=== PATIENT | female | born 1985 | race African-American/Black ===

== ENCOUNTER 2017-05-09 22:14 | Emergency (ER) | payer OTHER, SELFPAY ==
--- NOTE | 2017-05-09 22:43 | ER ---
Nurse's Notes [facility] Name: Georgette Patel Age: 32 yrs Sex: Female : 1985 Arrival Date: 05/09/2017 Time: 22:17 Bed 7 Private MD: Diagnosis: Burn of first degree of left thumb (nail) Presentation: 05/09 22:18 Presenting complaint: EMS states: "She was picked up at [facility]. Apparently she was tc3 screened over there and they told her she had to pay money to be seen so she called EMS to bring her here because now her arms are hurting too. VS stable 112/74, 98, 98.3, 100%, 22". Transition of care: Free Standing ER Waiting Room. Onset of symptoms is unknown. Care prior to arrival: MSE performed at [facility]. 22:18 Method Of Arrival: EMS: [facility] tc3 22:18 Acuity: GILES 5 tc3 Triage Assessment: 22:21 General: Appears in no apparent distress. comfortable, obese, unkempt, Behavior is tc3 calm, flat. Pain: Complains of pain in Pad of right thumb and index finger Pain currently is 8 out of 10 on a pain scale. Quality of pain is described as gnawing, Pain began 1 day ago. Is continuous. EENT: No deficits noted. No signs and/or symptoms were reported regarding the EENT system. Neuro: No deficits noted. Level of Consciousness is awake, alert, obeys commands, Oriented to person, place, time, situation. Cardiovascular: No deficits noted. Reports None Heart tones S1 S2 present Capillary refill < 3 seconds in bilateral fingers Patient's skin is warm and dry. Pulses are all present. Edema is absent. Respiratory: No deficits noted. Airway is patent Respiratory effort is even, unlabored, Respiratory pattern is regular, symmetrical, Breath sounds are clear bilaterally. GI: No deficits noted. No signs and/or symptoms were reported involving the gastrointestinal system. Abdomen is non-distended, Bowel sounds present X 4 quads. Abd is soft and non tender X 4 quads. : No deficits noted. No signs and/or symptoms were reported regarding the genitourinary system. Derm: No deficits noted. No signs and/or symptoms reported regarding the dermatologic system. Skin is intact, is healthy with good turgor, Skin is dry, Skin is normal, Skin temperature is warm. Musculoskeletal: No deficits noted. No signs and/or symptoms reported regarding the musculoskeletal system. Circulation, motion, and sensation intact. Range of motion: intact in all extremities. 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 Pneumococcal vaccine is not up to date, Flu vaccine is up to date. - Social history:: Smoking status: Patient uses tobacco products, smokes one pack cigarettes per day. Patient uses street drugs, [place]. Screenin:31 Abuse screen: Denies threats or abuse. Denies injuries from another. Nutritional tc3 screening: No deficits noted. Tuberculosis screening: No symptoms or risk factors identified. Fall Risk None identified. Assessment: 22:30 General: Appears in no apparent distress. uncomfortable, Behavior is calm, cooperative, ar4 Reports Pt. reports, "I smoked [place] and the goss burned my fingers, because I squeezed it in between my fingers.". Pain: Complains of pain in Pt. reports, "The pain is in my fingers, but now I have pain all over my body." Pain does not radiate. Pain currently is 9 out of 10 on a pain scale. Quality of pain is described as burning, Pain began 1 day ago. Is continuous, Alleviated by nothing. Neuro: Level of Consciousness is awake, alert, obeys commands, Oriented to person, place, time, situation, Professional Nurse are equal bilaterally Moves all extremities. Speech is normal, Facial symmetry appears normal, Pupils are PERRLA. Cardiovascular: Heart tones S1 S2 present Capillary refill < 3 seconds is brisk in left fingers Pulses are all present. Rhythm is regular Chest pain is denied. Respiratory: Airway is patent Breath sounds are clear bilaterally. GI: Abdomen is round non-distended, Bowel sounds present X 4 quads. Abd is soft and non tender X 4 quads. : No signs and/or symptoms were reported regarding the genitourinary system. EENT: No signs and/or symptoms were reported regarding the EENT system. Derm: Skin is healthy with good turgor, has blisters on right index finger; right thumb appears to have a mild, charring present Skin is dry, Skin is normal, Skin temperature is warm Reports Pt. reports, "I burned my fingers when I was smoking.". Musculoskeletal: No signs and/or symptoms reported regarding the musculoskeletal system. 22:58 Reassessment: Patient appears in no apparent distress at this time. No changes from tc3 previously documented assessment. Patient and/or family updated on plan of care and expected duration. Pain level reassessed. Patient is alert, oriented x 3, equal unlabored respirations, skin warm/dry/pink. Vital Signs: 22:20 BP 126 / 80; Pulse 104; Resp 16; Temp 98.3; Pulse Ox 100% ; Weight 78.93 kg; Height 4 tc3 ft. 11 in. (149.86 cm); Pain 8/10; 22:30 BP 118 / 78 RA Sitting (auto/); Pulse 96; Resp 15; Pulse Ox 100% on R/A; Pain 9/10; ar4 22:58 BP 120 / 76; Pulse 98; Resp 14; Pulse Ox 100% ; tc3 22:20 Body Mass Index 35.14 (78.93 kg, 149.86 cm) tc3 ED Course: 22:17 Patient arrived in ED. tc3 22:19 Benjamín Garcia MD is Attending Physician. tw4 22:20 Arm band placed on right wrist. tc3 22:25 Triage completed. tc3 22:31 Patient has correct armband on for positive identification. Bed in low position. Call tc3 light in reach. Side rails up X2. Pulse ox on. NIBP on. Warm blanket given. Verbal reassurance given. 22:37 Toya Montelongo, MISHA is Primary Nurse. tc3 23:01 No provider procedures requiring assistance completed. Patient did not have IV access tc3 during this emergency room visit. Administered Medications: 22:37 Drug: Ibuprofen 800 mg Route: PO; tc3 23:00 Follow up: Response: No adverse reaction; Pain is unchanged, physician notified tc3 22:37 Drug: Tylenol #3 (300 mg-30 mg) 1 tablet Route: PO; tc3 23:00 Follow up: Response: No adverse reaction; Pain is unchanged, physician notified tc3 Outcome: 22:42 Discharge ordered by . herson 23:00 Discharged to home ambulatory. tc3 23:00 Condition: stable 23:00 Discharge instructions given to patient, Instructed on discharge instructions, follow up and referral plans. medication usage, Demonstrated understanding of instructions, follow-up care, medications, Prescriptions given X 1. 23:01 Attestation : I concur with the documentation charted by ARELI Garcia. tc3 23:02 Patient left the ED. tc3 Signatures: Toya Montelongo RN RN tc3 Benjamín Garcia MD MD 4 Rocio Blackburn ar4
--- NOTE | 2017-05-09 22:43 | EDPHYS ---
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 Pneumococcal vaccine is not up to date, Flu vaccine is up to date. - Social history:: Smoking status: Patient uses tobacco products, smokes one pack cigarettes per day. Patient uses street drugs, [place]. Vital Signs: 22:20 BP 126 / 80; Pulse 104; Resp 16; Temp 98.3; Pulse Ox 100% ; Weight 78.93 kg; Height 4 tc3 ft. 11 in. (149.86 cm); Pain 8/10; 22:30 BP 118 / 78 RA Sitting (auto/); Pulse 96; Resp 15; Pulse Ox 100% on R/A; Pain 9/10; ar4 22:58 BP 120 / 76; Pulse 98; Resp 14; Pulse Ox 100% ; tc3 22:20 Body Mass Index 35.14 (78.93 kg, 149.86 cm) tc3 MDM: 22:19 Patient medically screened. tw4 Administered Medications: 22:37 Drug: Ibuprofen 800 mg Route: PO; tc3 23:00 Follow up: Response: No adverse reaction; Pain is unchanged, physician notified tc3 22:37 Drug: Tylenol #3 (300 mg-30 mg) 1 tablet Route: PO; tc3 23:00 Follow up: Response: No adverse reaction; Pain is unchanged, physician notified tc3 Disposition: 05/09/17 22:42 Discharged to Home. Impression: Burn of first degree of left thumb (nail). - Condition is Stable. - Discharge Instructions: Burn Care, [id number]. - Prescriptions for Ibuprofen 800 mg Oral Tablet - take 1 tablet by ORAL route every 8 hours As needed take with food; 30 tablet. - Medication Reconciliation Form, Thank You Letter, Antibiotic Education, Presription Opioid Use form. - Follow up: Private Physician; When: As needed; Reason: Recheck today's complaints, Continuance of care, Re-evaluation by your physician. - Problem is new. - Symptoms have improved. Addendum: 06/30/2017 10:56 Addendum: Pt is a 32 year old female that was seen at [facility] for a burn on her left t w4 thumb an hour ago. Pt states that now her left arm is hurting. Pt has no other symptoms at this time.. Addendum: ROS: Constitutional: negative for chills fever, malaise CV: negative for CP, MORTON, palpitation Resp: negative for SOB,MORTON Skin positive for burn of left thumb All other symptoms negative except as marked. Addendum: PE: General: well developed female in NAD CV: RRR, nl S1 S2 Resp: CTAB, no wheezing Ext: 2cm first degree burn dolar aspect of left thumb, mild tenderness, left arm negative for deformity edema, good ROM. Signatures: Toya Montelongo, RN RN tc3 Benjamín Garcia MD MD tw4
[2017-05-09] MEDS ORDERED: CODEINE 30MG/APAP 300MG TAB ONE (22:52)
[2017-05-09] MEDS ORDERED: IBUPROFEN 400 MG TAB ONE (22:52)
[2017-05-09 23:24] VITALS: TEMP 98.3; O2SAT 100
[2017-05-09 23:26] VITALS: BP 120/76
== END 2017-05-09 23:02 | disposition home or self-care (01) ==
LOC: ER 22:14
DX: T23.112A Burn of first degree of left thumb (nail), initial encounter (principal); X08.8XXA Exposure to other specified smoke, fire and flames, initial encounter; Y93.9 Activity, unspecified; Y92.9 Unspecified place or not applicable; Z88.5 Allergy status to narcotic agent; F17.210 Nicotine dependence, cigarettes, uncomplicated
CPT/HCPCS: 99284

== ENCOUNTER 2017-11-27 12:47 | Emergency (ER) | payer OTHER ==
--- OUTSIDE RECORDS SUMMARY | 2017-11-27 12:49 | XMS REPORT ---
:1985 [facility] Address 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 Allergies, Adverse Reactions, Alerts This patient has no known allergies or adverse reactions. Medications This patient has no known medications. Results Test Description Test Time Test Comments Text Results Atomic Results Result Comments RPR, Qual 2017-05-14 20:27:00 Test Item Value Reference Range Comments RPR (test code=RPR) Non-Reactive Non-Reactive Lipid [id number] 08:20:00 Test Item Value Reference Range Comments Cholesterol (test 116 mg/dL 0-200 code=CHOL) Triglycerides (test 107 mg/dL 9-200 code=TRIG) HDL (test code=HDL) 33 mg/dL 50-60 Chol/HDL (test 3.5 Ratio 0.0-4.4 code=CHOLPHDL) LDL, Calculated (test 62 0-130 (NOTE)RISK OF HEART code=LDLC) DISEASEPublished by [place] Heart AssociationAnalyte Optimal Boderline Increased RiskCHOL <200 200-239 >240TRIG <150 150-199 >200HDL Male: >60 <40HDL Female: >60 <50LDL <100 130-159 >160LDL NEAR OPTIMAL IS 100-129 VLDL (test code=VLDL) 21 mg/dL 5-40 LDL/HDL (test code=LDLPHDL) 2 Thyroid Stimulating Hormone (TSH)2017-05-14 08:20:00 Test Item Value Reference Range Comments TSH (test code=TSH) 1.96 mIU/mL 0.270-4.200 BHCG, Serum, [id number] 08:04:00 Test Item Value Reference Range Comments Preg Qual [Se] (test code=BSHCG) Negative Negative Thyroid Stimulating Hormone (TSH)2016-08-18 21:10:00 Test Item Value Reference Range Comments TSH (test code=TSH) 2.02 mIU/mL 0.270-4.200 RPR, [id number] 18:14:00 Test Item Value Reference Range Comments RPR (test code=RPR) Non-Reactive Non-Reactive BHCG, Serum, [id number] 14:56:00 Test Item Value Reference Range Comments Preg Qual [Se] (test code=BSHCG) Negative Negative Urinalysis [id number] 11:10:00 Test Item Value Reference Range Comments Color (test code=COLOR) Yellow Yellow,Straw,Pl yellow Clarity (test code=CLAR) Sl Cloudy Clear Specific [place] (test 1.030 1.001-1.035 code=SPGR) pH (test code=PH) 5.0 5.0-9.0 Ketone (test code=KET) Negative mg/dL Negative Glucose (test code=GLUCUR) Negative mg/dL Negative Protein (test code=PROT) 25 mg/dL Negative Bilirubin (test code=BILI) See IctoTest mg/dL Negative Occult Blood (test code=UDOB) Negative Negative Urobilinogen (test code=UROB) 0.2 mg/dL 0.2-1.0 Nitrite (test code=NIT) Negative Negative Leuk Esterase (test code=LEUK) Small Negative Ictotest (test code=ICTOTEST) Confirmed Negative Negative,Confirmed Negative Micros Exam (test code=MEXAM) Indicated Epithelial Cells (test 15-19 /LPF 0-30 code=EPI) WBC, Urine (test code=UWBC) 0-5 /HPF 0-5 RBC, Urine (test code=URBC) 0-3 /HPF 0-5 Mucous, Urine (test code=UMUC) Moderate /HPF Bacteria (test code=BACT) Few /HPF [id number] 10:48:00 Test Item Value Reference Range Comments Amphetamine (test code=AMPH) POSITIVE Negative For diagnostic purposes only, positive results should always be assessedin conjunctionwith the patient's medical history,clinical examination and otherfindings.To fulfill legal requirements, a more specific alternate chemical methodmust be used inorder to obtain a Confirmed analytical result. GC/MS is the preferred confirmatory method. Barbiturates (test code=SIGIFREDO) Negative Negative Benzodiazepine (test Negative Negative code=ASHLY) Cocaine (test code=COCA) Negative Negative Methadone (test code=MTHD) Negative Negative Opiates (test code=OPIA) Negative Negative PCP (test code=PCP) Negative Negative Propoxyphene (test Negative Negative code=PROPOX) THC (test code=THC) Negative Negative Alcohol/Ethanol, [id number] 10:25:00 Test Item Value Reference Range Comments Alcohol, Ethyl (test <0.01 g/dL 0.00-0.01 Intoxicated 0.080 g/dL or code=ETOH) more Comprehensive Metabolic [id number] 10:25:00 Test Item Value Reference Range Comments Sodium (test code=NA) 139 mmol/L 135-145 Potassium (test code=K) 3.3 mmol/L 3.5-5.1 Chloride (test code=CL) 99 mmol/L 98-105 Carbon Dioxide (test 28 mmol/L 22-29 code=CO2) Glucose (test code=GLU) 103 mg/dL 70-115 Blood Urea Nitrogen 11 mg/dL 6-20 (test code=BUN) Creatinine (test 0.9 mg/dL 0.5-0.9 code=CREAT) Calcium (test code=CA) 9.7 mg/dL 8.3-10.5 Prot Total (test 8.2 g/dL 6.4-8.3 code=TP) Albumin (test code=ALB) 5.0 g/dL 3.5-5.2 A/G Ratio (test 1.6 Ratio code=AGRATIO) Globulin (test 3.2 2.9-3.1 code=GLOB) Bili Total (test 0.4 mg/dL 0.1-0.9 code=TBIL) Alk Phos (test 92 U/L 35-104 code=APHOS) AST (test code=AST) 27 U/L 1-32 ALT (test code=ALT) 24 U/L 1-33 BUN/Creatinine Ratio 12.2 (test code=BCRATIO) Anion Gap (test 12 mmol/L 7-16 code=AGAP) Estimated GFR (test >60 mL/min/1.73m2 eGFR (estimated Glomerular code=GFR) Filtration Rate) is an estimated value,calculated from the patient's serum creatinine using the MDRD equation.It is NOT the patient's actual GFR. The eGFR provides a more clinicallyuseful measure of kidney disease than serum creatinine alone.This calculation takes sex and race into account, if the informationis provided. If the race is not provided, and the patient isAfrican-Bermudian, multiply by 1.212. If sex is not provided, and thepatient is female, multiply by 0.742. Results for patients <18 years ofage have not been validated by the MDRD study and should be interpretedwith caution.eGFR Result Interpretation:eGFR > or=60 is in the Normal RangeeGFR < 60 may mean kidney diseaseeGFR < 15 may mean kidney failureRanges recommended by the National Kidney Foundation,http://nkdep.nih .gov BHCG, Serum, [id number] 10:20:00 Test Item Value Reference Range Comments Preg Qual [Se] (test code=BSHCG) Negative Negative CBC with [id number] 10:16:00 Test Item Value Reference Range Comments WBC (test code=WBC) 6.2 K/cumm 4.4-10.5 RBC (test code=RBC) 5.27 M/cumm 3.75-5.20 Hemoglobin (test code=HGB) 13.2 gm/dL 12.2-14.8 Hematocrit (test code=HCT) 40.4 % 36.5-44.4 MCV (test code=MCV) 76.7 fL 80-100 MCH (test code=MCH) 25.1 pg 27.0-32.5 MCHC (test code=MCHC) 32.7 g/dL 32.0-37.5 RDW (test code=RDW) 16.6 % 11.5-14.5 Platelet Count (test code=PLTCT) 274 K/cumm 140-440 MPV (test code=MPV) 8.4 fL Diff Method (test code=DIFFM) Auto Neutrophil (test code=NEUT) 60.4 % 36-70 Lymphocyte (test code=LYMPH) 29.3 % 12-44 Monocyte (test code=MONO) 8.6 % 0-11 Eosinophil (test code=EOS) 1.4 % 0-7 Basophil (test code=BASO) 0.3 % 0-2 Neutro Abs (test code=ANEUT) 3.7 K/cumm 1.6-7.4 Lymph Abs (test code=ALYMPH) 1.8 K/cumm 0.5-4.6 [place] Abs (test code=AMONO) 0.5 K/cumm 0.0-1.2 Eos Abs (test code=AEOS) 0.09 K/cumm 0.00-0.74 Baso Abs (test code=ABASO) 0.0 K/cumm 0.00-0.21 Microcytosis (test code=MICRO) Slight Occult [id number] 16:39:00 Test Item Value Reference Range Comments Occ Bld (test code=HSOB) Negative Negative Culture, Blood [id number] 09:49:00Specimen: BloodCollected: 07/23/2016 17 :40 Status: Final Last Updated: 07/29/2016 09:49 (1) ER Bed D7 Culture Result (Final) (Final) No Growth After 5 DaysCulture, Blood [id number] 09:49:00Specimen: BloodCollected: 07/23/2016 17:40 Status: Final Last Updated: 07/29/2016 09:49 (1) ER Bed D7 Culture Result (Final) (Final) No Growth After 5 DaysBasic Metabolic [id number] 14:25:00 Test Item Value Reference Range Comments Sodium (test code=NA) 139 mmol/L 135-145 Potassium (test code=K) 3.0 mmol/L 3.5-5.1 Chloride (test code=CL) 100 mmol/L 98-105 Carbon Dioxide (test 27 mmol/L 22-29 code=CO2) Glucose (test code=GLU) 113 mg/dL 70-115 Blood Urea Nitrogen 11 mg/dL 6-20 (test code=BUN) Creatinine (test 0.7 mg/dL 0.5-0.9 code=CREAT) Calcium (test code=CA) 8.6 mg/dL 8.3-10.5 BUN/Creatinine Ratio 15.7 (test code=BCRATIO) Anion Gap (test 12 mmol/L 7-16 code=AGAP) Estimated GFR (test >60 mL/min/1.73m2 eGFR (estimated Glomerular code=GFR) Filtration Rate) is an estimated value,calculated from the patient's serum creatinine using the MDRD equation.It is NOT the patient's actual GFR. The eGFR provides a more clinicallyuseful measure of kidney disease than serum creatinine alone.This calculation takes sex and race into account, if the informationis provided. If the race is not provided, and the patient isAfrican-Bermudian, multiply by 1.212. If sex is not provided, and thepatient is female, multiply by 0.742. Results for patients <18 years ofage have not been validated by the MDRD study and should be interpretedwith caution.eGFR Result Interpretation:eGFR > or=60 is in the Normal RangeeGFR < 60 may mean kidney diseaseeGFR < 15 may mean kidney failureRanges recommended by the National Kidney Foundation,http://nkdep.nih .gov CBC with [id number] 14:10:00 Test Item Value Reference Range Comments WBC (test code=WBC) 5.2 K/cumm 4.4-10.5 RBC (test code=RBC) 4.22 M/cumm 3.75-5.20 Hemoglobin (test code=HGB) 10.6 gm/dL 12.2-14.8 READ BACK LAB VALUESVERIFIED BY REPEAT TESTINGrechecked & calledto horace,rn @ 0090, post fluids/mdj Hematocrit (test code=HCT) 32.4 % 36.5-44.4 MCV (test code=MCV) 76.9 fL 80-100 MCH (test code=MCH) 25.1 pg 27.0-32.5 MCHC (test code=MCHC) 32.7 g/dL 32.0-37.5 RDW (test code=RDW) 15.9 % 11.5-14.5 Platelet Count (test 213 K/cumm 140-440 code=PLTCT) MPV (test code=MPV) 9.1 fL Diff Method (test Auto code=DIFFM) Neutrophil (test 67.0 % 36-70 code=NEUT) Lymphocyte (test 24.9 % 12-44 code=LYMPH) Monocyte (test code=MONO) 5.4 % 0-11 Eosinophil (test code=EOS) 2.4 % 0-7 Basophil (test code=BASO) 0.3 % 0-2 Neutro Abs (test 3.5 K/cumm 1.6-7.4 code=ANEUT) Lymph Abs (test 1.3 K/cumm 0.5-4.6 code=ALYMPH) [place] Abs (test code=AMONO) 0.3 K/cumm 0.0-1.2 Eos Abs (test code=AEOS) 0.12 K/cumm 0.00-0.74 Baso Abs (test code=ABASO) 0.0 K/cumm 0.00-0.21 BHCG, Serum, [id number] 13:12:00 Test Item Value Reference Range Comments Preg Qual [Se] (test code=BSHCG) Negative Negative RPR, [id number] 12:30:00 Test Item Value Reference Range Comments RPR (test code=RPR) Non-Reactive Non-Reactive Thyroid Stimulating Hormone (TSH)2016-07-24 08:26:00 Test Item Value Reference Range Comments TSH (test code=TSH) 3.07 mIU/mL 0.270-4.200 Lactic Acid [id number] 18:32:00 Test Item Value Reference Range Comments Lactic Acid, Bld (test code=LAC) 1.5 mmol/L 0.5-1.9 Comprehensive Metabolic [id number] 15:48:00 Test Item Value Reference Range Comments Sodium (test code=NA) 144 mmol/L 135-145 Potassium (test code=K) 3.6 mmol/L 3.5-5.1 Chloride (test code=CL) 102 mmol/L 98-105 Carbon Dioxide (test 23 mmol/L 22-29 code=CO2) Glucose (test code=GLU) 128 mg/dL 70-115 Blood Urea Nitrogen 23 mg/dL 6-20 (test code=BUN) Creatinine (test 1.0 mg/dL 0.5-0.9 code=CREAT) Calcium (test code=CA) 10.1 mg/dL 8.3-10.5 Prot Total (test 8.2 g/dL 6.4-8.3 code=TP) Albumin (test code=ALB) 4.6 g/dL 3.5-5.2 A/G Ratio (test 1.3 Ratio code=AGRATIO) Globulin (test 3.6 2.9-3.1 code=GLOB) Bili Total (test 0.5 mg/dL 0.1-0.9 code=TBIL) Alk Phos (test 96 U/L 35-104 code=APHOS) AST (test code=AST) 25 U/L 1-32 ALT (test code=ALT) 30 U/L 1-33 BUN/Creatinine Ratio 23.0 (test code=BCRATIO) Anion Gap (test 19 mmol/L 7-16 code=AGAP) Estimated GFR (test >60 mL/min/1.73m2 eGFR (estimated Glomerular code=GFR) Filtration Rate) is an estimated value,calculated from the patient's serum creatinine using the MDRD equation.It is NOT the patient's actual GFR. The eGFR provides a more clinicallyuseful measure of kidney disease than serum creatinine alone.This calculation takes sex and race into account, if the informationis provided. If the race is not provided, and the patient isAfrican-B[place]ian, multiply by 1.212. If sex is not provided, and thepatient is female, multiply by 0.742. Results for patients <18 years ofage have not been validated by the MDRD study and should be interpretedwith caution.eGFR Result Interpretation:eGFR > or=60 is in the Normal RangeeGFR < 60 may mean kidney diseaseeGFR < 15 may mean kidney failureRanges recommended by the National Kidney Foundation,http://nkdep.nih .gov CBC with [id number] 15:36:00 Test Item Value Reference Range Comments WBC (test code=WBC) 8.1 K/cumm 4.4-10.5 RBC (test code=RBC) 5.29 M/cumm 3.75-5.20 Hemoglobin (test code=HGB) 13.3 gm/dL 12.2-14.8 Hematocrit (test code=HCT) 40.5 % 36.5-44.4 MCV (test code=MCV) 76.6 fL 80-100 MCH (test code=MCH) 25.2 pg 27.0-32.5 MCHC (test code=MCHC) 33.0 g/dL 32.0-37.5 RDW (test code=RDW) 16.3 % 11.5-14.5 Platelet Count (test code=PLTCT) 310 K/cumm 140-440 MPV (test code=MPV) 8.9 fL Diff Method (test code=DIFFM) Auto Neutrophil (test code=NEUT) 67.9 % 36-70 Lymphocyte (test code=LYMPH) 22.8 % 12-44 Monocyte (test code=MONO) 7.8 % 0-11 Eosinophil (test code=EOS) 1.2 % 0-7 Basophil (test code=BASO) 0.3 % 0-2 Neutro Abs (test code=ANEUT) 5.5 K/cumm 1.6-7.4 Lymph Abs (test code=ALYMPH) 1.9 K/cumm 0.5-4.6 [place] Abs (test code=AMONO) 0.6 K/cumm 0.0-1.2 Eos Abs (test code=AEOS) 0.10 K/cumm 0.00-0.74 Baso Abs (test code=ABASO) 0.0 K/cumm 0.00-0.21
[2017-11-27 13:39] LABS: Absolute Lymphocytes (CBC) 1.9 K/uL (0.7-4.9); Absolute Monocytes 0.5 K/uL (0.1-1.3); Absolute Neutrophil 4.6 K/uL (1.8-8.0); Basophils % 0.6 % (0-1.3); Eosinophils % 0.2 % (0-4.4); Hematocrit 36.3 % (36.0-45.0); Lymphocytes % 27.3 % (15.3-44.8); MCH 23.1 pg (27.0-35.0); MPV 8.8 fL (7.6-11.3); Monocytes % 7.1 % (3.3-12.3); RBC Red Blood Cell Count 5.18 M/uL (3.86-4.86)
[2017-11-27 13:43] LABS: Protime INR 1.28
[2017-11-27 14:00] LABS: ALT/SGPT 17 U/L (12-78); AST/SGOT 21 U/L (15-37); Albumin 4.2 g/dL (3.4-5.0); Alkaline Phosphatase 107 U/L (45-117); BUN Blood Urea Nitrogen 11 mg/dL (7-18); Bicarbonate 25 mmol/L (21-32); Bilirubin Direct 0.2 mg/dL (0-0.2); Bilirubin Total 0.4 mg/dL (0.2-1.0); Glucose Level 113 mg/dL (74-106); Protein, Total 9.2 g/dL (6.4-8.2); Sodium Level 137 mmol/L (136-145)
[2017-11-27 15:43] LABS: Barbiturates NEGATIVE (NEGATIVE); Benzodiazepines NEGATIVE (NEGATIVE); Cocaine NEGATIVE (NEGATIVE); METHAMPHETAM NEGATIVE (NEGATIVE); Methadone NEGATIVE (NEGATIVE); Opiates NEGATIVE (NEGATIVE); Phencyclidine NEGATIVE (NEGATIVE); THC Cannibis NEGATIVE (NEGATIVE)
[2017-11-27] MEDS ORDERED: POTASSIUM CL SA 10 MEQ TAB PO ONE (19:05)
[2017-11-27] MEDS ORDERED: LORazepam 2 MG/ML VIAL ONE ×2 (19:16→19:39)
[2017-11-27 19:39] LABS: Urine Blood TRACE (NEG); Urine Glucose NEGATIVE (NEG); Urine Protein 2+ (NEG); Urine pH 5.5 (5.0-7.0)
[2017-11-27] MEDS ORDERED: ZIPRASIDONE MESYLA 20 MG/VIAL IM ONE (19:39)
[2017-11-27] MEDS ORDERED: WATER FOR INJ,STERILE 10 ML ONE (19:39)
--- NOTE | 2017-11-28 06:46 | EKG ---
Test Date: 2017-11-27 Test Time: 13:41:45 Associate Professor Of Medicine: ABRAN MEASUREMENT RESULTS: Intervals: Rate: 103 WI: 126 QRSD: 82 QT: 360 QTc: 471 [place]: P: 67 WI: 126 QRS: 68 T: 41 INTERPRETIVE STATEMENTS: Sinus tachycardia Otherwise normal ECG Compared to ECG 05/12/2017 20:37:16 Sinus rhythm no longer present Atrial premature complex(es) no longer present Myocardial infarct finding no longer present Electronically Signed On 11-28-17 06:45:02 CDT by Evan Shirley
[2017-11-28] MEDS ORDERED: ZIPRASIDONE MESYLA 20 MG/VIAL IM ONE (18:21)
--- NOTE | 2017-11-29 21:16 | EDPHYS ---
Physician Documentation [facility] Name: Georgette Patel Age: 32 yrs Sex: Female : 1985 Arrival Date: 11/27/2017 Time: 12:52 Bed External Waiting Private MD: ED Physician Kian Calvert HPI: 11/27 13:13 This 32 yrs old Black Female presents to ER via [employer] with complaints of jmm Psych Problem. 13:13 The patient presents to the emergency department with psychosis, has experienced jmm auditory hallucinations, voices are telling patient to commit sucide. Onset: The symptoms/episode began/occurred today. This is a 32 year old female with a history of previous episodes of suicidal ideation that presents to the ED with complaints of auditory hallucinations telling her to harm herself. According to the mental health deputy the patient's mother told them the patient was hearing auditory hallucinations telling her to harm herself. The patient currently does not answer questions in the ED. Historical: - Allergies: 14:48 Hydrocodone-Acetaminophen; ss - PMHx: 14:48 Anxiety; Depression; Schizophrenia; PTSD; ss - PSHx: 14:48 ; ss - Immunization history:: Adult Immunizations unknown. - Social history:: Smoking status: unknown. - Ebola Screening: : Patient negative for fever greater than or equal to 101.5 degrees Fahrenheit, and additional compatible Ebola Virus Disease symptoms Patient denies exposure to infectious person Patient denies travel to an Ebola-affected area in the 21 days before illness onset No symptoms or risks identified at this time. ROS: 13:13 Constitutional: Negative for fever, chills, and weight loss. jmm 13:13 Psych: Positive for auditory hallucinations. 14:50 Unable to obtain ROS due to Patient is withdrawn. jmm Exam: 13:13 Head/Face: atraumatic. Eyes: EOMI, no conjunctival erythema appreciated ENT: Moist jmm Mucus Membranes Chest/axilla: Normal chest wall appearance and motion. Cardiovascular: Regular rate and rhythm. No edema appreciated Respiratory: Normal respirations, no respiratory distress appreciated Abdomen/GI: Non distended, soft 13:13 Constitutional: The patient appears in no acute distress, alert, awake. 13:13 Neuro: Orientation: is normal, Mentation: is normal, Memory: is normal, Gait: is steady. 13:13 Psych: Behavior/mood is uncooperative, depressed. Vital Signs: 13:00 BP 127 / 90; Pulse 102; Resp 18; Temp 97.9(O); Pulse Ox 100% on R/A; mh5 16:24 BP 131 / 89; Pulse 89; Resp 18; Temp 98.5(O); Pulse Ox 99% on R/A; Pain 0/10; em 20:08 BP 128 / 96; Pulse 118; Resp 18; Pulse Ox 99% ; hb1 21:03 BP 106 / 81; Pulse 113; Resp 24; Pulse Ox 98% on R/A; hb1 21:35 BP 105 / 77; Pulse 97; Resp 20; Pulse Ox 100% on R/A; Pain 0/10; hb1 22:03 BP 111 / 74; Pulse 107; Resp 22; Temp 97.2; Pulse Ox 100% on R/A; Pain 0/10; hb1 23:01 BP 107 / 71; Pulse 97; Resp 22; Temp 97.2; Pulse Ox 100% on R/A; Pain 0/10; hb1 11/28 00:02 BP 127 / 93; Pulse 90; Resp 20; Temp 97.6; Pulse Ox 100% on R/A; Pain 0/10; hb1 01:16 BP 106 / 75; Pulse 100; Resp 20; Pulse Ox 100% on R/A; Pain 0/10; hb1 03:18 BP 101 / 81 Supine; Pulse 96 MON; Resp 16 S; Pulse Ox 100% on R/A; ds4 05:47 BP 117 / 86 Supine; Pulse 104 MON; Resp 18 S; Pulse Ox 100% on R/A; ds4 07:58 BP 121 / 92; Pulse 108; Resp 18; Temp 98.1(TE); Pulse Ox 100% on R/A; mh5 11:15 BP 105 / 68; Pulse 102; Resp 18; Pulse Ox 100% on R/A; mh5 15:05 BP 112 / 83; Pulse 107; Resp 18; Temp 97.6; Pulse Ox 100% ; Pain 0/10; ag2 20:00 BP 102 / 64 RA Supine (auto/); Pulse 75 MON; Resp 18 S; Temp 97.7(TE); Pulse Ox 100% on ms1 R/A; 11/29 00:00 BP 109 / 73 LA Supine (auto/); Pulse 85 MON; Resp 18 S; Temp 97.3(TE); Pulse Ox 98% on ms1 R/A; 04:00 BP 113 / 94 Supine; Pulse 110; Resp 20; Temp 97.2(T); Pulse Ox 98% on R/A; ms1 08:00 BP 124 / 85; Pulse 98; Resp 16; Pulse Ox 100% on R/A; dh3 11:47 BP 130 / 84; Pulse 100; Resp 18; Pulse Ox 100% ; kp2 14:53 BP 108 / 70; Pulse 98; Resp 17; Pulse Ox 100% ; kw2 18:35 BP 130 / 89; Pulse 98; Resp 17; Pulse Ox 100% ; kw2 11/28 05:47 Pt sleeping. ds4 MDM: 11/27 13:13 Patient medically screened. jennifer 14:50 Data reviewed: vital signs, nurses notes. Counseling: I had a detailed discussion with jennifer the patient and/or guardian regarding: the historical points, exam findings, and any diagnostic results supporting the discharge/admit diagnosis. 14:50 ED course: RN confirmed patient agrees to be further evaluated at psychiatric facility. jennifer . ED course: Patient appears to be high risk for SI due to reported command hallucinations along with history of schizophrenia with previous episodes of SI. . 22:14 Transition of care: After a detail discussion of the patient's case, care is jennifer transferred to [facility]. 11/28 15:43 ED course: VSS. Patient sleeping in exam room. cp 11/27 13:14 Order name: Acetaminophen; Complete Time: 14:07 [facility] 11/27 13:14 Order name: Basic Metabolic Panel; Complete Time: 14:07 [facility] 11/27 13:14 Order name: CBC with Diff; Complete Time: 13:56 [facility] 11/27 13:14 Order name: ETOH Level; Complete Time: 14:07 [facility] 11/27 13:14 Order name: Hepatic Function; Complete Time: 14:07 [facility] 11/27 13:14 Order name: PT-INR; Complete Time: 13:56 [facility] 11/27 13:14 Order name: Ptt, Activated; Complete Time: 13:56 [facility] 11/27 13:14 Order name: Salicylate; Complete Time: 13:56 [facility] 11/27 13:14 Order name: Urine Drug Screen; Complete Time: 16:10 [facility] 11/27 15:02 Order name: Urine Dipstick--Ancillary (enter results); Complete Time: 20:08 11/27 15:03 Order name: Urine --Ancillary (enter results); Complete Time: 20:08 11/27 13:14 Order name: EKG; Complete Time: 13:14 [facility] 11/27 13:14 Order name: EKG - Nurse/Tech; Complete Time: 13:47 [facility] 11/27 13:14 Order name: IV Saline Lock; Complete Time: 13:30 [facility] 11/27 13:14 Order name: Labs collected and sent; Complete Time: 13:19 [facility] 11/27 13:14 Order name: Urine Dipstick-Ancillary (obtain specimen); Complete Time: 14:18 [facility] 11/27 14:20 Order name: Diet Regular; Complete Time: 14:20 11/28 07:37 Order name: Diet Regular; Complete Time: 07:37 5 11/28 10:46 Order name: Diet Regular; Complete Time: 10:46 5 11/29 07:17 Order name: Diet Regular; Complete Time: 07:18 dh3 11/29 11:27 Order name: Diet Finger Food; Complete Time: 11:28 bd 11/29 16:58 Order name: Diet Finger Food; Complete Time: 16:58 hj Administered Medications: 11/27 19:12 Drug: Potassium Chloride 40 mEq Route: PO; tl2 11/28 07:01 Follow up: Response: No adverse reaction em 11/27 19:13 Drug: Ativan 1 mg Route: IVP; Site: right antecubital; tl2 11/28 07:00 Follow up: Response: No adverse reaction em 11/27 19:41 Drug: Geodon 20 mg Route: IM; Site: left deltoid; tl2 11/28 07:01 Follow up: Response: No adverse reaction; Marked relief of symptoms em 11/27 19:41 Drug: Ativan 2 mg Route: IVP; Site: right antecubital; tl2 11/28 07:01 Follow up: Response: No adverse reaction; Marked relief of symptoms em 18:50 Drug: Geodon 20 mg Route: IM; Site: left deltoid; em 19:15 Follow up: Response: No adverse reaction; Anxiety decreased cc3 Disposition: 11/29 21:11 Co-signature as Attending Physician, Kian Calvert MD. pkl Disposition: 11/29/17 21:14 Transfer ordered to Psych Facility. Diagnosis is Depression. Hallucination Suicidal ideation. - Reason for transfer: Higher level of care. - Accepting physician is Dr. Fuentes. - Condition is Stable. - Problem is new. - Symptoms are unchanged. Signatures: Dispatcher [employer] EDMS Kian Calvert MD MD pkl Frankie Joyce PA PA jmm Munoz, Edgar, CONCRETE PAVER CONCRETE PAVER em Marianne Cho RN RN ss Rocio Sheikh RN RN ak1 Jon Arenas PA PA cp Knox, Taylor RN RN tl2 Brittany Spear cc3 Corrections: (The following items were deleted from the chart) 11/27 14:50 13:13 Unable to obtain ROS due to patient being uncooperative, [facility] 11/29 21:20 21:14 11/29/2017 21:14 Transfer ordered to Psych Facility. Diagnosis is Depression. pkl Hallucination Suicidal ideation. Reason for transfer: Higher level of care. Accepting physician is Dr. Shore. Condition is Stable. Problem is new. Symptoms are unchanged. pkl 21:47 21:20 11/29/2017 21:14 Transfer ordered to Psych Facility. Diagnosis is Depression. ak1 Hallucination Suicidal ideation. Reason for transfer: Higher level of care. Accepting physician is Dr. Fuentes. Condition is Stable. Problem is new. Symptoms are unchanged. pkl
--- NOTE | 2017-11-29 21:16 | ER ---
Nurse's Notes [facility] Name: Georgette Patel Age: 32 yrs Sex: Female : 1985 Arrival Date: 11/27/2017 Time: 12:52 Bed External Waiting Private MD: Diagnosis: Depression. Hallucination Suicidal ideation Presentation: 11/27 12:52 Transition of care: patient was not received from another setting of care. Onset of ss symptoms is unknown. Risk Assessment: Do you want to hurt yourself or someone else? Patient reports no desire to harm self or others. Initial Sepsis Screen: Does the patient meet any 2 criteria? No. Patient's initial sepsis screen is negative. Does the patient have a suspected source of infection? No. Patient's initial sepsis screen is negative. Care prior to arrival: None. 12:52 Method Of Arrival: Law Enforcement: mental health deputy 12:52 Acuity: GILES 2 ss Historical: - Allergies: 14:48 Hydrocodone-Acetaminophen; ss - PMHx: 14:48 Anxiety; Depression; Schizophrenia; PTSD; ss - PSHx: 14:48 ; ss - Immunization history:: Adult Immunizations unknown. - Social history:: Smoking status: unknown. - Ebola Screening: : Patient negative for fever greater than or equal to 101.5 degrees Fahrenheit, and additional compatible Ebola Virus Disease symptoms Patient denies exposure to infectious person Patient denies travel to an Ebola-affected area in the 21 days before illness onset No symptoms or risks identified at this time. Screenin:33 Abuse screen: Denies threats or abuse. Nutritional screening: No deficits noted. em Tuberculosis screening: No symptoms or risk factors identified. Fall Risk None identified. Assessment: 13:15 General: Appears in no apparent distress. comfortable, Behavior is flat, mental health em deputy brought pt with CHIDI because mother stated that pt had auditory hallucinations that told her to hurt herself, pt currently not answering questions. Pain: Denies pain. Neuro: Level of Consciousness is awake, alert, obeys commands, Oriented to person, place, time. Cardiovascular: Capillary refill < 3 seconds Patient's skin is warm and dry. Respiratory: Airway is patent Respiratory effort is even, unlabored, Respiratory pattern is regular, symmetrical. GI: Abdomen is round non-distended. Derm: Skin is intact, Skin is pink, warm \T\ dry. Musculoskeletal: Range of motion: intact in all extremities. 13:30 Reassessment: pt attempted to walked out of the ED, pt not talking to staff, code em purple called, pt escorted back to room without incident, pt being cooperative and let staff do EKG. 14:46 Reassessment: Spoke with [facility] visitor services representative, Hailee, who states that beds ss are available. Patient has been notified and is willing to go to [facility] for further evaluation. 15:12 Reassessment: Patient appears in no apparent distress at this time. Patient and/or em family updated on plan of care and expected duration. Pain level reassessed. Patient is alert, oriented x 3, equal unlabored respirations, skin warm/dry/pink. dinner tray given to pt. 16:21 Reassessment: Patient appears in no apparent distress at this time. Patient and/or em family updated on plan of care and expected duration. Pain level reassessed. Patient is alert, oriented x 3, equal unlabored respirations, skin warm/dry/pink. pt standing at the doorway, pt has not ate anything from dinner tray, pt request ice water. 16:27 Reassessment: Called [facility] [place]. Rep states that they are reviewing chart now and ss will take 15- 20 more minutes. 17:07 Reassessment: [facility] admission rep states that patient has been denied ss because insurance is out of network. Attempted to call Business rep, Hailee Cobb as requested, left VM. 17:09 Reassessment: Patient appears in no apparent distress at this time. Patient and/or em family updated on plan of care and expected duration. Pain level reassessed. Patient is alert, oriented x 3, equal unlabored respirations, skin warm/dry/pink. 18:30 Reassessment: Patient appears in no apparent distress at this time. Patient and/or em family updated on plan of care and expected duration. Pain level reassessed. Patient is alert, oriented x 3, equal unlabored respirations, skin warm/dry/pink. 19:42 Reassessment: Pt became increasingly agitated and tried to leave room by pushing past tl2 security and nurses. notified, order for Meet and Tabby, see MAR. Pt was cooperative and allowed me to administer medication. 09/30 07:15 Reassessment: Patient appears in no apparent distress at this time. Patient and/or em family updated on plan of care and expected duration. Pain level reassessed. Patient is alert, oriented x 3, equal unlabored respirations, skin warm/dry/pink. pt resting with eyes closed. 09:43 Reassessment: Patient appears in no apparent distress at this time. Patient and/or em family updated on plan of care and expected duration. Pain level reassessed. Patient is alert, oriented x 3, equal unlabored respirations, skin warm/dry/pink. 11:00 Reassessment: Patient appears in no apparent distress at this time. Patient and/or em family updated on plan of care and expected duration. Pain level reassessed. Patient is alert, oriented x 3, equal unlabored respirations, skin warm/dry/pink. pt currently denies SI, request for the TV to be turned on. 13:33 Reassessment: Patient appears in no apparent distress at this time. Patient and/or em family updated on plan of care and expected duration. Pain level reassessed. Patient is alert, oriented x 3, equal unlabored respirations, skin warm/dry/pink. pt request to take a shower to help feel better and freshen up, pt taken to staff shower with sitter at bedside, pt returned to room without incident. 15:12 Reassessment: Patient appears in no apparent distress at this time. Patient and/or em family updated on plan of care and expected duration. Pain level reassessed. Patient is alert, oriented x 3, equal unlabored respirations, skin warm/dry/pink. 17:00 Reassessment: Patient appears in no apparent distress at this time. Patient and/or em family updated on plan of care and expected duration. Pain level reassessed. Patient is alert, oriented x 3, equal unlabored respirations, skin warm/dry/pink. 17:50 Reassessment: pt attempted to walk out and stated that they wanted to be discharged, pt em escorted back into room, currently denies SI/HI or auditory hallucinations, provider notified, new medication orders received, pt in bed resting watching TV, appears in no apparent distress. 18:50 Reassessment: pt getting restless and request to leave, provider notified, medication em given. 19:15 Reassessment: Patient appears in no apparent distress at this time. Patient and/or cc3 family updated on plan of care and expected duration. Pain level reassessed. Patient is alert, oriented x 3, equal unlabored respirations, skin warm/dry/pink. with IV cannula gauge 22 at the right ACV saline locked. Patient is calm and not restless now, lying in bed comfortably. 20:30 Reassessment: Patient appears in no apparent distress at this time. patient comfortably cc3 sleeping, kept undisturbed. 21:13 Reassessment: Patient appears in no apparent distress at this time. patient comfortably cc3 sleeping, kept undisturbed. 22:30 Reassessment: Patient appears in no apparent distress at this time. patient comfortably cc3 sleeping, kept undisturbed. 23:30 Reassessment: Patient appears in no apparent distress at this time. patient comfortably cc3 sleeping, kept undisturbed. 11/29 00:05 Reassessment: Patient appears in no apparent distress at this time. Patient and/or cc3 family updated on plan of care and expected duration. Pain level reassessed. Patient is alert, oriented x 3, equal unlabored respirations, skin warm/dry/pink. 01:30 Reassessment: Patient appears in no apparent distress at this time. Patient comfortably cc3 sleeping, kept undisturbed. 02:20 Reassessment: Patient appears in no apparent distress at this time. Patient comfortably cc3 sleeping, kept undisturbed. 03:15 Reassessment: Patient appears in no apparent distress at this time. patient comfortably cc3 sleeping, kept undisturbed. 04:31 Reassessment: Patient appears in no apparent distress at this time. patient comfortably cc3 sleeping, kept undisturbed. 05:20 Reassessment: Patient appears in no apparent distress at this time. patient comfortably cc3 sleeping, kept undisturbed. 06:46 Reassessment: Patient appears in no apparent distress at this time. patient comfortably cc3 sleeping, kept undisturbed. 07:00 General: Appears in no apparent distress. comfortable, Behavior is calm, currently hj resting comfortably in bed; . Pain: Denies pain. Neuro: Level of Consciousness is awake, alert, obeys commands, Oriented to person, place, time. Cardiovascular: Capillary refill < 3 seconds Patient's skin is warm and dry. Respiratory: Airway is patent Respiratory effort is even, unlabored, Respiratory pattern is regular, symmetrical. GI: Abdomen is round non-distended. : No signs and/or symptoms were reported regarding the genitourinary system. EENT: No signs and/or symptoms were reported regarding the EENT system. Derm: Skin is intact, Skin is. Musculoskeletal: Range of motion: intact in all extremities. 08:50 Reassessment: pt with sitter went to 5th floor for a shower;. hj 10:00 Reassessment: Patient and/or family updated on plan of care and expected duration. Pain hj level reassessed. Patient is alert, oriented x 3, equal unlabored respirations, skin warm/dry/pink. pt is trying to escape per MD eileen notified;. 10:28 Reassessment: 1022: patient tried to escape and code purple was called. patient was kp2 convinced togo back to her room. 11:20 Reassessment: Patient and/or family updated on plan of care and expected duration. Pain hj level reassessed. Patient is alert, oriented x 3, equal unlabored respirations, skin warm/dry/pink. resting comfortably in bed; with sitter;. 13:25 Reassessment: resting comfortably, new sitter on board;. hj 14:30 Reassessment: resting comfortably;. hj 15:30 Reassessment: resting comfortably in bed;. hj 16:29 Reassessment: Patient and/or family updated on plan of care and expected duration. Pain hj level reassessed. Patient is alert, oriented x 3, equal unlabored respirations, skin warm/dry/pink. provider in room;. 17:37 Reassessment: [facility] that still on waiting list. ss 17:37 Reassessment: awaiting for mental health deputy to return phone call. ss 18:05 Reassessment: pt belonging found underneath Pod 2 nurses desk; pt updated and told waiting for a phone call from [facility];. 18:48 Reassessment: belongings checklist done; belongings with security;. Reassessment: per veneer jointer, veneer jointer Silvia, called and spoke with mental health deputy, mental health deputy to write the actual warrant, once warrant is available, [facility] to call [facility] for phone number for the doc to doc report and then to call back again for room number;. 19:24 Reassessment: Patient appears in no apparent distress at this time. waiting for [address] to return call. 19:37 Reassessment: pt refusing to return to room and trying to leave, security contacted via [facility] radio waiting on response. 20:56 Reassessment: report given to Carmen Martinez at [phone] for room 3016A. [facility] Psych: 11/27 13:15 Subjective: Patient's mood is sad. Objective: Patient is uncooperative, Speech is soft, em Affect is flat. Interventions: Removed personal items and placed in bag. Patient placed in hospital gown. Searched person for dangerous items. Suicide Risk Assessment: Sad Person Scale: Sex of patient: Female: Score 0 points. Age of patient: Score 1 point if patient 15-34. Depression: Score 1 point if signs of depression are present. Previous Attempt: Score 1 point if patient has previously attempted suicide. Substance Abuse: Score 0 point if patient does not abuse alcohol or drugs. Rational Thinking: Score 1 point if patient is lacking rational thinking. Social Support: Score 1 point if social support is lacking and/or unavailable. Organized Plan: Score 0 if patient did not have an organized plan in place. Relationship: Score 1 point if patient is , , , or for a single male Chronic Sickness: Score 1 point if patient has illness, chronic, debilitating, or severe. TOTAL POINTS: If total points are 7-10, the proposed clinical action is to hospitalize or commit. Implement suicide precautions. Safety Checks: Personal items have been removed. Door is open. No visitors are present at this time. Pt denies substance abuse. Commitment: Patient will be a voluntary commitment. 19:06 Safety Checks: Personal items have been removed. Door is open. No visitors are present hb1 at this time. 19:53 Safety Checks: Personal items have been removed. Door is open. No visitors are present hb1 at this time. \T\1915Hr, pt tried to go out from the room, systems security consultant Yoni in. eventually pt took medicine/ KCl pills given by RNs, safety checks done, items have been removed door remains open, no visitor present, \T\1930Hr, pt peed and wet her gown, and was changed. safety checks done, door remains open scurity officer still present, \T\ 1940Hr, pt still trying to get out from ;the room., combative. RN Elza gave meds to calm her down. placed on bed comfortably. side rails up x 2. VS as followsHR- 118bpm, RR- 18bpm, BP- 128/96 SaO2 99% on room air. pt is now sleeping, safety checks done, Personal items removed, no visitor, door open, systems security consultant Yoni left. 20:11 Safety Checks: Personal items have been removed. Door is open. No visitors are present hb1 at this time. pt is sleeping on stretcher comfortably side rails up x2. 20:31 Safety Checks: Personal items have been removed. Door is open. No visitors are present hb1 at this time. pt is sleeping placed on high back rest, arousable and coughing reflex noted when bed was adjusted then goes back to sleep again. attached to monitor, HR-124bpm, RR- 22bpm, BP- 112/75 SaO2 94% on room air. 20:43 Safety Checks: Personal items have been removed. Door is open. No visitors are present hb1 at this time. pt remains sleeping SaO2 94% HR- 125bpm, RR- 24bpm, BP-108/72. 20:59 Safety Checks: Personal items have been removed. Door is open. No visitors are present hb1 at this time. pt is sleeping, HR- 113bpm, RR- 24bpm, SaO2 99% on room air BP- 106/81. 21:17 Safety Checks: Personal items have been removed. Door is open. No visitors are present hb1 at this time. HR- 106bpm, RR- 22bpm, SaO2 100% on room air, BP- 102/81. pt is sleeping. 21:32 Safety Checks: Personal items have been removed. Door is open. No visitors are present hb1 at this time. pt is sleeping, SaO2 99% on room air, ;HR- 98bpm, RR- 20bpm, BP- 105/77. 21:47 Safety Checks: Personal items have been removed. Door is open. No visitors are present hb1 at this time. 22:02 Safety Checks: Personal items have been removed. Door is open. No visitors are present hb1 at this time. still having sitter, pt is sleeping, saturating well on room air. 22:14 Safety Checks: Personal items have been removed. Door is open. No visitors are present hb1 at this time. having sitter, pt remains sleeping. 22:30 Safety Checks: Personal items have been removed. Door is open. No visitors are present hb1 at this time. pt is sleeping and turned to left side, SaO2 100% on room air, HR- 95bpm, RR-20bpm. 22:44 Safety Checks: Personal items have been removed. Door is open. No visitors are present hb1 at this time. sitter present ; yes. 22:59 Safety Checks: Personal items have been removed. Door is open. No visitors are present hb1 at this time. sitter present: yes. pt still sleeping saturating well on room air. 23:14 Safety Checks: Personal items have been removed. Door is open. No visitors are present hb1 at this time. sitter present: yes. pt is still sleeping. 23:32 Safety Checks: Personal items have been removed. Door is open. No visitors are present hb1 at this time. sitter present: yes. Pt is sleeping SaO2 100% on Room air, RR- 20bpm, HR- 99bpm. 23:44 Safety Checks: Personal items have been removed. Door is open. No visitors are present hb1 at this time. sitter present: yes, pt remains sleeping. 23:58 Safety Checks: Personal items have been removed. Door is open. No visitors are present hb1 at this time. sitter present: yes, pt still sleeping, HR- 90bpm, RR- 20bpm, SaO2 100% on room air BP- 127/93. 11/28 00:19 Safety Checks: Personal items have been removed. Door is open. No visitors are present hb1 at this time. sitter present yes. pt is sleeping . saturating well on room air 100%. 00:29 Safety Checks: Personal items have been removed. Door is open. No visitors are present hb1 at this time. sitter present: yes. 00:41 Safety Checks: Personal items have been removed. Door is open. No visitors are present hb1 at this time. pt is asleep, still having sitter. 00:59 Safety Checks: Personal items have been removed. Door is open. No visitors are present hb1 at this time. sitter present: yes, pt is sleeping. 01:14 Safety Checks: Personal items have been removed. Door is open. No visitors are present hb1 at this time. sitter present: yes. pt is sleeping SaO2 100% on room air, RR- 20 bpm, HR- 100 bpm, BP- 106/75. 01:28 Safety Checks: Personal items have been removed. Door is open. No visitors are present hb1 at this time. 14:46 Safety Checks: Personal items have been removed. Door is open. No visitors are present ag2 at this time. pt laying in bed with eyes closed. breathing even and unlabored. no needs at this time. 15:06 Safety Checks: Personal items have been removed. Door is open. No visitors are present ag2 at this time. 15:31 Safety Checks: Personal items have been removed. Door is open. No visitors are present ag2 at this time. Pt showing no s/s of distress. 15:49 Safety Checks: Personal items have been removed. Door is open. Visitors are present. ag2 15:59 Safety Checks: Personal items have been removed. Door is open. Visitors are present. ag2 patient laying in bed with no s/s of distress. pt stated having no needs at this time. 16:19 Safety Checks: Personal items have been removed. Door is open. Visitors are present. ag2 16:36 Safety Checks: Personal items have been removed. Door is open. No visitors are present ag2 at this time. Patient laying in bed with no s/s of distress. pt watching tv. 16:46 Safety Checks: Personal items have been removed. Door is open. No visitors are present ag2 at this time. pt laying in bed watching tv. no s/s of distres. 17:02 Safety Checks: Personal items have been removed. Door is open. No visitors are present ag2 at this time. patient laying in bed with no s/s of distress. 17:19 Safety Checks: Personal items have been removed. Door is open. Visitors are present. ag2 17:38 Safety Checks: Personal items have been removed. Door is open. No visitors are present ag2 at this time. pt sitting up in bed eating dinner, no s/s of distress. 17:49 Safety Checks: Personal items have been removed. Door is open. No visitors are present ag2 at this time. 18:00 Safety Checks: Personal items have been removed. Door is open. No visitors are present ag2 at this time. Pt walking in room, pt asked for clothes, pt stated she wanted to leave. discussed with pt why she needs to stay. pt in room, but stated she still wants to go. 18:10 Safety Checks: Personal items have been removed. Door is open. Visitors are present. ag2 Patient laying in bed crying. MISHA Gamble went into room to calm pt down. pt showing no s/s of distress at this time. 18:28 Safety Checks: Personal items have been removed. Door is open. No visitors are present ag2 at this time. pt laying in bed with no s/s of distress. call light within reach. no needs at this time. 18:43 Safety Checks: Personal items have been removed. Door is open. No visitors are present ag2 at this time. pt trying to leave room. pt showing signs of distress. asked pt if she wanted something to help her relax. Andi informed. 18:46 Safety Checks: Personal items have been removed. Door is open. No visitors are present ms1 at this time. 19:04 Safety Checks: Personal items have been removed. Door is open. No visitors are present ms1 at this time. Pt appears to calm down; pt is now lying in bed. 19:15 Safety Checks: Personal items have been removed. Door is open. No visitors are present ms1 at this time. Pt is not showing any s/s of distress. 19:30 Safety Checks: Personal items have been removed. Door is open. No visitors are present ms1 at this time. 19:45 Safety Checks: Personal items have been removed. Door is open. No visitors are present ms1 at this time. 20:06 Safety Checks: Personal items have been removed. Door is open. No visitors are present ms1 at this time. Pt is lying in bed with eyes closed; audibly snoring; side rails are up; Vital signs: BP- 102/64; RR- 18; Temp: 97.7 F; WV: 75; 100% on room air. 20:15 Safety Checks: Personal items have been removed. Door is open. No visitors are present ms1 at this time. 20:30 Safety Checks: Personal items have been removed. Door is open. No visitors are present ms1 at this time. 20:45 Safety Checks: Personal items have been removed. Door is open. No visitors are present ms1 at this time. 21:00 Safety Checks: Personal items have been removed. Door is open. No visitors are present ms1 at this time. 21:15 Safety Checks: Personal items have been removed. Door is open. No visitors are present ms1 at this time. 21:30 Safety Checks: Personal items have been removed. Door is open. No visitors are present ms1 at this time. 21:46 Safety Checks: Personal items have been removed. Door is open. No visitors are present ms1 at this time. 22:00 Safety Checks: Personal items have been removed. Door is open. No visitors are present ms1 at this time. 22:15 Safety Checks: Personal items have been removed. Door is open. No visitors are present ms1 at this time. 22:30 Safety Checks: Personal items have been removed. Door is open. No visitors are present ms1 at this time. 22:45 Safety Checks: Personal items have been removed. Door is open. No visitors are present ms1 at this time. 23:00 Safety Checks: Personal items have been removed. Door is open. No visitors are present ms1 at this time. 23:15 Safety Checks: Personal items have been removed. Door is open. No visitors are present ms1 at this time. 23:30 Safety Checks: Personal items have been removed. Door is open. No visitors are present ms1 at this time. 23:45 Safety Checks: Personal items have been removed. Door is open. No visitors are present ms1 at this time. 11/29 00:00 Safety Checks: Personal items have been removed. Door is open. No visitors are present ms1 at this time. 00:00 Safety Checks: Pt is in no apparent distress; Vital signs: BP 109/73; RR 18; HR 85; ms1 TEMP 97.3. 00:15 Safety Checks: Personal items have been removed. Door is open. No visitors are present ms1 at this time. 00:30 Safety Checks: Personal items have been removed. Door is open. No visitors are present ms1 at this time. 00:45 Safety Checks: Personal items have been removed. Door is closed to patient's room. No ms1 visitors are present at this time. 01:00 Safety Checks: Personal items have been removed. Door is open. No visitors are present ms1 at this time. 01:15 Safety Checks: Personal items have been removed. Door is open. No visitors are present ms1 at this time. 01:30 Safety Checks: Personal items have been removed. Door is open. No visitors are present ms1 at this time. 01:45 Safety Checks: Personal items have been removed. Door is open. No visitors are present ms1 at this time. 02:00 Safety Checks: Personal items have been removed. Door is open. No visitors are present ms1 at this time. 02:15 Safety Checks: Personal items have been removed. Door is open. No visitors are present ms1 at this time. 02:30 Safety Checks: Personal items have been removed. Door is open. No visitors are present ms1 at this time. 02:45 Safety Checks: Personal items have been removed. Door is open. No visitors are present ms1 at this time. 03:00 Safety Checks: Personal items have been removed. Door is open. No visitors are present ms1 at this time. 03:15 Safety Checks: Personal items have been removed. Door is open. No visitors are present ms1 at this time. 03:30 Safety Checks: Personal items have been removed. Door is open. No visitors are present ms1 at this time. Vital Signs: 11/27 13:00 BP 127 / 90; Pulse 102; Resp 18; Temp 97.9(O); Pulse Ox 100% on R/A; mh5 16:24 BP 131 / 89; Pulse 89; Resp 18; Temp 98.5(O); Pulse Ox 99% on R/A; Pain 0/10; em 20:08 BP 128 / 96; Pulse 118; Resp 18; Pulse Ox 99% ; hb1 21:03 BP 106 / 81; Pulse 113; Resp 24; Pulse Ox 98% on R/A; hb1 21:35 BP 105 / 77; Pulse 97; Resp 20; Pulse Ox 100% on R/A; Pain 0/10; hb1 22:03 BP 111 / 74; Pulse 107; Resp 22; Temp 97.2; Pulse Ox 100% on R/A; Pain 0/10; hb1 23:01 BP 107 / 71; Pulse 97; Resp 22; Temp 97.2; Pulse Ox 100% on R/A; Pain 0/10; hb1 11/28 00:02 BP 127 / 93; Pulse 90; Resp 20; Temp 97.6; Pulse Ox 100% on R/A; Pain 0/10; hb1 01:16 BP 106 / 75; Pulse 100; Resp 20; Pulse Ox 100% on R/A; Pain 0/10; hb1 03:18 BP 101 / 81 Supine; Pulse 96 MON; Resp 16 S; Pulse Ox 100% on R/A; ds4 05:47 BP 117 / 86 Supine; Pulse 104 MON; Resp 18 S; Pulse Ox 100% on R/A; ds4 07:58 BP 121 / 92; Pulse 108; Resp 18; Temp 98.1(TE); Pulse Ox 100% on R/A; mh5 11:15 BP 105 / 68; Pulse 102; Resp 18; Pulse Ox 100% on R/A; mh5 15:05 BP 112 / 83; Pulse 107; Resp 18; Temp 97.6; Pulse Ox 100% ; Pain 0/10; ag2 20:00 BP 102 / 64 RA Supine (auto/); Pulse 75 MON; Resp 18 S; Temp 97.7(TE); Pulse Ox 100% on ms1 R/A; 11/29 00:00 BP 109 / 73 LA Supine (auto/); Pulse 85 MON; Resp 18 S; Temp 97.3(TE); Pulse Ox 98% on ms1 R/A; 04:00 BP 113 / 94 Supine; Pulse 110; Resp 20; Temp 97.2(T); Pulse Ox 98% on R/A; ms1 08:00 BP 124 / 85; Pulse 98; Resp 16; Pulse Ox 100% on R/A; dh3 11:47 BP 130 / 84; Pulse 100; Resp 18; Pulse Ox 100% ; kp2 14:53 BP 108 / 70; Pulse 98; Resp 17; Pulse Ox 100% ; kw2 18:35 BP 130 / 89; Pulse 98; Resp 17; Pulse Ox 100% ; kw2 11/28 05:47 Pt sleeping. ds4 ED Course: 11/27 06:00 Safety checks: Items removed: yes. Door open/sign placed on door: yes. Family/friend jd2 present: no. Sitter present: Yes. 12:52 Patient arrived in ED. em 12:52 Arm band placed on right wrist. ss 12:54 Frankie Joyce PA is PHCP. [facility] 12:54 Fred Low MD is Attending Physician. [facility] 12:57 Triage completed. ss 13:00 Patient has correct armband on for positive identification. Placed in gown. Bed in low mh5 position. Side rails up X 1. Warm blanket given. Pulse ox on. NIBP on. 13:00 Safety checks: Items removed: yes. Door open/sign placed on door: yes. Family/friend mh5 present: no. Sitter present: Yes. 13:11 Andi Mason LVN is Primary Nurse. em 13:15 Safety checks: Items removed: yes. Door open/sign placed on door: yes. Family/friend mh5 present: no. Sitter present: Yes. 13:15 Initial lab(s) drawn, by me, sent to lab. Inserted saline lock: 22 gauge in right mh5 antecubital area, using aseptic technique. Blood collected. 13:30 Safety checks: Items removed: yes. Door open/sign placed on door: yes. Family/friend mh5 present: no. Sitter present: Yes. 13:32 Acetaminophen Sent. 5 13:32 Basic Metabolic Panel Sent. 5 13:32 CBC with Diff Sent. mh5 13:32 ETOH Level Sent. 5 13:32 Hepatic Function Sent. 5 13:32 PT-INR Sent. 5 13:32 Ptt, Activated Sent. 5 13:32 Salicylate Sent. 5 13:45 Safety checks: Items removed: yes. Door open/sign placed on door: yes. Family/friend mh5 present: no. Sitter present: Yes. 13:46 EKG done, by ED staff, reviewed by Frankie SWAN. [facility] 14:00 Safety checks: Items removed: yes. Door open/sign placed on door: yes. Family/friend mh5 present: no. Sitter present: Yes. 14:15 Safety checks: Items removed: yes. Door open/sign placed on door: yes. Family/friend ds4 present: no. Sitter present: Yes. 14:18 called [facility] to initiate a transfer/ they do not currently have any eb beds available at this time and asked that we transfer patient records. 14:30 Safety checks: Items removed: yes. Door open/sign placed on door: yes. Family/friend ds4 present: no. Sitter present: Yes. 14:45 Safety checks: Items removed: yes. Door open/sign placed on door: yes. Family/friend ds4 present: no. Sitter present: Yes. 14:50 faxed patient records to [facility]. eb 14:56 called and spoke with the [place] [facility] they [place] waiting to eb receive the patients complete records and that they will call back shortly to do nurse to nurse. 15:00 Safety checks: Items removed: yes. Door open/sign placed on door: yes. Family/friend ds4 present: no. Sitter present: Yes. 15:15 Safety checks: Items removed: yes. Door open/sign placed on door: yes. Family/friend ds4 present: no. Sitter present: Yes. 15:30 Safety checks: Items removed: Door open/sign placed on door: Family/friend present: no. jd2 Sitter present: Yes. 15:45 Safety checks: Items removed: yes. Door open/sign placed on door: yes. Family/friend jd2 present: no. Sitter present: Yes. 16:00 Safety checks: Items removed: yes. Door open/sign placed on door: yes. Family/friend jd2 present: no. Sitter present: Yes. 16:15 Safety checks: Items removed: yes. Door open/sign placed on door: yes. Family/friend ds4 present: no. Sitter present: Yes. 16:30 Safety checks: Items removed: yes. Door open/sign placed on door: yes. Family/friend jd2 present: no. Sitter present: Yes. 16:45 Safety checks: Items removed: yes. Door open/sign placed on door: yes. Family/friend jd2 present: no. Sitter present: Yes. 17:00 Safety checks: Items removed: yes. Door open/sign placed on door: yes. Family/friend jd2 present: no. Sitter present: Yes. 17:08 initiated transfer with Maria D from the [facility]. eb 17:14 Safety checks: Items removed: yes. Door open/sign placed on door: yes. Family/friend jd2 present: no. Sitter present: Yes. 17:23 connected the psychiatrist from [facility] with Frankie SWAN for patient transfer eb consultation. 17:29 Per Maria D at the [facility] the patient does not meet criteria for their eb facility. they must decline the patient in transfer. 17:47 Safety checks: Items removed: Door open/sign placed on door: yes. Family/friend jd2 present: no. Sitter present: Yes. 18:00 Safety checks: Items removed: yes. Door open/sign placed on door: yes. Family/friend jd2 present: no. Sitter present: Yes. 18:15 Safety checks: Items removed: yes. Safety checks: Door open/sign placed on door: yes. jd2 Family/friend present: no. Sitter present:. 18:30 Safety checks: Items removed: yes. Door open/sign placed on door: yes. Family/friend jd2 present: no. Sitter present: Yes. 18:45 Safety checks: Items removed: yes. Door open/sign placed on door: yes. Family/friend jd2 present: no. Sitter present: Yes. 19:01 Safety checks: Items removed: yes. Door open/sign placed on door: yes. Family/friend jd2 present: no. Sitter present: Yes. 21:35 PHCP role handed off by Frankie Joyce PA 21:35 Jon Arenas PA is PHCP. cp 11/28 01:30 Safety checks: Items removed: yes. Door open/sign placed on door: yes. Family/friend ds4 present: no. Sitter present: Yes. 01:45 Safety checks: Items removed: yes. Door open/sign placed on door: yes. Family/friend ds4 present: no. Sitter present: Yes. 02:00 Safety checks: Items removed: yes. Door open/sign placed on door: yes. Family/friend ds4 present: no. Sitter present: Yes. 02:15 Safety checks: Items removed: yes. Door open/sign placed on door: yes. Family/friend ds4 present: no. Sitter present: Yes. 02:30 Safety checks: Items removed: yes. Door open/sign placed on door: yes. Family/friend ds4 present: no. Sitter present: Yes. 02:45 Safety checks: Items removed: yes. Door open/sign placed on door: yes. Family/friend ds4 present: no. Sitter present: Yes. 03:00 Safety checks: Items removed: yes. Door open/sign placed on door: yes. Family/friend ds4 present: no. Sitter present: Yes. 03:15 Safety checks: Items removed: yes. Door open/sign placed on door: yes. Family/friend ds4 present: no. Sitter present: Yes. 03:30 Safety checks: Items removed: yes. Door open/sign placed on door: yes. Family/friend ds4 present: no. Sitter present: Yes. 03:45 Safety checks: Items removed: yes. Door open/sign placed on door: yes. Family/friend ds4 present: no. Sitter present: Yes. 04:00 Safety checks: Items removed: yes. Door open/sign placed on door: yes. Family/friend ds4 present: no. Sitter present: Yes. 04:15 Safety checks: Items removed: yes. Door open/sign placed on door: yes. Family/friend ds4 present: no. Sitter present: Yes. 04:30 Safety checks: Items removed: yes. Door open/sign placed on door: yes. Family/friend ds4 present: no. Sitter present: Yes. 04:45 Safety checks: Items removed: yes. Door open/sign placed on door: yes. Family/friend ds4 present: no. Sitter present: Yes. 04:54 [facility] is at capacity at this time. ms 05:00 Safety checks: Items removed: yes. Door open/sign placed on door: yes. Family/friend ds4 present: no. Sitter present: Yes. 05:15 Safety checks: Items removed: yes. Door open/sign placed on door: yes. Family/friend ds4 present: no. Sitter present: Yes. 05:30 Safety checks: Items removed: yes. Door open/sign placed on door: yes. Family/friend ds4 present: no. Sitter present: Yes. 05:45 Safety checks: Items removed: yes. Door open/sign placed on door: yes. Family/friend ds4 present: no. Sitter present: Yes. 06:00 Safety checks: Items removed: yes. Door open/sign placed on door: yes. Family/friend ds4 present: no. Sitter present: Yes. 06:15 Safety checks: Items removed: yes. Door open/sign placed on door: yes. Family/friend ds4 present: no. Sitter present: Yes. 06:30 Safety checks: Items removed: yes. Door open/sign placed on door: yes. Family/friend ds4 present: no. Sitter present: Yes. 06:45 Safety checks: Items removed: yes. Door open/sign placed on door: yes. Family/friend ds4 present: no. Sitter present: Yes. 07:00 Safety checks: Items removed: yes. Door open/sign placed on door: yes. Family/friend mh5 present: no. Sitter present: Yes. 07:15 Safety checks: Items removed: yes. Door open/sign placed on door: yes. Family/friend mh5 present: no. Sitter present: Yes. 07:30 Safety checks: Items removed: yes. Door open/sign placed on door: yes. Family/friend mh5 present: no. Sitter present: Yes. 07:45 Safety checks: Items removed: yes. Door open/sign placed on door: yes. Family/friend mh5 present: no. Sitter present: Yes. 08:00 Safety checks: Items removed: yes. Door open/sign placed on door: yes. Family/friend mh5 present: no. Sitter present: Yes. 08:15 Safety checks: Items removed: yes. Door open/sign placed on door: yes. Family/friend mh5 present: no. Sitter present: Yes. Diet: Patient given a regular meal tray. 08:15 Safety checks: Sitter present: Other: PATIENT REFUSES TO EAT BREAKFAST . mh5 08:15 Diet: Patient given a regular meal tray. mh5 08:30 Safety checks: Items removed: yes. Door open/sign placed on door: yes. Family/friend mh5 present: no. Sitter present: Yes. 08:45 Safety checks: Items removed: yes. Door open/sign placed on door: yes. Family/friend mh5 present: no. Sitter present: Yes. 09:00 Safety checks: Items removed: yes. Door open/sign placed on door: yes. Family/friend mh5 present: no. Sitter present: Yes. 09:15 Safety checks: Items removed: yes. Door open/sign placed on door: yes. Family/friend mh5 present: no. Sitter present: Yes. 09:30 Safety checks: Items removed: yes. Door open/sign placed on door: yes. Family/friend mh5 present: no. Sitter present: Yes. 09:45 Safety checks: Items removed: yes. Door open/sign placed on door: yes. Family/friend mh5 present: no. Sitter present: Yes. 10:00 Safety checks: Items removed: yes. Door open/sign placed on door: yes. Family/friend mh5 present: no. Sitter present: Yes. 10:15 Safety checks: Items removed: yes. Door open/sign placed on door: yes. Family/friend mh5 present: no. Sitter present: Yes. 10:30 Safety checks: Items removed: yes. Door open/sign placed on door: yes. Family/friend mh5 present: no. Sitter present: Yes. 10:45 Safety checks: Items removed: yes. Door open/sign placed on door: yes. Family/friend mh5 present: no. Sitter present: Yes. 11:00 Safety checks: Items removed: yes. Door open/sign placed on door: yes. Family/friend mh5 present: no. Sitter present: Yes. 11:15 Safety checks: Items removed: yes. Door open/sign placed on door: yes. Family/friend mh5 present: no. Sitter present: Yes. 11:30 Safety checks: Items removed: yes. Door open/sign placed on door: yes. Family/friend mh5 present: no. Sitter present: Yes. 11:45 Safety checks: Items removed: yes. Door open/sign placed on door: yes. Family/friend mh5 present: no. Sitter present: Yes. 12:00 Safety checks: Items removed: yes. Door open/sign placed on door: yes. Family/friend mh5 present: no. Sitter present: Yes. 12:15 Safety checks: Items removed: yes. Door open/sign placed on door: yes. Family/friend mh5 present: no. Sitter present: Yes. 12:30 Safety checks: Items removed: yes. Door open/sign placed on door: yes. Family/friend mh5 present: no. Sitter present: Yes. 12:37 Diet: Patient given a regular meal tray. 5 12:45 Safety checks: Items removed: yes. Door open/sign placed on door: yes. Family/friend mh5 present: no. Sitter present: Yes. 13:00 Safety checks: Items removed: yes. Door open/sign placed on door: yes. Family/friend mh5 present: no. Sitter present: Yes. 13:30 Bath given. Linen changed. DOES NOT WANT TO EAT OR DRINK . 5 13:45 Safety checks: Items removed: yes. Door open/sign placed on door: yes. Family/friend mh5 present: no. Sitter present: Yes. 14:00 Safety checks: Items removed: yes. Door open/sign placed on door: yes. Family/friend mh5 present: no. Sitter present: Yes. 14:15 Safety checks: Items removed: yes. Door open/sign placed on door: yes. Family/friend mh5 present: no. Sitter present: Yes. 14:30 Safety checks: Items removed: yes. Door open/sign placed on door: yes. Family/friend mh5 present: no. Sitter present: Yes. 14:44 Sitter at bedside. 2 11/29 03:45 Safety checks: Items removed: yes. Door open/sign placed on door: yes. Family/friend mt present: no. Sitter present: Yes. 04:00 Safety checks: Items removed: yes. Door open/sign placed on door: yes. Family/friend mt present: no. Sitter present: Yes. 04:15 Safety checks: Items removed: yes. Door open/sign placed on door: yes. Family/friend mt present: no. Sitter present: Yes. 04:30 Safety checks: Items removed: yes. Door open/sign placed on door: yes. Family/friend mt present: no. Sitter present: Yes. 04:45 Safety checks: Items removed: yes. Door open/sign placed on door: yes. Family/friend mt present: no. Sitter present: Yes. 05:00 Safety checks: Items removed: yes. Door open/sign placed on door: yes. Family/friend mt present: no. Sitter present: Yes. 05:15 Safety checks: Items removed: yes. Door open/sign placed on door: yes. Family/friend mt present: no. Sitter present: Yes. 05:30 Safety checks: Items removed: yes. Door open/sign placed on door: yes. Family/friend mt present: no. Sitter present: Yes. 05:45 Safety checks: Items removed: yes. Door open/sign placed on door: yes. Family/friend mt present: no. Sitter present: Yes. 06:00 Safety checks: Items removed: yes. Door open/sign placed on door: yes. Family/friend mt present: no. Sitter present: Yes. 06:15 Safety checks: Items removed: yes. Door open/sign placed on door: yes. Family/friend mt present: no. 06:30 Safety checks: Items removed: yes. Door open/sign placed on door: yes. Family/friend mt present: no. Sitter present: Yes. 06:45 Safety checks: Items removed: yes. Door open/sign placed on door: yes. Family/friend mt present: no. Sitter present: Yes. 07:00 Safety checks: Items removed: yes. Door open/sign placed on door: yes. Family/friend dh3 present: no. Sitter present: Yes. 07:00 Report received from Brittany Spear RN. 07:01 Report given to MISHA Thomas. cc3 07:15 Safety checks: Items removed: yes. Door open/sign placed on door: yes. Family/friend dh3 present: no. Sitter present: Yes. 07:30 Safety checks: Items removed: yes. Door open/sign placed on door: yes. Family/friend dh3 present: no. Sitter present: Yes. 07:45 Safety checks: Items removed: yes. Door open/sign placed on door: yes. Family/friend dh3 present: no. Sitter present: Yes. 08:00 Safety checks: Items removed: yes. Door open/sign placed on door: yes. Family/friend dh3 present: no. Sitter present: Yes. 08:15 Safety checks: Items removed: yes. Door open/sign placed on door: yes. Family/friend dh3 present: no. Sitter present: Yes. 08:30 Safety checks: Items removed: yes. Door open/sign placed on door: yes. Family/friend dh3 present: no. Sitter present: Yes. 08:45 Safety checks: Items removed: yes. Door open/sign placed on door: yes. Family/friend dh3 present: no. Sitter present: Yes. 09:00 Safety checks: Items removed: yes. Door open/sign placed on door: yes. Family/friend dh3 present: no. Sitter present: Yes. 09:15 Safety checks: Items removed: yes. Door open/sign placed on door: yes. Family/friend dh3 present: no. Sitter present: Yes. 09:29 Oral care given. Shower given. dh3 09:30 Safety checks: Items removed: yes. Door open/sign placed on door: yes. Family/friend dh3 present: no. Sitter present: Yes. 09:45 Safety checks: Items removed: yes. Door open/sign placed on door: yes. Family/friend dh3 present: no. Sitter present: Yes. 10:00 Safety checks: Items removed: yes. Door open/sign placed on door: yes. Family/friend kp2 present: no. Sitter present: Yes. 10:15 Safety Checks: Personal items have been removed. The door is open or patient has been kp2 placed in a hallway bed/chair. There are no family/friend visitors at this time Sitter present at this time. 10:30 Safety Checks: Personal items have been removed. The door is open or patient has been kp2 placed in a hallway bed/chair. There are no family/friend visitors at this time Sitter present at this time. patient is sleeping comfortably. 10:45 Safety Checks: Personal items have been removed. The door is open or patient has been kp2 placed in a hallway bed/chair. There are no family/friend visitors at this time Sitter present at this time. 11:00 Safety Checks: Personal items have been removed. The door is open or patient has been kp2 placed in a hallway bed/chair. There are no family/friend visitors at this time Sitter present at this time. 11:15 Safety Checks: Personal items have been removed. The door is open or patient has been kp2 placed in a hallway bed/chair. There are no family/friend visitors at this time Sitter present at this time. 11:30 Safety Checks: Personal items have been removed. The door is open or patient has been kp2 placed in a hallway bed/chair. There are no family/friend visitors at this time Sitter present at this time. 11:45 Safety Checks: Personal items have been removed. The door is open or patient has been kp2 placed in a hallway bed/chair. There are no family/friend visitors at this time Sitter present at this time. patient vitally stable as per checking. 12:00 Safety checks: Items removed: yes. Door open/sign placed on door: yes. Family/friend dh3 present: no. Sitter present: Yes. 12:15 Safety checks: Items removed: yes. Door open/sign placed on door: yes. Family/friend dh3 present: no. Sitter present: Yes. 12:30 Safety checks: Items removed: yes. Door open/sign placed on door: yes. Family/friend dh3 present: no. Sitter present: Yes. 12:45 Safety Checks: Personal items have been removed. The door is open or patient has been kp2 placed in a hallway bed/chair. There are no family/friend visitors at this time Sitter present at this time. Other: patient being talked to by a Wallpaper Hanger from [employer] but the patient does not cooperate. 13:00 Safety checks: Items removed: yes. Door open/sign placed on door: yes. Family/friend dh3 present: no. Sitter present: Yes. 13:15 Safety checks: Items removed: yes. Door open/sign placed on door: yes. Family/friend dh3 present: no. Sitter present: Yes. 13:30 Safety checks: Items removed: yes. Door open/sign placed on door: yes. Family/friend dh3 present: no. Sitter present: Yes. 13:45 Safety checks: Items removed: yes. Door open/sign placed on door: yes. Family/friend mh5 present: no. Sitter present: Yes. 14:00 Safety checks: Items removed: yes. Door open/sign placed on door: yes. Family/friend mh5 present: no. Sitter present: Yes. 14:15 Safety checks: Items removed: yes. Door open/sign placed on door: yes. Family/friend mh5 present: no. Sitter present: Yes. 14:29 Safety Checks: Personal items have been removed. The door is open or patient has been kw2 placed in a hallway bed/chair. A family member and/or friend is present and encouraged to stay. There are no family/friend visitors at this time Sitter present at this time. 14:30 Safety Checks: Personal items have been removed. The door is open or patient has been kw2 placed in a hallway bed/chair. There are no family/friend visitors at this time Sitter present at this time. 14:45 Safety Checks: Personal items have been removed. The door is open or patient has been kw2 placed in a hallway bed/chair. There are no family/friend visitors at this time Sitter present at this time. 15:00 Safety Checks: Personal items have been removed. The door is open or patient has been kw2 placed in a hallway bed/chair. There are no family/friend visitors at this time Sitter present at this time. 15:15 Safety Checks: Personal items have been removed. The door is open or patient has been kw2 placed in a hallway bed/chair. There are no family/friend visitors at this time Sitter present at this time. 15:30 Safety Checks: Personal items have been removed. The door is open or patient has been kw2 placed in a hallway bed/chair. There are no family/friend visitors at this time Sitter present at this time. 15:45 Safety Checks: Personal items have been removed. The door is open or patient has been kw2 placed in a hallway bed/chair. There are no family/friend visitors at this time Sitter present at this time. 16:00 Safety Checks: Personal items have been removed. The door is open or patient has been kw2 placed in a hallway bed/chair. There are no family/friend visitors at this time Sitter present at this time. 16:15 Safety Checks: Personal items have been removed. The door is open or patient has been kw2 placed in a hallway bed/chair. There are no family/friend visitors at this time Sitter present at this time. 16:30 Safety Checks: Personal items have been removed. The door is open or patient has been kw2 placed in a hallway bed/chair. There are no family/friend visitors at this time Sitter present at this time. 16:45 Safety Checks: Personal items have been removed. The door is open or patient has been kw2 placed in a hallway bed/chair. There are no family/friend visitors at this time Sitter present at this time. 17:00 Safety Checks: Personal items have been removed. The door is open or patient has been kw2 placed in a hallway bed/chair. There are no family/friend visitors at this time Sitter present at this time. 17:15 Safety Checks: Personal items have been removed. The door is open or patient has been kw2 placed in a hallway bed/chair. There are no family/friend visitors at this time Sitter present at this time. 17:30 Safety Checks: Personal items have been removed. The door is open or patient has been kw2 placed in a hallway bed/chair. There are no family/friend visitors at this time Sitter present at this time. 17:45 Safety Checks: Personal items have been removed. The door is open or patient has been kw2 placed in a hallway bed/chair. There are no family/friend visitors at this time Sitter present at this time. 18:00 Safety Checks: Personal items have been removed. The door is open or patient has been kw2 placed in a hallway bed/chair. There are no family/friend visitors at this time Sitter present at this time. 18:15 Safety Checks: Personal items have been removed. The door is open or patient has been kw2 placed in a hallway bed/chair. There are no family/friend visitors at this time Sitter present at this time. 18:30 Safety Checks: Personal items have been removed. The door is open or patient has been kw2 placed in a hallway bed/chair. There are no family/friend visitors at this time Sitter present at this time. 18:45 Safety Checks: Personal items have been removed. The door is open or patient has been kw2 placed in a hallway bed/chair. There are no family/friend visitors at this time Sitter present at this time. 19:00 Safety Checks: Personal items have been removed. The door is open or patient has been kw2 placed in a hallway bed/chair. There are no family/friend visitors at this time Sitter present at this time. 19:15 Safety Checks: Personal items have been removed. The door is open or patient has been ak1 placed in a hallway bed/chair. There are no family/friend visitors at this time Sitter present at this time. 19:30 Safety Checks: Personal items have been removed. The door is open or patient has been ak1 placed in a hallway bed/chair. There are no family/friend visitors at this time Sitter present at this time. 19:45 Safety Checks: Personal items have been removed. The door is open or patient has been ak1 placed in a hallway bed/chair. There are no family/friend visitors at this time Sitter present at this time. 20:00 Safety Checks: Personal items have been removed. The door is open or patient has been ak1 placed in a hallway bed/chair. There are no family/friend visitors at this time Sitter present at this time. 20:15 Safety Checks: Personal items have been removed. The door is open or patient has been ak1 placed in a hallway bed/chair. There are no family/friend visitors at this time Sitter present at this time. 20:30 Safety Checks: Personal items have been removed. The door is open or patient has been ak1 placed in a hallway bed/chair. There are no family/friend visitors at this time Sitter present at this time. 20:45 Safety Checks: Personal items have been removed. The door is open or patient has been ak1 placed in a hallway bed/chair. There are no family/friend visitors at this time Sitter present at this time. 21:00 Safety Checks: Personal items have been removed. The door is open or patient has been ak1 placed in a hallway bed/chair. There are no family/friend visitors at this time Sitter present at this time. 21:00 Safety Checks: Personal items have been removed. The door is open or patient has been ak1 placed in a hallway bed/chair. There are no family/friend visitors at this time Sitter present at this time. 21:07 Attending Physician role handed off by Fred Low MD pkl 21:07 Kian Calvert MD is Attending Physician. pkl 21:45 No provider procedures requiring assistance completed. no IV noted at time of transfer. ak1 Administered Medications: 11/27 19:12 Drug: Potassium Chloride 40 mEq Route: PO; tl2 11/28 07:01 Follow up: Response: No adverse reaction em 11/27 19:13 Drug: Ativan 1 mg Route: IVP; Site: right antecubital; tl2 11/28 07:00 Follow up: Response: No adverse reaction em 11/27 19:41 Drug: Geodon 20 mg Route: IM; Site: left deltoid; tl2 11/28 07:01 Follow up: Response: No adverse reaction; Marked relief of symptoms em 11/27 19:41 Drug: Ativan 2 mg Route: IVP; Site: right antecubital; 2 11/28 07:01 Follow up: Response: No adverse reaction; Marked relief of symptoms em 18:50 Drug: Geodon 20 mg Route: IM; Site: left deltoid; em 19:15 Follow up: Response: No adverse reaction; Anxiety decreased cc3 Outcome: 11/29 21:14 ER care complete, transfer ordered by . pkl 21:46 Transferred Transfer form completed. Note: pt left via [facility] Mental Health deputy ak1 Hodder to [address] at [facility] 21:46 Condition: stable 21:46 Instructed on the need for transfer. 21:47 Patient left the ED. ak1 Signatures: Kian Calvert MD MD pkl Frankie Joyce PA PA jmm Munoz, Edgar, MAINTENANCE OF WAY FOREMAN MAINTENANCE OF WAY FOREMAN Isa Charles ms, Shelby, RN RN ss Swanson, Donovan ds4 Rocio Sheikh RN RN ak1 William Reynoso RN RN hj Page, Corey, PA PA cp Knox, Taylor, RN RN tl2 Sean Enciso Maria Heidy Ayala mt, Deanna 3 Edwige Guido [place] Kristal kw2 Evan Figueroa ms1 Brittany Spear cc3 Mary Hyde hb1 Jessica Villalobos kp2 Corrections: (The following items were deleted from the chart) 11/28 02:31 02:29 Safety checks: Items removed: yes. Door open/sign placed on door: yes. ds4 Family/friend present: no. Sitter present: Yes. ds4 02:46 02:44 Safety checks: Items removed: yes. Door open/sign placed on door: yes. ds4 Family/friend present: no. Sitter present: Yes. ds4 05:03 04:56 Safety checks: Items removed: yes. Door open/sign placed on door: yes. ds4 Family/friend present: no. Sitter present: Yes. ds4 08:23 11/27 13:15 Suicide Risk Assessment: Sad Person Scale: Sex of patient: Female: Score 0 em points. Age of patient: Score 1 point if patient 15-34. Depression: Score 1 point if signs of depression are present. Previous Attempt: Score 1 point if patient has previously attempted suicide. em 11/28 12:37 12:30 Safety checks: Sitter present: Other: PATIENT REFUSES TO EAT BREAKFAST . [place] [id number] 12:43 12:24 Safety checks: Sitter present: [place] [id number] 13:49 13:42 Shower given. Linen changed. BRUSHED TEETH SELF CARE . WATCHING TELEVISION .STILL [facility] REFUSES TO EAT OR DRINK ANYTHING. [facility] 13:49 13:42 Safety checks: Items removed: yes. Door open/sign placed on door: yes. 5 Family/friend present: no. Sitter present: Yes. 5 17:58 11/27 12:52 Presenting complaint: Mental Health deputy reports that patients mother ag2 called because patient was having auditory hallucinations telling her to hurt herself. Patient initially was voluntary and requested to be transferred to [facility], but after speaking with patient, she stated that she no longer wanted to go. 11/28 19:27 19:15 Reassessment: Patient appears in no apparent distress at this time. Patient cc3 and/or family updated on plan of care and expected duration. Pain level reassessed. Patient is alert, oriented x 3, equal unlabored respirations, skin warm/dry/pink. patient is calm and restless now, lying in bed comfortably. cc3 11/29 00:37 11/28 19:15 Reassessment: Patient appears in no apparent distress at this time. Patient cc3 and/or family updated on plan of care and expected duration. Pain level reassessed. Patient is alert, oriented x 3, equal unlabored respirations, skin warm/dry/pink. patient is calm and not restless now, lying in bed comfortably. cc3 10/ 10:39 10:00 Safety checks: Items removed: yes. Door open/sign placed on door: yes. kp2 Family/friend present: no. Sitter present: Yes. 3 11:33 11:27 Safety Checks: Personal items have been removed. The door is open or patient has kp2 been placed in a hallway bed/chair. There are no family/friend visitors at this time Sitter present at this time. kp2 12:14 12:11 Safety checks: Items removed: pending [facility] to [facility] 12:47 12:42 Safety Checks: Personal items have been removed. The door is open or patient has kp2 been placed in a hallway bed/chair. There are no family/friend visitors at this time Sitter present at this time. kp2 12:51 12:45 Safety Checks: Personal items have been removed. The door is open or patient has kp2 been placed in a hallway bed/chair. There are no family/friend visitors at this time Sitter present at this time. kp2 15:08 15:01 Safety Checks: Personal items have been removed. The door is open or patient has kw2 been placed in a hallway bed/chair. There are no family/friend visitors at this time Sitter present at this time. kw2 15:36 15:33 Safety Checks: Personal items have been removed. The door is open or patient has kw2 been placed in a hallway bed/chair. There are no family/friend visitors at this time Sitter present at this time. kw2 16:13 16:10 Safety Checks: Personal items have been removed. The door is open or patient has kw2 been placed in a hallway bed/chair. There are no family/friend visitors at this time Sitter present at this time. kw2 16:31 13:25 Reassessment: resting comfortably, new sister on board; hj hj 16:51 16:48 Safety Checks: Personal items have been removed. The door is open or patient has kw2 been placed in a hallway bed/chair. There are no family/friend visitors at this time Sitter present at this time. kw2 17:08 17:05 Safety Checks: Personal items have been removed. The door is open or patient has kw2 been placed in a hallway bed/chair. There are no family/friend visitors at this time Sitter present at this time. kw2 17:49 17:46 Safety Checks: Personal items have been removed. The door is open or patient has kw2 been placed in a hallway bed/chair. There are no family/friend visitors at this time Sitter present at this time. kw2 18:11 16:14 Safety Checks: Personal items have been removed. The door is open or patient has kw2 been placed in a hallway bed/chair. There are no family/friend visitors at this time Sitter present at this time. kw2 18:11 17:14 Safety Checks: Personal items have been removed. The door is open or patient has kw2 been placed in a hallway bed/chair. There are no family/friend visitors at this time Sitter present at this time. kw2 18:11 17:29 Safety Checks: Personal items have been removed. The door is open or patient has kw2 been placed in a hallway bed/chair. There are no family/friend visitors at this time Sitter present at this time. kw2 18:18 18:14 Safety Checks: Personal items have been removed. The door is open or patient has kw2 been placed in a hallway bed/chair. There are no family/friend visitors at this time Sitter present at this time. kw2 18:40 18:34 Safety Checks: Personal items have been removed. The door is open or patient has kw2 been placed in a hallway bed/chair. There are no family/friend visitors at this time Sitter present at this time. kw2 18:49 18:46 Safety Checks: Personal items have been removed. The door is open or patient has kw2 been placed in a hallway bed/chair. There are no family/friend visitors at this time Sitter present at this time. kw2 18:56 18:48 Reassessment: per veneer jointer, veneer jointer Silvia, called and spoke with mental health hj deputy, mental health deputy to write the actual warrant, [facility] to call us back for room number and phone number for the doc to doc report; manuelito 19:03 18:57 Safety Checks: Personal items have been removed. The door is open or patient has kw2 been placed in a hallway bed/chair. There are no family/friend visitors at this time Sitter present at this time. kw2
[2017-11-29 23:33] VITALS: TEMP 97.2
[2017-11-29 23:34] VITALS: O2SAT 100
[2017-11-29 23:37] VITALS: BP 130/89
== END 2017-11-29 21:47 ==
LOC: ER 12:47
DX: R45.851 Suicidal ideations (principal); F32.9 Major depressive disorder, single episode, unspecified; Z88.5 Allergy status to narcotic agent
CPT/HCPCS: 36415; 80048; 80076; 80307; 80320; 80329; 81003; 81025; 85025; 85610; 85730; 93005; 96372; 96374; 99285; J3486

== ENCOUNTER 2018-01-07 07:23 | Emergency (ER) | payer OTHER ==
[2018-01-07] MEDS ORDERED: ONDANSETRON 4 MG (ODT) TAB ONE (08:08)
[2018-01-07] MEDS ORDERED: MEPERIDINE HCL 50 MG/ML AMP ONE (08:08)
[2018-01-07 08:36] LABS: Urine Blood 2+ (NEG); Urine Glucose NEGATIVE (NEG); Urine Protein 2+ (NEG); Urine pH 6.5 (5.0-7.0)
[2018-01-07 08:54] LABS: Urine Bacteria >50 /HPF (<20); Urine Culture Reflex Order REFLEXED; Urine Mucus MOD /HPF (NONE SEEN)
--- NOTE | 2018-01-07 09:19 | RAD REPORT ---
EXAM DESCRIPTION: CTSpine Lumbar Wo Con01/07/2018 9:03 am CLINICAL HISTORY: Back injury with back pain and radiculopathy COMPARISON: None TECHNIQUE: Computed axial tomography lumbar spine was obtained with coronal and sagittal reconstruct ion. All CT scans are performed using dose optimization technique as appropriate and may include automated exposure control or mA/KV adjustment according to patient size. FINDINGS: Small bony density adjacent to the anterior superior aspect of the L5 vertebral body likel y either represents an ununited ossification center or is secondary to old trauma. No acute fracture is seen. No dislocation is noted. Small disc bulge is suspected L4-5. Mild right perirenal stranding and right periureteral stranding IMPRESSION: Negative for an acute lumbar fracture. If the patient continues have symptoms to suggest spinal canal pathology MRI would be recommended Right perirenal and periureteral stranding could be secondary to inflammation or potentially a calcul us within the distal right ureter. This area was not imaged on this exam
--- NOTE | 2018-01-07 09:20 | RAD REPORT ---
EXAM DESCRIPTION: RAD - Lumbar Spine 3 Views - 01/07/2018 8:33 am CLINICAL HISTORY: Back pain FINDINGS: The alignment of the lumbar spine is satisfactory. No acute fracture or dislocation is seen. Small bony density adjacent to the anterior superior aspect of the L5 vertebral body could indicate a n ununited ossification center or be the sequela of old trauma
--- NOTE | 2018-01-07 09:56 | ER ---
Nurse's Notes [facility] Name: Georgette Patel Age: 32 yrs Sex: Female : 1985 Arrival Date: 01/07/2018 Time: 07:28 Bed 13 Private MD: None, None Diagnosis: Urinary tract infection, site not specified;Low back pain Presentation: 01/07 07:34 Presenting complaint: Patient states: low back pain x 3 years, but was aggravated after ss falling from a standing position yesterday. Pt ambulated with steady gait to exam room. Transition of care: patient was not received from another setting of care. Onset of symptoms was January 06, 2018. Risk Assessment: Do you want to hurt yourself or someone else? Patient reports no desire to harm self or others. Initial Sepsis Screen: Does the patient meet any 2 criteria? HR > 90 bpm. Does the patient have a suspected source of infection? No. Patient's initial sepsis screen is negative. Care prior to arrival: None. 07:34 Method Of Arrival: Ambulatory ss 07:34 Acuity: GILES 3 ss Historical: - Allergies: 07:39 Hydrocodone-Acetaminophen; ss - Home Meds: 07:39 "MHMR injections" unknown medication [Active]; ss - PMHx: 07:39 Anxiety; Depression; PTSD; Schizophrenia; Bipolar disorder; ss - PSHx: 07:39 ; ss - Immunization history:: Adult Immunizations unknown. - Social history:: Smoking status: Patient uses tobacco products, smokes one-half pack cigarettes per day. - Ebola Screening: : Patient denies exposure to infectious person Patient denies travel to an Ebola-affected area in the 21 days before illness onset. Screenin:40 Abuse screen: Denies threats or abuse. Nutritional screening: No deficits noted. aa5 Tuberculosis screening: No symptoms or risk factors identified. Fall Risk None identified. Assessment: 07:40 General: Appears uncomfortable, Behavior is calm, cooperative. Pain: Complains of pain aa5 in lumbar area, left low back and right low back Pain does not radiate. Pain currently is 10 out of 10 on a pain scale. Quality of pain is described as sharp, Pain began chronic Is continuous, Aggravated by increased activity, repositioning. Neuro: Level of Consciousness is awake, alert, obeys commands, Oriented to person, place, time, situation. Cardiovascular: Heart tones S1 S2 present Rhythm is regular. Respiratory: Airway is patent Respiratory effort is even, unlabored, Respiratory pattern is regular, symmetrical. GI: No signs and/or symptoms were reported involving the gastrointestinal system. : Reports urinary frequency, Denies burning with urination. EENT: No signs and/or symptoms were reported regarding the EENT system. Derm: Skin is dry, Skin is normal, Skin temperature is warm. Musculoskeletal: Range of motion: intact in all extremities. 08:40 Reassessment: Patient and/or family updated on plan of care and expected duration. Pain aa5 level reassessed. Patient states feeling better. Pain: Pain currently is 5 out of 10 on a pain scale. Neuro: Level of Consciousness is awake, alert, obeys commands, Oriented to person, place, time, situation. Respiratory: Airway is patent Respiratory effort is even, unlabored, Respiratory pattern is regular, symmetrical. Derm: Skin is dry, Skin is normal, Skin temperature is warm. Vital Signs: 07:39 BP 109 / 91; Pulse 130; Resp 15; Temp 98.4(TE); Pulse Ox 98% on R/A; Weight 79.83 kg; ss Height 4 ft. 11 in. (149.86 cm); Pain 10/10; 08:41 BP 105 / 78; Pulse 115; Resp 16 S; Pulse Ox 99% on R/A; Pain 5/10; aa5 07:39 Body Mass Index 35.55 (79.83 kg, 149.86 cm) ED Course: 07:28 Patient arrived in ED. mr 07:28 None, None is Private Physician. mr 07:31 Kye Mayer PA is PHCP. jr8 07:31 Ronen Mancilla MD is Attending Physician. jr8 07:38 Triage completed. ss 07:39 Arm band placed on right wrist. ss 07:40 Patient has correct armband on for positive identification. Bed in low position. Call aa5 light in reach. Side rails up X 1. 07:47 Nimco Gillette, RN is Primary Nurse. aa5 08:18 Patient moved to radiology via wheelchair. jb2 08:27 X-ray completed. Patient tolerated procedure well. Patient moved back from radiology. jb2 08:29 XRAY Lumbar Spine (3 Views) In Process Unspecified. EDMS 08:40 No provider procedures requiring assistance completed. aa5 08:59 CT completed. Patient tolerated procedure well. Patient moved to CT via wheelchair. jg6 Patient moved back from CT. 09:04 CT Lumbar Spine Wo Con In Process Unspecified. EDMS 10:20 Patient did not have IV access during this emergency room visit. aa5 Administered Medications: 08:08 Drug: Demerol 50 mg Route: IM; Site: left gluteus; aa5 08:38 Follow up: Response: No adverse reaction; Pain is decreased aa5 08:08 Drug: Zofran 4 mg Route: PO; aa5 08:38 Follow up: Response: No adverse reaction aa5 Outcome: 09:55 Discharge ordered by . nikita 10:20 Eloped Unable to locate pt for d/c home. Pt was contacted and stated she was coming aa5 back for the prescriptions. 10:42 Discharged to home ambulatory, with family. aa5 10:42 Condition: improved 10:42 Discharge instructions given to patient, Instructed on discharge instructions, follow up and referral plans. medication usage, Demonstrated understanding of instructions, follow-up care, medications, Prescriptions given X 4. 10:44 Patient left the ED. aa5 Signatures: Dispatcher [employer] [facility] Sean Silvia Gilmore, Nimco Smalls RN RN aa5 Marianne Cho RN RN ss Roszak, Josh, PA PA jr8 Garcia, Jessica jg6
--- NOTE | 2018-01-07 09:56 | EDPHYS ---
Physician Documentation [facility] Name: Georgette Patel Age: 32 yrs Sex: Female : 1985 Arrival Date: 01/07/2018 Time: 07:28 Bed 13 Private MD: None, None ED Physician Ronen Mancilla HPI: 01/07 07:51 This 32 yrs old Black Female presents to ER via Ambulatory with complaints of Back Pain.jr8 07:51 The patient presents with pain that is acute. The symptoms are located in the low back. jr8 Onset: The symptoms/episode began/occurred acutely, yesterday. The pain does not radiate. Associated signs and symptoms: The patient has no apparent associated signs or symptoms. The problem was sustained during a fall. Modifying factors: The patient symptoms are alleviated by nothing, the patient symptoms are aggravated by any movement. Severity of symptoms: At their worst the symptoms were moderate, in the emergency department the symptoms are unchanged. The patient has not experienced similar symptoms in the past. The patient has not recently seen a physician. Patient stated that she was fishing and slipped landing on buttock and back. Pain to low back since incident. Stated that she has chronic low back pain but does not normally have to take anything for her back . Historical: - Allergies: 07:39 Hydrocodone-Acetaminophen; ss - Home Meds: 07:39 "MHMR injections" unknown medication [Active]; ss - PMHx: 07:39 Anxiety; Depression; PTSD; Schizophrenia; Bipolar disorder; ss - PSHx: 07:39 ; ss - Immunization history:: Adult Immunizations unknown. - Social history:: Smoking status: Patient uses tobacco products, smokes one-half pack cigarettes per day. - Ebola Screening: : Patient denies exposure to infectious person Patient denies travel to an Ebola-affected area in the 21 days before illness onset. ROS: 07:51 Constitutional: Negative for fever, chills, and weight loss. jr8 07:51 Back: Positive for pain at rest, pain with movement, of the low back area. 07:51 All other systems are negative. Exam: 07:51 Eyes: Pupils equal round and reactive to light, extra-ocular motions intact. Lids and jr8 lashes normal. Conjunctiva and sclera are non-icteric and not injected. Cornea within normal limits. Periorbital areas with no swelling, redness, or edema. ENT: Nares patent. No nasal discharge, no septal abnormalities noted. Tympanic membranes are normal and external auditory canals are clear. Oropharynx with no redness, swelling, or masses, exudates, or evidence of obstruction, uvula midline. Mucous membranes moist. Neck: Trachea midline, no thyromegaly or masses palpated, and no cervical lymphadenopathy. Supple, full range of motion without nuchal rigidity, or vertebral point tenderness. No Meningismus. Chest/axilla: Normal chest wall appearance and motion. Nontender with no deformity. No lesions are appreciated. Cardiovascular: Regular rate and rhythm with a normal S1 and S2. No gallops, murmurs, or rubs. Normal PMI, no JVD. No pulse deficits. Respiratory: Lungs have equal breath sounds bilaterally, clear to auscultation and percussion. No rales, rhonchi or wheezes noted. No increased work of breathing, no retractions or nasal flaring. Abdomen/GI: Soft, non-tender, with normal bowel sounds. No distension or tympany. No guarding or rebound. No evidence of tenderness throughout. Skin: Warm, dry with normal turgor. Normal color with no rashes, no lesions, and no evidence of cellulitis. MS/ Extremity: Pulses equal, no cyanosis. Neurovascular intact. Full, normal range of motion. Neuro: Awake and alert, GCS 15, oriented to person, place, time, and situation. Cranial nerves II-XII grossly intact. Motor strength 5/5 in all extremities. Sensory grossly intact. Cerebellar exam normal. Normal gait. 07:51 Back: pain, that is moderate, of the low back area, ROM is painful, normal spinal alignment noted, CVA tenderness, is absent. Vital Signs: 07:39 BP 109 / 91; Pulse 130; Resp 15; Temp 98.4(TE); Pulse Ox 98% on R/A; Weight 79.83 kg; ss Height 4 ft. 11 in. (149.86 cm); Pain 10/10; 08:41 BP 105 / 78; Pulse 115; Resp 16 S; Pulse Ox 99% on R/A; Pain 5/10; aa5 07:39 Body Mass Index 35.55 (79.83 kg, 149.86 cm) MDM: 07:31 Patient medically screened. jr8 09:54 Data reviewed: vital signs, nurses notes, lab test result(s), radiologic studies, CT jr8 scan, plain films. Data interpreted: Pulse oximetry: on room air is 99 %. Interpretation: normal. Counseling: I had a detailed discussion with the patient and/or guardian regarding: the historical points, exam findings, and any diagnostic results supporting the discharge/admit diagnosis, lab results, radiology results, the need for outpatient follow up, a family practitioner, to return to the emergency department if symptoms worsen or persist or if there are any questions or concerns that arise at home. Response to treatment: the patient's symptoms have markedly improved after treatment. ED course: Patient without abdominal pain or CVA tenderness. Showed perinephritic stranding on CT. UTI present. Will cover with antibiotics . 01/07 08:13 Order name: Urine Microscopic Only; Complete Time: 09:14 [facility] 01/07 08:17 Order name: Urine Dipstick--Ancillary (enter results); Complete Time: 08:37 mw2 01/07 07:50 Order name: XRAY Lumbar Spine (3 Views); Complete Time: 09:29 8 01/07 08:17 Order name: Urine --Ancillary (enter results); Complete Time: 08:37 mw2 01/07 08:37 Order name: CT Lumbar Spine Wo Con; Complete Time: 09:29 8 01/07 08:56 Order name: Urine Culture EDGA 01/07 08:13 Order name: Urine Dipstick-Ancillary (obtain specimen); Complete Time: 08:14 [facility] 01/07 08:14 Order name: Urine Test (obtain specimen); Complete Time: 08:14 ss Administered Medications: 08:08 Drug: Demerol 50 mg Route: IM; Site: left gluteus; aa5 08:38 Follow up: Response: No adverse reaction; Pain is decreased aa5 08:08 Drug: Zofran 4 mg Route: PO; aa5 08:38 Follow up: Response: No adverse reaction aa5 Disposition: 01/08 04:03 Co-signature as Attending Physician, Ronen Mancilla MD I agree with the assessment and wa plan of care. Disposition: 01/07/18 09:55 Discharged to Home. Impression: Urinary tract infection, site not specified, Low back pain. - Condition is Stable. - Discharge Instructions: Back Pain, Adult, Musculoskeletal Pain, Urinary Tract Infection, Adult, Heat Therapy. - Prescriptions for Ibuprofen 800 mg Oral Tablet - take 1 tablet by ORAL route every 12 hours As needed take with food; 20 tablet. Robaxin 500 mg Oral Tablet - take 2 tablet by ORAL route every 6 hours As needed; 40 tablet. Macrobid 100 mg Oral Capsule - take 1 capsule by ORAL route every 12 hours for 10 days; 20 capsule. Tramadol 50 mg Oral Tablet - take 1 tablet by ORAL route every 8 hours as needed; 12 tablet. - Medication Reconciliation Form, Thank You Letter, Antibiotic Education, Prescription Opioid Use form. - Follow up: Private Physician; When: 5 - 6 days; Reason: If symptoms return, Recheck today's complaints, Continuance of care, Re-evaluation by your physician. - Problem is new. - Symptoms have improved. Signatures: Dispatcher [employer] EDMS Nimco Gillette RN RN aa5 Marianne Cho RN RN ss Roszak, Josh, PA PA jr8 Ronen Mancilla MD MD in Corrections: (The following items were deleted from the chart) 01/07 10:44 09:55 01/07/2018 09:55 Discharged to Home. Impression: Urinary tract infection, site aa5 not specified; Low back pain. Condition is Stable. Forms are Medication Reconciliation Form, Thank You Letter, Antibiotic Education, Prescription Opioid Use. Follow up: Private Physician; When: 5 - 6 days; Reason: If symptoms return, Recheck today's complaints, Continuance of care, Re-evaluation by your physician. Problem is new. Symptoms have improved. jr8
[2018-01-07 10:50] VITALS: TEMP 98.4
[2018-01-07 10:51] VITALS: BP 105/78; O2SAT 99
== END 2018-01-07 10:44 | disposition home or self-care (01) ==
LOC: ER 07:23
DX: N39.0 Urinary tract infection, site not specified (principal); F17.210 Nicotine dependence, cigarettes, uncomplicated; Z88.5 Allergy status to narcotic agent
CPT/HCPCS: 72100; 72131; 81003; 81015; 81025; 87077; 87086; 87088; 87186; 96372; 99284; J2175

== ENCOUNTER 2018-08-10 10:07 | Emergency (ER) | payer OTHER ==
--- OUTSIDE RECORDS SUMMARY | 2018-08-10 10:11 | XMS REPORT ---
:1985 Author Organization [facility] Address [address] [place] [address] [address] [place] [address] Care Team Providers Name Role Phone UNKNOWN, [...] Comments RPR (test code=RPR) Non-Reactive Non-Reactive Lipid [id number] 08:20:00 Test Item Value Reference Range Comments Cholesterol (test 116 mg/dL 0-200 code=CHOL) Triglycerides (test 107 mg/dL 9-200 code=TRIG) HDL (test code=HDL) 33 mg/dL 50-60 Chol/HDL (test 3.5 Ratio 0.0-4.4 code=CHOLPHDL) LDL, Calculated (test 62 0-130 (NOTE)RISK OF HEART code=LDLC) DISEASEPublished by Ghanaian Heart AssociationAnalyte Optimal Boderline Increased RiskCHOL <200 200-239 >240TRIG <150 150-199 >200HDL Male: >60 <40HDL Female: >60 <50LDL <100 130-159 >160LDL NEAR OPTIMAL IS 100-129 VLDL (test code=VLDL) 21 mg/dL 5-40 LDL/HDL (test code=LDLPHDL) 2 Thyroid Stimulating Hormone (TSH)2017-05-14 08:20:00 Test Item Value Reference Range Comments TSH (test code=TSH) 1.96 mIU/mL 0.270-4.200 BHCG, Serum, [id number] 08:04:00 Test Item Value Reference Range Comments Preg Qual [Se] (test code=BSHCG) Negative Negative Thyroid Stimulating Hormone (TSH)2016-08-18 21:10:00 Test Item Value Reference Range Comments TSH (test code=TSH) 2.02 mIU/mL 0.270-4.200 RPR, [id number] 18:14:00 Test Item Value Reference Range Comments RPR (test code=RPR) Non-Reactive Non-Reactive BHCG, Serum, [id number] 14:56:00 Test Item Value Reference Range Comments Preg Qual [Se] (test code=BSHCG) Negative Negative Urinalysis [id number] 11:10:00 Test Item Value Reference Range Comments Color (test code=COLOR) Yellow Yellow,Straw,Pl yellow Clarity (test code=CLAR) Sl Cloudy Clear Specific [place] (test 1.030 1.001-1.035 code=SPGR) pH (test code=PH) [...] Moderate /HPF Bacteria (test code=BACT) Few /HPF [id number] 10:48:00 Test Item Value Reference Range Comments [...] code=PROPOX) THC (test code=THC) Negative Negative Alcohol/Ethanol, [id number] 10:25:00 Test Item Value Reference Range Comments Alcohol, Ethyl (test <0.01 g/dL 0.00-0.01 Intoxicated 0.080 g/dL or code=ETOH) more Comprehensive Metabolic [id number] 10:25:00 Test Item Value Reference Range Comments [...] race is not provided, and the patient isAfrican-Ghanaian, multiply by 1.212. If sex is not [...] the National Kidney Foundation,http://nkdep.nih .gov BHCG, Serum, [id number] 10:20:00 Test Item Value Reference Range Comments Preg Qual [Se] (test code=BSHCG) Negative Negative CBC with [id number] 10:16:00 Test Item Value Reference Range Comments [...] Lymph Abs (test code=ALYMPH) 1.8 K/cumm 0.5-4.6 [place] Abs (test code=AMONO) 0.5 K/cumm 0.0-1.2 Eos Abs (test code=AEOS) 0.09 K/cumm 0.00-0.74 Baso Abs (test code=ABASO) 0.0 K/cumm 0.00-0.21 Microcytosis (test code=MICRO) Slight Occult [id number] 16:39:00 Test Item Value Reference Range Comments Occ Bld (test code=HSOB) Negative Negative Culture, Blood [id number] 09:49:00Specimen: BloodCollected: 07/23/2016 17 :40 Status: Final Last Updated: 07/29/2016 09:49 (1) ER Bed D7 Culture Result (Final) (Final) No Growth After 5 DaysCulture, Blood [id number] 09:49:00Specimen: BloodCollected: 07/23/2016 17:40 Status: Final Last Updated: 07/29/2016 09:49 (1) ER Bed D7 Culture Result (Final) (Final) No Growth After 5 DaysBasic Metabolic [id number] 14:25:00 Test Item Value Reference Range Comments [...] race is not provided, and the patient isAfrican-Ghanaian, multiply by 1.212. If sex is not [...] the National Kidney Foundation,http://nkdep.nih .gov CBC with [id number] 14:10:00 Test Item Value Reference Range Comments WBC (test code=WBC) 5.2 K/cumm 4.4-10.5 RBC (test code=RBC) 4.22 M/cumm 3.75-5.20 Hemoglobin (test code=HGB) 10.6 gm/dL 12.2-14.8 READ BACK LAB VALUESVERIFIED BY REPEAT TESTINGrechecked & calledto horace,rn @ 6140, post fluids/mdj Hematocrit (test code=HCT) 32.4 % [...] Lymph Abs (test 1.3 K/cumm 0.5-4.6 code=ALYMPH) [place] Abs (test code=AMONO) 0.3 K/cumm 0.0-1.2 Eos Abs (test code=AEOS) 0.12 K/cumm 0.00-0.74 Baso Abs (test code=ABASO) 0.0 K/cumm 0.00-0.21 BHCG, Serum, [id number] 13:12:00 Test Item Value Reference Range Comments Preg Qual [Se] (test code=BSHCG) Negative Negative RPR, [id number] 12:30:00 Test Item Value Reference Range Comments RPR (test code=RPR) Non-Reactive Non-Reactive Thyroid Stimulating Hormone (TSH)2016-07-24 08:26:00 Test Item Value Reference Range Comments TSH (test code=TSH) 3.07 mIU/mL 0.270-4.200 Lactic Acid [id number] 18:32:00 Test Item Value Reference Range Comments Lactic Acid, Bld (test code=LAC) 1.5 mmol/L 0.5-1.9 Comprehensive Metabolic [id number] 15:48:00 Test Item Value Reference Range Comments [...] race is not provided, and the patient isAfrican-Ghanaian, multiply by 1.212. If sex is not [...] the National Kidney Foundation,http://nkdep.nih .gov CBC with [id number] 15:36:00 Test Item Value Reference Range Comments [...] Lymph Abs (test code=ALYMPH) 1.9 K/cumm 0.5-4.6 [place] Abs (test code=AMONO) 0.6 K/cumm 0.0-1.2 Eos Abs (test code=AEOS) 0.10 K/cumm 0.00-0.74 Baso Abs (test code=ABASO) 0.0 K/cumm 0.00-0.21
[2018-08-10] MEDS ORDERED: LEVALBUTEROL 1.25 MG/3 ML NEB ONE (11:03)
[2018-08-10] MEDS ORDERED: predniSONE 20 MG TAB ONE (11:04)
--- NOTE | 2018-08-10 11:41 | EDPHYS ---
Physician Documentation [facility] Name: Georgette Patel Age: 33 yrs Sex: Female : 1985 Arrival Date: 08/10/2018 Time: 10:10 Bed 14 Private MD: ED Physician Ady Lawson HPI: 08/10 10:31 This 33 yrs old Black Female presents to ER via Ambulatory with complaints of Headache, jmm Cough. 10:31 The patient or guardian reports difficulty breathing. jmm 11:47 Onset: The symptoms/episode began/occurred gradually. Modifying factors: The symptoms jmm are alleviated by nothing, the symptoms are aggravated by nothing. Associated signs and symptoms:. This is a 33 year old female that presents to the ED with complaints of cough, congestion, headache, sore throat beginning 4 days ago. Patient was evaluated at an ED with negative chest xray and swabs. Patient was diagnosed with acute bronchitis. Denies fever. Denies chills. . TECHNICAL AID: 10:16 LMP 07/13/2018 Historical: - Allergies: 10:16 Hydrocodone-Acetaminophen; - PMHx: 10:16 Anxiety; Bipolar disorder; Depression; PTSD; Schizophrenia; - PSHx: 10:16 ; hj - Immunization history:: Adult Immunizations up to date, Flu vaccine is not up to date. - Social history:: Smoking status: Patient uses tobacco products, smokes one-half pack cigarettes per day. - Ebola Screening: : Patient denies travel to an Ebola-affected area in the 21 days before illness onset No symptoms or risks identified at this time. ROS: 11:47 Constitutional: Negative for fever, chills, and weight loss. jmm 11:47 ENT: Positive for sinus congestion, sore throat. 11:47 Cardiovascular: Positive for chest pain, with cough. 11:47 Respiratory: Positive for cough. 11:47 Neuro: Positive for headache. 11:47 All other systems are negative. Exam: 11:47 Head/Face: atraumatic. Eyes: EOMI, no conjunctival erythema appreciated jmm 11:47 Neck: Trachea midline, Supple Chest/axilla: Normal chest wall appearance and motion. 11:47 Abdomen/GI: Non distended, soft Back: Normal ROM Skin: General appearance color normal MS/ Extremity: Moves all extremities, no obvious deformities appreciated, no edema noted to the lower extremities Neuro: Awake and alert, normal gait 11:47 Constitutional: The patient appears in no acute distress, alert, awake. 11:47 ENT: TM's: are normal, Posterior pharynx: erythema, that is mild. 11:47 Cardiovascular: Rate: normal, Rhythm: regular, Pulses: no pulse deficits are appreciated. 11:47 Respiratory: the patient does not display signs of respiratory distress, Respirations: normal, Breath sounds: are clear throughout. 11:51 ECG was reviewed by the Attending Physician. [place] Vital Signs: 10:16 BP 125 / 96; Pulse 99; Resp 18; Temp 98.3(TE); Pulse Ox 100% on R/A; Weight 76.2 kg; hj Height 4 ft. 11 in. (149.86 cm); Pain 7/10; 11:45 BP 124 / 95; Pulse 98; Resp 18; Pulse Ox 100% on R/A; ae4 10:16 Body Mass Index 33.93 (76.20 kg, 149.86 cm) MDM: 10:31 Patient medically screened. [place] 11:40 Data reviewed: vital signs, nurses notes. Counseling: I had a detailed discussion with [place] the patient and/or guardian regarding: the historical points, exam findings, and any diagnostic results supporting the discharge/admit diagnosis, radiology results, the need for outpatient follow up, to return to the emergency department if symptoms worsen or persist or if there are any questions or concerns that arise at home. 11:52 ED course: Patient states feeling much better in the ED. VS WNL. Patient prescribed [place] oral steroids and albuterol. Patient is advised to follow up with pcp and otherwise given strict return precautions. Patient understood and agrees with the plan of care. . 12 10:19 Order name: EKG - Nurse/Tech; Complete Time: 10:36 EC:51 Rate is 94 beats/min. Rhythm is regular. QRS [place] is Normal. SD interval is normal. QRS jmm interval is normal. QT interval is normal. No Q waves. T waves are Normal. No ST changes noted. Administered Medications: 10:40 Drug: Xopenex (3) 1.25 mg Route: Inhalation; ae4 10:45 Drug: predniSONE 60 mg Route: PO; ae4 Disposition: 18:54 Co-signature as Attending Physician, Ady Lawson MD Available for consultation at ps1 all times. . Disposition: 08/10/18 11:41 Discharged to Home. Impression: Acute bronchitis. - Condition is Stable. - Discharge Instructions: Acute Bronchitis, Adult. - Prescriptions for Prednisone 20 mg Oral Tablet - take 3 tablet by ORAL route once daily for 5 days; 15 tablet. Albuterol Sulfate 90 mcg/actuation - inhale 1-2 puff by INHALATION route every 4-6 hours; 1 Inhaler. - Medication Reconciliation Form, Thank You Letter, Antibiotic Education, Prescription Opioid Use form. - Follow up: Private Physician; When: 2 - 3 days; Reason: Recheck today's complaints, Continuance of care, Re-evaluation by your physician. Signatures: Frankie Joyce PA PA jmm Joaquin, Henry, RN RN hj Ady Lawson MD MD ps1 Dharmesh Leahy RN RN ae4 Corrections: (The following items were deleted from the chart) 11:48 11:41 08/10/2018 11:41 Discharged to Home. Impression: Acute bronchitis. Condition is ae4 Stable. Forms are Medication Reconciliation Form, Thank You Letter, Antibiotic Education, Prescription Opioid Use. Follow up: Private Physician; When: 2 - 3 days; Reason: Recheck today's complaints, Continuance of care, Re-evaluation by your physician. jennifer
--- NOTE | 2018-08-10 11:41 | ER ---
Nurse's Notes [facility] Name: Georgette Patel Age: 33 yrs Sex: Female : 1985 Arrival Date: 08/10/2018 Time: 10:10 Bed 14 Private MD: Diagnosis: Acute bronchitis Presentation: 08/10 10:13 Presenting complaint: Patient states: i was in [place] ER yesterday fr cough hj complaints and they told me i have bronchitis and asthma, they didn't give me a Rx to go home with; now im still coughing and my chest hurts when i cough; denies fever;. Transition of care: patient was not received from another setting of care. Onset of symptoms was August 10, 2018. Risk Assessment: Do you want to hurt yourself or someone else? Patient reports no desire to harm self or others. Initial Sepsis Screen: Does the patient meet any 2 criteria? No. Patient's initial sepsis screen is negative. Does the patient have a suspected source of infection? No. Patient's initial sepsis screen is negative. Note i was in [place] ER yesterday for cough and they told me i had bronchitis and asthma, they didn't give me a Rx; now, im still coughing and my chest hurts when i cough, denies fever;. Care prior to arrival: None. 10:13 Method Of Arrival: Ambulatory 10:13 Acuity: GILES 3 Triage Assessment: 10:20 Headache History: The patient has had previous headaches and this one is similar to ae4 previous episodes. General: Appears in no apparent distress. uncomfortable, Behavior is cooperative. Pain: Complains of pain in head and back of head Pain currently is 6 out of 10 on a pain scale. Pain began gradually, Also complains of shortness of breath. Neuro: Level of Consciousness is awake, alert, obeys commands, Oriented to person, place, time, situation, Appropriate for age. SO[employer] W[employer] MECH[employer]IC: 10:16 LMP 07/13/2018 Historical: - Allergies: 10:16 Hydrocodone-Acetaminophen; hj - PMHx: 10:16 Anxiety; Bipolar disorder; Depression; PTSD; Schizophrenia; - PSHx: 10:16 ; hj - Immunization history:: Adult Immunizations up to date, Flu vaccine is not up to date. - Social history:: Smoking status: Patient uses tobacco products, smokes one-half pack cigarettes per day. - Ebola Screening: : Patient denies travel to an Ebola-affected area in the 21 days before illness onset No symptoms or risks identified at this time. Screenin:46 Abuse screen: Denies threats or abuse. Nutritional screening: No deficits noted. ae4 Tuberculosis screening: No symptoms or risk factors identified. Fall Risk None identified. Assessment: 11:45 Reassessment: Patient appears in no apparent distress at this time. Patient and/or ae4 family updated on plan of care and expected duration. Pain level reassessed. Patient is alert, oriented x 3, equal unlabored respirations, skin warm/dry/pink. Patient states feeling better. Patient states symptoms have improved. Vital Signs: 10:16 BP 125 / 96; Pulse 99; Resp 18; Temp 98.3(TE); Pulse Ox 100% on R/A; Weight 76.2 kg; hj Height 4 ft. 11 in. (149.86 cm); Pain 7/10; 11:45 BP 124 / 95; Pulse 98; Resp 18; Pulse Ox 100% on R/A; ae4 10:16 Body Mass Index 33.93 (76.20 kg, 149.86 cm) ED Course: 10:10 Patient arrived in ED. mr 10:15 Triage completed. hj 10:17 Arm band placed on right wrist. hj 10:18 Frankie Joyce PA is PHCP. [facility] 10:18 Ady Lawson MD is Attending Physician. [facility] 10:20 Dharmesh Leahy, MISHA is Primary Nurse. ae4 10:30 Bed in low position. Call light in reach. Side rails up X 1. Pulse ox on. NIBP on. Warm ae4 blanket given. 11:48 No provider procedures requiring assistance completed. Patient did not have IV access ae4 during this emergency room visit. Administered Medications: 10:40 Drug: Xopenex (3) 1.25 mg Route: Inhalation; ae4 10:45 Drug: predniSONE 60 mg Route: PO; ae4 Outcome: 11:41 Discharge ordered by . [facility] 11:48 Discharged to home ambulatory. ae4 11:48 Condition: improved 11:48 Discharge instructions given to patient, Instructed on discharge instructions, follow up and referral plans. medication usage, Demonstrated understanding of instructions, Prescriptions given X 2. 11:48 Patient left the ED. ae4 Signatures: Frankie Joyce PA PA jmSilvia Peace mr William Reynoso RN RN Dharmesh Dsouza RN RN ae4 Corrections: (The following items were deleted from the chart) 10:17 10:16 Pulse 99bpm; Resp 18bpm; Pulse Ox 100% RA; Temp 98.3F Temporal; 76.2 kg; Height 4 hj ft. 11 in.; BMI: 33.9; Pain 7/10; hj
[2018-08-10 11:56] VITALS: BP 124/95; O2SAT 100
[2018-08-10 11:58] VITALS: TEMP 98.3
--- NOTE | 2018-08-10 21:19 | EKG ---
Test Date: 2018-08-10 Test Time: 10:34:44 Title Attorney: ELIZA MEASUREMENT RESULTS: Intervals: Rate: 94 SD: 142 QRSD: 76 QT: 378 QTc: 472 [place]: P: 52 SD: 142 QRS: 52 T: 39 INTERPRETIVE STATEMENTS: Normal sinus rhythm Normal ECG Compared to ECG 11/27/2017 13:41:45 Sinus tachycardia no longer present Electronically Signed On 08-10-18 21:18:22 CDT by Evan Shirley
== END 2018-08-10 11:48 | disposition home or self-care (01) ==
LOC: ER 10:07
DX: J20.9 Acute bronchitis, unspecified (principal); F17.210 Nicotine dependence, cigarettes, uncomplicated; Z88.5 Allergy status to narcotic agent
CPT/HCPCS: 93005; 99284; J7512

== ENCOUNTER 2018-09-01 03:10 | Emergency (ER) | payer OTHER ==
--- OUTSIDE RECORDS SUMMARY | 2018-09-01 03:14 | XMS REPORT ---
:1985 [facility] [place] [address] Care Team Providers Name Role Phone UNKNOWN, [...] Comments RPR (test code=RPR) Non-Reactive Non-Reactive Lipid [id number] 08:20:00 Test Item Value Reference Range Comments Cholesterol (test 116 mg/dL 0-200 code=CHOL) Triglycerides (test 107 mg/dL 9-200 code=TRIG) HDL (test code=HDL) 33 mg/dL 50-60 Chol/HDL (test 3.5 Ratio 0.0-4.4 code=CHOLPHDL) LDL, Calculated (test 62 0-130 (NOTE)RISK OF HEART code=LDLC) DISEASEPublished by Filipino Heart AssociationAnalyte Optimal Boderline Increased RiskCHOL <200 200-239 >240TRIG <150 150-199 >200HDL Male: >60 <40HDL Female: >60 <50LDL <100 130-159 >160LDL NEAR OPTIMAL IS 100-129 VLDL (test code=VLDL) 21 mg/dL 5-40 LDL/HDL (test code=LDLPHDL) 2 Thyroid Stimulating Hormone (TSH)2017-05-14 08:20:00 Test Item Value Reference Range Comments TSH (test code=TSH) 1.96 mIU/mL 0.270-4.200 BHCG, Serum, [id number] 08:04:00 Test Item Value Reference Range Comments Preg Qual [Se] (test code=BSHCG) Negative Negative Thyroid Stimulating Hormone (TSH)2016-08-18 21:10:00 Test Item Value Reference Range Comments TSH (test code=TSH) 2.02 mIU/mL 0.270-4.200 RPR, [id number] 18:14:00 Test Item Value Reference Range Comments RPR (test code=RPR) Non-Reactive Non-Reactive BHCG, Serum, [id number] 14:56:00 Test Item Value Reference Range Comments Preg Qual [Se] (test code=BSHCG) Negative Negative Urinalysis [id number] 11:10:00 Test Item Value Reference Range Comments Color (test code=COLOR) Yellow Yellow,Straw,Pl yellow Clarity (test code=CLAR) Sl Cloudy Clear Specific [place] (test 1.030 1.001-1.035 code=SPGR) pH (test code=PH) [...] Moderate /HPF Bacteria (test code=BACT) Few /HPF [id number] 10:48:00 Test Item Value Reference Range Comments [...] code=PROPOX) THC (test code=THC) Negative Negative Alcohol/Ethanol, [id number] 10:25:00 Test Item Value Reference Range Comments Alcohol, Ethyl (test <0.01 g/dL 0.00-0.01 Intoxicated 0.080 g/dL or code=ETOH) more Comprehensive Metabolic [id number] 10:25:00 Test Item Value Reference Range Comments [...] race is not provided, and the patient isAfrican-Filipino, multiply by 1.212. If sex is not [...] the National Kidney Foundation,http://nkdep.nih .gov BHCG, Serum, [id number] 10:20:00 Test Item Value Reference Range Comments Preg Qual [Se] (test code=BSHCG) Negative Negative CBC with [id number] 10:16:00 Test Item Value Reference Range Comments [...] Lymph Abs (test code=ALYMPH) 1.8 K/cumm 0.5-4.6 [place] Abs (test code=AMONO) 0.5 K/cumm 0.0-1.2 Eos Abs (test code=AEOS) 0.09 K/cumm 0.00-0.74 Baso Abs (test code=ABASO) 0.0 K/cumm 0.00-0.21 Microcytosis (test code=MICRO) Slight Occult [id number] 16:39:00 Test Item Value Reference Range Comments Occ Bld (test code=HSOB) Negative Negative Culture, Blood [id number] 09:49:00Specimen: BloodCollected: 07/23/2016 17 :40 Status: Final Last Updated: 07/29/2016 09:49 (1) ER Bed D7 Culture Result (Final) (Final) No Growth After 5 DaysCulture, Blood [id number] 09:49:00Specimen: BloodCollected: 07/23/2016 17:40 Status: Final Last Updated: 07/29/2016 09:49 (1) ER Bed D7 Culture Result (Final) (Final) No Growth After 5 DaysBasic Metabolic [id number] 14:25:00 Test Item Value Reference Range Comments [...] race is not provided, and the patient isAfrican-Filipino, multiply by 1.212. If sex is not [...] the National Kidney Foundation,http://nkdep.nih .gov CBC with [id number] 14:10:00 Test Item Value Reference Range Comments WBC (test code=WBC) 5.2 K/cumm 4.4-10.5 RBC (test code=RBC) 4.22 M/cumm 3.75-5.20 Hemoglobin (test code=HGB) 10.6 gm/dL 12.2-14.8 READ BACK LAB VALUESVERIFIED BY REPEAT TESTINGrechecked & calledto horace,rn @ 1410, post fluids/mdj Hematocrit (test code=HCT) 32.4 % [...] Lymph Abs (test 1.3 K/cumm 0.5-4.6 code=ALYMPH) [place] Abs (test code=AMONO) 0.3 K/cumm 0.0-1.2 Eos Abs (test code=AEOS) 0.12 K/cumm 0.00-0.74 Baso Abs (test code=ABASO) 0.0 K/cumm 0.00-0.21 BHCG, Serum, [id number] 13:12:00 Test Item Value Reference Range Comments Preg Qual [Se] (test code=BSHCG) Negative Negative RPR, [id number] 12:30:00 Test Item Value Reference Range Comments RPR (test code=RPR) Non-Reactive Non-Reactive Thyroid Stimulating Hormone (TSH)2016-07-24 08:26:00 Test Item Value Reference Range Comments TSH (test code=TSH) 3.07 mIU/mL 0.270-4.200 Lactic Acid [id number] 18:32:00 Test Item Value Reference Range Comments Lactic Acid, Bld (test code=LAC) 1.5 mmol/L 0.5-1.9 Comprehensive Metabolic [id number] 15:48:00 Test Item Value Reference Range Comments [...] race is not provided, and the patient isAfrican-Filipino, multiply by 1.212. If sex is not [...] the National Kidney Foundation,http://nkdep.nih .gov CBC with [id number] 15:36:00 Test Item Value Reference Range Comments [...] Lymph Abs (test code=ALYMPH) 1.9 K/cumm 0.5-4.6 [place] Abs (test code=AMONO) 0.6 K/cumm 0.0-1.2 Eos Abs (test code=AEOS) 0.10 K/cumm 0.00-0.74 Baso Abs (test code=ABASO) 0.0 K/cumm 0.00-0.21
--- NOTE | 2018-09-01 03:49 | EDPHYS ---
Physician Documentation [facility] Name: Georgette Patel Age: 33 yrs Sex: Female : 1985 Arrival Date: 09/01/2018 Time: 03:13 Bed 6 Private MD: ED Physician Ferd Low HPI: 09/01 03:36 This 33 yrs old Black Female presents to ER via Ambulatory with complaints of Nose gs Problem. 03:36 The patient presents with a foreign body, unknown, pt states something crawled up her gs nose and she has foreign body sensation. Onset: The symptoms/episode began/occurred this morning. Associated signs and symptoms: The patient has no apparent associated signs or symptoms. Severity of symptoms: At their worst the symptoms were moderate in the emergency department the symptoms are unchanged. It is unknown whether or not the patient has had similar symptoms in the past. 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 - Social history:: Smoking status: Patient/guardian denies using tobacco. - Ebola Screening: : No symptoms or risks identified at this time. ROS: 03:36 All other systems are negative. gs Exam: 03:36 Neck: Trachea midline, no thyromegaly or masses palpated, and no cervical gs lymphadenopathy. Supple, full range of motion without nuchal rigidity, or vertebral point tenderness. No Meningismus. Cardiovascular: Regular rate and rhythm with a normal S1 and S2. No gallops, murmurs, or rubs. Normal PMI, no JVD. No pulse deficits. Respiratory: Lungs have equal breath sounds bilaterally, clear to auscultation and percussion. No rales, rhonchi or wheezes noted. No increased work of breathing, no retractions or nasal flaring. Abdomen/GI: Soft, non-tender, with normal bowel sounds. No distension or tympany. No guarding or rebound. No evidence of tenderness throughout. Back: No spinal tenderness. No costovertebral tenderness. Full range of motion. Skin: Warm, dry with normal turgor. Normal color with no rashes, no lesions, and no evidence of cellulitis. MS/ Extremity: Pulses equal, no cyanosis. Neurovascular intact. Full, normal range of motion. Neuro: Awake and alert, GCS 15, oriented to person, place, time, and situation. Cranial nerves II-XII grossly intact. Motor strength 5/5 in all extremities. Sensory grossly intact. Cerebellar exam normal. Normal gait. 03:36 Constitutional: The patient appears alert, awake. 03:36 Head/face: Exam is negative for acute changes. 03:36 Eyes: Periorbital structures: appear normal, Pupils: no acute changes, Extraocular movements: no acute changes, Conjunctiva: normal, Corneas: foreign body, is not appreciated, Anterior chamber: normal. 03:36 ENT: Nose: Nasal mucosa: erythematous, bleeding, is not appreciated, a foreign body, is not appreciated, in the right nare, in the left nare. Vital Signs: 03:26 BP 121 / 93; Pulse 66; Resp 18; Temp 98.9; Pulse Ox 98% on R/A; Weight 72.57 kg; Height ea 4 ft. 11 in. (149.86 cm); Pain 8/10; 03:26 Body Mass Index 32.32 (72.57 kg, 149.86 cm) ea MDM: 03:30 Patient medically screened. 03:36 Data reviewed: vital signs, nurses notes. ED course: pt insists something is in her gs nose i do not see anything in the nose, the mucosa is red and she has clear discharge finding consistent with rhinitis explained to patient and family. Administered Medications: No medications were administered Disposition: 09/01/18 03:47 Discharged to Home. Impression: Vasomotor and allergic rhinitis. - Condition is Stable. - Discharge Instructions: Allergic Rhinitis, Nonallergic Rhinitis. - Prescriptions for Flonase Allergy Relief 50 mcg/actuation Nasal spray,suspension - inhale 2 spray by INTRANASAL route once daily; 1 bottle. Zyrtec 10 mg Oral Tablet - take 1 tablet by ORAL route once daily As needed; 20 tablet. - Medication Reconciliation Form, Thank You Letter, Antibiotic Education, Prescription Opioid Use form. - Follow up: Private Physician; When: 2 - 3 days; Reason: Re-evaluation by your physician. Signatures: Dent, Liz, RN RN ea Olw, Fred, MD MD gs Cordel, Brittany cc3 Corrections: (The following items were deleted from the chart) 04:01 03:47 09/01/2018 03:47 Discharged to Home. Impression: Vasomotor and allergic rhinitis. cc3 Condition is Stable. Forms are Medication Reconciliation Form, Thank You Letter, Antibiotic Education, Prescription Opioid Use. Follow up: Private Physician; When: 2 - 3 days; Reason: Re-evaluation by your physician. aron
--- NOTE | 2018-09-01 03:49 | ER ---
Nurse's Notes [facility] Name: Georgette Patel Age: 33 yrs Sex: Female : 1985 Arrival Date: 09/01/2018 Time: 03:13 Bed 6 Private MD: Diagnosis: Vasomotor and allergic rhinitis Presentation: 09/01 03:22 Presenting complaint: Patient states: Pt states "I think a bug flew up my nose two days ea ago" Pt report the left nostril is irritated. Transition of care: patient was not received from another setting of care. Onset of symptoms was September 01, 2018. Risk Assessment: Do you want to hurt yourself or someone else? Patient reports no desire to harm self or others. Initial Sepsis Screen: Does the patient meet any 2 criteria? No. Patient's initial sepsis screen is negative. Does the patient have a suspected source of infection? No. Patient's initial sepsis screen is negative. Care prior to arrival: None. 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 - Social history:: Smoking status: Patient/guardian denies using tobacco. - Ebola Screening: : No symptoms or risks identified at this time. Screenin:25 Abuse screen: Denies threats or abuse. Nutritional screening: No deficits noted. ea Tuberculosis screening: No symptoms or risk factors identified. Fall Risk None identified. Assessment: 03:22 General: Appears uncomfortable, Behavior is quiet. Pain: Complains of pain in bridge of ea nose. Neuro: Level of Consciousness is awake, alert, obeys commands, Oriented to person, place, time. Cardiovascular: Patient's skin is warm and dry. Respiratory: Airway is patent Respiratory effort is even, unlabored, Respiratory pattern is regular, symmetrical. Derm: Skin is pink, warm \\T\\ dry. Musculoskeletal: Circulation, motion, and sensation intact. 04:00 Reassessment: Patient appears in no apparent distress at this time. Patient and/or cc3 family updated on plan of care and expected duration. Pain level reassessed. Patient is alert, oriented x 3, equal unlabored respirations, skin warm/dry/pink. Dr. Low discharged the patient home with prescriptions given. No IV cannula in situ. Patient left ER vitally stable and ambulatory with her family. Patient denies pain at this time. Patient states symptoms have improved. Vital Signs: 03:26 BP 121 / 93; Pulse 66; Resp 18; Temp 98.9; Pulse Ox 98% on R/A; Weight 72.57 kg; Height ea 4 ft. 11 in. (149.86 cm); Pain 8/10; 03:26 Body Mass Index 32.32 (72.57 kg, 149.86 cm) ea ED Course: 03:13 Patient arrived in ED. ag3 03:20 Liz Dent, RN is Primary Nurse. ea 03:21 Fred Low MD is Attending Physician. 03:24 Triage completed. ea 03:24 Patient has correct armband on for positive identification. Bed in low position. Call ea light in reach. Side rails up X 1. Adult w/ patient. 03:24 Arm band placed on right wrist. Patient placed in an exam room, on a stretcher, on ea pulse oximetry. 03:49 No provider procedures requiring assistance completed. Patient did not have IV access ea during this emergency room visit. Administered Medications: No medications were administered Outcome: 03:47 Discharge ordered by . 04:00 Discharged to home ambulatory, with family. cc3 04:00 Condition: stable 04:00 Discharge instructions given to patient, family, Instructed on discharge instructions, follow up and referral plans. medication usage, Demonstrated understanding of instructions, follow-up care, medications, Prescriptions given X 2. 04:01 Patient left the ED. cc3 Signatures: Liz Dent, Fred Gary RN, ea, MD MD Brittany Spear psychiatric Robyn Gonsalves [facility]
[2018-09-01 04:17] VITALS: BP 121/93; TEMP 98.9; O2SAT 98
== END 2018-09-01 04:01 | disposition home or self-care (01) ==
LOC: ER 03:10
DX: J30.0 Vasomotor rhinitis (principal); F31.9 Bipolar disorder, unspecified; F20.9 Schizophrenia, unspecified; Z88.5 Allergy status to narcotic agent
CPT/HCPCS: 99283

== ENCOUNTER 2018-10-03 15:40 | Emergency (ER) | payer OTHER ==
--- OUTSIDE RECORDS SUMMARY | 2018-10-03 15:42 | XMS REPORT ---
:1985 [facility] Address [facility] [place] [address] Care Team Providers Name Role Phone UNKNOWN, [...] Comments RPR (test code=RPR) Non-Reactive Non-Reactive Lipid [id number] 08:20:00 Test Item Value Reference Range Comments Cholesterol (test 116 mg/dL 0-200 code=CHOL) Triglycerides (test 107 mg/dL 9-200 code=TRIG) HDL (test code=HDL) 33 mg/dL 50-60 Chol/HDL (test 3.5 Ratio 0.0-4.4 code=CHOLPHDL) LDL, Calculated (test 62 0-130 (NOTE)RISK OF HEART code=LDLC) DISEASEPublished by Baham[place] Heart AssociationAnalyte Optimal Boderline Increased RiskCHOL <200 200-239 >240TRIG <150 150-199 >200HDL Male: >60 <40HDL Female: >60 <50LDL <100 130-159 >160LDL NEAR OPTIMAL IS 100-129 VLDL (test code=VLDL) 21 mg/dL 5-40 LDL/HDL (test code=LDLPHDL) 2 Thyroid Stimulating Hormone (TSH)2017-05-14 08:20:00 Test Item Value Reference Range Comments TSH (test code=TSH) 1.96 mIU/mL 0.270-4.200 BHCG, Serum, [id number] 08:04:00 Test Item Value Reference Range Comments Preg Qual [Se] (test code=BSHCG) Negative Negative Thyroid Stimulating Hormone (TSH)2016-08-18 21:10:00 Test Item Value Reference Range Comments TSH (test code=TSH) 2.02 mIU/mL 0.270-4.200 RPR, [id number] 18:14:00 Test Item Value Reference Range Comments RPR (test code=RPR) Non-Reactive Non-Reactive BHCG, Serum, [id number] 14:56:00 Test Item Value Reference Range Comments Preg Qual [Se] (test code=BSHCG) Negative Negative Urinalysis [id number] 11:10:00 Test Item Value Reference Range Comments Color (test code=COLOR) Yellow Yellow,Straw,Pl yellow Clarity (test code=CLAR) Sl Cloudy Clear Specific [place] (test 1.030 1.001-1.035 code=SPGR) pH (test code=PH) [...] Moderate /HPF Bacteria (test code=BACT) Few /HPF [id number] 10:48:00 Test Item Value Reference Range Comments [...] code=PROPOX) THC (test code=THC) Negative Negative Alcohol/Ethanol, [id number] 10:25:00 Test Item Value Reference Range Comments Alcohol, Ethyl (test <0.01 g/dL 0.00-0.01 Intoxicated 0.080 g/dL or code=ETOH) more Comprehensive Metabolic [id number] 10:25:00 Test Item Value Reference Range Comments [...] race is not provided, and the patient isAfrican-Bahamian, multiply by 1.212. If sex is not [...] the National Kidney Foundation,http://nkdep.nih .gov BHCG, Serum, [id number] 10:20:00 Test Item Value Reference Range Comments Preg Qual [Se] (test code=BSHCG) Negative Negative CBC with [id number] 10:16:00 Test Item Value Reference Range Comments [...] Lymph Abs (test code=ALYMPH) 1.8 K/cumm 0.5-4.6 [place] Abs (test code=AMONO) 0.5 K/cumm 0.0-1.2 Eos Abs (test code=AEOS) 0.09 K/cumm 0.00-0.74 Baso Abs (test code=ABASO) 0.0 K/cumm 0.00-0.21 Microcytosis (test code=MICRO) Slight Occult [id number] 16:39:00 Test Item Value Reference Range Comments Occ Bld (test code=HSOB) Negative Negative Culture, Blood [id number] 09:49:00Specimen: BloodCollected: 07/23/2016 17 :40 Status: Final Last Updated: 07/29/2016 09:49 (1) ER Bed D7 Culture Result (Final) (Final) No Growth After 5 DaysCulture, Blood [id number] 09:49:00Specimen: BloodCollected: 07/23/2016 17:40 Status: Final Last Updated: 07/29/2016 09:49 (1) ER Bed D7 Culture Result (Final) (Final) No Growth After 5 DaysBasic Metabolic [id number] 14:25:00 Test Item Value Reference Range Comments [...] race is not provided, and the patient isAfrican-Bahamian, multiply by 1.212. If sex is not [...] the National Kidney Foundation,http://nkdep.nih .gov CBC with [id number] 14:10:00 Test Item Value Reference Range Comments [...] Lymph Abs (test 1.3 K/cumm 0.5-4.6 code=ALYMPH) [place] Abs (test code=AMONO) 0.3 K/cumm 0.0-1.2 Eos Abs (test code=AEOS) 0.12 K/cumm 0.00-0.74 Baso Abs (test code=ABASO) 0.0 K/cumm 0.00-0.21 BHCG, Serum, [id number] 13:12:00 Test Item Value Reference Range Comments Preg Qual [Se] (test code=BSHCG) Negative Negative RPR, [id number] 12:30:00 Test Item Value Reference Range Comments RPR (test code=RPR) Non-Reactive Non-Reactive Thyroid Stimulating Hormone (TSH)2016-07-24 08:26:00 Test Item Value Reference Range Comments TSH (test code=TSH) 3.07 mIU/mL 0.270-4.200 Lactic Acid [id number] 18:32:00 Test Item Value Reference Range Comments Lactic Acid, Bld (test code=LAC) 1.5 mmol/L 0.5-1.9 Comprehensive Metabolic [id number] 15:48:00 Test Item Value Reference Range Comments [...] race is not provided, and the patient isAfrican-Bahamian, multiply by 1.212. If sex is not [...] the National Kidney Foundation,http://nkdep.nih .gov CBC with [id number] 15:36:00 Test Item Value Reference Range Comments [...] Lymph Abs (test code=ALYMPH) 1.9 K/cumm 0.5-4.6 [place] Abs (test code=AMONO) 0.6 K/cumm 0.0-1.2 Eos Abs (test code=AEOS) 0.10 K/cumm 0.00-0.74 Baso Abs (test code=ABASO) 0.0 K/cumm 0.00-0.21
--- NOTE | 2018-10-03 16:19 | ER ---
Nurse's Notes [facility] Name: Georgette Patel Age: 33 yrs Sex: Female : 1985 Arrival Date: 10/03/2018 Time: 15:44 Bed 26 Private MD: Diagnosis: Presentation: 10/03 15:51 Presenting complaint: EMS states: patient called for chest pain. found the patient at home, anxious and upset. she has history of schitz bipolar. she is dealing with family issues. she is also using synthetic marijuana. Transition of care: patient was not received from another setting of care. Onset of symptoms was October 03, 2018 at 15:30. Risk Assessment: Do you want to hurt yourself or someone else? Patient reports no desire to harm self or others. Initial Sepsis Screen: Does the patient meet any 2 criteria? No. Patient's initial sepsis screen is negative. Does the patient have a suspected source of infection? No. Patient's initial sepsis screen is negative. Care prior to arrival: None. 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 - Social history:: Smoking status: unknown Patient uses street drugs, marijuana, synthetic marijuana. - Ebola Screening: : No symptoms or risks identified at this time. Screenin:01 Abuse screen: Denies threats or abuse. Denies injuries from another. Nutritional rv screening: No deficits noted. Tuberculosis screening: No symptoms or risk factors identified. Fall Risk None identified. Assessment: 15:58 General: Appears in no apparent distress. uncomfortable, Behavior is anxious, crying, rv uncooperative. Pain: Complains of pain in chest. Neuro: Level of Consciousness is awake, alert, obeys commands, Oriented to person, place, time, situation. Cardiovascular: Patient's skin is warm and dry. Respiratory: Airway is patent. GI: No signs and/or symptoms were reported involving the gastrointestinal system. : No signs and/or symptoms were reported regarding the genitourinary system. EENT: No signs and/or symptoms were reported regarding the EENT system. Derm: Skin is intact. Musculoskeletal: No signs and/or symptoms reported regarding the musculoskeletal system. Vital Signs: 15:54 BP 129 / 89; Pulse 111; Resp 23; Temp 98; Pulse Ox 99% on R/A; rv ED Course: 15:44 Patient arrived in ED. mg2 15:46 Dillan Ndiaye, MISHA is Primary Nurse. rv 15:51 EKG done, by hydrological technical officer. reviewed by Ronen Mancilla MD. sm3 15:54 Triage completed. rv 16:01 Patient has correct armband on for positive identification. Placed in gown. Bed in low rv position. Call light in reach. Side rails up X 1. quality control lead on. Pulse ox on. NIBP on. 16:01 Patient placed in the treatment room, on a stretcher, on loss prevention lead, on pulse rv oximetry, Patient notified of wait time. Arm band placed on right wrist. EKG completed in triage. Results shown to MD. 16:17 Shemar Nino NP is PHCP. pm1 16:17 Ronen Mancilla MD is Attending Physician. pm1 16:29 Primary Nurse role handed off by Dillan Ndiaye RN rv Administered Medications: No medications were administered Outcome: 16:18 Eloped from patient exam room, before seeing physician Time discovered patient gone: rv October 03, 2018 at 16:18 16:18 Condition: unchanged 16:19 Patient left the ED. rv 16:34 Patient left the ED. Signatures: Marianne Cho RN RN Shemar Nino NP DIRECTOR OF CURRICULUM AND INSTRUCTION pm1 Anurag Ordoñez RN RN [facility] Luanne Briscoe 3 Dillan Ndiaye RN RN
[2018-10-03 16:57] VITALS: BP 129/89; TEMP 98; O2SAT 99
--- NOTE | 2018-10-04 07:37 | EKG ---
Test Date: 2018-10-03 Test Time: 15:41:31 Technical [employer]: [employer]UBINA MEASUREMENT RESULTS: Intervals: Rate: 117 VA: 138 QRSD: 78 QT: 356 QTc: 496 [place]: P: 68 VA: 138 QRS: 80 T: 66 INTERPRETIVE STATEMENTS: Sinus tachycardia Possible Left atrial enlargement Borderline ECG Compared to ECG 08/10/2018 10:34:44 Sinus rhythm no longer present Electronically Signed On 10-04-18 07:36:39 CDT by Evan Shirley
== END 2018-10-03 16:34 | disposition left against medical advice (07) ==
LOC: ER 15:40
DX: Z53.21 Procedure and treatment not carried out due to patient leaving prior to being seen by health care provider (principal)
CPT/HCPCS: 93005; 99284

== ENCOUNTER 2018-10-03 16:50 | Emergency (ER) | payer OTHER ==
--- OUTSIDE RECORDS SUMMARY | 2018-10-03 16:53 | XMS REPORT ---
:1985 [facility] [address] [place] [address] [address] [place] [address] Care Team Providers Name Role Phone UNKNOWN, [...] Comments RPR (test code=RPR) Non-Reactive Non-Reactive Lipid [id number] 08:20:00 Test Item Value Reference Range Comments Cholesterol (test 116 mg/dL 0-200 code=CHOL) Triglycerides (test 107 mg/dL 9-200 code=TRIG) HDL (test code=HDL) 33 mg/dL 50-60 Chol/HDL (test 3.5 Ratio 0.0-4.4 code=CHOLPHDL) LDL, Calculated (test 62 0-130 (NOTE)RISK OF HEART code=LDLC) DISEASEPublished by [place] Heart AssociationAnalyte Optimal Boderline Increased RiskCHOL <200 200-239 >240TRIG <150 150-199 >200HDL Male: >60 <40HDL Female: >60 <50LDL <100 130-159 >160LDL NEAR OPTIMAL IS 100-129 VLDL (test code=VLDL) 21 mg/dL 5-40 LDL/HDL (test code=LDLPHDL) 2 Thyroid Stimulating Hormone (TSH)2017-05-14 08:20:00 Test Item Value Reference Range Comments TSH (test code=TSH) 1.96 mIU/mL 0.270-4.200 BHCG, Serum, [id number] 08:04:00 Test Item Value Reference Range Comments Preg Qual [Se] (test code=BSHCG) Negative Negative Thyroid Stimulating Hormone (TSH)2016-08-18 21:10:00 Test Item Value Reference Range Comments TSH (test code=TSH) 2.02 mIU/mL 0.270-4.200 RPR, [id number] 18:14:00 Test Item Value Reference Range Comments RPR (test code=RPR) Non-Reactive Non-Reactive BHCG, Serum, [id number] 14:56:00 Test Item Value Reference Range Comments Preg Qual [Se] (test code=BSHCG) Negative Negative Urinalysis [id number] 11:10:00 Test Item Value Reference Range Comments Color (test code=COLOR) Yellow Yellow,Straw,Pl yellow Clarity (test code=CLAR) Sl Cloudy Clear Specific Pep (test 1.030 1.001-1.035 code=SPGR) pH (test code=PH) [...] Moderate /HPF Bacteria (test code=BACT) Few /HPF [id number] 10:48:00 Test Item Value Reference Range Comments [...] code=PROPOX) THC (test code=THC) Negative Negative Alcohol/Ethanol, [id number] 10:25:00 Test Item Value Reference Range Comments Alcohol, Ethyl (test <0.01 g/dL 0.00-0.01 Intoxicated 0.080 g/dL or code=ETOH) more Comprehensive Metabolic [id number] 10:25:00 Test Item Value Reference Range Comments [...] race is not provided, and the patient isAfrican-[place], multiply by 1.212. If sex is not [...] the National Kidney Foundation,http://nkdep.nih .gov BHCG, Serum, [id number] 10:20:00 Test Item Value Reference Range Comments Preg Qual [Se] (test code=BSHCG) Negative Negative CBC with [id number] 10:16:00 Test Item Value Reference Range Comments [...] Lymph Abs (test code=ALYMPH) 1.8 K/cumm 0.5-4.6 [place] Abs (test code=AMONO) 0.5 K/cumm 0.0-1.2 Eos Abs (test code=AEOS) 0.09 K/cumm 0.00-0.74 Baso Abs (test code=ABASO) 0.0 K/cumm 0.00-0.21 Microcytosis (test code=MICRO) Slight Occult [id number] 16:39:00 Test Item Value Reference Range Comments Occ Bld (test code=HSOB) Negative Negative Culture, Blood [id number] 09:49:00Specimen: BloodCollected: 07/23/2016 17 :40 Status: Final Last Updated: 07/29/2016 09:49 (1) ER Bed D7 Culture Result (Final) (Final) No Growth After 5 DaysCulture, Blood [id number] 09:49:00Specimen: BloodCollected: 07/23/2016 17:40 Status: Final Last Updated: 07/29/2016 09:49 (1) ER Bed D7 Culture Result (Final) (Final) No Growth After 5 DaysBasic Metabolic [id number] 14:25:00 Test Item Value Reference Range Comments [...] race is not provided, and the patient isAfrican-[place], multiply by 1.212. If sex is not [...] the National Kidney Foundation,http://nkdep.nih .gov CBC with [id number] 14:10:00 Test Item Value Reference Range Comments WBC (test code=WBC) 5.2 K/cumm 4.4-10.5 RBC (test code=RBC) 4.22 M/cumm 3.75-5.20 Hemoglobin (test code=HGB) 10.6 gm/dL 12.2-14.8 READ BACK LAB VALUESVERIFIED BY REPEAT TESTINGrechecked & calledto horace,rn @ 3850, post fluids/mdj Hematocrit (test code=HCT) 32.4 % [...] Lymph Abs (test 1.3 K/cumm 0.5-4.6 code=ALYMPH) [place] Abs (test code=AMONO) 0.3 K/cumm 0.0-1.2 Eos Abs (test code=AEOS) 0.12 K/cumm 0.00-0.74 Baso Abs (test code=ABASO) 0.0 K/cumm 0.00-0.21 BHCG, Serum, [id number] 13:12:00 Test Item Value Reference Range Comments Preg Qual [Se] (test code=BSHCG) Negative Negative RPR, [id number] 12:30:00 Test Item Value Reference Range Comments RPR (test code=RPR) Non-Reactive Non-Reactive Thyroid Stimulating Hormone (TSH)2016-07-24 08:26:00 Test Item Value Reference Range Comments TSH (test code=TSH) 3.07 mIU/mL 0.270-4.200 Lactic Acid [id number] 18:32:00 Test Item Value Reference Range Comments Lactic Acid, Bld (test code=LAC) 1.5 mmol/L 0.5-1.9 Comprehensive Metabolic [id number] 15:48:00 Test Item Value Reference Range Comments [...] race is not provided, and the patient isAfrican-[place], multiply by 1.212. If sex is not [...] the National Kidney Foundation,http://nkdep.nih .gov CBC with [id number] 15:36:00 Test Item Value Reference Range Comments [...] Lymph Abs (test code=ALYMPH) 1.9 K/cumm 0.5-4.6 [place] Abs (test code=AMONO) 0.6 K/cumm 0.0-1.2 Eos Abs (test code=AEOS) 0.10 K/cumm 0.00-0.74 Baso Abs (test code=ABASO) 0.0 K/cumm 0.00-0.21
--- NOTE | 2018-10-03 18:41 | ER ---
Nurse's Notes [facility] Name: Georgette Patel Age: 33 yrs Sex: Female : 1985 Arrival Date: 10/03/2018 Time: 16:52 Bed Waiting Private MD: Diagnosis: Presentation: 10/03 17:13 Presenting complaint: Patient states: Chest pain x 3 days. Denies N/V/SOB. Transition hb of care: patient was not received from another setting of care. Onset of symptoms was September 30, 2018. Risk Assessment: Do you want to hurt yourself or someone else? Patient reports no desire to harm self or others. Care prior to arrival: None. 17:13 Method Of Arrival: Ambulatory hb 17:13 Acuity: GILES 3 hb Historical: - Allergies: 17:15 Hydrocodone-Acetaminophen; hb - PMHx: 17:15 Anxiety; Bipolar disorder; Depression; PTSD; Schizophrenia; hb Vital Signs: 17:14 BP 136 / 86; Pulse 108; Resp 16; Temp 98.3; Pulse Ox 100% on R/A; Weight 68.04 kg; hb Height 5 ft. 4 in. (162.56 cm); Pain 3/10; 17:14 Body Mass Index 25.75 (68.04 kg, 162.56 cm) hb ED Course: 16:52 Patient arrived in ED. mr 16:59 Patient's name was called from ER [employer]. No response. hb 17:14 Triage completed. hb 17:14 Arm band placed on left wrist. hb 17:19 EKG completed in triage. Results shown to MD. hb 18:06 Terence Dave, RN is Primary Nurse. bp 18:07 Patient's name was called from ER [employer]. No response. hb Administered Medications: No medications were administered Outcome: 18:39 Patient left the ED. hb Signatures: Silvia Estrada Heather, RN RN hb Terence Dave, RN RN bp
[2018-10-03 20:10] VITALS: BP 136/86; TEMP 98.3; O2SAT 100
--- NOTE | 2018-10-04 07:36 | EKG ---
Test Date: 2018-10-03 Test Time: 17:21:16 Property Condition Assessor: [place]UB[place] MEASUREMENT RESULTS: Intervals: Rate: 103 MO: 134 QRSD: 78 QT: 364 QTc: 476 [place]: P: 69 MO: 134 QRS: 75 T: 61 INTERPRETIVE STATEMENTS: Sinus tachycardia Possible Left atrial enlargement Borderline ECG Compared to ECG 10/03/2018 15:41:31 No significant changes Electronically Signed On 10-04-18 07:35:16 CDT by Evan Shirley
== END 2018-10-03 18:39 | disposition left against medical advice (07) ==
LOC: ER 16:50
DX: Z53.21 Procedure and treatment not carried out due to patient leaving prior to being seen by health care provider (principal)
CPT/HCPCS: 93005; 99281

== ENCOUNTER 2018-10-04 14:19 | Emergency (ER) | payer OTHER ==
--- OUTSIDE RECORDS SUMMARY | 2018-10-04 14:22 | XMS REPORT ---
:1985 [facility] [address] [place] [address] [address] [place] [address] Care Team Providers Name Role Phone UNKNOWN, [...] Comments RPR (test code=RPR) Non-Reactive Non-Reactive Lipid [id number] 08:20:00 Test Item Value Reference Range Comments Cholesterol (test 116 mg/dL 0-200 code=CHOL) Triglycerides (test 107 mg/dL 9-200 code=TRIG) HDL (test code=HDL) 33 mg/dL 50-60 Chol/HDL (test 3.5 Ratio 0.0-4.4 code=CHOLPHDL) LDL, Calculated (test 62 0-130 (NOTE)RISK OF HEART code=LDLC) DISEASEPublished by [place] Heart AssociationAnalyte Optimal Boderline Increased RiskCHOL <200 200-239 >240TRIG <150 150-199 >200HDL Male: >60 <40HDL Female: >60 <50LDL <100 130-159 >160LDL NEAR OPTIMAL IS 100-129 VLDL (test code=VLDL) 21 mg/dL 5-40 LDL/HDL (test code=LDLPHDL) 2 Thyroid Stimulating Hormone (TSH)2017-05-14 08:20:00 Test Item Value Reference Range Comments TSH (test code=TSH) 1.96 mIU/mL 0.270-4.200 BHCG, Serum, [id number] 08:04:00 Test Item Value Reference Range Comments Preg Qual [Se] (test code=BSHCG) Negative Negative Thyroid Stimulating Hormone (TSH)2016-08-18 21:10:00 Test Item Value Reference Range Comments TSH (test code=TSH) 2.02 mIU/mL 0.270-4.200 RPR, [id number] 18:14:00 Test Item Value Reference Range Comments RPR (test code=RPR) Non-Reactive Non-Reactive BHCG, Serum, [id number] 14:56:00 Test Item Value Reference Range Comments Preg Qual [Se] (test code=BSHCG) Negative Negative Urinalysis [id number] 11:10:00 Test Item Value Reference Range Comments Color (test code=COLOR) Yellow Yellow,Straw,Pl yellow Clarity (test code=CLAR) Sl Cloudy Clear Specific [place] (test 1.030 1.001-1.035 code=SPGR) pH (test code=PH) [...] Moderate /HPF Bacteria (test code=BACT) Few /HPF [id number] 10:48:00 Test Item Value Reference Range Comments [...] code=PROPOX) THC (test code=THC) Negative Negative Alcohol/Ethanol, [id number] 10:25:00 Test Item Value Reference Range Comments Alcohol, Ethyl (test <0.01 g/dL 0.00-0.01 Intoxicated 0.080 g/dL or code=ETOH) more Comprehensive Metabolic [id number] 10:25:00 Test Item Value Reference Range Comments [...] race is not provided, and the patient isAfrican-[place]ib[place], multiply by 1.212. If sex is not [...] the National Kidney Foundation,http://nkdep.nih .gov BHCG, Serum, [id number] 10:20:00 Test Item Value Reference Range Comments Preg Qual [Se] (test code=BSHCG) Negative Negative CBC with [id number] 10:16:00 Test Item Value Reference Range Comments [...] Lymph Abs (test code=ALYMPH) 1.8 K/cumm 0.5-4.6 [place] Abs (test code=AMONO) 0.5 K/cumm 0.0-1.2 Eos Abs (test code=AEOS) 0.09 K/cumm 0.00-0.74 Baso Abs (test code=ABASO) 0.0 K/cumm 0.00-0.21 Microcytosis (test code=MICRO) Slight Occult [id number] 16:39:00 Test Item Value Reference Range Comments Occ Bld (test code=HSOB) Negative Negative Culture, Blood [id number] 09:49:00Specimen: BloodCollected: 07/23/2016 17 :40 Status: Final Last Updated: 07/29/2016 09:49 (1) ER Bed D7 Culture Result (Final) (Final) No Growth After 5 DaysCulture, Blood [id number] 09:49:00Specimen: BloodCollected: 07/23/2016 17:40 Status: Final Last Updated: 07/29/2016 09:49 (1) ER Bed D7 Culture Result (Final) (Final) No Growth After 5 DaysBasic Metabolic [id number] 14:25:00 Test Item Value Reference Range Comments [...] race is not provided, and the patient isAfrican-[place], multiply by 1.212. If sex is not [...] the National Kidney Foundation,http://nkdep.nih .gov CBC with [id number] 14:10:00 Test Item Value Reference Range Comments WBC (test code=WBC) 5.2 K/cumm 4.4-10.5 RBC (test code=RBC) 4.22 M/cumm 3.75-5.20 Hemoglobin (test code=HGB) 10.6 gm/dL 12.2-14.8 READ BACK LAB VALUESVERIFIED BY REPEAT TESTINGrechecked & calledto horace,rn @ 1970, post fluids/mdj Hematocrit (test code=HCT) 32.4 % [...] Lymph Abs (test 1.3 K/cumm 0.5-4.6 code=ALYMPH) [place] Abs (test code=AMONO) 0.3 K/cumm 0.0-1.2 Eos Abs (test code=AEOS) 0.12 K/cumm 0.00-0.74 Baso Abs (test code=ABASO) 0.0 K/cumm 0.00-0.21 BHCG, Serum, [id number] 13:12:00 Test Item Value Reference Range Comments Preg Qual [Se] (test code=BSHCG) Negative Negative RPR, [id number] 12:30:00 Test Item Value Reference Range Comments RPR (test code=RPR) Non-Reactive Non-Reactive Thyroid Stimulating Hormone (TSH)2016-07-24 08:26:00 Test Item Value Reference Range Comments TSH (test code=TSH) 3.07 mIU/mL 0.270-4.200 Lactic Acid [id number] 18:32:00 Test Item Value Reference Range Comments Lactic Acid, Bld (test code=LAC) 1.5 mmol/L 0.5-1.9 Comprehensive Metabolic [id number] 15:48:00 Test Item Value Reference Range Comments [...] race is not provided, and the patient isAfrican-[place]ib[place], multiply by 1.212. If sex is not [...] the National Kidney Foundation,http://nkdep.nih .gov CBC with [id number] 15:36:00 Test Item Value Reference Range Comments [...] Lymph Abs (test code=ALYMPH) 1.9 K/cumm 0.5-4.6 [place] Abs (test code=AMONO) 0.6 K/cumm 0.0-1.2 Eos Abs (test code=AEOS) 0.10 K/cumm 0.00-0.74 Baso Abs (test code=ABASO) 0.0 K/cumm 0.00-0.21
--- NOTE | 2018-10-04 14:36 | ER ---
Nurse's Notes [facility] Name: Georgette Patel Age: 33 yrs Sex: Female : 1985 Arrival Date: 10/04/2018 Time: 14:26 Bed 19 Private MD: Diagnosis: Presentation: 10/04 14:27 Presenting complaint: Patient states: Pt reports she feels air on her body from her ss head to her toes x 3 days. Patient was in ER twice yesterday, but eloped. Denies SI/HI. Reports using meth and synthetic marijuana last 4-5 days ago. Transition of care: patient was not received from another setting of care. Onset of symptoms was August 31, 2018. Risk Assessment: Do you want to hurt yourself or someone else? Patient reports no desire to harm self or others. Initial Sepsis Screen: Does the patient meet any 2 criteria? No. Patient's initial sepsis screen is negative. Does the patient have a suspected source of infection? No. Patient's initial sepsis screen is negative. Care prior to arrival: None. 14:27 Acuity: GILES 3 ss 14:27 Method Of Arrival: EMS: [facility] ss Historical: - Allergies: 14:32 Hydrocodone-Acetaminophen; ss - PMHx: 14:32 Anxiety; Bipolar disorder; Depression; PTSD; Schizophrenia; ss - PSHx: 14:32 ; ss - Immunization history:: Adult Immunizations up to date. - Social history:: Smoking status: Patient uses tobacco products, smokes one-half pack cigarettes per day, Patient uses street drugs, Methamphetamine (Meth). - Ebola Screening: : Patient denies exposure to infectious person Patient denies travel to an Ebola-affected area in the 21 days before illness onset. Screenin:33 Abuse screen: Denies threats or abuse. Denies injuries from another. Nutritional ss screening: No deficits noted. Tuberculosis screening: Never had TB. Fall Risk None identified. Assessment: 14:33 Reassessment: Patient got into gown as requested by ED staff. Just after triage was ss complete. Patient was seen leaving ED back in her regular clothing, and stated, "Everyone keeps talking about me! I'm leaving!" No other staff members but myself were present in the area at the time. Attempted to verbally redirect patient, but patient insisted on leaving. Vital Signs: 14:32 BP 115 / 87; Pulse 97; Resp 18; Temp 98.5(TE); Pulse Ox 100% on R/A; Weight 74.84 kg; ss Height 5 ft. 4 in. (162.56 cm); Pain 0/10; 14:32 Body Mass Index 28.32 (74.84 kg, 162.56 cm) ED Course: 14:26 Patient arrived in ED. ss 14:28 Shemar Nino NP is PHCP. pm1 14:28 Jon Hanna MD is Attending Physician. pm1 14:30 Arm band placed on right wrist. ss 14:30 Patient has correct armband on for positive identification. Bed in low position. Call light in reach. 14:30 Pulse ox on. NIBP on. 14:31 Triage completed. 14:35 No provider procedures requiring assistance completed. Patient did not have IV access ss during this emergency room visit. Administered Medications: No medications were administered Outcome: 14:35 Eloped from patient exam room. 14:35 Patient left the ED. Signatures: Marianne Cho, RN RN Shemar Nino NP ACCOUNT RECEIVABLE CLERK pm1 Corrections: (The following items were deleted from the chart) 14:34 14:32 Arm band placed on right wrist. [facility]
[2018-10-04 14:42] VITALS: BP 115/87; TEMP 98.5; O2SAT 100
== END 2018-10-04 14:35 | disposition left against medical advice (07) ==
LOC: ER 14:19
DX: F31.9 Bipolar disorder, unspecified (principal); F20.9 Schizophrenia, unspecified; Z88.5 Allergy status to narcotic agent
CPT/HCPCS: 99283

== ENCOUNTER 2018-11-22 09:51 | Emergency (ER) | payer OTHER ==
[2018-11-22 10:39] LABS: Absolute Lymphocytes (CBC) 2.3 K/uL (0.7-4.9); Basophils % 0.9 % (0-1.3); Hematocrit 36.2 % (36.0-45.0); Lymphocytes % 21.6 % (15.3-44.8); MPV 8.5 fL (7.6-11.3); RBC Red Blood Cell Count 5.46 M/uL (3.86-4.86)
[2018-11-22 10:43] LABS: Protime INR 1.19
[2018-11-22 10:55] LABS: ALT/SGPT 16 U/L (12-78); AST/SGOT 27 U/L (15-37); Albumin 4.7 g/dL (3.4-5.0); Alkaline Phosphatase 116 U/L (45-117); BUN Blood Urea Nitrogen 23 mg/dL (7-18); Bicarbonate 17 mmol/L (21-32); Bilirubin Direct 0.2 mg/dL (0-0.2); Bilirubin Total 0.6 mg/dL (0.2-1.0); Glucose Level 151 mg/dL (74-106); Potassium 3.3 mmol/L (3.5-5.1); Protein, Total 9.7 g/dL (6.4-8.2); Sodium Level 137 mmol/L (136-145)
[2018-11-22 11:21] LABS: Anisocytosis 1+; Blood Morphology Comment NOTED (NOT SEEN); Platelet Estimate ADEQ
--- NOTE | 2018-11-22 11:29 | EKG ---
Test Date: 2018-11-22 Test Time: 11:02:37 Video Intern: [place] MEASUREMENT RESULTS: Intervals: Rate: 113 FL: 128 QRSD: 78 QT: 350 QTc: 480 [place]: P: 73 FL: 128 QRS: 67 T: 53 INTERPRETIVE STATEMENTS: Sinus tachycardia Right atrial enlargement Borderline ECG Compared to ECG 10/03/2018 17:21:16 No significant changes Electronically Signed On 11-22-18 11:29:21 CDT by Pernell Mcmahon
[2018-11-22] MEDS ORDERED: NA CHLORIDE 0.9% 1,000 ML ONE ×3 (12:28→18:35)
[2018-11-22] MEDS ORDERED: POTASSIUM 25 MEQ EFFERV TAB ONE (13:13)
[2018-11-22] MEDS ORDERED: POTASSIUM CL SA 10 MEQ TAB PO ONE (15:20)
[2018-11-22 15:56] LABS: Potassium 3.9 mmol/L (3.5-5.1)
--- NOTE | 2018-11-22 16:22 | ER ---
Nurse's Notes [facility] Name: Georgette Patel Age: 33 yrs Sex: Female : 1985 Arrival Date: 11/22/2018 Time: 09:52 Bed 5 Private MD: Diagnosis: Suicidal ideations Presentation: 11/22 10:00 Presenting complaint: EMS states: pt was found to be walking the streets since 0700 iw today, pt has hx of schizophrenia and bipolar, noncompliant, pt hallucinating, sees snakes, sees people chasing her, pt arrives to ER, in handcuffs with [employer], mental health deputy at bedside. Pt appears sweaty, combative, screaming. Transition of care: patient was not received from another setting of care. Onset of symptoms was November 22, 2018. Risk Assessment: Do you want to hurt yourself or someone else? Unable to obtain. Initial Sepsis Screen: Does the patient meet any 2 criteria? No. Patient's initial sepsis screen is negative. Does the patient have a suspected source of infection? No. Patient's initial sepsis screen is negative. Care prior to arrival: None. 10:00 Method Of Arrival: EMS: [facility] iw 10:00 Acuity: GILES 2 iw HAND LACER: 20:30 LMP N/A - Irregular menses jd3 Historical: - Allergies: 10:11 Hydrocodone-Acetaminophen; iw - PMHx: 10:11 Anxiety; Bipolar disorder; Depression; PTSD; Schizophrenia; iw - PSHx: 10:11 ; iw - Immunization history:: Adult Immunizations unknown. - Ebola Screening: : Patient negative for fever greater than or equal to 101.5 degrees Fahrenheit, and additional compatible Ebola Virus Disease symptoms Patient denies exposure to infectious person Patient denies travel to an Ebola-affected area in the 21 days before illness onset No symptoms or risks identified at this time. - Social history:: Smoking status: unknown. Screenin:45 Abuse screen: Denies threats or abuse. Denies injuries from another. Nutritional ph screening: No deficits noted. Tuberculosis screening: No symptoms or risk factors identified. Fall Risk None identified. Assessment: 10:20 General: Appears distressed, unkempt, Behavior is agitated, anxious, combative, fussy, ph uncooperative, Pt uncooperative and combative, handcuffs in place, attempting to get out of bed and repeatedly screaming loudly, " Let me outta here, there's snakes!! These handcuffs are hurting!!." Informed pt that after she calmed down the handcuffs could be removed, pt continues to scream and attempt to leave bed.. Pain: Denies pain. Neuro: Level of Consciousness is awake, alert, Oriented to person, place. Cardiovascular: Capillary refill < 3 seconds in bilateral fingers. Respiratory: Airway is patent Respiratory effort is even, unlabored, Respiratory pattern is tachypnea. Derm: Skin is intact, Skin is diaphoretic. Musculoskeletal: Circulation, motion, and sensation intact. Range of motion: intact in all extremities. 11:00 Reassessment: Patient appears in no apparent distress at this time. Pt asleep/sedated, ph w/ equal and unlabored, VSS, sitter at bedside. 12:15 Reassessment: Patient appears in no apparent distress at this time. No changes from ph previously documented assessment. Spoke w/ LaTangela at [facility] for nurse to nurse, pt w/ abnormal lab results (CPK and Basic) will bolus pt w/ NS, repeat labs and call back w/ repeat results. 13:30 Reassessment: Patient appears in no apparent distress at this time. No changes from ph previously documented assessment. Patient and/or family updated on plan of care and expected duration. Pain level reassessed. 14:30 General: Appears. ph 14:30 Reassessment: Patient appears in no apparent distress at this time. No changes from ph previously documented assessment. 15:30 Reassessment: Patient appears in no apparent distress at this time. No changes from ph previously documented assessment. Patient and/or family updated on plan of care and expected duration. Pain level reassessed. 16:33 Reassessment: Patient appears in no apparent distress at this time. Patient and/or ph family updated on plan of care and expected duration. Pain level reassessed. Pt remains asleep, awakens easily and follows commands then quickly goes back to sleep, VSS. 17:14 Reassessment: Patient appears in no apparent distress at this time. No changes from ph previously documented assessment. Patient and/or family updated on plan of care and expected duration. Pain level reassessed. Attempted to have pt use bedpan, pt states that she is unable to urinate and agreed to straight cath, tolerated well, urine sent to lab for UDS, pt tolerating PO fluids and given 2 sips of water then returned to sleep. 19:00 General: Appears in no apparent distress. comfortable, Behavior is calm, cooperative. jd3 Pain: Denies pain. Neuro: Level of Consciousness is awake, alert, Oriented to person, place. Cardiovascular: Denies chest pain, Capillary refill < 3 seconds Patient's skin is warm and dry. Respiratory: Airway is patent Respiratory effort is even, unlabored, Respiratory pattern is regular, symmetrical. GI: No signs and/or symptoms were reported involving the gastrointestinal system. : No signs and/or symptoms were reported regarding the genitourinary system. EENT: No signs and/or symptoms were reported regarding the EENT system. Derm: Skin is intact, Skin is dry, Skin is normal, Skin temperature is warm. Musculoskeletal: Circulation, motion, and sensation intact. Range of motion: intact in all extremities. 20:00 Reassessment: Patient appears in no apparent distress at this time. No changes from jd3 previously documented assessment. Patient and/or family updated on plan of care and expected duration. Pain level reassessed. awaiting EMS for transfer. 21:00 Reassessment: Patient appears in no apparent distress at this time. Patient and/or j family updated on plan of care and expected duration. Pain level reassessed. report given to EMS for transfer. even and unlabored respirations. denies pain at this time. Psych: 10:15 Subjective: Patient's mood is angry, irritable, Delusions are denied, Hallucinations ph are visual, Having thoughts of suicide. Objective: Patient is uncooperative, combative, restless, Speech is loud, Affect is incongruent. Suicide Risk Assessment: Sad Person Scale: Sex of patient: Female: Score 0 points. Age of patient: Score 1 point if patient 15-34. Depression: Score 1 point if signs of depression are present. Previous Attempt: Score 1 point if patient has previously attempted suicide. Substance Abuse: Score 1 point if patient abuses alcohol or drugs. Rational Thinking: Score 1 point if patient is lacking rational thinking. Social Support: Score 1 point if social support is lacking and/or unavailable. Organized Plan: Score 0 if patient did not have an organized plan in place. Relationship: Score 1 point if patient is , , , or for a single male Chronic Sickness: Score 0 point if patient does not have a chronic illness, debilitating, or severe disorder. TOTAL POINTS: If total points are 7-10, the proposed clinical action is to hospitalize or commit. Implement suicide precautions. Safety Checks: Personal items have been removed. Door is open. 11:30 Interventions: Removed personal items and placed in bag. ph 16:51 Commitment: Patient will be an involuntary commitment. ph 19:00 Pt denies substance abuse. jd3 Vital Signs: 10:12 BP 147 / 101; Resp 20 S; iw 11:00 BP 109 / 81; Pulse 100; Resp 18; Pulse Ox 99% on R/A; jb1 11:59 BP 108 / 83; Pulse 102; Resp 19; Pulse Ox 98% on R/A; jb1 13:00 BP 112 / 77; Pulse 75; Resp 19; jp3 14:00 BP 136 / 95; Pulse 85; Pulse Ox 100% on R/A; jp3 14:30 BP 118 / 75; Resp 19; Pulse Ox 99% on R/A; jp3 15:20 BP 118 / 73; Pulse 100; Resp 19; Pulse Ox 98% on R/A; jb1 16:00 BP 123 / 76; Pulse 96; Resp 18; Pulse Ox 99% on R/A; jb1 16:59 BP 113 / 70; Pulse 90; Resp 18; Pulse Ox 99% on R/A; jb1 18:08 BP 101 / 71; Pulse 92; Resp 18; Pulse Ox 99% on R/A; jb1 19:00 BP 117 / 77; Pulse 85; Resp 18; Pulse Ox 100% on R/A; oe 20:00 BP 112 / 69; Pulse 90; Resp 18; Pulse Ox 99% on R/A; oe 21:00 BP 118 / 85; Pulse 96; Resp 18; Pulse Ox 99% on R/A; oe ED Course: 07:00 Safety checks: Family/friend present: no. Sitter present: Yes. oe 09:52 Patient arrived in ED. hb 09:53 Shemar Nino NP is PHCP. pm1 09:53 Jon Hanna MD is Attending Physician. pm1 10:00 Safety checks: Sitter present: Yes. jb1 10:11 Triage completed. iw 10:12 Arm band placed on. iw 10:15 Safety checks: Family/friend present: no. Sitter present: Yes. jb1 10:20 Initial lab(s) drawn, by me, sent to lab. Inserted saline lock: 22 gauge in right jb1 antecubital area, using aseptic technique. Blood collected. 10:30 Safety checks: Family/friend present: no. Sitter present: Yes. jb1 10:45 Safety checks: Family/friend present: no. Sitter present: Yes. jb1 10:49 Camilla Alberto, RN is Primary Nurse. ph 11:00 Safety checks: Family/friend present: no. Sitter present: Yes. jb1 11:00 Patient has correct armband on for positive identification. Bed in low position. Call ph light in reach. Side rails up X2. Pulse ox on. NIBP on. Door closed. Noise minimized. Warm blanket given. 11:06 EKG done, by manufacturing technologist. reviewed by Shemar Nino NP. at1 11:15 Safety checks: Family/friend present: no. Sitter present: Yes. jb1 11:30 Safety checks: Family/friend present: no. Sitter present: Yes. jb1 11:45 Safety checks: Family/friend present: no. Sitter present: Yes. jb1 12:00 Safety checks: Family/friend present: no. Sitter present: Yes. jb1 12:13 faxed chart to [facility]. bd 12:15 Safety checks: Family/friend present: no. Sitter present: Yes. jb1 12:25 patient sleeping. jp3 12:30 Safety checks: Family/friend present: no. Sitter present: Yes. jb1 12:45 Safety checks: Family/friend present: no. Sitter present: Yes. jp3 13:00 Safety checks: Family/friend present: no. Sitter present: Yes. jp3 13:15 Safety checks: Family/friend present: no. Sitter present: Yes. jp3 13:30 Safety checks: Family/friend present: no. Sitter present: Yes. jp3 13:45 Safety checks: Family/friend present: no. Sitter present: Yes. jp3 14:00 Safety checks: Family/friend present: no. Sitter present: Yes. jp3 14:15 Safety checks: Family/friend present: no. Sitter present: Yes. jp3 14:28 patient sleeping. jp3 14:30 Safety checks: Family/friend present: no. Sitter present: Yes. jp3 14:45 Safety checks: Family/friend present: no. Sitter present: Yes. jp3 15:00 Safety checks: Family/friend present: no. Sitter present: Yes. jb1 15:15 Safety checks: Family/friend present: no. Sitter present: Yes. jb1 15:30 Safety checks: Family/friend present: no. Sitter present: Yes. jb1 15:45 Safety checks: Family/friend present: no. Sitter present: Yes. jb1 16:00 Safety checks: Family/friend present: no. Sitter present: Yes. jb1 16:15 Safety checks: Family/friend present: no. Sitter present: Yes. jb1 16:30 Safety checks: Family/friend present: no. Sitter present: Yes. jb1 16:45 Safety checks: Family/friend present: no. Sitter present: Yes. jb1 17:00 Safety checks: Family/friend present: no. Sitter present: Yes. jb1 17:15 Safety checks: Family/friend present: no. Sitter present: Yes. jb1 17:30 Safety checks: Family/friend present: no. Sitter present: Yes. jb1 17:45 Safety checks: Family/friend present: no. Sitter present: Yes. jb1 18:00 Safety checks: Family/friend present: no. Sitter present: Yes. jb1 18:15 Safety checks: Family/friend present: no. Sitter present: Yes. jb1 18:30 Safety checks: Family/friend present: no. Sitter present: Yes. jb1 18:31 PHCP role handed off by Shemar Nino NP snw 18:31 Genesis Landon FNP-C is PHCP. snw 18:45 Safety checks: Family/friend present: no. Sitter present: Yes. jb1 18:47 Repeat lab(s) drawn. by me, sent to lab. iw 18:47 CBC with Diff Sent. iw 18:47 Chem 7 Sent. iw 19:00 Safety checks: Family/friend present: no. Sitter present: Yes. oe 19:15 Safety checks: Family/friend present: no. Sitter present: Yes. oe 19:30 Safety checks: Family/friend present: no. Sitter present: Yes. oe 19:45 Safety checks: Family/friend present: no. Sitter present: Yes. oe 20:00 Safety checks: Family/friend present: no. Sitter present: Yes. oe 20:15 Safety checks: Family/friend present: no. Sitter present: Yes. oe 20:30 Safety checks: Family/friend present: no. Sitter present: Yes. oe 20:35 Assist provider with bone marrow aspiration. jd3 20:45 Safety checks: Family/friend present: no. Sitter present: Yes. oe 21:00 Safety checks: Family/friend present: no. Sitter present: Yes. oe 21:08 IV discontinued, intact, bleeding controlled, No redness/swelling at site. Pressure jd3 dressing applied. Administered Medications: 10:00 Drug: Geodon 20 mg Route: IM; Site: left deltoid; iw 11:00 Follow up: Response: No adverse reaction; Anxiety decreased; RASS: Light sedation (-2) ph 17:22 Follow up: Response: No adverse reaction ph 10:15 Drug: Ativan 2 mg Route: IVP; Site: right antecubital; ph 11:00 Follow up: Response: No adverse reaction; Anxiety decreased ph 10:15 Drug: NS 0.9% 1000 ml Route: IV; Rate: 1000 ml; Site: right antecubital; ph 12:00 Follow up: Response: No adverse reaction; IV Status: Completed infusion; IV Intake: ph 1000ml 12:30 Drug: NS 0.9% 1000 ml Route: IV; Rate: 1000 ml; Site: right antecubital; ph 14:00 Follow up: Response: No adverse reaction; IV Status: Completed infusion; IV Intake: ph 1000ml 13:44 Drug: NS 0.9% 1000 ml Route: IV; Rate: 100 ml/hr; Site: right antecubital; ph 15:00 Follow up: Response: No adverse reaction; IV Status: Completed infusion ph 15:32 Not Given (Other Intervention Used): Potassium Effervescent Tablet 50 mEq PO once; ph dissolve in 4 ounces of water or juice 15:33 Drug: Potassium Chloride 40 mEq Route: PO; ph 17:26 Follow up: Response: No adverse reaction ph Intake: 12:00 IV: 1000ml; Total: 1000ml. ph 14:00 IV: 1000ml; Total: 2000ml. ph Outcome: 16:21 ER care complete, transfer ordered by MD. pm1 21:08 Transferred by ground EMS Note: Sun Behavior jd3 21:08 Condition: stable 21:08 Instructed on the need for transfer, Demonstrated understanding of instructions. 21:09 Patient left the ED. jd3 Signatures: George Burton jb1 Estefania Jones Shelly, COTTON INSPECTOR-C COTTON INSPECTOR-Csnw Veronica Duncan, RN RN iw Samantha Rivera, electrical maintenance worker EKG Tat1 Camilla Alberto RN RN Shemar Nino, SENIOR CLIMATE ADVISOR SENIOR CLIMATE ADVISOR pm1 Bing Hamilton RN RN Darien Ernandez Jonathon RN RN jd3 Rebel Kaur jp3 Corrections: (The following items were deleted from the chart) 10:12 10:00 Presenting complaint: EMS states: pt was found to be walking the streets since iw 0700 today, pt has hx of schizophrenia and bipolar, noncompliant, pt hallucinating, sees snakes, sees people chasing her, pt arrives to ER, in handcuffs with [employer], mental health deputy at bedside iw 11:47 11:07 BP 109 / 81; Pulse 100bpm; Resp 18bpm; Pulse Ox 99% RA; jb1 jb1 14:29 13:23 Safety checks: Sitter present: Other: patient sleeping jp3 jp3 14:30 14:29 Safety checks: Family/friend present: no. Sitter present: Yes. jp3 jp3 16:45 14:45 General: Appears ph ph 21:07 20:00 Reassessment: Patient appears in no apparent distress at this time. No changes jd3 from previously documented assessment. Patient and/or family updated on plan of care and expected duration. Pain level reassessed. awaiting EMS for transfer. jd3
--- NOTE | 2018-11-22 16:22 | EDPHYS ---
Physician Documentation [facility] Name: Georgette Patel Age: 33 yrs Sex: Female : 1985 Arrival Date: 11/22/2018 Time: 09:52 Bed 5 Private MD: ED Physician Jno Hanna HPI: 11/22 10:26 This 33 yrs old Black Female presents to ER via EMS with complaints of Suicidal pm1 ideation. 10:26 The patient presents to the emergency department with suicide ideation, but the patient pm1 has no formulated plan. Past psychiatric history: Prior diagnosis: bipolar disorder, schizophrenia, Psychiatric medications include: none. Associated signs and symptoms: Pertinent positives; hallucinations. The patient has experienced similar episodes in the past. Patient was seen walking and running by police officers since 0700 today. She was running away from people and snakes that were chasing her. When she was approached by police officers she fled from them and told that she wanted to . MOTION PICTURE CAMERAMAN: 20:30 LMP N/A - Irregular menses jd3 Historical: - Allergies: 10:11 Hydrocodone-Acetaminophen; iw - PMHx: 10:11 Anxiety; Bipolar disorder; Depression; PTSD; Schizophrenia; iw - PSHx: 10:11 ; iw - Immunization history:: Adult Immunizations unknown. - Ebola Screening: : Patient negative for fever greater than or equal to 101.5 degrees Fahrenheit, and additional compatible Ebola Virus Disease symptoms Patient denies exposure to infectious person Patient denies travel to an Ebola-affected area in the 21 days before illness onset No symptoms or risks identified at this time. - Social history:: Smoking status: unknown. ROS: 10:15 Constitutional: Negative for fever, chills, and weight loss, Eyes: Negative for injury, pm1 pain, redness, and discharge, ENT: Negative for injury, pain, and discharge, Neck: Negative for injury, pain, and swelling, Cardiovascular: Negative for chest pain, palpitations, and edema, Respiratory: Negative for shortness of breath, cough, wheezing, and pleuritic chest pain, Abdomen/GI: Negative for abdominal pain, nausea, vomiting, diarrhea, and constipation, Back: Negative for injury and pain, MS/Extremity: Negative for injury and deformity, Skin: Negative for injury, rash, and discoloration, Neuro: Negative for headache, weakness, numbness, tingling, and seizure. 10:15 Psych: Positive for auditory hallucinations, suicidal ideation. Exam: 10:10 Head/Face: Normocephalic, atraumatic. pm1 10:10 Eyes: Pupils equal round and reactive to light, extra-ocular motions intact. Lids and lashes normal. Conjunctiva and sclera are non-icteric and not injected. Cornea within normal limits. Periorbital areas with no swelling, redness, or edema. Neck: Trachea midline, no thyromegaly or masses palpated, and no cervical lymphadenopathy. Supple, full range of motion without nuchal rigidity, or vertebral point tenderness. No Meningismus. Chest/axilla: Normal chest wall appearance and motion. Nontender with no deformity. No lesions are appreciated. 10:10 Respiratory: Lungs have equal breath sounds bilaterally, clear to auscultation and percussion. No rales, rhonchi or wheezes noted. No increased work of breathing, no retractions or nasal flaring. Abdomen/GI: Soft, non-tender, with normal bowel sounds. No distension or tympany. No guarding or rebound. No evidence of tenderness throughout. Back: No spinal tenderness. No costovertebral tenderness. Full range of motion. Skin: Warm, dry with normal turgor. Normal color with no rashes, no lesions, and no evidence of cellulitis. MS/ Extremity: Pulses equal, no cyanosis. Neurovascular intact. Full, normal range of motion. 10:10 Cardiovascular: Rate: tachycardic, Rhythm: regular, Pulses: no pulse deficits are appreciated, Heart sounds: normal, Edema: is not appreciated. 10:10 Neuro: Orientation: to person, place, time \T\ situation. Motor: moves all fours. 10:10 Psych: Behavior/mood is uncooperative, agitated. Affect is animated. Vital Signs: 10:12 BP 147 / 101; Resp 20 S; iw 11:00 BP 109 / 81; Pulse 100; Resp 18; Pulse Ox 99% on R/A; jb1 11:59 BP 108 / 83; Pulse 102; Resp 19; Pulse Ox 98% on R/A; jb1 13:00 BP 112 / 77; Pulse 75; Resp 19; jp3 14:00 BP 136 / 95; Pulse 85; Pulse Ox 100% on R/A; jp3 14:30 BP 118 / 75; Resp 19; Pulse Ox 99% on R/A; jp3 15:20 BP 118 / 73; Pulse 100; Resp 19; Pulse Ox 98% on R/A; jb1 16:00 BP 123 / 76; Pulse 96; Resp 18; Pulse Ox 99% on R/A; jb1 16:59 BP 113 / 70; Pulse 90; Resp 18; Pulse Ox 99% on R/A; jb1 18:08 BP 101 / 71; Pulse 92; Resp 18; Pulse Ox 99% on R/A; jb1 19:00 BP 117 / 77; Pulse 85; Resp 18; Pulse Ox 100% on R/A; oe 20:00 BP 112 / 69; Pulse 90; Resp 18; Pulse Ox 99% on R/A; oe 21:00 BP 118 / 85; Pulse 96; Resp 18; Pulse Ox 99% on R/A; oe MDM: 09:53 Patient medically screened. [facility] 18:01 Data reviewed: vital signs. pm1 18:05 Physician consultation: Farheen Mckinney MD regarding admission, patient's condition, pm1 Reviewed the patient's condition and labs and she has medically cleared the patient for disposition to psychiatric facility. 11/22 09:56 Order name: Acetaminophen; Complete Time: 11:06 pm1 11/22 09:56 Order name: Basic Metabolic Panel; Complete Time: 11:06 pm11/22 09:56 Order name: CBC with Diff; Complete Time: 11:51 pm1 11/22 09:56 Order name: ETOH Level; Complete Time: 11:51 pm1 11/22 09:56 Order name: Hepatic Function; Complete Time: 11:06 pm11/22 09:56 Order name: PT-INR; Complete Time: 11:51 pm11/22 09:56 Order name: Ptt, Activated; Complete Time: 11:51 pm11/22 09:56 Order name: Salicylate; Complete Time: 11:51 pm11/22 09:56 Order name: Urine Drug Screen; Complete Time: 17:57 pm1 11/22 10:10 Order name: CPK; Complete Time: 11:06 pm1 11/22 11:23 Order name: Manual Differential; Complete Time: 11:51 EDMS 11/22 14:54 Order name: CPK; Complete Time: 16:30 ph 11/22 14:54 Order name: Basic Metabolic Panel; Complete Time: 16:30 ph 11/22 15:31 Order name: Test, Serum; Complete Time: 16:30 ph 11/22 09:56 Order name: Urine Test (obtain specimen); Complete Time: 17:22 pm1 11/22 09:56 Order name: EKG; Complete Time: 09:57 pm1 11/22 09:56 Order name: EKG - Nurse/Tech; Complete Time: 10:23 pm11/22 09:56 Order name: IV Saline Lock; Complete Time: 10:23 pm11/22 09:56 Order name: Labs collected and sent; Complete Time: 10:23 pm11/22 09:56 Order name: Urine Dipstick-Ancillary (obtain specimen); Complete Time: 17:22 pm1 11/22 17:40 Order name: Urine Dipstick--Ancillary (enter results) bd 11/22 18:38 Order name: CBC with Diff snw 11/22 18:38 Order name: Chem 7; Complete Time: 19:22 snw EC:03 Rate is 113 beats/min. Rhythm is regular, Sinus tachycardia with No ectopy. No Q waves. pm1 T waves are Normal. No ST changes noted. Clinical impression: Sinus tachycardia. Administered Medications: 10:00 Drug: Geodon 20 mg Route: IM; Site: left deltoid; iw 11:00 Follow up: Response: No adverse reaction; Anxiety decreased; RASS: Light sedation (-2) ph 17:22 Follow up: Response: No adverse reaction ph 10:15 Drug: Ativan 2 mg Route: IVP; Site: right antecubital; ph 11:00 Follow up: Response: No adverse reaction; Anxiety decreased ph 10:15 Drug: NS 0.9% 1000 ml Route: IV; Rate: 1000 ml; Site: right antecubital; ph 12:00 Follow up: Response: No adverse reaction; IV Status: Completed infusion; IV Intake: ph 1000ml 12:30 Drug: NS 0.9% 1000 ml Route: IV; Rate: 1000 ml; Site: right antecubital; ph 14:00 Follow up: Response: No adverse reaction; IV Status: Completed infusion; IV Intake: ph 1000ml 13:44 Drug: NS 0.9% 1000 ml Route: IV; Rate: 100 ml/hr; Site: right antecubital; ph 15:00 Follow up: Response: No adverse reaction; IV Status: Completed infusion ph 15:32 Not Given (Other Intervention Used): Potassium Effervescent Tablet 50 mEq PO once; ph dissolve in 4 ounces of water or juice 15:33 Drug: Potassium Chloride 40 mEq Route: PO; ph 17:26 Follow up: Response: No adverse reaction ph Disposition: 11/23 07:57 Co-signature as Attending Physician, Jon MOSELEY I agree with the assessment and [facility] plan of care. Disposition: 11/22/18 16:21 Transfer ordered to Psych Facility. Diagnosis is Suicidal ideations. - Reason for transfer: Specialty. - Accepting physician is Psychiatrist. - Condition is Stable. - Problem is new. - Symptoms have improved. Signatures: Dispatcher [employer] Jon Hernandez MD MD cha Therrien, Shelly, YEAST MAKER-C YEAST MAKER-Csnw Veronica Duncan RN RN Camilla Alberto RN RN ph Marinas, Patrick, LEWIS LASTER HAND pm1 Jeff Anguiano RN RN jd3 Corrections: (The following items were deleted from the chart) 11/22 21:09 16:21 11/22/2018 16:21 Transfer ordered to Psych Facility. Diagnosis is Suicidal jd3 ideations. Reason for transfer: Specialty. Accepting physician is Psychiatrist. Condition is Stable. Problem is new. Symptoms have improved. pm1
[2018-11-22 17:47] LABS: Barbiturates NEGATIVE (NEGATIVE); Benzodiazepines NEGATIVE (NEGATIVE); Cocaine POSITIVE (NEGATIVE); METHAMPHETAM POSITIVE (NEGATIVE); Methadone NEGATIVE (NEGATIVE); Opiates NEGATIVE (NEGATIVE); Phencyclidine NEGATIVE (NEGATIVE); THC Cannibis NEGATIVE (NEGATIVE)
[2018-11-22 19:15] LABS: Absolute Lymphocytes (CBC) 1.7 K/uL (0.7-4.9); Basophils % 0.8 % (0-1.3); Hematocrit 29.8 % (36.0-45.0); Lymphocytes % 24.2 % (15.3-44.8); MPV 8.6 fL (7.6-11.3); RBC Red Blood Cell Count 4.42 M/uL (3.86-4.86)
[2018-11-22 19:21] LABS: BUN Blood Urea Nitrogen 14 mg/dL (7-18); Bicarbonate 21 mmol/L (21-32); Glucose Level 85 mg/dL (74-106); Potassium 3.9 mmol/L (3.5-5.1); Sodium Level 141 mmol/L (136-145)
[2018-11-22 21:50] LABS: Urine Blood TRACE (NEG); Urine Glucose NEGATIVE (NEG); Urine Specific Gravity >1.030 (1.005-1.030)
[2018-11-22 21:51] LABS: Urine Protein TRACE (NEG); Urine pH 5.5 (5.0-7.0)
[2018-11-22 22:05] VITALS: O2SAT 99
[2018-11-22 22:06] VITALS: BP 118/85
[2018-11-22 22:08] LABS: Blood Morphology Comment NOTED (NOT SEEN); Hypochromasia 1+; Platelet Estimate ADEQ; Urine White Blood Cell Casts OK
== END 2018-11-22 21:09 ==
LOC: ER 09:51
DX: R45.851 Suicidal ideations (principal); Z88.6 Allergy status to analgesic agent
CPT/HCPCS: 93005; 85025 ×2; 80048 ×3; 36415; 80320; 82550 ×2; 80329 ×2; 84703; 85610; 80076; 80307 ×8; 85730; 81003; J7030 ×3

== ENCOUNTER 2019-03-18 13:32 | Emergency (ER) | payer OTHER ==
--- OUTSIDE RECORDS SUMMARY | 2019-03-18 13:35 | XMS REPORT ---
:1985 [facility] Address [address] [place] [address] [address] [place] [address] Care Team Providers Name Role Phone UNKNOWN, [...] Comments RPR (test code=RPR) Non-Reactive Non-Reactive Lipid [id number] 08:20:00 Test Item Value Reference Range Comments Cholesterol (test 116 mg/dL 0-200 code=CHOL) Triglycerides (test 107 mg/dL 9-200 code=TRIG) HDL (test code=HDL) 33 mg/dL 50-60 Chol/HDL (test 3.5 Ratio 0.0-4.4 code=CHOLPHDL) LDL, Calculated (test 62 0-130 (NOTE)RISK OF HEART code=LDLC) DISEASEPublished by French Heart AssociationAnalyte Optimal Boderline Increased RiskCHOL <200 200-239 >240TRIG <150 150-199 >200HDL Male: >60 <40HDL Female: >60 <50LDL <100 130-159 >160LDL NEAR OPTIMAL IS 100-129 VLDL (test code=VLDL) 21 mg/dL 5-40 LDL/HDL (test code=LDLPHDL) 2 Thyroid Stimulating Hormone (TSH)2017-05-14 08:20:00 Test Item Value Reference Range Comments TSH (test code=TSH) 1.96 mIU/mL 0.270-4.200 BHCG, Serum, [id number] 08:04:00 Test Item Value Reference Range Comments Preg Qual [Se] (test code=BSHCG) Negative Negative Thyroid Stimulating Hormone (TSH)2016-08-18 21:10:00 Test Item Value Reference Range Comments TSH (test code=TSH) 2.02 mIU/mL 0.270-4.200 RPR, [id number] 18:14:00 Test Item Value Reference Range Comments RPR (test code=RPR) Non-Reactive Non-Reactive BHCG, Serum, [id number] 14:56:00 Test Item Value Reference Range Comments Preg Qual [Se] (test code=BSHCG) Negative Negative Urinalysis [id number] 11:10:00 Test Item Value Reference Range Comments Color (test code=COLOR) Yellow Yellow,Straw,Pl yellow Clarity (test code=CLAR) Sl Cloudy Clear Specific [place] (test 1.030 1.001-1.035 code=SPGR) pH (test code=PH) [...] Moderate /HPF Bacteria (test code=BACT) Few /HPF [id number] 10:48:00 Test Item Value Reference Range Comments [...] code=PROPOX) THC (test code=THC) Negative Negative Alcohol/Ethanol, [id number] 10:25:00 Test Item Value Reference Range Comments Alcohol, Ethyl (test <0.01 g/dL 0.00-0.01 Intoxicated 0.080 g/dL or code=ETOH) more Comprehensive Metabolic [id number] 10:25:00 Test Item Value Reference Range Comments [...] race is not provided, and the patient isAfrican-French, multiply by 1.212. If sex is not [...] the National Kidney Foundation,http://nkdep.nih .gov BHCG, Serum, [id number] 10:20:00 Test Item Value Reference Range Comments Preg Qual [Se] (test code=BSHCG) Negative Negative CBC with [id number] 10:16:00 Test Item Value Reference Range Comments [...] Lymph Abs (test code=ALYMPH) 1.8 K/cumm 0.5-4.6 Cavalier Abs (test code=AMONO) 0.5 K/cumm 0.0-1.2 Eos Abs (test code=AEOS) 0.09 K/cumm 0.00-0.74 Baso Abs (test code=ABASO) 0.0 K/cumm 0.00-0.21 Microcytosis (test code=MICRO) Slight Occult [id number] 16:39:00 Test Item Value Reference Range Comments Occ Bld (test code=HSOB) Negative Negative Culture, Blood [id number] 09:49:00Specimen: BloodCollected: 07/23/2016 17 :40 Status: Final Last Updated: 07/29/2016 09:49 (1) ER Bed D7 Culture Result (Final) (Final) No Growth After 5 DaysCulture, Blood [id number] 09:49:00Specimen: BloodCollected: 07/23/2016 17:40 Status: Final Last Updated: 07/29/2016 09:49 (1) ER Bed D7 Culture Result (Final) (Final) No Growth After 5 DaysBasic Metabolic [id number] 14:25:00 Test Item Value Reference Range Comments [...] race is not provided, and the patient isAfrican-French, multiply by 1.212. If sex is not [...] the National Kidney Foundation,http://nkdep.nih .gov CBC with [id number] 14:10:00 Test Item Value Reference Range Comments WBC (test code=WBC) 5.2 K/cumm 4.4-10.5 RBC (test code=RBC) 4.22 M/cumm 3.75-5.20 Hemoglobin (test code=HGB) 10.6 gm/dL 12.2-14.8 READ BACK LAB VALUESVERIFIED BY REPEAT TESTINGrechecked & calledto horace,rn @ 3470, post fluids/mdj Hematocrit (test code=HCT) 32.4 % [...] Lymph Abs (test 1.3 K/cumm 0.5-4.6 code=ALYMPH) Cavalier Abs (test code=AMONO) 0.3 K/cumm 0.0-1.2 Eos Abs (test code=AEOS) 0.12 K/cumm 0.00-0.74 Baso Abs (test code=ABASO) 0.0 K/cumm 0.00-0.21 BHCG, Serum, [id number] 13:12:00 Test Item Value Reference Range Comments Preg Qual [Se] (test code=BSHCG) Negative Negative RPR, [id number] 12:30:00 Test Item Value Reference Range Comments RPR (test code=RPR) Non-Reactive Non-Reactive Thyroid Stimulating Hormone (TSH)2016-07-24 08:26:00 Test Item Value Reference Range Comments TSH (test code=TSH) 3.07 mIU/mL 0.270-4.200 Lactic Acid [id number] 18:32:00 Test Item Value Reference Range Comments Lactic Acid, Bld (test code=LAC) 1.5 mmol/L 0.5-1.9 Comprehensive Metabolic [id number] 15:48:00 Test Item Value Reference Range Comments [...] race is not provided, and the patient isAfrican-French, multiply by 1.212. If sex is not [...] the National Kidney Foundation,http://nkdep.nih .gov CBC with [id number] 15:36:00 Test Item Value Reference Range Comments [...] Lymph Abs (test code=ALYMPH) 1.9 K/cumm 0.5-4.6 Cavalier Abs (test code=AMONO) 0.6 K/cumm 0.0-1.2 Eos Abs (test code=AEOS) 0.10 K/cumm 0.00-0.74 Baso Abs (test code=ABASO) 0.0 K/cumm 0.00-0.21
[2019-03-18] MEDS ORDERED: LORazepam 2 MG/ML VIAL ONE (14:11)
[2019-03-18] MEDS ORDERED: HALOPERIDOL LACT 5 MG/ML INJ ONE (14:12)
[2019-03-18] MEDS ORDERED: DIPHENHYDRAMINE 50 MG/ML VIAL ONE (14:12)
[2019-03-18 15:09] LABS: Absolute Lymphocytes (CBC) 1.1 K/uL (0.7-4.9); Basophils % 0.5 % (0-1.3); Hematocrit 35.4 % (36.0-45.0); Lymphocytes % 20.8 % (15.3-44.8); MPV 8.1 fL (7.6-11.3); RBC Red Blood Cell Count 5.07 M/uL (3.86-4.86)
[2019-03-18 15:17] LABS: Protime INR 1.23
[2019-03-18 15:34] LABS: ALT/SGPT 23 U/L (12-78); AST/SGOT 28 U/L (15-37); Albumin 4.3 g/dL (3.4-5.0); Alkaline Phosphatase 96 U/L (45-117); BUN Blood Urea Nitrogen 16 mg/dL (7-18); Bicarbonate 24 mmol/L (21-32); Bilirubin Direct 0.2 mg/dL (0-0.2); Bilirubin Total 0.5 mg/dL (0.2-1.0); Glucose Level 103 mg/dL (74-106); Potassium 3.2 mmol/L (3.5-5.1); Protein, Total 8.5 g/dL (6.4-8.2); Sodium Level 137 mmol/L (136-145)
--- NOTE | 2019-03-18 16:21 | EDPHYS ---
Physician Documentation [facility] Name: Georgette Patel Age: 34 yrs Sex: Female : 1985 Arrival Date: 03/18/2019 Time: 13:38 Bed 17 Private MD: ED Physician Chioma Alba HPI: 03/18 16:12 This 34 yrs old Black Female presents to ER via EMS with complaints of acute phsycosis. ma2 16:12 Onset: The symptoms/episode began/occurred gradually, 1 week(s) ago. Severity of ma2 symptoms: At their worst the symptoms were mild in the emergency department the symptoms are unchanged. The patient has experienced similar episodes in the past. acute phsycosis she is known to have schezophrenia, states has snakes in her body, disorganized and does not engage in conversations, she does not know where she is or which day is it.. . 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 - Social history:: Smoking status: Patient denies any tobacco usage or history of. Patient/guardian denies using alcohol, street drugs, The patient lives with family. - Ebola Screening: : No symptoms or risks identified at this time. - Family history:: not pertinent. ROS: 16:12 Constitutional: Negative for fever, chills, and weight loss. ma2 16:12 Psych: Positive for anxiety, depression, auditory hallucinations. 16:12 All other systems are negative. Exam: 16:12 Constitutional: This is a well developed, well nourished patient who is awake, alert, ma2 and in no acute distress. Head/Face: Normocephalic, atraumatic. Eyes: Pupils equal round and reactive to light, extra-ocular motions intact. Lids and lashes normal. Conjunctiva and sclera are non-icteric and not injected. Cornea within normal limits. Periorbital areas with no swelling, redness, or edema. ENT: Nares patent. No nasal discharge, no septal abnormalities noted. Tympanic membranes are normal and external auditory canals are clear. Oropharynx with no redness, swelling, or masses, exudates, or evidence of obstruction, uvula midline. Mucous membranes moist. Neck: Trachea midline, no thyromegaly or masses palpated, and no cervical lymphadenopathy. Supple, full range of motion without nuchal rigidity, or vertebral point tenderness. No Meningismus. Chest/axilla: Normal chest wall appearance and motion. Nontender with no deformity. No lesions are appreciated. Cardiovascular: Regular rate and rhythm with a normal S1 and S2. No gallops, murmurs, or rubs. Normal PMI, no JVD. No pulse deficits. Respiratory: Lungs have equal breath sounds bilaterally, clear to auscultation and percussion. No rales, rhonchi or wheezes noted. No increased work of breathing, no retractions or nasal flaring. Abdomen/GI: Soft, non-tender, with normal bowel sounds. No distension or tympany. No guarding or rebound. No evidence of tenderness throughout. Back: No spinal tenderness. No costovertebral tenderness. Full range of motion. Skin: Warm, dry with normal turgor. Normal color with no rashes, no lesions, and no evidence of cellulitis. MS/ Extremity: Pulses equal, no cyanosis. Neurovascular intact. Full, normal range of motion. Neuro: Awake and alert, GCS 15, oriented to person, place, time, and situation. Cranial nerves II-XII grossly intact. Motor strength 5/5 in all extremities. Sensory grossly intact. Cerebellar exam normal. Normal gait. Psych: Awake, alert, does not answer orientationa questions, dissorganized, tried to leave then returned back to er, she is in acute phsycosis and crying. Vital Signs: 13:40 BP 103 / 70; Pulse 104; Resp 16 S; Temp 98(O); Pulse Ox 100% on R/A; jl7 15:00 BP 117 / 95; Pulse 99; Resp 17; Pulse Ox 100% ; bp 16:10 BP 103 / 71; Pulse 103; Resp 17; Pulse Ox 100% ; bp 17:00 BP 115 / 84; Pulse 97; Resp 17; Pulse Ox 100% ; bp 18:00 BP 101 / 77; Pulse 96; Resp 16; Pulse Ox 100% ; bp 19:30 BP 94 / 60; Pulse 98; Resp 18; Pulse Ox 99% ; wh MDM: 13:39 Patient medically screened. ma2 16:12 Differential Diagnosis psychophrenia, acute phsycosis vs drugs intoxicaiton . Data ma2 reviewed: vital signs, nurses notes. Counseling: I had a detailed discussion with the patient and/or guardian regarding: the historical points, exam findings, and any diagnostic results supporting the discharge/admit diagnosis, the presence of at least one elevated blood pressure reading (>120/80) during this emergency department visit, the need for further work-up and treatment in the hospital. Response to treatment: the patient's symptoms have mildly improved after treatment. 17:45 Physician consultation: MD Khan was contacted at 17:45, regarding regarding pm1 transfer, patient's condition, [place] [facility] [place]. 18:27 Physician consultation: MD Khan was contacted at 18:28, regarding UDS positive for pm1 Meth, Accepted patient. 03/18 14:12 Order name: Acetaminophen; Complete Time: 16:11 [facility] 03/18 14:12 Order name: Basic Metabolic Panel; Complete Time: 16:11 co03/18 14:12 Order name: CBC with Diff; Complete Time: 15:17 co03/18 14:12 Order name: ETOH Level; Complete Time: 16:11 [facility] 03/18 14:12 Order name: Hepatic Function; Complete Time: 16:11 co03/18 14:12 Order name: PT-INR; Complete Time: 15:21 co03/18 14:12 Order name: Ptt, Activated; Complete Time: 15:21 [facility] 03/18 14:12 Order name: Salicylate; Complete Time: 16:11 [facility] 03/18 14:12 Order name: Test, Serum; Complete Time: 16:11 [facility] 03/18 18:02 Order name: Urine Drug Screen; Complete Time: 18:27 m[facility]5 03/18 18:06 Order name: Urine Dipstick--Ancillary (enter results); Complete Time: 18:27 eb 03/18 18:06 Order name: Urine --Ancillary (enter results); Complete Time: 18:27 eb 03/18 14:12 Order name: Urine Test (obtain specimen); Complete Time: 18:03 [facility] 03/18 14:12 Order name: EKG; Complete Time: 14:13 co 03/18 14:12 Order name: EKG - Nurse/Tech; Complete Time: 17:28 co2 03/18 14:12 Order name: IV Saline Lock; Complete Time: 15:04 co2 03/18 14:12 Order name: Labs collected and sent; Complete Time: 15:04 co2 03/18 14:12 Order name: Urine Dipstick-Ancillary (obtain specimen); Complete Time: 18:01 ma2 Administered Medications: 14:20 Drug: Ativan 2 mg Route: IM; Site: left gluteus; bp 15:58 Follow up: Response: Anxiety decreased bp 14:20 Drug: HALdol (as decanoate) 5 mg Route: IM; Site: left gluteus; bp 15:58 Follow up: Response: Anxiety decreased bp 14:20 Drug: diphenhydrAMINE 50 mg Route: IM; Site: left gluteus; bp 15:58 Follow up: Response: Anxiety decreased bp Disposition: 03/19 15:19 Co-signature as Attending Physician, Chioma Alba MD. ma2 Disposition: 03/18/19 16:19 Transfer ordered to Psych Facility. Diagnosis is Disorganized schizophrenia. - Reason for transfer: Higher level of care. - Accepting physician is OSH. - Condition is Stable. - Problem is new. - Symptoms are unchanged. Signatures: Dispatcher [employer] Shemar Hunt, SAS PROGRAMMER REMOTE SAS PROGRAMMER REMOTE pm1 Allison Simpson RN RN jl7 Jace Stokes Brian RN RN Chioma Madison MD MD ma2 Corrections: (The following items were deleted from the chart) 03/18 19:48 16:19 03/18/2019 16:19 Transfer ordered to Psych Facility. Diagnosis is Disorganized wh schizophrenia. Reason for transfer: Higher level of care. Accepting physician is OSH. Condition is Stable. Problem is new. Symptoms are unchanged. ma2
--- NOTE | 2019-03-18 16:21 | ER ---
Nurse's Notes [facility] Name: Georgette Patel Age: 34 yrs Sex: Female : 1985 Arrival Date: 03/18/2019 Time: 13:38 Bed 17 Private MD: Diagnosis: Disorganized schizophrenia Presentation: 03/18 13:38 Presenting complaint: EMS states: She reported to EMS that she has a snake inside her jl7 and it's making her left foot and back hurt. Pt reports left foot pain that started yesterday. Transition of care: patient was not received from another setting of care. Onset of symptoms was March 17, 2019. Risk Assessment: Do you want to hurt yourself or someone else? Patient reports no desire to harm self or others. Initial Sepsis Screen: Does the patient meet any 2 criteria? No. Patient's initial sepsis screen is negative. Does the patient have a suspected source of infection? No. Patient's initial sepsis screen is negative. Care prior to arrival: None. 13:38 Method Of Arrival: EMS: [facility] 13:38 Acuity: GILES 3 jl7 Triage Assessment: 13:40 General: Appears in no apparent distress. uncomfortable, Behavior is calm, cooperative, jl7 appropriate for age. Pain: Complains of pain in left foot Pain currently is 2 out of 10 on a pain scale. Neuro: Level of Consciousness is awake, alert, obeys commands, Oriented to person, place, time, situation. Cardiovascular: Patient's skin is warm and dry. Respiratory: Airway is patent Respiratory effort is even, unlabored, Respiratory pattern is regular, symmetrical. Derm: Skin is dry, Skin is normal, Skin temperature is warm. 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 - Social history:: Smoking status: Patient denies any tobacco usage or history of. Patient/guardian denies using alcohol, street drugs, The patient lives with family. - Ebola Screening: : No symptoms or risks identified at this time. - Family history:: not pertinent. Screenin:00 Abuse screen: Denies threats or abuse. Denies injuries from another. Nutritional bp screening: No deficits noted. Tuberculosis screening: No symptoms or risk factors identified. Fall Risk None identified. Assessment: 14:00 General: SEE TRIAGE NOTE. bp 14:25 Reassessment: PT COMBATIVE WITH STAFF, SCREAMING AT STAFF. PT ATTEMPTING TO WANDER INTO bp OTHER ROOMS AND ER AREAS, NOT RESPONDING TO VERBAL REDIRECTION AND NOT ANSWERING QUESTIONS. PT PHYSICALLY REDIRECTED TO ROOM AND BED, MEDICATED PER MD FOR ANXIETY. 14:29 Reassessment: PT REMAINS UNCOOPERATIVE, REFUSING PIV AND LAB DRAW, REFUSING TO ANSWER bp QUESTIONS. 15:15 Reassessment: AFTER MEDICATION, PT STILL UNCOOPERATIVE AND RESISTANT. PIV OBTAINED. bp 16:10 Reassessment: PT RESTING QUIETLY, RESISTANT AND UNCOOPERATIVE WHEN AROUSED. bp 17:24 Reassessment: REPORT TO ROSE MARIE CABRAL AT [facility], [id number] PENDING. iw 18:00 Reassessment: STRAIGHT CATH COMPLETED, PT TOLERATED WELL. [id number] COMPLETED WITH bp SIDNEY MOSE[place]. 18:52 Reassessment: PT SIGNED MOT FOR TRANSFER TO [facility], TRANSPORT PENDING. bp 19:30 Reassessment: Patient appears in no apparent distress at this time. Patient and/or family updated on plan of care and expected duration. Pain level reassessed. Patient is alert, oriented x 3, equal unlabored respirations, skin warm/dry/pink. Vital Signs: 13:40 BP 103 / 70; Pulse 104; Resp 16 S; Temp 98(O); Pulse Ox 100% on R/A; jl7 15:00 BP 117 / 95; Pulse 99; Resp 17; Pulse Ox 100% ; bp 16:10 BP 103 / 71; Pulse 103; Resp 17; Pulse Ox 100% ; bp 17:00 BP 115 / 84; Pulse 97; Resp 17; Pulse Ox 100% ; bp 18:00 BP 101 / 77; Pulse 96; Resp 16; Pulse Ox 100% ; bp 19:30 BP 94 / 60; Pulse 98; Resp 18; Pulse Ox 99% ; ED Course: 13:38 Patient arrived in ED. jl7 13:39 Chioma Alba MD is Attending Physician. ma2 13:39 Triage completed. jl7 13:40 Arm band placed on right wrist. jl7 13:59 Terence Dave, RN is Primary Nurse. bp 14:00 Patient has correct armband on for positive identification. Placed in gown. Bed in low bp position. Call light in reach. Side rails up X2. 15:03 Warm blanket given. Pulse ox on. NIBP on. [facility] 15:03 Initial lab(s) drawn, by [facility], sent to lab. Inserted saline lock: 20 gauge in right [facility] antecubital area, using aseptic technique. Blood collected. 15:04 Test, Serum Sent. [facility] 15:04 Acetaminophen Sent. [facility] 15:05 Basic Metabolic Panel Sent. [facility] 15:05 CBC with Diff Sent. [facility] 15:05 ETOH Level Sent. [facility] 15:05 Hepatic Function Sent. [facility] 15:05 PT-INR Sent. [facility] 15:05 Salicylate Sent. [facility] 15:05 Ptt, Activated Sent. [facility] 16:19 called and faxed patient chart to [facility] intake department eb in the attempt to transfer. 17:19 connected Rose Marie Cabral from [facility] with Terence RN for nurse to nurse. eb 17:[address] Bennett from [facility] with Shemar DECKHAND FISHING VESSEL for patient transfer eb consultation. 18:00 Straight cath inserted, using sterile technique, 14 Fr. Specimen obtained. bp 18:33 Urine collected: straight cath specimen, clear. Straight cath inserted, using sterile [facility] technique, 14 Fr. Specimen obtained. 18:43 administrative approval given by pravin gonzales from [facility]. eb 19:47 No provider procedures requiring assistance completed. IV discontinued, intact, wh bleeding controlled, No redness/swelling at site. Administered Medications: 14:20 Drug: Ativan 2 mg Route: IM; Site: left gluteus; bp 15:58 Follow up: Response: Anxiety decreased bp 14:20 Drug: HALdol (as decanoate) 5 mg Route: IM; Site: left gluteus; bp 15:58 Follow up: Response: Anxiety decreased bp 14:20 Drug: diphenhydrAMINE 50 mg Route: IM; Site: left gluteus; bp 15:58 Follow up: Response: Anxiety decreased bp Outcome: 16:19 ER care complete, transfer ordered by MD. bernard 19:47 Transferred by ground EMS to other acute care facility: [facility]. Transfer form completed. X-rays sent w/ patient. Note: Report given to [facility] 19:47 Transferred 19:47 Condition: stable 19:47 Instructed on the need for transfer. 19:47 Instructed on 19:48 Patient left the ED. Signatures: Veronica Duncan, RN RN Isa Chicas [facility] Allison Simpson RN RN jl7 Jace Stokes Brian, RN RN bp Alzahri, Mohammad, MD MD ma2 Kenzie Son
[2019-03-18 18:11] LABS: Urine Blood NEGATIVE (NEG); Urine Glucose NEGATIVE (NEG); Urine Protein 1+ (NEG); Urine pH 5.5 (5.0-7.0)
[2019-03-18 18:22] LABS: Barbiturates NEGATIVE (NEGATIVE); Benzodiazepines NEGATIVE (NEGATIVE); Cocaine NEGATIVE (NEGATIVE); METHAMPHETAM POSITIVE (NEGATIVE); Methadone NEGATIVE (NEGATIVE); Opiates NEGATIVE (NEGATIVE); Phencyclidine NEGATIVE (NEGATIVE); THC Cannibis NEGATIVE (NEGATIVE)
[2019-03-18 20:10] VITALS: TEMP 98
[2019-03-18 20:20] VITALS: BP 94/60; O2SAT 99
--- NOTE | 2019-03-19 14:00 | EKG ---
Test Date: 2019-03-18 Test Time: 17:25:18 Zipper Joiner: ANEESH MEASUREMENT RESULTS: Intervals: Rate: 106 MS: 132 QRSD: 82 QT: 386 QTc: 512 [place]: P: 77 MS: 132 QRS: 76 T: 49 INTERPRETIVE STATEMENTS: Sinus tachycardia Right atrial enlargement Borderline ECG Compared to ECG 11/22/2018 11:02:37 No significant changes Electronically Signed On 03-19-19 13:59:00 HOME HEALTH TRAVEL PT by Pernell Mcmahon
== END 2019-03-18 19:48 ==
LOC: ER 13:32
DX: F20.1 Disorganized schizophrenia (principal); Z88.5 Allergy status to narcotic agent
CPT/HCPCS: 93005; 85025; 80048; 36415; 80320; 80329 ×2; 84703; 81025; 85610; 80076; 80307 ×8; 85730; 81003; 51702; 96372; 99285; J1630; J1200

== ENCOUNTER 2019-03-28 11:12 | Emergency (ER) | payer OTHER ==
[2019-03-28] MEDS ORDERED: HALOPERIDOL LACT 5 MG/ML INJ ONE (11:25)
--- OUTSIDE RECORDS SUMMARY | 2019-03-28 11:25 | XMS REPORT ---
:1985 [facility] Address [address] [place] [address] [address] [place] [address] Care Team Providers Name Role Phone UNKNOWN, [...] Comments RPR (test code=RPR) Non-Reactive Non-Reactive Lipid [id number] 08:20:00 Test Item Value Reference Range Comments Cholesterol (test 116 mg/dL 0-200 code=CHOL) Triglycerides (test 107 mg/dL 9-200 code=TRIG) HDL (test code=HDL) 33 mg/dL 50-60 Chol/HDL (test 3.5 Ratio 0.0-4.4 code=CHOLPHDL) LDL, Calculated (test 62 0-130 (NOTE)RISK OF HEART code=LDLC) DISEASEPublished by Peruvian Heart AssociationAnalyte Optimal Boderline Increased RiskCHOL <200 200-239 >240TRIG <150 150-199 >200HDL Male: >60 <40HDL Female: >60 <50LDL <100 130-159 >160LDL NEAR OPTIMAL IS 100-129 VLDL (test code=VLDL) 21 mg/dL 5-40 LDL/HDL (test code=LDLPHDL) 2 Thyroid Stimulating Hormone (TSH)2017-05-14 08:20:00 Test Item Value Reference Range Comments TSH (test code=TSH) 1.96 mIU/mL 0.270-4.200 BHCG, Serum, [id number] 08:04:00 Test Item Value Reference Range Comments Preg Qual [Se] (test code=BSHCG) Negative Negative Thyroid Stimulating Hormone (TSH)2016-08-18 21:10:00 Test Item Value Reference Range Comments TSH (test code=TSH) 2.02 mIU/mL 0.270-4.200 RPR, [id number] 18:14:00 Test Item Value Reference Range Comments RPR (test code=RPR) Non-Reactive Non-Reactive BHCG, Serum, [id number] 14:56:00 Test Item Value Reference Range Comments Preg Qual [Se] (test code=BSHCG) Negative Negative Urinalysis [id number] 11:10:00 Test Item Value Reference Range Comments Color (test code=COLOR) Yellow Yellow,Straw,Pl yellow Clarity (test code=CLAR) Sl Cloudy Clear Specific [place] (test 1.030 1.001-1.035 code=SPGR) pH (test code=PH) [...] Moderate /HPF Bacteria (test code=BACT) Few /HPF [id number] 10:48:00 Test Item Value Reference Range Comments [...] code=PROPOX) THC (test code=THC) Negative Negative Alcohol/Ethanol, [id number] 10:25:00 Test Item Value Reference Range Comments Alcohol, Ethyl (test <0.01 g/dL 0.00-0.01 Intoxicated 0.080 g/dL or code=ETOH) more Comprehensive Metabolic [id number] 10:25:00 Test Item Value Reference Range Comments [...] race is not provided, and the patient isAfrican-Peruvian, multiply by 1.212. If sex is not [...] the National Kidney Foundation,http://nkdep.nih .gov BHCG, Serum, [id number] 10:20:00 Test Item Value Reference Range Comments Preg Qual [Se] (test code=BSHCG) Negative Negative CBC with [id number] 10:16:00 Test Item Value Reference Range Comments [...] Lymph Abs (test code=ALYMPH) 1.8 K/cumm 0.5-4.6 Dade Abs (test code=AMONO) 0.5 K/cumm 0.0-1.2 Eos Abs (test code=AEOS) 0.09 K/cumm 0.00-0.74 Baso Abs (test code=ABASO) 0.0 K/cumm 0.00-0.21 Microcytosis (test code=MICRO) Slight Occult [id number] 16:39:00 Test Item Value Reference Range Comments Occ Bld (test code=HSOB) Negative Negative Culture, Blood [id number] 09:49:00Specimen: BloodCollected: 07/23/2016 17 :40 Status: Final Last Updated: 07/29/2016 09:49 (1) ER Bed D7 Culture Result (Final) (Final) No Growth After 5 DaysCulture, Blood [id number] 09:49:00Specimen: BloodCollected: 07/23/2016 17:40 Status: Final Last Updated: 07/29/2016 09:49 (1) ER Bed D7 Culture Result (Final) (Final) No Growth After 5 DaysBasic Metabolic [id number] 14:25:00 Test Item Value Reference Range Comments [...] race is not provided, and the patient isAfrican-Peruvian, multiply by 1.212. If sex is not [...] the National Kidney Foundation,http://nkdep.nih .gov CBC with [id number] 14:10:00 Test Item Value Reference Range Comments WBC (test code=WBC) 5.2 K/cumm 4.4-10.5 RBC (test code=RBC) 4.22 M/cumm 3.75-5.20 Hemoglobin (test code=HGB) 10.6 gm/dL 12.2-14.8 READ BACK LAB VALUESVERIFIED BY REPEAT TESTINGrechecked & calledto horace,rn @ 3940, post fluids/mdj Hematocrit (test code=HCT) 32.4 % [...] Lymph Abs (test 1.3 K/cumm 0.5-4.6 code=ALYMPH) Dade Abs (test code=AMONO) 0.3 K/cumm 0.0-1.2 Eos Abs (test code=AEOS) 0.12 K/cumm 0.00-0.74 Baso Abs (test code=ABASO) 0.0 K/cumm 0.00-0.21 BHCG, Serum, [id number] 13:12:00 Test Item Value Reference Range Comments Preg Qual [Se] (test code=BSHCG) Negative Negative RPR, [id number] 12:30:00 Test Item Value Reference Range Comments RPR (test code=RPR) Non-Reactive Non-Reactive Thyroid Stimulating Hormone (TSH)2016-07-24 08:26:00 Test Item Value Reference Range Comments TSH (test code=TSH) 3.07 mIU/mL 0.270-4.200 Lactic Acid [id number] 18:32:00 Test Item Value Reference Range Comments Lactic Acid, Bld (test code=LAC) 1.5 mmol/L 0.5-1.9 Comprehensive Metabolic [id number] 15:48:00 Test Item Value Reference Range Comments [...] race is not provided, and the patient isAfrican-Peruvian, multiply by 1.212. If sex is not [...] the National Kidney Foundation,http://nkdep.nih .gov CBC with [id number] 15:36:00 Test Item Value Reference Range Comments [...] Lymph Abs (test code=ALYMPH) 1.9 K/cumm 0.5-4.6 Dade Abs (test code=AMONO) 0.6 K/cumm 0.0-1.2 Eos Abs (test code=AEOS) 0.10 K/cumm 0.00-0.74 Baso Abs (test code=ABASO) 0.0 K/cumm 0.00-0.21
[2019-03-28] MEDS ORDERED: PROMETHAZINE INJ 25 MG/ML AMP ONE (11:26)
[2019-03-28 11:50] LABS: Absolute Lymphocytes (CBC) 1.4 K/uL (0.7-4.9); Basophils % 0.5 % (0-1.3); Hematocrit 32.5 % (36.0-45.0); Lymphocytes % 26.6 % (15.3-44.8); MPV 8.8 fL (7.6-11.3); RBC Red Blood Cell Count 4.68 M/uL (3.86-4.86)
[2019-03-28 11:55] LABS: Barbiturates NEGATIVE (NEGATIVE); Benzodiazepines NEGATIVE (NEGATIVE); Cocaine NEGATIVE (NEGATIVE); METHAMPHETAM POSITIVE (NEGATIVE); Methadone NEGATIVE (NEGATIVE); Opiates NEGATIVE (NEGATIVE); Phencyclidine NEGATIVE (NEGATIVE); THC Cannibis NEGATIVE (NEGATIVE)
[2019-03-28 11:56] LABS: Urine Blood NEGATIVE (NEG); Urine Glucose NEGATIVE (NEG); Urine Protein 1+ (NEG); Urine Specific Gravity >1.030 (1.005-1.030)
[2019-03-28 12:00] LABS: Protime INR 1.18
[2019-03-28 12:04] LABS: ALT/SGPT 21 U/L (12-78); AST/SGOT 21 U/L (15-37); Albumin 3.9 g/dL (3.4-5.0); Alkaline Phosphatase 78 U/L (45-117); BUN Blood Urea Nitrogen 13 mg/dL (7-18); Bicarbonate 24 mmol/L (21-32); Bilirubin Direct 0.1 mg/dL (0-0.2); Bilirubin Total 0.3 mg/dL (0.2-1.0); Glucose Level 118 mg/dL (74-106); Potassium 3.7 mmol/L (3.5-5.1); Protein, Total 7.9 g/dL (6.4-8.2); Sodium Level 140 mmol/L (136-145)
[2019-03-28 12:26] LABS: Anisocytosis 1+; Blood Morphology Comment NOTED (NOT SEEN); Platelet Estimate ADEQ
[2019-03-28] MEDS ORDERED: NA CHLORIDE 0.9% 1,000 ML ONE (14:12)
[2019-03-28] MEDS ORDERED: LORazepam 2 MG/ML VIAL ONE (14:12)
--- NOTE | 2019-03-28 15:53 | EKG ---
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
--- NOTE | 2019-03-28 17:24 | ER ---
Nurse's Notes [facility] Name: Georgette Patel Age: 34 yrs Sex: Female : 1985 Arrival Date: 03/28/2019 Time: 11:13 Bed 13 Private MD: Diagnosis: Schizophrenia Presentation: 03/28 11:15 Presenting complaint: EMS states: Reports auditory and visual hallucinations x 2 days, hb unrelieved by Haldol. Transition of care: patient was not received from another setting of care. Onset of symptoms was March 27, 2019. Risk Assessment: Do you want to hurt yourself or someone else? Patient reports no desire to harm self or others. Initial Sepsis Screen: Does the patient meet any 2 criteria? No. Patient's initial sepsis screen is negative. Does the patient have a suspected source of infection? No. Patient's initial sepsis screen is negative. Care prior to arrival: None. 11:15 Method Of Arrival: EMS: [facility] hb 11:15 Acuity: GILES 2 hb Historical: - Allergies: 11:16 Hydrocodone-Acetaminophen; hb - PMHx: 11:16 Anxiety; Bipolar disorder; Depression; PTSD; Schizophrenia; hb - PSHx: 11:16 ; hb - Immunization history:: Adult Immunizations up to date. - Coronavirus screen:: The patient has NOT traveled to [place], [place], or [place] in the past 14 days. The patient has NOT had contact with known/suspected case of Coronavirus? Proceed with normal triage procedures. - Social history:: Smoking status: unknown. - Ebola Screening: : No symptoms or risks identified at this time. Screenin:18 Abuse screen: Denies threats or abuse. Denies injuries from another. Nutritional hb screening: No deficits noted. Tuberculosis screening: No symptoms or risk factors identified. Fall Risk None identified. Assessment: 12:15 General: Appears in no apparent distress. Behavior is cooperative, flat. Pain: Denies hb pain. Neuro: Level of Consciousness is awake, obeys commands, Oriented to person, place. Cardiovascular: Capillary refill < 3 seconds Patient's skin is warm and dry. Respiratory: Airway is patent Respiratory effort is even, unlabored, Respiratory pattern is regular, symmetrical, Breath sounds are clear bilaterally. GI: No signs and/or symptoms were reported involving the gastrointestinal system. : No signs and/or symptoms were reported regarding the genitourinary system. EENT: No signs and/or symptoms were reported regarding the EENT system. Derm: Skin is pink, warm \T\ dry. Musculoskeletal: No signs and/or symptoms reported regarding the musculoskeletal system. 13:15 Reassessment: Patient appears in no apparent distress at this time. No changes from hb previously documented assessment. Patient and/or family updated on plan of care and expected duration. Pain level reassessed. 14:00 Reassessment: Patient appears in no apparent distress at this time. No changes from hb previously documented assessment. 15:00 Reassessment: Patient appears in no apparent distress at this time. No changes from hb previously documented assessment. Patient and/or family updated on plan of care and expected duration. Pain level reassessed. 16:00 Reassessment: Patient appears in no apparent distress at this time. No changes from hb previously documented assessment. Patient and/or family updated on plan of care and expected duration. Pain level reassessed. 17:00 Reassessment: Patient appears in no apparent distress at this time. Patient and/or hb family updated on plan of care and expected duration. Pain level reassessed. Resting with eyes closed, arouseable to verbal stimuli. SOSA Kye aware. 17:57 Reassessment: Pt resting with eyes closed, arouseable to verbal stimuli but returns to sleep quickly. Discharge pending more awake state. 20:12 Reassessment: Patient appears in no apparent distress at this time. pt appears to be iw sleeping,awakens easily to tactile stimuli, pt states she does not know anyone's number to call, pt allowed me to look up her mother's info on demographic sheet but mother's phone was not able to receive calls at this time, pt cooperative but still drowsy, VSS. 20:44 Reassessment: Patient appears in no apparent distress at this time. no change from previously documented assessment. pt is still too lethargic to put into lobby to wait for ride. will reassess in 20 min. Vital Signs: 11:16 BP 142 / 97; Pulse 108; Resp 16; Temp 97.8; Pulse Ox 98% ; Pain 3/10; hb 12:00 BP 121 / 73; Pulse 102; Resp 14; Pulse Ox 99% on R/A; hb 13:00 BP 126 / 76; Pulse 92; Resp 15; Pulse Ox 100% on R/A; hb 15:00 BP 124 / 74; Pulse 88; Resp 15; Pulse Ox 99% on R/A; hb 17:59 BP 118 / 68; Pulse 82; Resp 14; Pulse Ox 100% on R/A; hb 20:12 BP 107 / 75; Pulse 98; Resp 16 S; Temp 98.1; Pulse Ox 100% on R/A; Pain 4/10; iw 11:16 [place] (FACES) hb ED Course: 11:13 Patient arrived in ED. hb 11:16 Triage completed. hb 11:16 Arm band placed on. hb 11:18 K[facility] Mayer [facility]. jr8 11:18 Ike Green MD is Attending Physician. jr8 11:20 Bing Hamilton, MISHA is Primary Nurse. hb 11:44 Patient has correct armband on for positive identification. Placed in gown. Bed in low mh5 position. Call light in reach. Side rails up X2. Warm blanket given. Pulse ox on. NIBP on. 11:44 Initial lab(s) drawn, by il, sent to lab. Urine collected: clean catch specimen, tea mh5 colored. Inserted saline lock: 22 gauge in left antecubital area, using aseptic technique. Blood collected. 11:45 Urine --Ancillary (enter results) Sent. mh5 11:45 Urine Dipstick--Ancillary (enter results) Sent. mh5 11:45 Acetaminophen Sent. mh5 11:45 Basic Metabolic Panel Sent. 5 11:45 CBC with Diff Sent. mh5 11:46 ETOH Level Sent. mh5 11:46 Hepatic Function Sent. mh5 11:46 PT-INR Sent. mh5 11:46 Ptt, Activated Sent. mh5 11:46 Urine Drug Screen Sent. mh5 11:46 Salicylate Sent. mh5 11:50 EKG done, by diagnostics tech. reviewed by Kye SWAN. at1 Administered Medications: 11:35 Drug: HALdol 5 mg Route: IVP; Site: left antecubital; hb 11:35 Drug: Benadryl 12.5 mg Route: IVP; Site: left antecubital; hb 14:18 Drug: NS 0.9% 1000 ml Route: IV; Rate: 1000 ml; Site: left antecubital; hb 14:18 Drug: Ativan 1 mg Route: IVP; Site: left antecubital; hb Outcome: 17:23 Discharge ordered by MD. shelton 21:25 Patient left the ED. Signatures: Diamond Shannon RN Veronica Rivera ch, RN RN iw Roszak, Josh, PA PA jr8 Samantha Rivera, dry house tender EKG Tat1 Bing Hamilton RN RN Isa Garcia [facility] Corrections: (The following items were deleted from the chart) 15:10 13:00 BP 124 / 74; Pulse 88bpm; Resp 15bpm; Pulse Ox 99% RA; hb hb 17:58 17:00 Reassessment: Patient appears in no apparent distress at this time. No changes hb from previously documented assessment. Patient and/or family updated on plan of care and expected duration. Pain level reassessed. hb
--- NOTE | 2019-03-28 17:24 | EDPHYS ---
Physician Documentation [facility] Name: Georgette Patel Age: 34 yrs Sex: Female : 1985 Arrival Date: 03/28/2019 Time: 11:13 Bed 13 Private MD: ED Physician Ike Green HPI: 03/28 12:15 This 34 yrs old Black Female presents to ER via EMS with complaints of Psych Problem. jr8 12:15 The patient presents to the emergency department with psychosis, has experienced visual jr8 hallucinations, seeing snakes. Onset: The symptoms/episode began/occurred acutely, today. Past psychiatric history: Prior diagnosis: schizophrenia. Associated signs and symptoms: The patient has no apparent associated signs or symptoms. Severity of symptoms: At their worst the symptoms were mild in the emergency department the symptoms are unchanged. The patient has experienced similar episodes in the past, several times. The patient has been recently seen by a physician:. Patient stated that she started seeing snakes again. Feels thirsty and tired. Upset and crying in room. Non aggressive at this time. Has been taking her Haldol as prescribed . Historical: - Allergies: 11:16 Hydrocodone-Acetaminophen; hb - PMHx: 11:16 Anxiety; Bipolar disorder; Depression; PTSD; Schizophrenia; hb - PSHx: 11:16 ; hb - Immunization history:: Adult Immunizations up to date. - Coronavirus screen:: The patient has NOT traveled to [place], [place], or [place] in the past 14 days. The patient has NOT had contact with known/suspected case of Coronavirus? Proceed with normal triage procedures. - Social history:: Smoking status: unknown. - Ebola Screening: : No symptoms or risks identified at this time. ROS: 12:15 Eyes: Negative for injury, pain, redness, and discharge, ENT: Negative for injury, jr8 pain, and discharge, Neck: Negative for injury, pain, and swelling, Cardiovascular: Negative for chest pain, palpitations, and edema, Respiratory: Negative for shortness of breath, cough, wheezing, and pleuritic chest pain, Abdomen/GI: Negative for abdominal pain, nausea, vomiting, diarrhea, and constipation, Back: Negative for injury and pain, MS/Extremity: Negative for injury and deformity, Skin: Negative for injury, rash, and discoloration, Neuro: Negative for headache, weakness, numbness, tingling, and seizure. 12:15 Psych: Positive for anxiety, visual hallucinations. Exam: 12:15 Eyes: Pupils equal round and reactive to light, extra-ocular motions intact. Lids and jr8 lashes normal. Conjunctiva and sclera are non-icteric and not injected. Cornea within normal limits. Periorbital areas with no swelling, redness, or edema. ENT: Nares patent. No nasal discharge, no septal abnormalities noted. Tympanic membranes are normal and external auditory canals are clear. Oropharynx with no redness, swelling, or masses, exudates, or evidence of obstruction, uvula midline. Mucous membranes moist. Neck: Trachea midline, no thyromegaly or masses palpated, and no cervical lymphadenopathy. Supple, full range of motion without nuchal rigidity, or vertebral point tenderness. No Meningismus. Cardiovascular: Regular rate and rhythm with a normal S1 and S2. No gallops, murmurs, or rubs. Normal PMI, no JVD. No pulse deficits. Respiratory: Lungs have equal breath sounds bilaterally, clear to auscultation and percussion. No rales, rhonchi or wheezes noted. No increased work of breathing, no retractions or nasal flaring. Abdomen/GI: Soft, non-tender, with normal bowel sounds. No distension or tympany. No guarding or rebound. No evidence of tenderness throughout. Back: No spinal tenderness. No costovertebral tenderness. Full range of motion. Skin: Warm, dry with normal turgor. Normal color with no rashes, no lesions, and no evidence of cellulitis. MS/ Extremity: Pulses equal, no cyanosis. Neurovascular intact. Full, normal range of motion. Neuro: Awake and alert, GCS 15, oriented to person, place, time, and situation. Cranial nerves II-XII grossly intact. Motor strength 5/5 in all extremities. Sensory grossly intact. Cerebellar exam normal. Normal gait. 12:15 Psych: Behavior/mood is anxious, Affect is animated, Oriented to person, place, time, Patient has no thoughts/intents to harm self or others. Judgement / Insight is normal. Memory is normal. Delusions/hallucinations seeing snakes . Vital Signs: 11:16 BP 142 / 97; Pulse 108; Resp 16; Temp 97.8; Pulse Ox 98% ; Pain 3/10; hb 12:00 BP 121 / 73; Pulse 102; Resp 14; Pulse Ox 99% on R/A; hb 13:00 BP 126 / 76; Pulse 92; Resp 15; Pulse Ox 100% on R/A; hb 15:00 BP 124 / 74; Pulse 88; Resp 15; Pulse Ox 99% on R/A; hb 17:59 BP 118 / 68; Pulse 82; Resp 14; Pulse Ox 100% on R/A; hb 20:12 BP 107 / 75; Pulse 98; Resp 16 S; Temp 98.1; Pulse Ox 100% on R/A; Pain 4/10; iw 11:16 [place] (FACES) hb MDM: 11:18 Patient medically screened. jr8 17:22 Data reviewed: vital signs, nurses notes, lab test result(s), EKG. Data interpreted: jr8 Pulse oximetry: on room air is 99 %. Interpretation: normal. Counseling: I had a detailed discussion with the patient and/or guardian regarding: the historical points, exam findings, and any diagnostic results supporting the discharge/admit diagnosis, lab results, the need for outpatient follow up, a psychiatrist, to return to the emergency department if symptoms worsen or persist or if there are any questions or concerns that arise at home. ED course: Patient feeling better. Still sleepy but stated that she is doing better. Will d/c upon her waking up more. At this time denies SI/HI or auditory or visual hallucinations. 03/28 11:19 Order name: Acetaminophen; Complete Time: 12:17 03/28 11:19 Order name: Basic Metabolic Panel; Complete Time: 12:03/28 11:19 Order name: CBC with Diff; Complete Time: 12:03/28 11:19 Order name: ETOH Level; Complete Time: 12:17 03/28 11:19 Order name: Hepatic Function; Complete Time: 12:03/28 11:19 Order name: PT-INR; Complete Time: 12:17 03/28 11:19 Order name: Ptt, Activated; Complete Time: 12:17 03/28 11:19 Order name: Salicylate; Complete Time: 12:56 03/28 11:19 Order name: Urine Drug Screen; Complete Time: 12:00 28 11:41 Order name: Urine Dipstick--Ancillary (enter results) bd 03/28 11:41 Order name: Urine --Ancillary (enter results) 03/28 12:26 Order name: Manual Differential; Complete Time: 12:56 [facility] 03/28 11:19 Order name: Urine Test (obtain specimen); Complete Time: 11:35 rust 03/28 11:19 Order name: EKG; Complete Time: 11:19 rust 03/28 11:19 Order name: EKG - Nurse/Tech; Complete Time: 11:36 rust 03/28 11:19 Order name: IV Saline Lock; Complete Time: 11:46 rust 03/28 11:19 Order name: Labs collected and sent; Complete Time: 11:46 rust 03/28 11:19 Order name: Urine Dipstick-Ancillary (obtain specimen); Complete Time: 11:46 Administered Medications: 11:35 Drug: HALdol 5 mg Route: IVP; Site: left antecubital; hb 11:35 Drug: Benadryl 12.5 mg Route: IVP; Site: left antecubital; hb 14:18 Drug: NS 0.9% 1000 ml Route: IV; Rate: 1000 ml; Site: left antecubital; hb 14:18 Drug: Ativan 1 mg Route: IVP; Site: left antecubital; hb Disposition: 03/29 07:32 Co-signature as Attending Physician, Ike Green MD I agree with the assessment and kdr plan of care. Disposition: 03/28/19 17:23 Discharged to Home. Impression: Schizophrenia. - Condition is Stable. - Discharge Instructions: Schizophrenia. - Medication Reconciliation Form, Thank You Letter, Antibiotic Education, Prescription Opioid Use form. - Follow up: Private Physician; When: 2 - 3 days; Reason: Recheck today's complaints, Continuance of care, Re-evaluation by your physician. - Problem is new. - Symptoms have improved. Signatures: Dispatcher [employer] Diamond Mcnulty, MISHA CABRAL Ike Green MD MD [facility] Kye Mayer PA PA 8 Bing Hamilton RN RN Corrections: (The following items were deleted from the chart) 03/28 21:25 17:23 03/28/2019 17:23 Discharged to Home. Impression: Schizophrenia. Condition is ch Stable. Forms are Medication Reconciliation Form, Thank You Letter, Antibiotic Education, Prescription Opioid Use. Follow up: Private Physician; When: 2 - 3 days; Reason: Recheck today's complaints, Continuance of care, Re-evaluation by your physician. Problem is new. Symptoms have improved. jr8
[2019-03-28 21:49] VITALS: O2SAT 100
[2019-03-28 21:51] VITALS: BP 107/75; TEMP 98.1
== END 2019-03-28 21:25 | disposition home or self-care (01) ==
LOC: ER 11:12
DX: F20.9 Schizophrenia, unspecified (principal); Z88.6 Allergy status to analgesic agent
CPT/HCPCS: 93005; 85025; 80048; 36415; 80320; 80329 ×2; 81025; 85610; 80076; 80307 ×8; 85730; 81003; 96375; 96374; 99284; J1630; J2550; J7030

== ENCOUNTER 2021-06-13 15:40 | Emergency (ER) | payer OTHER ==
--- OUTSIDE RECORDS SUMMARY | 2021-06-13 15:46 | XMS REPORT | Continuity of Care Document ---
:1985 Author Organization [facility] t Address [address] [place] [address] Care Team Providers Name Role Phone UNKNOWN Primary Care Physician Unavailable Elizabeth Collazo Attending Clinician Elizabeth YBARRA Attending Clinician Unavailable Apolonia Vo MD Attending Clinician SWAPNIL VO M.D. 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 Branch Utility Disease Active U nivers care and care and 718 ity of examin[place] Medical immediatel immediatel Br anch y after y after delivery delivery Allergies, Adverse Reactions, Alerts Allergy Allergy Status Severity Reaction(s) Onset Inactive Treating Comm ents Source Name Type Date Date Clinician Unable DA Active U SJMCm to 2-25 Assess 00:00: 00 Hydrocod Propensi Active Swelling 2014-03 Throat Univ ers one ty to 2-10 swells, ity of adverse 00:00: unable to [place] reaction 00 breath Medical s Branch HYDROCOD DRUG Active Swelling 2014-03 Univer s ONE INGREDI 2-10 ity of 00:00: [place] 00 Medical Branch [place] Drug Active [facility] [place] Drug Active [facility] [place] Drug Active [facility] [place] Drug Active [facility] [place] Drug Active [facility] [place] Drug Active [facility] [place] Drug Active [facility] [place] Drug Active [facility] [place] Drug Active [facility] [place] Drug Active [facility] [place] Drug Active [facility] [place] Drug Active [facility] [place] Drug Active [facility] [place] Drug Active [facility] [place] Drug Active [facility] [place] Drug Active [facility] [place] Drug Active [facility] [place] Drug Active [facility] [place] Drug Active [facility] [place] Drug Active [facility] [place] Drug Active [facility] [place] Drug Active [facility] [place] Drug Active [facility] [place] Drug Active [facility] [place] Drug Active [facility] Social History Social Habit Start Date Stop Date Quantity Comments Source History of tobacco Cigarette Smoker University of use [facility] Exposure to Not sure University of SARS-CoV-2 (event) [facility] Cigarettes smoked 2018-08-05 2018-08-05 Univers ity of current (pack per 00:00:00 00:00:00 [place] ) - Reported Branch Alcohol intake 2018-08-05 2018-08-05 Current drinker Unive rsity of 00:00:00 00:00:[address] [facility] (finding) [place] Sex Assigned At [birth year] Universit y of 00:00:00 00:00:00 [facility] Smoking Status Start Date Stop Date Source Current every day smoker 2018-08-05 00:00:00 Uni versity of [facility] Medications Ordered Filled Start Stop Current Ordering Indication Dosage Frequency Signature Comments Components Source Medication Medication Date Date Medication? Clinician (SIG) Name Name aspirin 1- No 325mg 325 mg, Unive rs tablet 325 05-29 Oral, ity of mg 21:15: 21:06 ONCE, 1 [place] 00 :00 dose, Wed Medical 05/29/20 at Branch 1615, STAT haloperidol 2018-0 Yes 1mg Take 1 mg U nivers 1 mg tablet 6-07 by mouth 2 it y of 23:59: (two) [place] 14 times Medical daily. Branch traZODONE 2018- Yes 100mg Take 100 Uni vers 100 mg 6-07 mg by ity of tablet 23:59: mouth at [place] 14 bedtime. Medical Branch haloperidol 2018-0 Yes 5mg Take 5 mg U nivers 5 mg tablet 6-07 by mouth 2 it y of 23:59: (two) [place] 14 times Medical daily. Branch haloperidol Yes 1mg Take 1 mg U nivers 1 mg tablet 6-07 by mouth 2 it y of 23:59: (two) [place] 14 times Medical daily. Branch traZODONE Yes 100mg Take 100 Uni vers 100 mg 6-07 mg by ity of tablet 23:59: mouth at [place] 14 bedtime. Medical Branch haloperidol Yes 5mg Take 5 mg U nivers 5 mg tablet 6-07 by mouth 2 it y of 23:59: (two) [place] 14 times Medical daily. Branch FLUoxetine Yes Univers (PROZAC) 20 2-23 ity of mg tablet 00:00: [place] 00 Medical Branch FLUoxetine 0 Yes Univers (PROZAC) 20 2-23 ity of mg tablet 00:00: [place] 00 Medical [place] Vital Signs Vital Name Observation Time Observation Value Comments Source Systolic blood 2020-05-29 22:00:00 107 mm[Hg] Univer sity of pressure [facility] Diastolic blood 2020-05-29 22:00:00 96 mm[Hg] [facility] Heart rate 2020-05-29 22:00:00 89 /min [facility] Respiratory rate 2020-05-29 22:00:00 17 /min [facility] Oxygen saturation in 2020-05-29 22:00:00 100 /min [facility] Arterial blood by [facility] [place] Pulse oximetry Branch Body temperature 2020-05-29 20:10:00 37.22 [facility] Body weight 2020-05-29 20:08:00 86.183 kg [facility] BMI 2020-05-29 20:08:00 38.38 kg/m2 [facility] Height/Length 2021-03-18 09:56:58 165.1 cm Measured Weight Dosing 2021-03-18 09:56:58 65.30 kg Height/Length 2021-03-18 09:56:39 165.1 cm Measured Weight Dosing 2021-03-18 09:56:39 65.30 kg Height/Length 2021-03-18 09:55:13 165.1 cm Measured Weight Dosing 2021-03-18 09:55:13 65.30 kg Height/Length 2021-03-18 09:55:11 165.1 cm Measured Weight Dosing 2021-03-18 09:55:11 65.30 kg Height/Length 2021-03-18 09:53:35 165.1 cm Measured Weight Dosing 2021-03-18 09:53:35 65.30 kg Height/Length 2021-03-18 09:53:34 165.1 cm Measured Weight Dosing 2021-03-18 09:53:34 65.30 kg Height/Length 2021-03-18 09:53:33 165.1 cm Measured Weight Dosing 2021-03-18 09:53:33 65.30 kg Height/Length 2021-03-18 09:52:40 165.1 cm Measured Weight Dosing 2021-03-18 09:52:40 65.30 kg Height/Length 2021-03-18 09:52:16 165.1 cm Measured Weight Dosing 2021-03-18 09:52:16 65.30 kg Height/Length 2021-03-18 09:52:12 165.1 cm Measured Weight Dosing 2021-03-18 09:52:12 65.30 kg Height/Length 2021-03-18 09:52:10 165.1 cm Measured Weight Dosing 2021-03-18 09:52:10 65.30 kg Height/Length 2021-03-18 09:51:59 160 cm Measured Height/Length 2021-03-18 09:51:54 160 cm Measured Height/Length 2021-03-18 09:51:53 160 cm Measured Height/Length 2021-03-18 09:51:50 160 cm Measured Height/Length 2021-03-18 09:51:35 160 cm Measured Height/Length 2021-03-18 09:51:20 160 cm Measured Height/Length 2021-03-18 09:51:05 160 cm Measured Height/Length 2021-03-18 09:51:03 160 cm Measured Height/Length 2021-03-18 09:51:02 160 cm Measured Height/Length 2019-06-04 15:36:11 Measured 02 Sat by Pulse 2020-04-25 15:01:13 100 /min Oximetry Body Mass Index 2020-04-25 15:01:13 29.3 Height 2020-04-25 15:01:13 147.32\\S\\58 Pulse Rate 2020-04-25 15:01:13 78 /min Respiratory Rate 2020-04-25 15:01:13 16 /min Temperature 2020-04-25 15:01:13 36.9\\S\\98.4 Weight 2020-04-25 15:01:13 09790.932\\S\\2240 Weight Measurement 2020-04-25 15:01:13 Estimated by Staff Method Respiratory 2020-04-25 15:01:12 No respiratory distress /min Respiratory 2020-04-25 14:27:49 No respiratory distress /min 02 Sat by Pulse 2020-04-25 14:27:49 100 /min Oximetry Body Mass Index 2020-04-25 14:27:49 29.3 Height 2020-04-25 14:27:49 147.32\\S\\58 Pulse Rate 2020-04-25 14:27:49 78 /min Respiratory Rate 2020-04-25 14:27:49 16 /min Temperature 2020-04-25 14:27:49 36.9\\S\\98.4 Weight 2020-04-25 14:27:49 43263.932\\S\\2240 Weight Measurement 2020-04-25 14:27:49 Estimated by Staff Method Respiratory 2020-04-25 14:27:18 No respiratory distress /min 02 Sat by Pulse 2020-04-25 14:27:18 100 /min Oximetry Body Mass Index 2020-04-25 14:27:18 29.3 Height 2020-04-25 14:27:18 147.32\\S\\58 Pulse Rate 2020-04-25 14:27:18 78 /min Respiratory Rate 2020-04-25 14:27:18 16 /min Temperature 2020-04-25 14:27:18 36.9\\S\\98.4 Weight 2020-04-25 14:27:18 91457.932\\S\\2240 Weight Measurement 2020-04-25 14:27:18 Estimated by Staff Method Respiratory 2020-04-25 14:21:39 No respiratory distress /min 02 Sat by Pulse 2020-04-25 14:21:39 100 /min Oximetry Body Mass Index 2020-04-25 14:21:39 29.3 Height 2020-04-25 14:21:39 147.32\\S\\58 Pulse Rate 2020-04-25 14:21:39 78 /min Respiratory Rate 2020-04-25 14:21:39 16 /min Temperature 2020-04-25 14:21:39 36.9\\S\\98.4 Weight 2020-04-25 14:21:39 33171.932\\S\\2240 Weight Measurement 2020-04-25 14:21:39 Estimated by Staff Method Respiratory 2020-04-25 12:03:42 No respiratory distress /min 02 Sat by Pulse 2020-04-25 12:03:42 100 /min Oximetry Body Mass Index 2020-04-25 12:03:42 29.3 Height 2020-04-25 12:03:42 147.32\\S\\58 Pulse Rate 2020-04-25 12:03:42 78 /min Respiratory Rate 2020-04-25 12:03:42 16 /min Temperature 2020-04-25 12:03:42 36.9\\S\\98.4 Weight 2020-04-25 12:03:42 21281.932\\S\\2240 Weight Measurement 2020-04-25 12:03:42 Estimated by Staff Method 02 Sat by Pulse 2020-04-25 11:51:21 100 /min Oximetry Body Mass Index 2020-04-25 11:51:21 29.3 Height 2020-04-25 11:51:21 147.32\\S\\58 Pulse Rate 2020-04-25 11:51:21 78 /min Respiratory Rate 2020-04-25 11:51:21 16 /min Temperature 2020-04-25 11:51:21 36.9\\S\\98.4 Weight 2020-04-25 11:51:21 05023.932\\S\\2240 Weight Measurement 2020-04-25 11:51:21 Estimated by Staff Method Respiratory 2020-04-25 11:51:21 No respiratory distress /min 02 Sat by Pulse 2020-04-25 11:17:59 100 /min Oximetry Body Mass Index 2020-04-25 11:17:59 29.3 Height 2020-04-25 11:17:59 147.32\\S\\58 Pulse Rate 2020-04-25 11:17:59 78 /min Respiratory Rate 2020-04-25 11:17:59 16 /min Temperature 2020-04-25 11:17:59 36.9\\S\\98.4 Weight 2020-04-25 11:17:59 10551.932\\S\\0 Weight Measurement 2020-04-25 11:17:59 Estimated by Staff Method Respiratory 2020-04-25 11:17:59 No respiratory distress /min WEIGHT 2020-04-25 11:10:00 63.283866 kg HEIGHT 2020-04-25 11:10:00 147.32 cm 02 Sat by Pulse 2020-04-25 10:59:27 100 /min Oximetry Body Mass Index 2020-04-25 10:59:27 21.3 Height 2020-04-25 10:59:27 165.1\\S\\65 Pulse Rate 2020-04-25 10:59:27 78 /min Respiratory Rate 2020-04-25 10:59:27 16 /min Temperature 2020-04-25 10:59:27 36.9\\S\\98.4 Weight 2020-04-25 10:59:27 19845.823\\S\\8 Weight Measurement 2020-04-25 10:59:27 Estimated by Staff Method 02 Sat by Pulse 2020-04-25 10:49:10 100 /min Oximetry Body Mass Index 2020-04-25 10:49:10 21.3 Height 2020-04-25 10:49:10 165.1\\S\\65 Pulse Rate 2020-04-25 10:49:10 78 /min Respiratory Rate 2020-04-25 10:49:10 16 /min Temperature 2020-04-25 10:49:10 36.9\\S\\98.4 Weight 2020-04-25 10:49:10 65395.823\\S\\2048 Weight Measurement 2020-04-25 10:49:10 Estimated by Staff Method WEIGHT 2020-04-25 10:46:00 58.309673 kg HEIGHT 2020-04-25 10:46:00 165.1 cm Procedures Procedure Date / Time Performing Clinician Source Performed POCT TEST 2020-05-29 21:05:00 Janice Ybarra [facility] COVID-19 (ID NOW RAPID 2020-05-29 21:04:00 Janice Ybarra [facility] TESTING) [facility] ADC / [facility] - DRUG SCREEN 2020-05-29 21:03:00 Janice Ybarra [facility] TROPONIN I 2020-05-29 21:02:00 Janice Ybarra [facility] COMP. METABOLIC PANEL 2020-05-29 21:02:00 Janice Ybarra [facility] ([id number]) [facility] SALICYLATE 2020-05-29 21:02:00 Janice Ybarra [facility] ETHANOL 2020-05-29 21:02:00 Janice Ybarra [facility] CBC WITH DIFF 2020-05-29 21:02:00 Janice Ybarra [facility] PROTHROMBIN TIME / INR 2020-05-29 21:02:00 Janice Ybarra [facility] ACTIVATED PARTIAL 2020-05-29 21:02:[address] [facility] PRO-BNP 2020-05-29 21:02:00 Janice Ybarra [facility] XR CHEST 1 VW 2020-05-29 20:33:45 Janice Ybarra [facility] HB ECG ROUTINE & RHYTHM 2020-05-29 20:23:30 Janice Ybarra [facility] [place] Encounters Start End Encounter Admission Attending Care Care Encounter Source Date/Time Date/Time Type Type Clinicians Facility Department ID 2020-05-29 2020-05-29 [facility] [id number] Univers 15:28:00 18:00:00 Janice Smith [id number] i [facility] [id number] [facility] [id number] [place] [id number] Branch 2020-05-29 2020-05-29 Emergency [facility] [id number] Univers 15:28:00 15:28:00 [facility] 2019-06-05 2019-06-[address] [facility] [address] [place] [id number] Univers 12:44:20 23:59:00 Encounter Swapnil BOWENS [id number] ity [facility] [id number] [facility] [place] [facility] [id number] [address] 2019-06-04 2019-06-04 Emergency [facility] JANE [id number] 15:28:00 15:28:00 [facility] 2019-06-04 2019-06-04 [facility] JANE [id number] 15:28:00 15:28:[id number] [facility] Results Test Description Test Time Test Comments Results Result Comments Source ACETAMINOPHEN 2020-05-29 22:14:03 Test Item Value Reference Range Interpretation Comme nts ACETAMINOP (test code = 7460838971) <10.0 10.0-30.0 L GABE (test code = GABE) Toxic: Greater than 200 ug/mL @ 4 hour post ingestion or greater than 50 ug/mL @ 12 hour post ingestion Lab Interpretation (test code = Abnormal 43321-0) [facility]13[facility]53 Test Item Value Reference Range Interpretation Comments ALCOHOL (test code = <10 mg/dL 6762333818) GABE (test code = GABE) <10 [id number] Toxic>100 Depression of VISUAL DESIGNER>400 Fatalities Reported [facility] 22:12:51 Test Item Value Reference Range Interpretation Comments SALICYLATE (test code <10 mg/L = 4342782428) GABE (test code = GABE) Therapeutic Range: ? Analgesic and Antipyretic Use ? 20-100 mg/L ? ? Anti-Inflammatory Use ? 100-250 mg/L Toxic Range: ? Greater than 300 mg/L [facility] [id number] 22:11:46 Test Item Value Reference Range Interpretation Comments TROPONIN I (test 0.000 ng/mL See_Comment [Automated code = 1118005309) message] The system which generated this result transmitted reference range : <=0.034. The reference range was not used to interpret this result as normal/abnormal . GABE (test code = Equal or Less than GABE) 0.034 ng/ml---Normal ?Note: Cardiac troponin begins to rise 3-4 hours after the onset of ischemia. Repeat in 4-6 hours if the sample was drawn within 3-4 hours of the onset of the symptom and found normal. Between 0.035 and 0.120 ng/mL--- Borderline. Questionable myocardial injury or necrosis ? ?Note: Serial measurement may be necessary to confirm or exclude the diagnosis of myocardial injury or necrosis; Clinical correlation (symptoms, EKGs, imaging studies, and others) required; Repeat in 4-6 hours if clinically indicated. ? Equal or Higher than 0.121 ng/mL---Abnormal. Myocardial Injury or Necrosis Likely ? Biotin has been reported to cause a negative bias, interpret results relative to patient's use of biotin. ? Lab Interpretation Normal (test code = 91803-2) [facility] ([id number])2020-05-29 22:00:22 Test Item Value Reference Range Interpretation Comments NA (test code = 140 mmol/L 135-145 1015548073) K (test code = 3.8 mmol/L 3.5-5.0 3236630075) CL (test code = 103 mmol/L 98-108 9675813343) CO2 TOTAL (test code = 30 mmol/L 23-31 5852486256) AGAP (test code = 2-16 0341070392) BUN (test code = 9 mg/dL 7-23 3780506697) GLUCOSE (test code = 93 mg/dL 70-110 0853626080) CREATININE (test code 0.68 mg/dL 0.50-1.04 = 8296931211) TOTAL BILI (test code 0.3 mg/dL 0.1-1.1 = 7229943505) CALCIUM (test code = 9.2 mg/dL 8.6-10.6 0758970003) T PROTEIN (test code = 7.3 g/dL 6.3-8.2 3222429140) ALBUMIN (test code = 4.3 g/dL 3.5-5.0 7819602468) ALK PHOS (test code = 71 U/L 34-122 6303165685) ALTv (test code = 11 U/L 5-35 1742-6) AST(SGOT) (test code = 30 U/L 13-40 0378031777) eGFR Calculation mL/min/1.73m2 (Non-) (test code = 8500967829) eGFR Calculation mL/min/1.73m2 () (test code = 1317681736) GABE (test code = GABE) Association of Glomerular Filtration Rate (GFR) and Staging of Kidney Disease* + -+ + ---+| GFR (mL/min/1.73 m2) ?| With Kidney Damage ?| ?Without Kidney Damage+ -------+ ------+ ---------+| ?>90 ?| ?Stage one ?| ? Normal ?+ --+ -+ ----+| ?60-89 ?| ?Stage two ?| ? Decreased GFR ? + -+ + ---+| ?30-59 ?| ?Stage three ?| ? Stage three ? + -+ + ---+| ?15-29 ?| ?Stage four ? | ? Stage four ?+ --+ -+ ----+| ?<15 (or dialysis) ? ?| ?Stage five ? | ? Stage five ?+ --+ -+ ----+ *Each stage assumes the associated GFR level has been in effect for at least three months. ?Stages 1 to 5, with or without kidney disease, indicate chronic kidney disease. Notes: Determination of stages one and two (with eGFR >59mL/min/1.73 m2) requires estimation of kidney damage for at least three months as defined by structural or functional abnormalities of the kidney, manifested by either:Pathological abnormalities or Markers of kidney damage (including abnormalities in the composition of the blood or urine or abnormalities in imaging tests). [facility] [id number] 21:56:39 Test Item Value Reference Range Interpretation Comments NT-proBNP (test code 38 pg/mL See_Comment [Autom ated = 6032114705) message] The system which generated this result transmitted reference range : <=125. The reference range was not used to interpret this result as normal/abnormal . GABE (test code = GABE) Biotin has been reported to cause a negative bias, interpret results relative to patient's use of biotin. Lab Interpretation Normal (test code = 10003-5) [facility] NOW RAPID TESTING)2020-05-29 21:39:48 Test Item Value Reference Range Interpretation Comments SARS-CoV-2 Rapid ID NOW Not Detected Not Detected (test code = 06479-9) GABE (test code = GABE) ID NOW COVID-19 Assay is an isothermal nucleic acid amplification test intended for the qualitative detection of nucleic acid from SARS-CoV-2 viral RNA in nasopharyngeal (CRYSTAL GRINDER) specimens. It is used under Emergency Use Authorization (EUA) by FDA. The limit of detection (LOD) of the assay is 125 Genome Equivalents/mL. A positive result is indicative of the presence of SARS-CoV-2 RNA. ?Clinical correlation with patient history and other diagnostic information is necessary to determine patient infection status. A negative (Not Detected) result does not preclude SARS-CoV-2 infection. In patients with clinical symptoms and other tests that are consistent with SARS-CoV-2 infection, negative results should be treated as presumptive negative and a new specimen should be tested with alternative PCR molecular test. Invalid: Please collect a new specimen for repeat patient testing if clinically indicated. Lab Interpretation Normal (test code = 85731-4) [facility] THRMPLAS [id number] 21:28:06 Test Item Value Reference Range Interpretation Comments APTT Patient (test See_Comment [Automat ed code = 3173-2) message] The system which generated this result transmitted reference range : 23 - 38 Seconds . The reference range was not used to interpr et this result as normal/abnormal . GABE (test code = GABE) The [facility] patient population mean normal value for aPTT is 30 seconds. Lab Interpretation Normal (test code = 34298-0) [facility] / [id number] 21:26:04 Test Item Value Reference Range Interpretation Comments PROTIME PATIENT (test See_Comment [Auto mated message] code = 5964-2) The system wh ich generated this result transmitted ref erence range: 12.0 - 1 4.7 Seconds. The re ference range was not u sed to interpret this result as normal/abnor mal. INR (test code = 6301-6) Nor mal INR <1.1; Warfarin Therap eutic range 2.0 to 3. 0 or 2.5 to 3.5, dep ending upon the indica tions. Lab Interpretation (test Normal code = 80314-1) [facility] S[facility]EN [id number] 21:25:53 Test Item Value Reference Range Interpretation Comments BENZO U (test code = Negative Negative 7903427281) SIGIFREDO U (test code = Negative Negative 5329278273) AMPHET (test code = Negative Negative 3258406021) THC (test code = Negative Negative 2228652530) METHADONE (test code = Negative Negative 9652799053) Meth U (test code = Negative Negative 4761626468) OPIATES (test code = Negative Negative 2040388802) Cocaine Metabolite (test Negative Negative code = 1964667839) PROPOXY (test code = Negative Negative 9524684668) Tric U (test code = Negative Negative 0270637324) PCP (test code = Negative Negative 6639552463) OXYCOD (test code = Negative Negative 2380656243) GABE (test code = GABE) Urine Drug Cutoff Ranges Benzodiazepines: ? ? 150 ng/mLBarbiturates: ?200 ng/mLAmphetamine: ? 500 ng/mLCannabinoids: ?50 ?ng/mLMethadone: ? 200 ng/mLMethamphetamine: ? ? 500 ng/mL Opiates: ? 100 ng/mL or 2000 ng/mLCocaine: ? 150 ng/mLPropoxyphene: ?300 ng/mLTricyclics: ?300 ng/mLOxycodone: ? 100 ng/mLPCP: ? 25 ?ng/mL The results are to be used only for medical (i.e., treatment) purposes. Unconfirmed screening results must not be used for non-medical purposes (e.g., employment testing, legal testing). Lab Interpretation (test Normal code = 13856-6) [facility] WITH [id number] 21:17:01 Test Item Value Reference Range Interpretation Comments WBC (test code = See_Comment [Automated 1990-2) message] The sy stem which generated this result transmitted reference range : 4.30 - 11.10 10*3/?L. The reference range was not used to interpret this result as normal/abnormal . RBC (test code = See_Comment [Automated 489-8) message] The sy stem which generated this result transmitted reference range : 3.93 - 5.25 10*6/?L. The reference range was not used to interpret this result as normal/abnormal . HGB (test code = 9.4 g/dL 11.6-15.0 L 718-7) HCT (test code = 29.5 % 35.7-45.2 L 4544-3) MCV (test code = 72.0 fL 80.6-95.5 L 787-2) MCH (test code = 22.9 pg 25.9-32.8 L 785-6) MCHC (test code = 31.9 g/dL 31.6-35.1 786-4) RDW-SD (test code = 37.8 fL 39.0-49.9 L 76215-4) RDW-CV (test code = 14.7 % 12.0-15.5 788-0) PLT (test code = See_Comment [Automated 777-3) message] The sy stem which generated this result transmitted reference range : 166 - 358 10*3/ ?L. The reference r wisam was not used to interpret this result as normal/abnormal . MPV (test code = 10.2 fL 9.5-12.9 51423-7) NRBC/100 WBC (test See_Comment [Automat ed code = 6825040831) message] The system which generated this result transmitted reference range : 0.0 - 10.0 /100 WBCs. The refer ence range was not u sed to interpret th is result as normal/abnormal . NRBC x10^3 (test code <0.01 See_Comment [Auto mated = 5811268396) message] The s ystem which generated this result transmitted reference range : 10*3/?L. The reference range was not used to interpret this result as normal/abnormal . GRAN MAT (NEUT) % 63.9 % (test code = 770-8) IMM GRAN % (test code 0.20 % = 4332614239) LYMPH % (test code = 26.7 % 736-9) MONO % (test code = 6.6 % 5905-5) EOS % (test code = 2.1 % 713-8) BASO % (test code = 0.5 % 706-2) GRAN MAT x10^3(ANC) 2.81 10*3/uL 1.88-7.09 (test code = 9766411930) IMM GRAN x10^3 (test <0.03 0.00-0.06 code = 8597881414) LYMPH x10^3 (test code 1.17 10*3/uL 1.32-3.29 L = 731-0) MONO x10^3 (test code 0.29 10*3/uL 0.33-0.92 L = 742-7) EOS x10^3 (test code = 0.09 10*3/uL 0.03-0.39 711-2) BASO x10^3 (test code <0.03 0.01-0.07 = 704-7) Lab Interpretation Abnormal (test code = 90436-7) [id number]00 Test Item Value Reference Range Interpretation Comments POCT PREG (test code = 1605) negative On board controls acceptable with C present Line (test code = 3574) POCT PREG LOT # (test code = 3575) [id number] POCT PREG TEST DATE (test 01/28/22 code = 3576) Lab Interpretation (test code = Normal 57146-8) [facility] 1 [id number] 20:35:59HISTORY: Chest pain. TECHNIQUE: Portable AP view of the chest is obtained. Comparison made with08/05/2018 study. FINDINGS: Groundglass hazy congestion noted involving both lungs, slightlymore in the right upper lobe and retrocardiac left lower lung. Some of theincreased markings are secondary to poor inspiratory effort by the patient.Cardiac size is normal and enlarged, however, this could be due to poo rrespiratory effort by the patient. No pneumothorax or pleural effusion. CONCLUSIONS: Mild bilateralpulmonary congestion. Findings are nonspecificand of uncertain etiology but could be viral infection. Please correlate.[facility], Radiant Results Inft User - 05/29/2020 3:37 PM CDTHISTORY: Chest pain.TECHNIQUE: Portable AP view of the chest is obtained. Comparison made with08/05/2018 study.FINDINGS: Groundglass hazy congestion noted involving both lungs, slightlymore in the right upper lobe and retrocardiac left lower lung. Some of theincreased markings are secondary to poor inspiratory effort by the patie nt.Cardiac size is normal and enlarged, however, this could be due to poorrespiratory effort by the patient.No pneumothorax or pleural effusion.CONCLUSIONS: Mild bilateral pulmonary congestion. Findings are nonspecificand of uncertain etiology but could be viral infection. Please correlate.[facility] [id number] 12:23:19 Test Item Value Reference Range Interpretation Comments RPR Qual (test code = RPR Qual) Non-Reactive Non-Reactive Reactive Control (test code = Reactive Reactive Control) Weak Reactive Control (test Weak Reactive code = Weak Reactive Control) Non-Reactive Control (test code Non-Reactive = Non-Reactive Control) Lot # (test code = Lot #) [id number] N Expiration Dt (test code = 02-29-20 N Expiration Dt) Thyroid Stimulating [id number] 04:43:39 Test Item Value Reference Range Interpretation Comments TSH (test code = TSH) 0.488 mIU/mL 0.270-4.200 Lipid [id number] 04:37:33 Test Item Value Reference Range Interpretation Comments Cholesterol Total 120 mg/dL 0-200 RISK OF HE ART (test code = DISEASEPublishe d by Cholesterol Total) [place] [employer] Angelique lyte Optimal Borderl ine Increased RiskC HOL <200 200-239 >2 40TRIG <150 150-199 >2 00HDL Male >60 <40H DL Female >60 <5 0LDL <100 130-159 >1 60LDL Near optimal is 100-129 Triglycerides (test 57 mg/dL 9-200 code = Triglycerides) HDL (test code = HDL) 55 mg/dL 50-60 LDL (test code = LDL) 54 mg/dL 0-130 The eq uation being used in this calcula tion is LDL = (Chol - H DL) - (Trig / 5) VLDL (test code = 11 mg/dL 5-40 The equati on being used VLDL) in this calcula tion is VLDL = Trig / 5 Chol/HDL (test code = 2.2 ratio 0.0-4.4 Chol/HDL) LDL/HDL Ratio (test 1 N The equa tion being used code = LDL/HDL Ratio) in thi s calculation is LDL/HDL Ratio=L DL Calc/HDL Chol [id number] 17:30:21 Test Item Value Reference Range Interpretation Comments RBC Morph (test code = RBC As Indicated Normal A Morph) Anisocyte (test code = 1+ None Anisocyte) Hypochromia (test code = None Seen None Seen Hypochromia) Microcyte (test code = 1+ None Seen Microcyte) Macrocyte (test code = None Seen None Seen Macrocyte) Poik (test code = Poik) None Seen None Seen Polychrom (test code = 1+ None Seen Polychrom) Acanthocyte (test code = None Seen None Seen Acanthocyte) Baso Stippling RBC (test code = None Seen None Seen Baso Stippling RBC) Plt Estimation (test code = Plt Normal Normal Estimation) Comprehensive Metabolic [id number] 16:33:31 Test Item Value Reference Range Interpretation Comments Sodium Level (test code = Sodium 143.0 mmol/L 135.0-145.0 Level) Potassium Level (test code = 3.9 mmol/L 3.5-5.1 Potassium Level) Chloride Level (test code = 104 mmol/L 98-105 Chloride Level) CO2 (test code = CO2) 21 mmol/L 22-29 L Anion Gap (test code = Anion 18 mmol/L 7-16 H Gap) BUN (test code = BUN) 13.60 mg/dL 6.00-20.00 Creatinine Level (test code = 0.80 mg/dL 0.50-0.90 Creatinine Level) BUN/Creat Ratio (test code = 17 N BUN/Creat Ratio) Glucose Level (test code = 83 mg/dL 70-115 Glucose Level) Calcium Level (test code = 9.4 mg/dL 8.3-10.5 Calcium Level) Alk Phos (test code = Alk Phos) 88 U/L 35-104 Bilirubin Total (test code = 0.5 mg/dL 0.1-0.9 Bilirubin Total) Albumin Level (test code = 4.7 g/dL 3.5-5.2 Albumin Level) Protein Total (test code = 7.7 g/dL 6.4-8.3 Protein Total) ALT (test code = ALT) 26 U/L 1-33 AST (test code = AST) 52 U/L 1-32 H Globulin (test code = Globulin) 3.0 g/dL 2.9-3.1 A/G Ratio (test code = A/G 1.6 ratio N Ratio) Alcohol [id number] 16:33:31 Test Item Value Reference Range Interpretation Comments Ethanol Level (test <0.00 g/dL 0.00-0.01 Intoxica shamika 0.080 g/dL code = Ethanol or more Level) Ethanol Inst (test <0 N code = Ethanol Inst) Comprehensive Metabolic [id number] 16:33:31 Test Item Value Reference Range Interpretation Comments Sodium Level (test 143.0 mmol/L 135.0-145.0 code = Sodium Level) Potassium Level 3.9 mmol/L 3.5-5.1 (test code = Potassium Level) Chloride Level (test 104 mmol/L 98-105 code = Chloride Level) CO2 (test code = 21 mmol/L 22-29 L CO2) Anion Gap (test code 18 mmol/L 7-16 H = Anion Gap) BUN (test code = 13.60 mg/dL 6.00-20.00 BUN) Creatinine Level 0.80 mg/dL 0.50-0.90 (test code = Creatinine Level) BUN/Creat Ratio 17 N (test code = BUN/Creat Ratio) Glucose Level (test 83 mg/dL 70-115 code = Glucose Level) Calcium Level (test 9.4 mg/dL 8.3-10.5 code = Calcium Level) Alk Phos (test code 88 U/L 35-104 = Alk Phos) Bilirubin Total 0.5 mg/dL 0.1-0.9 (test code = Bilirubin Total) Albumin Level (test 4.7 g/dL 3.5-5.2 code = Albumin Level) Protein Total (test 7.7 g/dL 6.4-8.3 code = Protein Total) ALT (test code = 26 U/L 1-33 ALT) AST (test code = 52 U/L 1-32 H AST) Globulin (test code 3.0 g/dL 2.9-3.1 = Globulin) A/G Ratio (test code 1.6 ratio N = A/G Ratio) eGFR AA (test code = >60 N eGFR (e stimated eGFR AA) mL/min/1.73 m2 Glomerular Filtration Rate ) is an estimated va lue, calculated from the patient's serum creatinine usin g the MDRD equation. It is NOT the patient 's actual GFR. The eGFR provides a more clinically usef ul measure of kidn ey disease than se rum creatinine alone.This calculation nilda es sex and race in to account, if the information is provided. If th e race is not provided, and t he patient is -Paula n, multiply by 1.2 12. If sex is not provided, and t he patient is fema le, multiply by 0.7 42. Results for pat ients <18 years of ag e have not been validated by th e MDRD study and should be interpreted wit h caution. eGFR R esult Interpretation: eGFR > or = 60 is in the Normal RangeeGF R < 60 may mean kid clarence diseaseeGFR < 1 5 may mean kidney failure Rang es recommended by the National Kidney Foundation, http://nkdep.ni h.gov Comprehensive Metabolic [id number] 16:33:31 Test Item Value Reference Range Interpretation Comments Sodium Level (test 143.0 mmol/L 135.0-145.0 code = Sodium Level) Potassium Level 3.9 mmol/L 3.5-5.1 (test code = Potassium Level) Chloride Level (test 104 mmol/L 98-105 code = Chloride Level) CO2 (test code = 21 mmol/L 22-29 L CO2) Anion Gap (test code 18 mmol/L 7-16 H = Anion Gap) BUN (test code = 13.60 mg/dL 6.00-20.00 BUN) Creatinine Level 0.80 mg/dL 0.50-0.90 (test code = Creatinine Level) BUN/Creat Ratio 17 N (test code = BUN/Creat Ratio) Glucose Level (test 83 mg/dL 70-115 code = Glucose Level) Calcium Level (test 9.4 mg/dL 8.3-10.5 code = Calcium Level) Alk Phos (test code 88 U/L 35-104 = Alk Phos) Bilirubin Total 0.5 mg/dL 0.1-0.9 (test code = Bilirubin Total) Albumin Level (test 4.7 g/dL 3.5-5.2 code = Albumin Level) Protein Total (test 7.7 g/dL 6.4-8.3 code = Protein Total) ALT (test code = 26 U/L 1-33 ALT) AST (test code = 52 U/L 1-32 H AST) Globulin (test code 3.0 g/dL 2.9-3.1 = Globulin) A/G Ratio (test code 1.6 ratio N = A/G Ratio) eGFR AA (test code = >60 N eGFR (e stimated eGFR AA) mL/min/1.73 m2 Glomerular Filtration Rate ) is an estimated va lue, calculated from the patient's serum creatinine usin g the MDRD equation. It is NOT the patient 's actual GFR. The eGFR provides a more clinically usef ul measure of kidn ey disease than se rum creatinine alone.This calculation nilda es sex and race in to account, if the information is provided. If th e race is not provided, and t he patient is -Paula n, multiply by 1.2 12. If sex is not provided, and t he patient is fema le, multiply by 0.7 42. Results for pat ients <18 years of ag e have not been validated by th e MDRD study and should be interpreted wit h caution. eGFR R esult Interpretation: eGFR > or = 60 is in the Normal RangeeGF R < 60 may mean kid clarence diseaseeGFR < 1 5 may mean kidney failure Rang es recommended by the National Kidney Foundation, http://nkdep.ni h.gov eGFR Non-AA (test >60.00 N eGFR (mindi mated code = eGFR Non-AA) mL/min/1.73 m2 Glomer ular Filtration Rate ) is an estimated va lue, calculated from the patient's serum creatinine usin g the MDRD equation. It is NOT the patient 's actual GFR. The eGFR provides a more clinically usef ul measure of kidn ey disease than se rum creatinine alone.This calculation nilda es sex and race in to account, if the information is provided. If e race is not provided, and t he patient is -Paula n, multiply by 1.2 12. If sex is not provided, and t he patient is fema le, multiply by 0.7 42. Results for pat ients <18 years of ag e have not been validated by e MDRD study and should be interpreted wit h caution. eGFR R esult Interpretation: eGFR > or = 60 is in the Normal RangeeGF R < 60 may mean kid clarence diseaseeGFR < 1 5 may mean kidney failure Rang es recommended by the National Kidney Foundation, http://nkdep.ni h.gov Beta HCG [id number] 16:33:22 Test Item Value Reference Range Interpretation Comments HCG, Beta Quantitative <0.50 mIU/mL N Weeks of Gestation (test code = HCG, Beta Range s (mIu/mL)3 Quantitative) weeks 5.40-72 .04 weeks 10.2-708 5 weeks 217-8245 6 weeks 152-3217 77 weeks 4059-153 7678 weeks [id number] w eeks [id number] weeks [id number] weeks [id number] weeks 69546-7903456 w eeks 35832-6662096 weeks 8904-553 3217 weeks 8240-517 9318 weeks 9649-552 71 IG [id number] 15:56:13 Test Item Value Reference Range Interpretation Comments IG (test code = IG) 0.1 % 0.0-5.0 IG Abs (test code = IG Abs) 0 x10 N Complete Blood Count with [id number] 15:56:12 Test Item Value Reference Range Interpretation Comments WBC (test code = WBC) 7.6 x10 4.4-10.5 RBC (test code = RBC) 4.62 x10 3.75-5.20 Hgb (test code = Hgb) 9.9 g/dL 12.2-14.8 L MCV (test code = MCV) 73.20 fL 80.00-100.00 L Hct (test code = Hct) 33.8 % 36.5-44.4 L MCHC (test code = 29.30 g/dL 32.00-37.50 L MCHC) RDW CV (test code = 17.0 % 11.5-14.5 H RDW CV) MCH (test code = MCH) 21.4 pg 27.0-32.5 L Platelets (test code = 270.0 x10 140.0-440.0 Platelets) MPV (test code = MPV) 10.4 fL N Slide Review (test Smear Auto A Result cr eated by code = Slide Review) GL_SJM_ SLIDE_REV_AUTO GL_SJM_XN_RFLX nRBC (test code = 0 N nRBC) NRBC Abs (test code = 0.00 x10 N NRBC Abs) Pos Morph XN (test A N code = Pos Morph XN) IPF (test code = IPF) 0 % N Automated [id number] 15:56:12 Test Item Value Reference Range Interpretation Comments Neutro Auto (test code = Neutro 75.5 % 36.0-70.0 H Auto) Lymph Auto (test code = Lymph Auto) 19.1 % 12.0-44.0 Barren Auto (test code = Barren Auto) 3.6 % 0.0-11.0 Eos, Auto (test code = Eos, Auto) 1.3 % 0.0-7.0 Basophil Auto (test code = Basophil 0.4 % 0.0-2.0 Auto) Neutro Absolute (test code = Neutro 5.7 x10 1.6-7.4 Absolute) Lymph Absolute (test code = Lymph 1.45 x10 .50-4.60 Absolute) Barren Absolute (test code = Barren .27 x10 .00-1.20 Absolute) Eos Absolute (test code = Eos 0.10 x10 0.00-0.74 Absolute) Baso Absolute (test code = Baso 0.03 x10 0.00-0.21 Absolute) RPR, [id number] 20:27:00 Test Item Value Reference Range Interpretation Comments RPR (test code = RPR) Non-Reactive Non-Reactive N Lipid [id number] 08:20:00 Test Item Value Reference Range Interpretation Comments Cholesterol (test 116 mg/dL 0-200 N code = CHOL) Triglycerides (test 107 mg/dL 9-200 N code = TRIG) HDL (test code = 33 mg/dL 50-60 L HDL) Chol/HDL (test code 3.5 Ratio 0.0-4.4 N = CHOLPHDL) LDL, Calculated 62 0-130 N (NOTE)RISK O F HEART (test code = LDLC) DISEASEPu blished by [place] Heart AssociationAnal yte Optim al Boderline Increased RiskC HOL <200 200-239 >240TRI G <150 150-199 >200HDL Male: >60 <40HDL Female: >60 <50 LDL < 100 130-15 9 >160 LDL NEAR OPTIMAL IS 100- 129 VLDL (test code = 21 mg/dL 5-40 N VLDL) LDL/HDL (test code = 2 LDLPHDL) Thyroid Stimulating Hormone (TSH)2017-05-14 08:20:00 Test Item Value Reference Range Interpretation Comments TSH (test code = TSH) 1.96 mIU/mL 0.270-4.200 N BHCG, Serum, [id number] 08:04:00 Test Item Value Reference Range Interpretation Comments Preg Qual [Se] (test code = BSHCG) Negative Negative N Thyroid Stimulating Hormone (TSH)2016-08-18 21:10:00 Test Item Value Reference Range Interpretation Comments TSH (test code = TSH) 2.02 mIU/mL 0.270-4.200 N RPR, [id number] 18:14:00 Test Item Value Reference Range Interpretation Comments RPR (test code = RPR) Non-Reactive Non-Reactive N BHCG, Serum, [id number] 14:56:00 Test Item Value Reference Range Interpretation Comments Preg Qual [Se] (test code = BSHCG) Negative Negative N Urinalysis [id number] 11:10:00 Test Item Value Reference Range Interpretation Comments Color (test code = Yellow Yellow,Straw,Pl N COLOR) yellow Clarity (test code = Sl Cloudy Clear A CLAR) Specific [place] (test 1.030 1.001-1.035 N code = SPGR) pH (test code = PH) 5.0 5.0-9.0 N Ketone (test code = Negative mg/dL Negative N KET) Glucose (test code = Negative mg/dL Negative N GLUCUR) Protein (test code = 25 mg/dL Negative A PROT) Bilirubin (test code = See IctoTest mg/dL Negative A BILI) Occult Blood (test code Negative Negative N = UDOB) Urobilinogen (test code 0.2 mg/dL 0.2-1.0 N = UROB) Nitrite (test code = Negative Negative N NIT) Leuk Esterase (test Small Negative A code = LEUK) Ictotest (test code = Confirmed Negative Negative,Confirmed N ICTOTEST) Negative Micros Exam (test code Indicated = MEXAM) Epithelial Cells (test 15-19 /LPF 0-30 A code = EPI) WBC, Urine (test code = 0-5 /HPF 0-5 N UWBC) RBC, Urine (test code = 0-3 /HPF 0-5 A URBC) Mucous, Urine (test Moderate /HPF code = UMUC) Bacteria (test code = Few /HPF BACT) [id number] 10:48:00 Test Item Value Reference Range Interpretation Comments Amphetamine (test code POSITIVE Negative A For d iagnostic purposes = AMPH) only, positive results should always b e assessedin conjunctionwith the patient's medic al history,clinica l examination and otherfindings.T o fulfill legal requirements, a more specific altern ate chemical method must be used inorder to obtain a Confirmed angelique lytical result. GC/MS i s the preferred confi rmatory method. Barbiturates (test Negative Negative N code = SIGIFREDO) Benzodiazepine (test Negative Negative N code = ASHLY) Cocaine (test code = Negative Negative N COCA) Methadone (test code = Negative Negative N MTHD) Opiates (test code = Negative Negative N OPIA) PCP (test code = PCP) Negative Negative N Propoxyphene (test Negative Negative N code = PROPOX) THC (test code = THC) Negative Negative N Alcohol/Ethanol, [id number] 10:25:00 Test Item Value Reference Range Interpretation Comments Alcohol, Ethyl <0.01 g/dL 0.00-0.01 N Intoxicated 0.080 (test code = ETOH) g/dL or m ore Comprehensive Metabolic [id number] 10:25:00 Test Item Value Reference Range Interpretation Comments Sodium (test code = 139 mmol/L 135-145 N NA) Potassium (test 3.3 mmol/L 3.5-5.1 L code = K) Chloride (test code 99 mmol/L 98-105 N = CL) Carbon Dioxide 28 mmol/L 22-29 N (test code = CO2) Glucose (test code 103 mg/dL 70-115 N = GLU) Blood Urea Nitrogen 11 mg/dL 6-20 N (test code = BUN) Creatinine (test 0.9 mg/dL 0.5-0.9 N code = CREAT) Calcium (test code 9.7 mg/dL 8.3-10.5 N = CA) Prot Total (test 8.2 g/dL 6.4-8.3 N code = TP) Albumin (test code 5.0 g/dL 3.5-5.2 N = ALB) A/G Ratio (test 1.6 Ratio code = AGRATIO) Globulin (test code 3.2 2.9-3.1 H = GLOB) Bili Total (test 0.4 mg/dL 0.1-0.9 N code = TBIL) Alk Phos (test code 92 U/L 35-104 N = APHOS) AST (test code = 27 U/L 1-32 N AST) ALT (test code = 24 U/L 1-33 N ALT) BUN/Creatinine 12.2 Ratio (test code = BCRATIO) Anion Gap (test 12 mmol/L 7-16 N code = AGAP) Estimated GFR (test >60 eGFR (es timated code = GFR) mL/min/1.73m2 Glomerular Jeremias tration Rate) is an est imated value,calculate d from the patient's s marta creatinine usin g the MDRD equation.I t is NOT the patient 's actual GFR. The eGFR provides a more clinicallyusefu l measure of kidn ey disease than se rum creatinine alone.This calculation nilda es sex and race into account, if the informationis provided. If th e race is not provided , and the patient isAfstevensonan-Amevie can, multiply by 1.2 12. If sex is not prov ided, and thepatient is female, multipl y by 0.742. Results for patients <18 ye ars ofage have not been validated by th e MDRD study and shoul d be interpretedwith caution.eGFR Re sult Interpretation: eGFR > or = 60 is in t he Normal RangeeGF R < 60 may mean kidney diseaseeGFR < 1 5 may mean kidney failureRange s recommended by the National Kidney Foundation,http ://nkd ep.nih.gov BHCG, Serum, [id number] 10:20:00 Test Item Value Reference Range Interpretation Comments Preg Qual [Se] (test code = BSHCG) Negative Negative N CBC with [id number] 10:16:00 Test Item Value Reference Range Interpretation Comments WBC (test code = WBC) 6.2 K/cumm 4.4-10.5 N RBC (test code = RBC) 5.27 M/cumm 3.75-5.20 H Hemoglobin (test code = HGB) 13.2 gm/dL 12.2-14.8 N Hematocrit (test code = HCT) 40.4 % 36.5-44.4 N MCV (test code = MCV) 76.7 fL 80-100 L MCH (test code = MCH) 25.1 pg 27.0-32.5 L MCHC (test code = MCHC) 32.7 g/dL 32.0-37.5 N RDW (test code = RDW) 16.6 % 11.5-14.5 H Platelet Count (test code = 274 K/cumm 140-440 N PLTCT) MPV (test code = MPV) 8.4 fL Diff Method (test code = DIFFM) Auto Neutrophil (test code = NEUT) 60.4 % 36-70 N Lymphocyte (test code = LYMPH) 29.3 % 12-44 N Monocyte (test code = MONO) 8.6 % 0-11 N Eosinophil (test code = EOS) 1.4 % 0-7 N Basophil (test code = BASO) 0.3 % 0-2 N Neutro Abs (test code = ANEUT) 3.7 K/cumm 1.6-7.4 N Lymph Abs (test code = ALYMPH) 1.8 K/cumm 0.5-4.6 N Barren Abs (test code = AMONO) 0.5 K/cumm 0.0-1.2 N Eos Abs (test code = AEOS) 0.09 K/cumm 0.00-0.74 N Baso Abs (test code = ABASO) 0.0 K/cumm 0.00-0.21 N Microcytosis (test code = MICRO) Slight Occult [id number] 16:39:00 Test Item Value Reference Range Interpretation Comments Occ Bld (test code = HSOB) Negative Negative N Culture, Blood [id number] 09:49:00Specimen: BloodCollected: 07/23/2016 17:40 Status: Final Last Updated: 07/29/2016 09:49 (1) ER Bed D7 Culture Result (Final) (Final) No Growth After 5 DaysCulture, Blood Routine 2016-07-29 09:49:00Specimen: BloodCollected: 07/23/2016 17:40 Status: Final Last Updated: 07/29/2016 09:49 (1) ER Bed D7 Culture Result (Final) (Final) No Growth After 5 DaysBasic Metabolic [id number] 14:25:00 Test Item Value Reference Range Interpretation Comments Sodium (test code = 139 mmol/L 135-145 N NA) Potassium (test 3.0 mmol/L 3.5-5.1 L code = K) Chloride (test code 100 mmol/L 98-105 N = CL) Carbon Dioxide 27 mmol/L 22-29 N (test code = CO2) Glucose (test code 113 mg/dL 70-115 N = GLU) Blood Urea Nitrogen 11 mg/dL 6-20 N (test code = BUN) Creatinine (test 0.7 mg/dL 0.5-0.9 N code = CREAT) Calcium (test code 8.6 mg/dL 8.3-10.5 N = CA) BUN/Creatinine 15.7 Ratio (test code = BCRATIO) Anion Gap (test 12 mmol/L 7-16 N code = AGAP) Estimated GFR (test >60 eGFR (es timated code = GFR) mL/min/1.73m2 Glomerular Jeremias tration Rate) is an est imated value,calculate d from the patient's s marta creatinine usin g the MDRD equation.I t is NOT the patient 's actual GFR. The eGFR provides a more clinicallyusefu l measure of kidn ey disease than se rum creatinine alone.This calculation nilda es sex and race into account, if the informationis provided. If th e race is not provided , and the patient isAfrican-Ameri can, multiply by 1.2 12. If sex is not prov ided, and thepatient is female, multipl y by 0.742. Results for patients <18 ye ars ofage have not been validated by th e MDRD study and shoul d be interpretedwith caution.eGFR Re sult Interpretation: eGFR > or = 60 is in t he Normal RangeeGF R < 60 may mean kidney diseaseeGFR < 1 5 may mean kidney failureRange s recommended by the National Kidney Foundation,http ://nkd ep.nih.gov CBC with [id number] 14:10:00 Test Item Value Reference Range Interpretation Comments WBC (test code = 5.2 K/cumm 4.4-10.5 N WBC) RBC (test code = 4.22 M/cumm 3.75-5.20 N RBC) Hemoglobin (test 10.6 gm/dL 12.2-14.8 L READ BACK L AB code = HGB) VALUESVERIFIED BY REPEAT TESTINGrecoskar brooksrn @ 9330, post flui ds/mdj Hematocrit (test 32.4 % 36.5-44.4 L code = HCT) MCV (test code = 76.9 fL 80-100 L MCV) MCH (test code = 25.1 pg 27.0-32.5 L MCH) MCHC (test code = 32.7 g/dL 32.0-37.5 N MCHC) RDW (test code = 15.9 % 11.5-14.5 H RDW) Platelet Count 213 K/cumm 140-440 N (test code = PLTCT) MPV (test code = 9.1 fL MPV) Diff Method (test Auto code = DIFFM) Neutrophil (test 67.0 % 36-70 N code = NEUT) Lymphocyte (test 24.9 % 12-44 N code = LYMPH) Monocyte (test 5.4 % 0-11 N code = MONO) Eosinophil (test 2.4 % 0-7 N code = EOS) Basophil (test 0.3 % 0-2 N code = BASO) Neutro Abs (test 3.5 K/cumm 1.6-7.4 N code = ANEUT) Lymph Abs (test 1.3 K/cumm 0.5-4.6 N code = ALYMPH) Barren Abs (test 0.3 K/cumm 0.0-1.2 N code = AMONO) Eos Abs (test code 0.12 K/cumm 0.00-0.74 N = AEOS) Baso Abs (test 0.0 K/cumm 0.00-0.21 N code = ABASO) BHCG, Serum, [id number] 13:12:00 Test Item Value Reference Range Interpretation Comments Preg Qual [Se] (test code = BSHCG) Negative Negative N RPR, [id number] 12:30:00 Test Item Value Reference Range Interpretation Comments RPR (test code = RPR) Non-Reactive Non-Reactive N Thyroid Stimulating Hormone (TSH)2016-07-24 08:26:00 Test Item Value Reference Range Interpretation Comments TSH (test code = TSH) 3.07 mIU/mL 0.270-4.200 N Lactic Acid [id number] 18:32:00 Test Item Value Reference Range Interpretation Comments Lactic Acid, Bld (test code = LAC) 1.5 mmol/L 0.5-1.9 N Comprehensive Metabolic [id number] 15:48:00 Test Item Value Reference Range Interpretation Comments Sodium (test code = 144 mmol/L 135-145 N NA) Potassium (test 3.6 mmol/L 3.5-5.1 N code = K) Chloride (test code 102 mmol/L 98-105 N = CL) Carbon Dioxide 23 mmol/L 22-29 N (test code = CO2) Glucose (test code 128 mg/dL 70-115 H = GLU) Blood Urea Nitrogen 23 mg/dL 6-20 H (test code = BUN) Creatinine (test 1.0 mg/dL 0.5-0.9 H code = CREAT) Calcium (test code 10.1 mg/dL 8.3-10.5 N = CA) Prot Total (test 8.2 g/dL 6.4-8.3 N code = TP) Albumin (test code 4.6 g/dL 3.5-5.2 N = ALB) A/G Ratio (test 1.3 Ratio code = AGRATIO) Globulin (test code 3.6 2.9-3.1 H = GLOB) Bili Total (test 0.5 mg/dL 0.1-0.9 N code = TBIL) Alk Phos (test code 96 U/L 35-104 N = APHOS) AST (test code = 25 U/L 1-32 N AST) ALT (test code = 30 U/L 1-33 N ALT) BUN/Creatinine 23.0 Ratio (test code = BCRATIO) Anion Gap (test 19 mmol/L 7-16 H code = AGAP) Estimated GFR (test >60 eGFR (es timated code = GFR) mL/min/1.73m2 Glomerular Jeremias tration Rate) is an est imated value,calculate d from the patient's s marta creatinine usin g the MDRD equation.I t is NOT the patient 's actual GFR. The eGFR provides a more clinicallyusefu l measure of kidn ey disease than se rum creatinine alone.This calculation nilda es sex and race into account, if the informationis provided. If th e race is not provided , and the patient isAfrican-Ameri can, multiply by 1.2 12. If sex is not prov ided, and thepatient is female, multipl y by 0.742. Results for patients <18 ye ars ofage have not been validated by th e MDRD study and shoul d be interpretedwith caution.eGFR Re sult Interpretation: eGFR > or = 60 is in t he Normal RangeeGF R < 60 may mean kidney diseaseeGFR < 1 5 may mean kidney failureRange s recommended by the National Kidney Foundation,http ://nkd ep.nih.gov CBC with [id number] 15:36:00 Test Item Value Reference Range Interpretation Comments WBC (test code = WBC) 8.1 K/cumm 4.4-10.5 N RBC (test code = RBC) 5.29 M/cumm 3.75-5.20 H Hemoglobin (test code = HGB) 13.3 gm/dL 12.2-14.8 N Hematocrit (test code = HCT) 40.5 % 36.5-44.4 N MCV (test code = MCV) 76.6 fL 80-100 L MCH (test code = MCH) 25.2 pg 27.0-32.5 L MCHC (test code = MCHC) 33.0 g/dL 32.0-37.5 N RDW (test code = RDW) 16.3 % 11.5-14.5 H Platelet Count (test code = 310 K/cumm 140-440 N PLTCT) MPV (test code = MPV) 8.9 fL Diff Method (test code = DIFFM) Auto Neutrophil (test code = NEUT) 67.9 % 36-70 N Lymphocyte (test code = LYMPH) 22.8 % 12-44 N Monocyte (test code = MONO) 7.8 % 0-11 N Eosinophil (test code = EOS) 1.2 % 0-7 N Basophil (test code = BASO) 0.3 % 0-2 N Neutro Abs (test code = ANEUT) 5.5 K/cumm 1.6-7.4 N Lymph Abs (test code = ALYMPH) 1.9 K/cumm 0.5-4.6 N Barren Abs (test code = AMONO) 0.6 K/cumm 0.0-1.2 N Eos Abs (test code = AEOS) 0.10 K/cumm 0.00-0.74 N Baso Abs (test code = ABASO) 0.0 K/cumm 0.00-0.21 N"
[2021-06-13] MEDS ORDERED: ZIPRASIDONE MESYLA 20 MG/VIAL IM ONE (16:22)
[2021-06-13] MEDS ORDERED: LORazepam 2 MG/ML VIAL ONE (16:22)
[2021-06-13] MEDS ORDERED: WATER FOR INJ,STERILE 10 ML ONE (16:24)
[2021-06-13] MEDS ORDERED: DIPHENHYDRAMINE 50 MG/ML VIAL ONE (16:55)
[2021-06-13 17:09] LABS: Absolute Lymphocytes (CBC) 1.7 K/uL (0.7-4.9); Hematocrit 25.9 % (36.0-45.0); Lymphocytes % 40.2 % (15.3-44.8); MPV 8.5 fL (7.6-11.3); RBC Red Blood Cell Count 4.08 M/uL (3.86-4.86)
[2021-06-13 17:18] LABS: Protime INR 1.01
[2021-06-13 17:36] LABS: ALT/SGPT 16 U/L (12-78); AST/SGOT 14 U/L (15-37); Albumin 3.4 g/dL (3.4-5.0); Alkaline Phosphatase 61 U/L (45-117); BUN Blood Urea Nitrogen 14 mg/dL (7-18); Bicarbonate 25 mmol/L (21-32); Bilirubin Total 0.2 mg/dL (0.2-1.0); Glucose Level 129 mg/dL (74-106); Protein, Total 7.4 g/dL (6.4-8.2); Sodium Level 142 mmol/L (136-145)
[2021-06-13 17:46] LABS: Bilirubin Direct < 0.1 mg/dL (0-0.2)
--- NOTE | 2021-06-13 17:49 | ER ---
Nurse's Notes [facility] Name: Georgette Patel Age: 36 yrs Sex: Female : 1985 Arrival Date: 06/13/2021 Time: 15:43 Bed 8 Private MD: Diagnosis: Hallucinations, unspecified;Schizophrenia, unspecified Presentation: 06/13 15:58 Chief complaint: Pt brought in by [place] [employer] under [place]IDI. Pt denies SI and HI. Pt ab2 states she is a ghost and dies while she was in custodial. Pt was released from custodial 3 weeks ago. Coronavirus screen: Vaccine status: Patient reports being unvaccinated. Client denies travel out of the [place] in the last 14 days. At this time, the client does not indicate any symptoms associated with coronavirus-19. Ebola Screen: Patient negative for fever greater than or equal to 101.5 degrees Fahrenheit, and additional compatible Ebola Virus Disease symptoms Patient denies exposure to infectious person. Patient denies travel to an Ebola-affected area in the 21 days before illness onset. No symptoms or risks identified at this time. Initial Sepsis Screen: Does the patient meet any 2 criteria? No. Patient's initial sepsis screen is negative. Does the patient have a suspected source of infection? No. Patient's initial sepsis screen is negative. Risk Assessment: Do you want to hurt yourself or someone else? Patient reports no desire to harm self or others. Onset of symptoms is unknown. 15:58 Method Of Arrival: Law Enforcement: [place] [employer] ab2 15:58 Acuity: GILES 2 ab2 Triage Assessment: 16:00 General: Appears in no apparent distress. comfortable, Behavior is calm, cooperative. ab2 Pain: Denies pain. Neuro: Level of Consciousness is awake, alert, obeys commands, Oriented to person, place, time. Historical: - Allergies: 15:59 Hydrocodone-Acetaminophen; ab2 - PMHx: 15:59 Anxiety; Bipolar disorder; Depression; PTSD; Schizophrenia; ab2 - Immunization history:: Adult Immunizations up to date. - Social history:: Smoking status: Patient reports the use of cigarette tobacco products, denies chronic smoking, but will smoke occasionally. Screenin:00 Abuse screen: Denies threats or abuse. Denies injuries from another. Nutritional jl7 screening: No deficits noted. Tuberculosis screening: No symptoms or risk factors identified. 16:45 Fall Risk IV access (20 points). jl7 Assessment: 16:00 Reassessment: Pt denies SI, denies HI, denies pain, denies N/V/D, denies urinary jl7 symptoms. [place] [employer] at bedside. 16:05 Reassessment: Sitter at bedside, PD left ED. jl7 16:15 Reassessment: pt screaming and hitting the procedure table, ERD notified, see MAR for jl7 orders. 19:34 General: pt sleeping at this time, sitting at bedside, pt appears in no apparent as6 distress, respirations even and unlabored . 20:30 Reassessment: According to sitter documentation restraints removed \\[id number]. vc1 22:06 General: nurse to nurse report given to Lee lo . as6 22:27 General: nurse to nurse report given to Jessica lo . as6 Psych: 16:00 [place] Suicide Severity Screening: In the past month, have you wished you were jl7 or wished you could go to sleep and not wake up? Patient responds "No." "In the past month, have you actually had any thoughts of killing yourself?" Patient responds "no." "In your lifetime, have you ever done anything, started to do anything, or prepared to do anything to end your life?" Patient responds "no.". Subjective: Patient's mood is irritable, Hallucinations are "I'm a ghost. You're a ghost.". Objective: Patient is uncooperative, challenging, defensive, Speech is rambling, pressured, Affect is flat. Interventions: Interventions:. Safety Checks: Personal items have been removed. Door is open. No visitors are present at this time. Patient uses methamphetamines. 06/14 00:25 Commitment: Patient will be an involuntary commitment. Commitment papers completed. as6 Vital Signs: 06/13 15:58 BP 111 / 73; Pulse 98; Resp 18; Temp 98.0; Pulse Ox 100% ; Weight 65.77 kg; Height 5 ab2 ft. 2 in. (157.48 cm); Pain 0/10; 06/14 00:25 BP 100 / 62; Pulse 82; Resp 18 S; Pulse Ox 100% on R/A; as6 06/13 15:58 Body Mass Index 26.52 (65.77 kg, 157.48 cm) ab2 ED Course: 06/13 15:43 Patient arrived in ED. am2 15:53 Josh Thomas DO is Attending Physician. ms3 15:59 Triage completed. ab2 15:59 Arm band placed on. ab2 16:09 Allison Simpson RN is Primary Nurse. jl7 16:45 Patient has correct armband on for positive identification. Placed in gown. Bed in low jl7 position. Side rails up X2. 16:45 Initial lab(s) drawn, by me, sent to lab. EKG done, by ED staff, reviewed by Josh Thomas DO COVID swab sent to lab. Inserted saline lock: 18 gauge in left EJ, using aseptic technique. Blood collected. 19:25 Primary Nurse role handed off by Allison Simpson RN cs9 19:34 Jovanni Nolasco RN is Primary Nurse. as6 20:37 Faxed paperwork to start transfer [facility], [address], [facility], [facility], [facility], [facility], [facility], and Counts Include [facility]. 20:45 faxed to [facility]. cs9 22:32 Primary Nurse role handed off by Jovanni Nolasco RN as6 23:14 Attending Physician role handed off by Josh Thomas DO rn 23:14 Umer Alexandra MD is Attending Physician. rn 06/14 00:25 No provider procedures requiring assistance completed. IV discontinued, intact, as6 bleeding controlled, No redness/swelling at site. Pressure dressing applied. Administered Medications: 06/13 16:30 Drug: Ativan (LORazepam) 2 mg Route: IM; Site: right vastus lateralis; jl7 06/14 00:20 Follow up: Response: No adverse reaction as6 06/13 16:30 Drug: Geodon (ziprasidone) 10 mg Route: IM; Site: left vastus lateralis; jl7 06/14 00:20 Follow up: Response: No adverse reaction as6 06/13 16:55 Drug: Benadryl (diphenhydrAMINE) 50 mg Route: IVP; Site: left jugular; jl7 06/14 00:21 Follow up: Response: No adverse reaction as6 00:20 Drug: Potassium Chloride 40 mEq Route: PO; as6 00:21 Follow up: Response: No adverse reaction as6 Outcome: 06/13 17:49 ER care complete, transfer ordered by . ms3 06/14 00:26 Transferred by ground EMS Transfer form completed. as6 Condition: stable Instructed on the need for transfer. 00:26 Patient left the ED. as6 Signatures: Umer Alexandra MD MD rn Leal, Jahala RN RN jl7 Samantha Monroy amJosh Bland DO DO ms3 Arlen Hammond cs9 Jovanni Nolasco RN RN as6 Umer Min2 Katie Chowdary RN RN vc1
--- NOTE | 2021-06-13 17:50 | EDPHYS ---
Physician Documentation [facility] Name: Georgette Patel Age: 36 yrs Sex: Female : 1985 Arrival Date: 06/13/2021 Time: 15:43 Bed 8 Private MD: ED Physician Umer Alexandra HPI: 06/13 16:12 This 36 yrs old Black Female presents to ER via Law Enforcement with complaints of ms3 Psych Problem. 16:12 The patient presents to the emergency department with psychosis, States she is a ghost ms3 and other ghosts are after her. Onset: The symptoms/episode began/occurred acutely, today. Past psychiatric history: Prior diagnosis: schizophrenia, Psychiatric medications include: none, Primary psychiatric physician: the patient does not have a primary psychiatric physician, it is unknown whether or not the patient has had a prior suicide gesture. Associated signs and symptoms: Pertinent positives; hallucinations, Pertinent negatives: abdominal pain, chills, fever, headache, homicidal ideation, suicide ideation. 36-year-old female presents with [place] [employer] under emergency group home order for history of schizophrenia and being noncompliant with medications. Patient denies suicidal or homicidal ideations. Patient states she is a ghost and other ghosts are after her. Please officer states patient was throwing objects and her mother's house prior to arrival.. Historical: - Allergies: 15:59 Hydrocodone-Acetaminophen; ab2 - PMHx: 15:59 Anxiety; Bipolar disorder; Depression; PTSD; Schizophrenia; ab2 - Immunization history:: Adult Immunizations up to date. - Social history:: Smoking status: Patient reports the use of cigarette tobacco products, denies chronic smoking, but will smoke occasionally. ROS: 16:12 Constitutional: Negative for fever, and chills. ENT: Negative for injury, pain, and ms3 discharge, Neck: Negative for injury, pain, and swelling, Cardiovascular: Negative for chest pain, and palpitations. Respiratory: Negative for shortness of breath, cough, wheezing, and pleuritic chest pain, Abdomen/GI: Negative for abdominal pain, nausea, vomiting, diarrhea, and constipation, MS/Extremity: Negative for injury and deformity, Neuro: Negative for headache, weakness, numbness, tingling. 16:12 Psych: Positive for Stating she is a ghost. Exam: 16:12 Constitutional: This is a well developed, well nourished patient who is awake, alert, ms3 and in no acute distress. Head/Face: Normocephalic, atraumatic. Neck: Trachea midline, no cervical lymphadenopathy. Supple, full range of motion without nuchal rigidity, or vertebral point tenderness. No Meningismus. Chest/axilla: Normal chest wall appearance and motion. Nontender with no deformity. Cardiovascular: Regular rate and rhythm with a normal S1 and S2. No gallops, murmurs, or rubs. Normal PMI, no JVD. No pulse deficits. Respiratory: Lungs have equal breath sounds bilaterally, clear to auscultation and percussion. No rales, rhonchi or wheezes noted. No increased work of breathing, no retractions or nasal flaring. Abdomen/GI: Soft, non-tender, with normal bowel sounds. No distension or tympany. No guarding or rebound. No evidence of tenderness throughout. Skin: Warm, dry with normal turgor. Normal color with no rashes, no lesions, and no evidence of cellulitis. MS/ Extremity: Pulses equal, no cyanosis. Neurovascular intact. Full, normal range of motion. Neuro: Awake and alert, GCS 15, oriented to person, place, time, and situation. Cranial nerves II-XII grossly intact. Motor strength 5/5 in all extremities. Sensory grossly intact. Cerebellar exam normal. Normal gait. 16:12 Psych: Behavior/mood is cooperative, Affect is calm, Oriented to person, place, time, Patient has no thoughts/intents to harm self or others. Memory is normal. Delusions/hallucinations Believes she is a ghost. 17:17 ECG was reviewed by the Attending Physician. ms3 Vital Signs: 15:58 BP 111 / 73; Pulse 98; Resp 18; Temp 98.0; Pulse Ox 100% ; Weight 65.77 kg; Height 5 ab2 ft. 2 in. (157.48 cm); Pain 0/10; 06/14 00:25 BP 100 / 62; Pulse 82; Resp 18 S; Pulse Ox 100% on R/A; as6 06/13 15:58 Body Mass Index 26.52 (65.77 kg, 157.48 cm) ab2 MDM: 06/13 15:51 Patient medically screened. ms3 16:08 Differential diagnosis: acute psychotic break, psychosis secondary to non-compliance, ms3 Schizophrenia. ED course: Patient refusing blood draw and urine at this time. Patient is a/o x4, nad, non-toxic appearing. Will have [facility] evaluate patient.. 16:36 ED course: Patient given 2 mg Ativan and 10 mg Geodon IM 2/2 patient not responding to ms3 verbal redirection and screaming in the ED.. 16:44 ED course: Patient hitting the ortiz after IM Geodon and Ativan. Patient placed in ms3 wrist restraints. Will give 50 mg Benadryl.. 17:57 Data reviewed: vital signs, nurses notes, lab test result(s), EKG. ms3 21:36 ED course: Pt s/p sedation earlier, still has not given urine, awaiting urine and rn awakeness for medical clearance. Able to remove restraints. . 23:14 ED course: Pt accepted for transfer to [facility] by Dr. Thurston.. rn 06/13 15:53 Order name: Acetaminophen; Complete Time: 17:49 ms3 06/13 15:53 Order name: Basic Metabolic Panel; Complete Time: 17:49 ms3 06/13 15:53 Order name: CBC with Diff; Complete Time: 21:35 ms3 06/13 15:53 Order name: ETOH Level; Complete Time: 17:49 ms3 06/13 15:53 Order name: Hepatic Function; Complete Time: 17:49 ms3 06/13 15:53 Order name: PT-INR; Complete Time: 17:49 ms3 06/13 15:53 Order name: Ptt, Activated; Complete Time: 17:49 ms3 06/13 15:53 Order name: Salicylate; Complete Time: 17:49 ms3 06/13 16:58 Order name: COVID-19 SARS RT PCR (Document "Date of Onset" if Symptomatic); Complete jl7 Time: 21:35 06/13 19:41 Order name: CBC Smear Scan; Complete Time: 21:35 EDMS 06/13 15:53 Order name: EKG; Complete Time: 15:54 ms3 06/13 15:53 Order name: EKG - Nurse/Tech; Complete Time: 19:05 ms3 06/13 15:53 Order name: IV Saline Lock; Complete Time: 16:54 ms3 06/13 15:53 Order name: Labs collected and sent; Complete Time: 16:54 ms3 06/13 15:53 Order name: Suicide Precautions; Complete Time: 16:54 ms3 06/13 15:53 Order name: Suicide Screening ([place]); Complete Time: 16:54 ms3 EC:17 Rate is 94 beats/min. Rhythm is regular. QRS [place] is Normal. [place] interval is normal. ms3 Clinical impression: NSR w/ Non-specific ST/T Changes. Interpreted by me. Reviewed by me. Administered Medications: 16:30 Drug: Ativan (LORazepam) 2 mg Route: IM; Site: right vastus lateralis; jl7 06/14 00:20 Follow up: Response: No adverse reaction as6 06/13 16:30 Drug: Geodon (ziprasidone) 10 mg Route: IM; Site: left vastus lateralis; jl7 06/14 00:20 Follow up: Response: No adverse reaction as6 06/13 16:55 Drug: Benadryl (diphenhydrAMINE) 50 mg Route: IVP; Site: left jugular; 7 06/14 00:21 Follow up: Response: No adverse reaction as6 00:20 Drug: Potassium Chloride 40 mEq Route: PO; as6 00:21 Follow up: Response: No adverse reaction as6 Disposition Summary: 06/13/21 17:49 Transfer Ordered Transfer Location: Psych Facility ms3 Reason: Higher level of care ms3 Condition: Stable ms3 Problem: new ms3 Symptoms: are unchanged ms3 Accepting Physician: Psych(06/14/21 00:26) as6 Diagnosis - Hallucinations, unspecified ms3 - Schizophrenia, unspecified ms3 Forms: - Medication Reconciliation Form ms3 - SBAR form ms3 Signatures: Dispatcher [employer] EDUmer Boyer MD MD rn Leal, Jahala, RN RN jl7 Josh Thomas DO DO ms3 Jovanni Nolasco RN RN as6 Umer Min Corrections: (The following items were deleted from the chart) 00:26 06/13 17:49 Psych ms3 as6
[2021-06-13 19:40] LABS: White Blood Cell Scan OK (OK)
[2021-06-13 19:41] LABS: Blood Morphology Comment NOTED (NOT SEEN); Hypochromasia 2+; Platelet Estimate ADEQ
[2021-06-14] MEDS ORDERED: POTASSIUM CL SA 10 MEQ TAB PO ONE (00:18)
[2021-06-14 03:54] VITALS: TEMP 98; O2SAT 100
[2021-06-14 03:55] VITALS: BP 100/62
== END 2021-06-14 00:26 ==
LOC: ER 15:40
DX: F20.9 Schizophrenia, unspecified (principal); F43.10 Post-traumatic stress disorder, unspecified; Z78.1 Physical restraint status; F17.210 Nicotine dependence, cigarettes, uncomplicated; Z20.822 Contact with and (suspected) exposure to COVID-19; Z88.5 Allergy status to narcotic agent
CPT/HCPCS: 93005; 85025; 80048; 36415; 80320; 80329 ×2; 85610; 80076; 85730; 96372; 96374; 99285; U0003; J1200; J3486

== ENCOUNTER 2021-06-29 18:31 | Emergency (ER) | payer OTHER ==
--- OUTSIDE RECORDS SUMMARY | 2021-06-29 18:35 | XMS REPORT | Continuity of Care Document ---
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 Utility Disease Active U nivers care [...] ity of 00:00: [place] 00 Medical Branch [facility] Drug [facility] Drug [facility] Drug [facility] Drug [facility] Drug [facility] Drug [facility] Drug [facility] Drug [facility] Drug [facility] Drug [facility] Drug [facility] Drug [facility] Social History Social Habit Start Date Stop Date Quantity Comments Source History of tobacco Cigarette Smoker University of use [facility] Exposure to Not sure University of SARS-CoV-2 (event) [facility] Cigarettes smoked 2018-08-05 2018-08-05 Univers ity of current (pack per 00:00:00 00:00:00 [place] ) - Reported Branch Alcohol intake 2018-08-05 2018-08-05 Current drinker Unive rsity of 00:00:00 00:00:00 of alcohol [facility] (finding) [place] Sex Assigned At [birth year] Universit y of 00:00:00 00:00:00 [facility] Smoking Status Start Date Stop Date Source Current every day smoker 2018-08-05 00:00:00 Uni versity of [facility] Medications Ordered Filled Start Stop [...] [place] 14 times Medical daily. Branch traZODONE 2018-0 Yes 100mg Take 100 Uni vers 100 mg 6-07 mg by ity of tablet 23:59: mouth at [place] 14 bedtime. Medical Branch haloperidol 2018-0 Yes [...] by ity of tablet 23:59: mouth at [place] 14 bedtime. Medical Branch haloperidol 2018-0 Yes 5mg Take 5 mg U nivers 5 mg tablet 6-07 by mouth 2 it y of 23:59: (two) [place] 14 times Medical daily. Branch FLUoxetine Yes Univers (PROZAC) 20 2-23 ity of mg tablet 00:00: [place] 00 Medical Branch FLUoxetine 2015-0 Yes Univers (PROZAC) 20 2-23 ity of mg tablet 00:00: [place] 00 Medical [place] Vital Signs Vital Name Observation Time Observation Value Comments Source Oxygen saturation in 2020-05-29 22:00:00 100 /min [facility] Arterial blood by [facility] Pulse oximetry Branch Systolic blood 2020-05-29 22:00:00 107 mm[Hg] Univer sity of pressure [facility] Diastolic blood 2020-05-29 22:00:00 96 mm[Hg] Unive rsity of pressure [facility] Heart rate 2020-05-29 22:00:00 89 /min Universi [facility] Respiratory rate 2020-05-29 22:00:00 17 /min [facility] temperature 2020-05-29 20:10:00 37.22 [facility] Body weight 2020-05-29 20:08:00 86.183 kg [facility] BMI 2020-05-29 20:08:00 38.38 kg/m2 [facility] Height/Length 2021-03-18 09:56:58 165.1 cm Measured [...] Temperature 2020-04-25 15:01:13 36.9\\S\\98.4 Weight 2020-04-25 15:01:13 12012.932\\S\\2240 Weight Measurement 2020-04-25 15:01:13 Estimated by Staff Method Respiratory 2020-04-25 15:01:12 No respiratory distress /min Respiratory 2020-04-25 14:27:49 No respiratory distress /min 02 Sat by Pulse 2020-04-25 14:27:49 100 /min Oximetry Body Mass Index 2020-04-25 14:27:49 29.3 Height 2020-04-25 14:27:49 147.32\\S\\58 Pulse Rate 2020-04-25 14:27:49 78 /min Respiratory Rate 2020-04-25 14:27:49 16 /min Temperature 2020-04-25 14:27:49 36.9\\S\\98.4 Weight 2020-04-25 14:27:49 17410.932\\S\\2240 Weight Measurement 2020-04-25 14:27:49 Estimated by Staff Method Respiratory 2020-04-25 14:27:18 No respiratory distress /min 02 Sat by Pulse 2020-04-25 14:27:18 100 /min Oximetry Body Mass Index 2020-04-25 14:27:18 29.3 Height 2020-04-25 14:27:18 147.32\\S\\58 Pulse Rate 2020-04-25 14:27:18 78 /min Respiratory Rate 2020-04-25 14:27:18 16 /min Temperature 2020-04-25 14:27:18 36.9\\S\\98.4 Weight 2020-04-25 14:27:18 13693.932\\S\\2240 Weight Measurement 2020-04-25 14:27:18 Estimated by Staff Method Respiratory 2020-04-25 14:21:39 No respiratory distress /min 02 Sat by Pulse 2020-04-25 14:21:39 100 /min Oximetry Body Mass Index 2020-04-25 14:21:39 29.3 Height 2020-04-25 14:21:39 147.32\\S\\58 Pulse Rate 2020-04-25 14:21:39 78 /min Respiratory Rate 2020-04-25 14:21:39 16 /min Temperature 2020-04-25 14:21:39 36.9\\S\\98.4 Weight 2020-04-25 14:21:39 06651.932\\S\\2240 Weight Measurement 2020-04-25 14:21:39 Estimated by Staff Method Height 2020-04-25 12:03:42 147.32\\S\\58 Pulse Rate 2020-04-25 12:03:42 78 /min Respiratory Rate 2020-04-25 12:03:42 16 /min Temperature 2020-04-25 12:03:42 36.9\\S\\98.4 Weight 2020-04-25 12:03:42 21733.932\\S\\2240 Weight Measurement 2020-04-25 12:03:42 Estimated by Staff Method Respiratory 2020-04-25 12:03:42 No respiratory distress /min 02 Sat by Pulse 2020-04-25 12:03:42 100 /min Oximetry Body Mass Index 2020-04-25 12:03:42 29.3 Respiratory 2020-04-25 11:51:21 No respiratory distress /min 02 Sat by Pulse 2020-04-25 11:51:21 100 /min Oximetry Body Mass Index 2020-04-25 11:51:21 29.3 Height 2020-04-25 11:51:21 147.32\\S\\58 Pulse Rate 2020-04-25 11:51:21 78 /min Respiratory Rate 2020-04-25 11:51:21 16 /min Temperature 2020-04-25 11:51:21 36.9\\S\\98.4 Weight 2020-04-25 11:51:21 97824.932\\S\\2240 Weight Measurement 2020-04-25 11:51:21 Estimated by Staff Method 02 Sat by Pulse 2020-04-25 11:17:59 100 /min Oximetry Body Mass Index 2020-04-25 11:17:59 29.3 Height 2020-04-25 11:17:59 147.32\\S\\58 Pulse Rate 2020-04-25 11:17:59 78 /min Respiratory Rate 2020-04-25 11:17:59 16 /min Temperature 2020-04-25 11:17:59 36.9\\S\\98.4 Weight 2020-04-25 11:17:59 45312.932\\S\\0 Weight Measurement 2020-04-25 11:17:59 Estimated by Staff Method Respiratory 2020-04-25 11:17:59 No respiratory distress /min WEIGHT 2020-04-25 11:10:00 63.509209 kg HEIGHT 2020-04-25 11:10:00 147.32 cm 02 Sat by Pulse 2020-04-25 10:59:27 100 /min Oximetry Body Mass Index 2020-04-25 10:59:27 21.3 Height 2020-04-25 10:59:27 165.1\\S\\65 Pulse Rate 2020-04-25 10:59:27 78 /min Respiratory Rate 2020-04-25 10:59:27 16 /min Temperature 2020-04-25 10:59:27 36.9\\S\\98.4 Weight 2020-04-25 10:59:27 44433.823\\S\\8 Weight Measurement 2020-04-25 10:59:27 Estimated by Staff Method 02 Sat by Pulse 2020-04-25 10:49:10 100 /min Oximetry Body Mass Index 2020-04-25 10:49:10 21.3 Height 2020-04-25 10:49:10 165.1\\S\\65 Pulse Rate 2020-04-25 10:49:10 78 /min Respiratory Rate 2020-04-25 10:49:10 16 /min Temperature 2020-04-25 10:49:10 36.9\\S\\98.4 Weight 2020-04-25 10:49:10 21068.823\\S\\2048 Weight Measurement 2020-04-25 10:49:10 Estimated by Staff Method WEIGHT 2020-04-25 10:46:00 58.314346 kg HEIGHT 2020-04-25 10:46:00 165.1 cm Procedures Procedure Date / Time Performing Clinician Source Performed POCT TEST 2020-05-29 21:05:00 Janice Ybarra [facility] COVID-19 (ID NOW RAPID 2020-05-29 21:04:00 Janice Ybarra [facility] TESTING) [facility] ADC / LCC - DRUG SCREEN 2020-05-29 21:03:00 Janice Ybarra [facility] TROPONIN I 2020-05-29 21:02:00 Janice Ybarra [facility] COMP. METABOLIC PANEL 2020-05-29 21:02:00 Janice Ybarra [facility] ([id number]) [facility] SALICYLATE 2020-05-29 21:02:00 Janice Ybarra [facility] ETHANOL 2020-05-29 21:02:00 Janice Ybarra [facility] CBC WITH DIFF 2020-05-29 21:02:00 Janice Ybarra [facility] PROTHROMBIN TIME / INR 2020-05-29 21:02:00 Janice Ybarra [facility] ACTIVATED PARTIAL 2020-05-29 21:02:00 Janice Ybarra [facility] THRFormerly [facility] N-TERMINAL PRO-BNP 2020-05-29 21:02:00 Janice Ybarra [facility] XR CHEST 1 VW 2020-05-29 20:33:45 Janice Ybarra [facility] HB ECG ROUTINE & RHYTHM 2020-05-29 20:23:30 Janice Ybarra [facility] Encounters Start End Encounter Admission Attending Care Care Encounter Source Date/Time Date/Time Type Type Clinicians Facility Department ID 2020-05-29 2020-05-29 [facility] [id number] Univers 15:28:00 18:00:00 Janice Smith [id number] i [facility] [id number] [facility] [id number] [place] [id number] Branch 2020-05-29 2020-05-29 Emergency [facility] [id number] Univers 15:28:00 15:28:00 [facility] 2019-06-05 2019-06-[address] [facility] [address] [place] [id number] Univers 12:44:20 23:59:00 Encounter Swapnil BOWENS [id number] ity [facility] [id number] [facility] [id number] [address] 2019-06-04 2019-06-04 Emergency [facility] JNAE [id number] 15:28:00 15:28:00 [facility] 2019-06-04 2019-06-04 [facility] JANE [id number] [address] 15:28:00 15:28:00 -[id number] [facility] Results Test Description Test Time Test Comments Results Result Comments Source ACETAMINOPHEN 2020-05-29 22:14:03 Test Item Value Reference Range Interpretation Comme nts ACETAMINOP (test code = 3585736629) <10.0 10.0-30.0 L GABE (test code = GABE) Toxic: Greater than 200 ug/mL @ 4 hour post ingestion or greater than 50 ug/mL @ 12 hour post ingestion Lab Interpretation (test code = Abnormal 24456-6) [facility] 22[facility]13:53 Test Item Value Reference Range Interpretation Comments ALCOHOL (test code = <10 mg/dL 5486290764) GABE (test code = GABE) <10 Zfrrxlfv68-856 Toxic>100 Depression of USER EXPERIENCE DEVELOPER>400 Fatalities Reported [facility]21-[facility]-31 22:12:51 Test Item Value Reference Range Interpretation Comments SALICYLATE (test code <10 mg/L = 7151762047) GABE (test code = GABE) Therapeutic Range: ? Analgesic and Antipyretic Use ? 20-100 mg/L ? ? Anti-Inflammatory Use ? 100-250 mg/L Toxic Range: ? Greater than 300 mg/L [facility] [id number] 22:11:46 Test Item Value Reference Range Interpretation Comments TROPONIN I (test 0.000 ng/mL See_Comment [Automated code = 5761869262) message] The system which generated this result [...] ? Lab Interpretation Normal (test code = 83847-5) [facility]OLIC PAN[facility] ([id number])2020-05-29 22:00:22 Test Item Value Reference Range Interpretation Comments NA (test code = 140 mmol/L 135-145 1715840680) K (test code = 3.8 mmol/L 3.5-5.0 2938679790) CL (test code = 103 mmol/L 98-108 1643720044) CO2 TOTAL (test code = 30 mmol/L 23-31 2931420630) AGAP (test code = 2-16 2283656899) BUN (test code = 9 mg/dL 7-23 6323147358) GLUCOSE (test code = 93 mg/dL 70-110 0159599859) CREATININE (test code 0.68 mg/dL 0.50-1.04 = 0980387174) TOTAL BILI (test code 0.3 mg/dL 0.1-1.1 = 9645145933) CALCIUM (test code = 9.2 mg/dL 8.6-10.6 5496476267) T PROTEIN (test code = 7.3 g/dL 6.3-8.2 2321427614) ALBUMIN (test code = 4.3 g/dL 3.5-5.0 9844909206) ALK PHOS (test code = 71 U/L 34-122 3517383374) ALTv (test code = 11 U/L 5-35 1742-6) AST(SGOT) (test code = 30 U/L 13-40 3097249431) eGFR Calculation mL/min/1.73m2 (Non-) (test code = 1479276874) eGFR Calculation mL/min/1.73m2 () (test code = 5969145441) GABE (test code = GABE) Association of [...] or urine or abnormalities in imaging tests). [facility] [id number] 21:56:39 Test Item Value Reference Range Interpretation Comments NT-proBNP (test code 38 pg/mL See_Comment [Autom ated = 0566475100) message] The system which generated this result transmitted reference range : <=125. The reference range was not used to interpret this result as normal/abnormal . GABE (test code = GABE) Biotin has been reported to cause a negative bias, interpret results relative to patient's use of biotin. Lab Interpretation Normal (test code = 67897-5) [facility] (ID NOW RAPID TESTING)2020-05-29 21:39:48 Test Item Value Reference Range Interpretation Comments SARS-CoV-2 Rapid ID NOW Not Detected Not Detected (test code = 95845-3) GABE (test code = GABE) ID NOW COVID-19 Assay is an isothermal nucleic acid amplification test intended for the qualitative detection of nucleic acid from SARS-CoV-2 viral RNA in nasopharyngeal (AIRPORT CLERK) specimens. It is used under Emergency Use [...] indicated. Lab Interpretation Normal (test code = 82540-7) [facility] THRMPLAS [id number] 21:28:06 Test Item Value Reference Range Interpretation Comments APTT Patient (test See_Comment [Automat ed code = 3173-2) message] The system which generated this result transmitted reference range : 23 - 38 Seconds . The reference range was not used to interpr et this result as normal/abnormal . GABE (test code = GABE) The [facility] patient population mean normal value for aPTT is 30 seconds. Lab Interpretation Normal (test code = 73504-0) [facility] HospitalPROTHR[facility]BIN TIME / [id number] 21:26:04 Test Item Value Reference Range Interpretation [...] tions. Lab Interpretation (test Normal code = 93293-6) [facility] - DR[facility] SCREEN [id number] 21:25:53 Test Item Value Reference Range Interpretation Comments BENZO U (test code = Negative Negative 4970829883) SIGIFREDO U (test code = Negative Negative 5999082870) AMPHET (test code = Negative Negative 0951434129) THC (test code = Negative Negative 7529736725) METHADONE (test code = Negative Negative 1042949552) Meth U (test code = Negative Negative 2975539753) OPIATES (test code = Negative Negative 7933186432) Cocaine Metabolite (test Negative Negative code = 1162616796) PROPOXY (test code = Negative Negative 3066642602) Tric U (test code = Negative Negative 4457718513) PCP (test code = Negative Negative 2178871750) OXYCOD (test code = Negative Negative 0587248467) GABE (test code = GABE) Urine Drug [...] testing). Lab Interpretation (test Normal code = 49707-2) [facility] WITH [id number] 21:17:01 Test Item Value Reference Range Interpretation Comments WBC (test code = See_Comment [Automated 3790-2) message] The sy stem which generated this result transmitted reference range : 4.30 - 11.10 10*3/?L. The reference range was not used to interpret this result as normal/abnormal . RBC (test code = See_Comment [Automated 179-8) message] The sy stem which generated this [...] (test code = 37.8 fL 39.0-49.9 L 55675-2) RDW-CV (test code = 14.7 % 12.0-15.5 788-0) PLT (test code = See_Comment [Automated 777-3) message] The sy stem which generated this result transmitted reference range : 166 - 358 10*3/ ?L. The reference r wisam was not used to interpret this result as normal/abnormal . MPV (test code = 10.2 fL 9.5-12.9 66170-0) NRBC/100 WBC (test See_Comment [Automat ed code = 9362219212) message] The system which generated this result transmitted reference range : 0.0 - 10.0 /100 WBCs. The refer ence range was not u sed to interpret th is result as normal/abnormal . NRBC x10^3 (test code <0.01 See_Comment [Auto mated = 6528866780) message] The s ystem which generated this result transmitted reference range : 10*3/?L. The reference range was not used to interpret this result as normal/abnormal . GRAN MAT (NEUT) % 63.9 % (test code = 770-8) IMM GRAN % (test code 0.20 % = 5717315221) LYMPH % (test code = 26.7 % 736-9) MONO % (test code = 6.6 % 5905-5) EOS % (test code = 2.1 % 713-8) BASO % (test code = 0.5 % 706-2) GRAN MAT x10^3(ANC) 2.81 10*3/uL 1.88-7.09 (test code = 3910570875) IMM GRAN x10^3 (test <0.03 0.00-0.06 code = 0310769659) LYMPH x10^3 (test code 1.17 10*3/uL 1.32-3.29 L = 731-0) MONO x10^3 (test code 0.29 10*3/uL 0.33-0.92 L = 742-7) EOS x10^3 (test code = 0.09 10*3/uL 0.03-0.39 711-2) BASO x10^3 (test code <0.03 0.01-0.07 = 704-7) Lab Interpretation Abnormal (test code = 07577-7) [facility] [id number] 21:05:00 Test Item Value Reference Range Interpretation Comments POCT PREG (test code = 1605) negative On board controls acceptable with C present Line (test code = 3574) POCT PREG LOT # (test code = 3575) [id number] POCT PREG TEST DATE (test 01/28/22 code = 3576) Lab Interpretation (test code = Normal 32120-9) [facility] HospitalXR CHEST 1 [id number] 20:35:59HISTORY: Chest pain. TECHNIQUE: Portable AP view [...] etiology but could be viral infection. Please correlate.[facility], Radiant Results Inft User - 05/29/2020 3:37 [...] etiology but could be viral infection. Please correlate.[facility] HospitalRPR [id number] 12:23:19 Test Item Value Reference Range Interpretation [...] = 02-29-20 N Expiration Dt) Thyroid Stimulating [id number] 04:43:39 Test Item Value Reference Range Interpretation Comments TSH (test code = TSH) 0.488 mIU/mL 0.270-4.200 Lipid [id number] 04:37:33 Test Item Value Reference Range Interpretation Comments Cholesterol Total 120 mg/dL 0-200 RISK OF HE ART (test code = DISEASEPublishe d by Cholesterol Total) [employer] Angelique lyte Optimal Borderl ine [...] calculation is LDL/HDL Ratio=L DL Calc/HDL Chol [id number] 17:30:21 Test Item Value Reference Range Interpretation [...] = Plt Normal Normal Estimation) Comprehensive Metabolic [id number] 16:33:31 Test Item Value Reference Range Interpretation [...] = A/G 1.6 ratio N Ratio) Alcohol [id number] 16:33:31 Test Item Value Reference Range Interpretation Comments Ethanol Level (test <0.00 g/dL 0.00-0.01 Intoxica shamika 0.080 g/dL code = Ethanol or more Level) Ethanol Inst (test <0 N code = Ethanol Inst) Comprehensive Metabolic [id number] 16:33:31 Test Item Value Reference Range Interpretation [...] National Kidney Foundation, http://nkdep.ni h.gov Comprehensive Metabolic [id number] 16:33:31 Test Item Value Reference Range Interpretation [...] National Kidney Foundation, http://nkdep.ni h.gov Beta HCG [id number] 16:33:22 Test Item Value Reference Range Interpretation Comments HCG, Beta Quantitative <0.50 mIU/mL N Weeks of Gestation (test code = HCG, Beta Range s (mIu/mL)3 Quantitative) weeks 5.40-72 .04 weeks 10.2-708 5 weeks 217-8245 6 weeks 152-3217 77 weeks 4059-153 7678 weeks 13542-5846113 w eeks 79572-64934292 weeks 92578-30907170 weeks 76273-96260298 weeks 82925-8389070 w eeks 68933-5034826 weeks 8904-553 3217 weeks 8240-517 9318 weeks 9649-552 71 IG [id number] 15:56:13 Test Item Value Reference Range Interpretation Comments IG (test code = IG) 0.1 % 0.0-5.0 IG Abs (test code = IG Abs) 0 x10 N Complete Blood Count with Yflvvfvytswg7373-52-54 15:56:12 Test Item Value Reference Range Interpretation [...] code = IPF) 0 % N Automated Bhnmgikoucml6197-16-30 15:56:12 Test Item Value Reference Range Interpretation Comments Neutro Auto (test code = Neutro 75.5 % 36.0-70.0 H Auto) Lymph Auto (test code = Lymph Auto) 19.1 % 12.0-44.0 [place] Auto (test code = [place] Auto) 3.6 % 0.0-11.0 Eos, Auto (test code = Eos, Auto) 1.3 % 0.0-7.0 Basophil Auto (test code = Basophil 0.4 % 0.0-2.0 Auto) Neutro Absolute (test code = Neutro 5.7 x10 1.6-7.4 Absolute) Lymph Absolute (test code = Lymph 1.45 x10 .50-4.60 Absolute) [place] Absolute (test code = [place] .27 x10 .00-1.20 Absolute) Eos Absolute (test code = Eos 0.10 x10 0.00-0.74 Absolute) Baso Absolute (test code = Baso 0.03 x10 0.00-0.21 Absolute) RPR, [id number] 20:27:00 Test Item Value Reference Range Interpretation Comments RPR (test code = RPR) Non-Reactive Non-Reactive N Lipid [id number] 08:20:00 Test Item Value Reference Range Interpretation Comments Cholesterol (test 116 mg/dL 0-200 N code = CHOL) Triglycerides (test 107 mg/dL 9-200 N code = TRIG) HDL (test code = 33 mg/dL 50-60 L HDL) Chol/HDL (test code 3.5 Ratio 0.0-4.4 N = CHOLPHDL) LDL, Calculated 62 0-130 N (NOTE)RISK O F HEART (test code = LDLC) DISEASEPu blished by [place] Heart AssociationAnal yte Optim al Boderline Increased [...] TSH) 1.96 mIU/mL 0.270-4.200 N BHCG, Serum, [id number] 08:04:00 Test Item Value Reference Range Interpretation Comments Preg Qual [Se] (test code = BSHCG) Negative Negative N Thyroid Stimulating Hormone (TSH)2016-08-18 21:10:00 Test Item Value Reference Range Interpretation Comments TSH (test code = TSH) 2.02 mIU/mL 0.270-4.200 N RPR, [id number] 18:14:00 Test Item Value Reference Range Interpretation Comments RPR (test code = RPR) Non-Reactive Non-Reactive N BHCG, Serum, [id number] 14:56:00 Test Item Value Reference Range Interpretation Comments Preg Qual [Se] (test code = BSHCG) Negative Negative N Urinalysis [id number] 11:10:00 Test Item Value Reference Range Interpretation Comments Color (test code = Yellow Yellow,Straw,Pl N COLOR) yellow Clarity (test code = Sl Cloudy Clear A CLAR) Specific [place] (test 1.030 1.001-1.035 N code = SPGR) [...] Bacteria (test code = Few /HPF BACT) [id number] 10:48:00 Test Item Value Reference Range Interpretation [...] (test code = THC) Negative Negative N Comprehensive Metabolic [id number] 10:25:00 Test Item Value Reference Range Interpretation [...] validated by th e MDRD study and den garcia be interpretedwith caution.eGFR Re sult Interpretation: eGFR > or = 60 is in t he Normal RangeeGF R < 60 may mean kidney diseaseeGFR < 1 5 may mean kidney failureRange s recommended by the National Kidney Foundation,http ://nkd ep.nih.gov Alcohol/Ethanol, [id number] 10:25:00 Test Item Value Reference Range Interpretation Comments Alcohol, Ethyl <0.01 g/dL 0.00-0.01 N Intoxicated 0.080 (test code = ETOH) g/dL or m ore BHCG, Serum, [id number] 10:20:00 Test Item Value Reference Range Interpretation Comments Preg Qual [Se] (test code = BSHCG) Negative Negative N CBC with [id number] 10:16:00 Test Item Value Reference Range Interpretation [...] code = ALYMPH) 1.8 K/cumm 0.5-4.6 N [place] Abs (test code = AMONO) 0.5 K/cumm 0.0-1.2 N Eos Abs (test code = AEOS) 0.09 K/cumm 0.00-0.74 N Baso Abs (test code = ABASO) 0.0 K/cumm 0.00-0.21 N Microcytosis (test code = MICRO) Slight Occult [id number] 16:39:00 Test Item Value Reference Range Interpretation Comments Occ Bld (test code = HSOB) Negative Negative N Culture, Blood [id number] 09:49:00Specimen: BloodCollected: 07/23/2016 17:40 Status: Final Last Updated: 07/29/2016 09:49 (1) ER Bed D7 Culture Result (Final) (Final) No Growth After 5 DaysCulture, Blood Routine 2016-07-29 09:49:00Specimen: BloodCollected: 07/23/2016 17:40 Status: Final Last Updated: 07/29/2016 09:49 (1) ER Bed D7 Culture Result (Final) (Final) No Growth After 5 DaysBasic Metabolic [id number] 14:25:00 Test Item Value Reference Range Interpretation [...] National Kidney Foundation,http ://nkd ep.nih.gov CBC with [id number] 14:10:00 Test Item Value Reference Range Interpretation Comments WBC (test code = 5.2 K/cumm 4.4-10.5 N WBC) RBC (test code = 4.22 M/cumm 3.75-5.20 N RBC) Hemoglobin (test 10.6 gm/dL 12.2-14.8 L READ BACK L AB code = HGB) VALUESVERIFIED BY REPEAT TESTINGrecoskar brooksrn @ 8050, post flui ds/mdj Hematocrit (test 32.4 % [...] 1.3 K/cumm 0.5-4.6 N code = ALYMPH) [place] Abs (test 0.3 K/cumm 0.0-1.2 N code = AMONO) Eos Abs (test code 0.12 K/cumm 0.00-0.74 N = AEOS) Baso Abs (test 0.0 K/cumm 0.00-0.21 N code = ABASO) BHCG, Serum, [id number] 13:12:00 Test Item Value Reference Range Interpretation Comments Preg Qual [Se] (test code = BSHCG) Negative Negative N RPR, [id number] 12:30:00 Test Item Value Reference Range Interpretation Comments RPR (test code = RPR) Non-Reactive Non-Reactive N Thyroid Stimulating Hormone (TSH)2016-07-24 08:26:00 Test Item Value Reference Range Interpretation Comments TSH (test code = TSH) 3.07 mIU/mL 0.270-4.200 N Lactic Acid [id number] 18:32:00 Test Item Value Reference Range Interpretation Comments Lactic Acid, Bld (test code = LAC) 1.5 mmol/L 0.5-1.9 N Comprehensive Metabolic [id number] 15:48:00 Test Item Value Reference Range Interpretation [...] [employer],http :[email or web address] ep.nih.gov CBC with [id number] 15:36:00 Test Item Value Reference Range Interpretation [...] code = ALYMPH) 1.9 K/cumm 0.5-4.6 N [place] Abs (test code = AMONO) 0.6 K/cumm 0.0-1.2 N Eos Abs (test code = AEOS) 0.10 K/cumm 0.00-0.74 N Baso Abs (test code = ABASO) 0.0 K/cumm 0.00-0.21 N"
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
[2021-06-29 20:15] VITALS: TEMP 98.1; O2SAT 100
[2021-06-29 20:27] VITALS: BP 131/82
== END 2021-06-29 19:43 | disposition home or self-care (01) ==
LOC: ER 18:31
DX: S09.90XA Unspecified injury of head, initial encounter (principal); Y04.2XXA Assault by strike against or bumped into by another person, initial encounter; F20.9 Schizophrenia, unspecified; Z88.5 Allergy status to narcotic agent
CPT/HCPCS: 99281

== ENCOUNTER 2023-09-28 13:23 | Emergency (ER) | payer SELFPAY ==
--- OUTSIDE RECORDS SUMMARY | 2023-09-28 13:28 | XMS REPORT | Continuity of Care Document ---
Author Name Unknown Address [address] [facility] [address] [place] [address] [facility] [address] [facility] [address] [place] [address] Care Team Providers Care Software Engineer Name Role Phone UNKNOWN, REFFERING Primary Care Physician Rodrigo Elam Attending Clinician Unavailable Rodrigo Robles Attending Clinician [phone] ALFONSO ALLEN Attending Clinician Unavailable Holli CABRAL, Marilee Barksdale Attending Clinician [phone] David MOSELEY, Castro Lind Attending Clinician [phone] ADY LAWSON Attending Clinician Unavailable Ady Lawson DO Attending Clinician [phone] Doctor Unassigned, Mccord Attending Clinician Trevor Vides Attending Clinician [phone] TREVOR YBARRA Attending Clinician Unavailable Tavo MOSELEY, Swapnil Barksdale Attending Clinician SWAPNIL VO M.D., SWAPNIL Barksdale M.D. Attendin g Clinician Unavailable MOHIT AGUILERA Admitting Clinician Unavailable Castro Sheriff MD Admitting Clinician [phone] CASTRO HSERIFF Admitting Clinician Unava SWAPNIL Walton M.D., SWAPNIL Barksdale Admitting Clin ician Unavailable Payers Payer Name Policy Type Policy Number Effective Date Expirati on Date Source [employer] COMPETENCY HOAHAOISM [id number] 2022 00:00:00 [facility] EXCEPT [facility] [id number] 2021 00:00:00 MEDICAID PENDING PENDING 2023 00:00:00 Problems Condition Name Condition Details Condition Category Status Onset Date Resolution Date Last Treatment Date Treating Clinician Comments Source Schizoaffe ctive disorder, bipolar type Schizoaffe ctive disorder, bipolar type Disease Recurre nce 07-02 00:00: 00 [facility] Trauma Trauma Disease Active 06-30 00:00: 00 [facility] Right knee pain Right knee pain Disease Active 04-25 00:00: 00 [facility] delivery delivered delivery delivered Disease Active 09-15 00:00: 00 Overview: Formattin g of this note might be different from the original. ICD10 Diagnosis Term Erp Technical Lead Utility [facility] care and examinatio n immediatel y after delivery care and examinatio n immediatel y after delivery Disease Active 09-15 00:00: 00 [facility] Allergies, Adverse Reactions, Alerts Allergy Name Allergy Type Status Severity Reaction(s) Onset Date Inactive Date Treating Clinician Comments Source Unable to Assess DA Active U 04-25 00:00: 00 [facility] Hydrocod one Propensi ty to adverse reaction s Active Swelling 2014-03 00:00: 00 Throat swells, unable to breath [facility] HYDROCOD ONE DRUG INGREDI Active Swelling 2014-03 00:00: [address] [facility] Ava Drug Active [facility] Ava Drug Active [facility] Ava Drug Active [facility] Ava Drug Active [facility] Drug Active [facility] Ava Drug Active [facility] Ava Drug Active [facility] Ava Drug Active [facility] Social History Social Habit Start Date Stop Date Quantity Comments Source History of tobacco use Cigarette Smoker [facility] Alcohol intake 2023-04-28 00:00:00 2023-04-28 00:00:00 .14 /d [facility] History of Social function 2023-04-28 00:00:00 2023-04-28 00:00:00 [facility] Exposure to SARS-CoV-2 (event) 2021-06-20 00:00:00 2021-06-30 10:45:00 Not sure [facility] Cigarettes smoked current (pack per day) - Reported 2015-04-18 00:00:00 2015-04-18 00:00:00 [facility] Sex Assigned At 1985 00:00:00 1985 00:00:00 [facility] Smoking Status Start Date Stop Date Source Smokes tobacco daily 2015-04-18 00:00:00 [facility] Medications Ordered Medication Name Filled Medication Name Start Date Stop Date Current Medication? Ordering Clinician Indication Dosage Frequency Signature (SIG) Comments Components Source amoxicillin -clavulanat e 875-125 mg per tablet 04-28 00:00: 00 Yes [id number] 1{tbl} Take 1 tablet by mouth every 12 (twelve) hours. [facility] haloperidol 5 mg tablet 07-03 11:33: 39 07-03 00:00 :00 No 5mg Take 5 mg by mouth 2 (two) times daily. [facility] haloperidoL (HALDOL) tablet 5 mg 07-03 01:00: 00 Yes 5mg 5 mg, Oral, BID, First dose on Wed07/02/21 at 2000, Until Discontinu ed, Routine [facility] haloperidoL 5 mg tablet 07-03 00:00: 00 Yes [id number] 5mg Take 1 tablet by mouth 2 (two) times daily. [facility] haloperidol 1 mg tablet 07-02 13:01: 07-02 00:00 :00 No 1mg Take 1 mg by mouth 2 (two) times daily. [facility] traZODONE 100 mg tablet 07-02 13:01: 07-02 00:00 :00 No 100mg Take 100 mg by mouth at bedtime. [facility] acetaminoph en 325 mg tablet 07-02 00:00: 00 Yes [id number] 650mg Take 2 tablets by mouth every 6 (six) hours as needed for Pain (scale 4-6). [facility] enoxaparin (LOVENOX) injection 40 mg 07-01 14:00: 00 Yes 40mg 40 mg, Subcutaneo us, DAILY, First dose (after last modificati on) on Wed07/01/21 at 0900, Until Discontinu ed, Routine [facility] pantoprazol e (PROTONIX) injection 40 mg 07-01 14:00: 00 07-01 17:53 :55 No 40mg 40 mg, Slow IV Push, Q24H, First dose on Wed07/01/21 at 0900, Until Discontinu ed [facility] potassium chloride 20 mEq/100 mL (KCL) 20 mEq/100 mL RTU IVPB 20 mEq 07-01 13:00: 00 07-01 16:59 :00 No 20meq 20 mEq, IV Piggyback, Q2H, 2 doses, First dose on Wed07/01/21 at 0800, Last dose on Wed07/01/21 at 1000, 100 mL [facility] magnesium sulfate in water 4 gram/50 mL (8 %) IV Piggyback 4 g 07-01 12:30: 00 07-01 13:37 :00 No 4g 4 g, IV Piggyback, ONCE, 1 dose, On Wed07/01/21 at 0730, Routine [facility] D5W 0.45% NaCl (1/2NS) 1 L + KCL 20 mEq 07-01 06:30: 00 07-01 16:06 :04 No IV Infusion, at 125 mL/hr, CONTINUOUS , Starting on Wed07/01/21 at 0130, Until Wed07/01/21 at 1106, Routine [facility] ondansetron (ZOFRAN (PF)) injection 4 mg 07-01 00:58: 30 Yes 4mg 4 mg, Slow IV Push, Administer over 15 Minutes, Q6HPRN, Starting on Wed06/30/21 at 1958, Until Discontinu ed, Routine, Nausea and Vomiting (N/V) [facility] acetaminoph en (TYLENOL) tablet 650 mg 07-01 00:58: 22 Yes 650mg 650 mg, Oral, Q6HPRN, Starting on Wed06/30/21 at 1957, Until Discontinu ed, Routine, Pain (scale 1-3) [facility] iopamidol (ISOVUE 370-500 mL) injection 100 mL 06-30 22:30: 00 06-30 22:30 :00 No [id number] 100mL 100 mL, Intravenou s, ONCE, 1 dose, On Wed06/30/21 at 1730, Routine [facility] aspirin tablet 325 mg 05-29 21:15: 00 05-29 21:06 :00 No 325mg 325 mg, Oral, ONCE, 1 dose, Wed05/29/20 at 1615, STAT [facility] haloperidol 1 mg tablet 08-05 23:59: 14 Yes 1mg Take 1 mg by mouth 2 (two) times daily. [facility] traZODONE 100 mg tablet 08-05 23:59: 14 Yes 100mg Take 100 mg by mouth at bedtime. [facility] haloperidol 5 mg tablet 08-05 23:59: 14 Yes 5mg Take 5 mg by mouth 2 (two) times daily. [facility] haloperidol 1 mg tablet 08-05 18:59: 14 Yes 1mg Take 1 mg by mouth 2 (two) times daily. [facility] traZODONE 100 mg tablet 08-05 18:59: 14 Yes 100mg Take 100 mg by mouth at bedtime. [facility] haloperidol 5 mg tablet 08-05 18:59: 14 Yes 5mg Take 5 mg by mouth 2 (two) times daily. [facility] FLUoxetine (PROZAC) 20 mg tablet 04-23 00:00: 00 Yes [facility] FLUoxetine (PROZAC) 20 mg tablet 04-23 00:00: 00 07-02 00:00 :00 No [facility] Vital Signs Vital Name Observation Time Observation Value Comments S ourdenise Systolic blood pressure 2023-04-28 15:05:00 117 mm[Hg] [facility] Diastolic blood pressure 2023-04-28 15:05:00 84 mm[Hg] [facility] Heart rate 2023-04-28 15:05:00 92 /min [facility] Body temperature 2023-04-28 15:05:00 37.61 Fartun [facility] Respiratory rate 2023-04-28 15:05:00 14 /min [facility] Body height 2023-04-28 15:05:[address] [facility] Body weight 2023-04-28 15:05:[address] [facility] BMI 2023-04-28 15:05:00 31.31 kg/m2 [facility] Oxygen saturation in Arterial blood by Pulse oximetry 2023-04-28 15:05:00 99 /min [facility] Systolic blood pressure 2021-07-03 16:02:00 122 mm[Hg] [facility] Diastolic blood pressure 2021-07-03 16:02:00 88 mm[Hg] [facility] Heart rate 2021-07-03 16:02:00 96 /min Unive [facility] Body temperature 2021-07-03 16:02:00 37.33 Fartun [facility] Oxygen saturation in Arterial blood by Pulse oximetry 2021-07-03 16:02:00 100 /min [facility] Respiratory rate 2021-07-03 10:31:00 16 /min [facility] Body height 2021-07-01 08:02:[address] [facility] Body weight 2021-07-01 08:02:[address] [facility] BMI 2021-07-01 08:02:00 26.26 kg/m2 [facility] Systolic blood pressure 2021-06-30 22:35:00 120 mm[Hg] [facility] Diastolic blood pressure 2021-06-30 22:35:00 83 mm[Hg] [facility] Heart rate 2021-06-30 22:35:00 71 /min [facility] Respiratory rate 2021-06-30 22:35:00 17 /min [facility] Oxygen saturation in Arterial blood by Pulse oximetry 2021-06-30 22:35:00 100 /min [facility] Body temperature 2021-06-30 16:03:00 36.78 Fartun [facility] Body height 2021-06-30 15:50:[address] [facility] Body weight 2021-06-30 15:50:[address] [facility] BMI 2021-06-30 15:50:00 26.45 kg/m2 [facility] Systolic blood pressure 2020-05-29 22:00:00 107 mm[Hg] [facility] Diastolic blood pressure 2020-05-29 22:00:00 96 mm[Hg] [facility] Heart rate 2020-05-29 22:00:00 89 /min [facility] Respiratory rate 2020-05-29 22:00:00 17 /min [facility] Oxygen saturation in Arterial blood by Pulse oximetry 2020-05-29 22:00:00 100 /min [facility] Body temperature 2020-05-29 20:10:00 37.22 Fartun [facility] Body weight 2020-05-29 20:08:[address] [facility] BMI 2020-05-29 20:08:00 38.38 kg/m2 [facility] Height/Length Measured 2021-03-18 09:56:58 165.1 cm Weight Dosing 2021-03-18 09:56:58 65.30 kg Height/Length Measured 2021-03-18 09:56:39 165.1 cm Weight Dosing 2021-03-18 09:56:39 65.30 kg Height/Length Measured 2021-03-18 09:55:13 165.1 cm Weight Dosing 2021-03-18 09:55:13 65.30 kg Height/Length Measured 2021-03-18 09:55:11 165.1 cm Weight Dosing 2021-03-18 09:55:11 65.30 kg Height/Length Measured 2021-03-18 09:53:35 165.1 cm Weight Dosing 2021-03-18 09:53:35 65.30 kg Height/Length Measured 2021-03-18 09:53:34 165.1 cm Weight Dosing 2021-03-18 09:53:34 65.30 kg Height/Length Measured 2021-03-18 09:53:33 165.1 cm Weight Dosing 2021-03-18 09:53:33 65.30 kg Height/Length Measured 2021-03-18 09:52:40 165.1 cm Weight Dosing 2021-03-18 09:52:40 65.30 kg Height/Length Measured 2021-03-18 09:52:16 165.1 cm Weight Dosing 2021-03-18 09:52:16 65.30 kg Height/Length Measured 2021-03-18 09:52:12 165.1 cm Weight Dosing 2021-03-18 09:52:12 65.30 kg Height/Length Measured 2021-03-18 09:52:10 165.1 cm Weight Dosing 2021-03-18 09:52:10 65.30 kg Height/Length Measured 2021-03-18 09:51:59 160 cm Height/Length Measured 2021-03-18 09:51:54 160 cm Height/Length Measured 2021-03-18 09:51:53 160 cm Height/Length Measured 2021-03-18 09:51:50 160 cm Height/Length Measured 2021-03-18 09:51:35 160 cm Height/Length Measured 2021-03-18 09:51:20 160 cm Height/Length Measured 2021-03-18 09:51:05 160 cm Height/Length Measured 2021-03-18 09:51:03 160 cm Height/Length Measured 2021-03-18 09:51:02 160 cm Height/Length Measured 2019-06-04 15:36:11 02 Sat by Pulse Oximetry 2020-04-25 15:01:13 100 /min Body Mass Index 2020-04-25 15:01:13 29.3 Height 2020-04-25 15:01:13 147.32\\S\\58 Pulse Rate 2020-04-25 15:01:13 78 /min Respiratory Rate 2020-04-25 15:01:13 16 /min Temperature 2020-04-25 15:01:13 36.9\\S\\98.4 Weight 2020-04-25 15:01:13 37922.932\\S\\2240 Weight Measurement Method 2020-04-25 15:01:13 Estimated by Staff Respiratory 2020-04-25 15:01:12 No respirato ry distress /min Respiratory 2020-04-25 14:27:49 No respirato ry distress /min 02 Sat by Pulse Oximetry 2020-04-25 14:27:49 100 /min Body Mass Index 2020-04-25 14:27:49 29.3 Height 2020-04-25 14:27:49 147.32\\S\\58 Pulse Rate 2020-04-25 14:27:49 78 /min Respiratory Rate 2020-04-25 14:27:49 16 /min Temperature 2020-04-25 14:27:49 36.9\\S\\98.4 Weight 2020-04-25 14:27:49 36698.932\\S\\2240 Weight Measurement Method 2020-04-25 14:27:49 Estimated by Staff Respiratory 2020-04-25 14:27:18 No respirato ry distress /min 02 Sat by Pulse Oximetry 2020-04-25 14:27:18 100 /min Body Mass Index 2020-04-25 14:27:18 29.3 Height 2020-04-25 14:27:18 147.32\\S\\58 Pulse Rate 2020-04-25 14:27:18 78 /min Respiratory Rate 2020-04-25 14:27:18 16 /min Temperature 2020-04-25 14:27:18 36.9\\S\\98.4 Weight 2020-04-25 14:27:18 64016.932\\S\\2240 Weight Measurement Method 2020-04-25 14:27:18 Estimated by Staff Weight 2020-04-25 14:21:39 56366.932\\S\\2240 Weight Measurement Method 2020-04-25 14:21:39 Estimated by Staff Respiratory 2020-04-25 14:21:39 No respirato ry distress /min 02 Sat by Pulse Oximetry 2020-04-25 14:21:39 100 /min Body Mass Index 2020-04-25 14:21:39 29.3 Height 2020-04-25 14:21:39 147.32\\S\\58 Pulse Rate 2020-04-25 14:21:39 78 /min Respiratory Rate 2020-04-25 14:21:39 16 /min Temperature 2020-04-25 14:21:39 36.9\\S\\98.4 Respiratory 2020-04-25 12:03:42 No respirato ry distress /min 02 Sat by Pulse Oximetry 2020-04-25 12:03:42 100 /min Body Mass Index 2020-04-25 12:03:42 29.3 Height 2020-04-25 12:03:42 147.32\\S\\58 Pulse Rate 2020-04-25 12:03:42 78 /min Respiratory Rate 2020-04-25 12:03:42 16 /min Temperature 2020-04-25 12:03:42 36.9\\S\\98.4 Weight 2020-04-25 12:03:42 29413.932\\S\\2240 Weight Measurement Method 2020-04-25 12:03:42 Estimated by Staff Respiratory 2020-04-25 11:51:21 No respirato ry distress /min 02 Sat by Pulse Oximetry 2020-04-25 11:51:21 100 /min Body Mass Index 2020-04-25 11:51:21 29.3 Height 2020-04-25 11:51:21 147.32\\S\\58 Pulse Rate 2020-04-25 11:51:21 78 /min Respiratory Rate 2020-04-25 11:51:21 16 /min Temperature 2020-04-25 11:51:21 36.9\\S\\98.4 Weight 2020-04-25 11:51:21 44775.932\\S\\2240 Weight Measurement Method 2020-04-25 11:51:21 Estimated by Staff 02 Sat by Pulse Oximetry 2020-04-25 11:17:59 100 /min Body Mass Index 2020-04-25 11:17:59 29.3 Height 2020-04-25 11:17:59 147.32\\S\\58 Pulse Rate 2020-04-25 11:17:59 78 /min Respiratory Rate 2020-04-25 11:17:59 16 /min Temperature 2020-04-25 11:17:59 36.9\\S\\98.4 Weight 2020-04-25 11:17:59 81242.932\\S\\2240 Weight Measurement Method 2020-04-25 11:17:59 Estimated by Staff Respiratory 2020-04-25 11:17:59 No respirato ry distress /min WEIGHT 2020-04-25 11:10:00 63.758626 kg HEIGHT 2020-04-25 11:10:00 147.32 cm 02 Sat by Pulse Oximetry 2020-04-25 10:59:27 100 /min Body Mass Index 2020-04-25 10:59:27 21.3 Height 2020-04-25 10:59:27 165.1\\S\\65 Pulse Rate 2020-04-25 10:59:27 78 /min Respiratory Rate 2020-04-25 10:59:27 16 /min Temperature 2020-04-25 10:59:27 36.9\\S\\98.4 Weight 2020-04-25 10:59:27 90613.823\\S\\8 Weight Measurement Method 2020-04-25 10:59:27 Estimated by Staff 02 Sat by Pulse Oximetry 2020-04-25 10:49:10 100 /min Body Mass Index 2020-04-25 10:49:10 21.3 Height 2020-04-25 10:49:10 165.1\\S\\65 Pulse Rate 2020-04-25 10:49:10 78 /min Respiratory Rate 2020-04-25 10:49:10 16 /min Temperature 2020-04-25 10:49:10 36.9\\S\\98.4 Weight 2020-04-25 10:49:10 65934.823\\S\\8 Weight Measurement Method 2020-04-25 10:49:10 Estimated by Staff WEIGHT 2020-04-25 10:46:00 58.447650 kg HEIGHT 2020-04-25 10:46:00 165.1 cm Procedures Procedure Date / Time Performed Performing Clinician Source NOTICE OF PRIVACY PRACTICES 2023-04-28 14:56:47 Doctor Unassigned, Mccord [facility] CONSENT/REFUSAL FOR DIAGNOSIS AND TREATMENT 2023-04-28 14:55:06 Doctor Unassigned, Mccord [facility] CBC WITHOUT DIFF 2021-07-03 10:54:00 [facility] 2021-07-03 10:53:00 Larry Mario [facility] BASIC METABOLIC PANEL (NA, K, CL, CO2, GLUCOSE, BUN, CREATININE, CA) 2021-07-03 10:53:00 Keiko Chung [facility] COVID-19 (ID NOW RAPID TESTING) 2021-07-02 22:43:00 Ava Souza [facility] LAB ONLY COVID INTERPRETATION 2021-07-02 22:43:00 Ava Suoza [facility] CBC WITH DIFF 2021-07-02 22:41:00 Ava Souza [facility] CBC WITH DIFF 2021-07-02 11:02:[address] [facility] CBC WITHOUT DIFF 2021-07-01 18:25:[address] [facility] MAGNESIUM 2021-07-01 09:52:00 Colin [facility] BASIC METABOLIC PANEL (NA, K, CL, CO2, GLUCOSE, BUN, CREATININE, CA) 2021-07-01 09:52:00 Colin [facility] CBC WITH DIFF 2021-07-01 09:52:00 Colin [facility] CBC WITHOUT DIFF 2021-07-01 05:03:00 Lizzette Shaw [facility] CT LUMBAR SPINE WO CONTRAST 2021-07-01 01:23:11 [facility] 2021-07-01 01:16[facility]00 [facility] 2021-07-01 00:39:00 Maeve Salmon [facility] BASIC METABOLIC PANEL (NA, K, CL, CO2, GLUCOSE, BUN, CREATININE, CA) 2021-07-01 00:34:00 Maeve Salmon [facility] CBC WITHOUT DIFF 2021-07-01 00:34:00 Maeve Salmon [facility] PROTHROMBIN TIME / INR 2021-07-01 00:34:00 Meera Salmon [facility] ACTIVATED PARTIAL THRMPLAS LALO 2021-07-01 00:34:00 Maeve Salmon [facility] HB ABO GROUPING 2021-06-30 21:20:00 Ady Lawson [facility] CT TRAUMA THORAX W CONTRAST 2021-06-30 21:15:57 Singer Ady [facility] CT TRAUMA ABDOMEN PELVIS W CONTRAST 2021-06-30 21:15:57 Singer [facility] CT TRAUMA CERVICAL SPINE WO CONTRAST 2021-06-30 20:57:01 Singer [facility] CT HEAD WO CONTRAST 2021-06-30 20:31:27 Alirio Lawson [facility] XR CHEST 1 VW 2021-06-30 20:24:37 Singer [facility] COMP. METABOLIC PANEL ([id number]) 2021-06-30 20:13:00 Singer [facility] CBC WITH DIFF 2021-06-30 20:13:00 Singer [facility] NOTICE OF PRIVACY PRACTICES 2021-06-30 15:41:31 Doctor Unassigned, Mccord [facility] CONSENT/REFUSAL FOR DIAGNOSIS AND TREATMENT 2021-06-30 15:41:16 Doctor Unassigned, Mccord [facility] EXTERNAL PROVIDER RECORDS 2021-06-30 05:01:00 Do ctor Unassigned, Mccord [facility] POCT TEST 2020-05-29 21:05:00 Trevor Ybarra [facility] COVID-19 (ID NOW RAPID TESTING) 2020-05-29 21:04:00 Trevor Ybarra [facility] ADC / LCC - DRUG SCREEN TRIAGE 2020-05-29 21:03:00 Trevor Ybarra [facility] TROPONIN I 2020-05-29 21:02:00 Trevor Ybarra [facility] COMP. METABOLIC PANEL ([id number]) 2020-05-29 21:02:00 Trevor Ybarra [facility] SALICYLATE 2020-05-29 21:02:00 Trevor Ybarra [facility] ETHANOL 2020-05-29 21:02:00 Trevor Ybarra [facility] CBC WITH DIFF 2020-05-29 21:02:00 Trevor Ybarra [facility] PROTHROMBIN TIME / INR 2020-05-29 21:02:00 Pushpa Ybarra [facility] ACTIVATED PARTIAL THRMPLAS LALO 2020-05-29 21:02:00 Trevor Ybarra [facility] N-TERMINAL PRO-BNP 2020-05-29 21:02:00 Trevor Ybarra [facility] XR CHEST 1 VW 2020-05-29 20:33:45 Trevor Ybarra [facility] HB ECG ROUTINE & RHYTHM STRIP 2020-05-29 20:23:30 Trevor Ybarra [facility] Encounters Start Date/Time End Date/Time Encounter Type Admission Type Attending Clinicians Care Facility Care Department Encounter ID Source 2022-05-16 08:52:45 Outpatient [facility] [id number] [facility] 2022-05-15 08:45:04 Outpatient [facility] [id number] [facility] 2021-07-02 16:18:57 Outpatient [facility] [id number] [facility] 2021-06-29 23:57:24 Outpatient [facility] [id number] [facility] 2020-04-25 10:43:00 Inpatient [facility] [id number] 31 [facility] 2023-04-28 09:06:00 2023-04-28 10:33:00 Emergency X Rodrigo KNUTSON [facility] ERT [id number] [facility] 2023-04-28 09:06:00 2023-04-28 10:33:00 Emergency Rodrigo Knutson [facility] [id number] [facility] 2022-05-15 08:55:00 2022-08-25 10:50:00 Outpatient ALEJANDRO ALFONSO [facility] [id number] [facility] 2021-07-04 00:00:00 2021-07-04 00:00:00 Transition of Care Marilee De La Garza [id number] [facility] 2021-06-30 19:27:00 2021-07-03 13:17:00 Hospital Encounter Castro Sheriff [facility] [id number] [facility] 2021-06-30 10:51:00 2021-06-30 18:47:00 Emergency X ADY [facility] ERT [id number] [facility] 2021-06-30 10:51:00 2021-06-30 18:47:00 Emergency X ADY [facility] ERT [id number] [facility] 2021-06-30 10:51:00 2021-06-30 18:47:00 Emergency Ady [place] [id number] [facility] 2021-06-30 00:00:00 2021-06-30 00:00:00 Orders Only Doctor Unassigned, Mccord [facility] [id number] [facility] 2020-05-29 15:28:00 2020-05-29 18:00:00 Emergency Trevor Ybarra [facility] [id number] [facility] 2020-05-29 15:28:00 2020-05-29 15:28:00 Emergency X TREVOR YBARRA [facility] ERT [id number] [facility] 2020-04-25 10:43:00 2020-04-25 10:43:00 Emergency [facility] [id number] 31 [facility] 2019-06-05 12:44:20 2019-06-05 23:59:00 Hospital Encounter Sw[facility] Vo [facility] [id number] [facility] 2019-06-04 15:28:00 2019-06-04 15:28:00 Emergency [facility] [id number] [facility] [place] 2019-06-04 15:28:00 2019-06-04 15:28:00 Emergency [facility] [id number] [facility] [place] Results Test Description Test Time Test Comments Results Result Co mments [facility] (NA, K, CL, CO2, GLUCOSE, BUN, CREATININE, CA)2021-07-03 11:58:01* Test Item Value Reference Range Interpretation Comme nts NA (test code = 0867941729) 137 mmol/L 135-145 K (test code = 4805048075) 4.1 mmol/L 3.5-5.0 CL (test code = 8383170535) 106 mmol/L 98-108 CO2 TOTAL (test code = 5148391947) 31 mmol/L 23-31 AGAP (test code = 2676574494) <1 2-16 L BUN (test code = 2498959948) 13 mg/dL 7-23 GLUCOSE (test code = 1298456570) 104 mg/dL 70-110 CREATININE (test code = 9801798930) 0.61 mg/dL 0.50-1.04 CALCIUM (test code = 2597416262) 8.0 mg/dL 8.6-10.6 L eGFR (test code = 5192554687) mL/min/1.73m2 GABE (test code = GABE) Association of Glomerular Filtration Rate (GFR) and Staging of Kidney Disease* + --+ --+ ------+| GFR (mL/min/1.73 m2) ?| With Kidney Damage ?| ?Without Kidney Damage+ --------+ --------+ +| ?>90 ?| ?Stage one ?| ? Normal ?+ ---+ ---+ -------+| ?60-89 ?| ?Stage two ?| ? Decreased GFR ? + --+ --+ ------+| ?30-59 ?| ?Stage three ?| ? Stage three ? + --+ --+ ------+| ?15-29 ?| ?Stage four ? | ? Stage four ?+ ---+ ---+ -------+| ?<15 (or dialysis) ? ?| ?Stage five ? | ? Stage five ?+ ---+ ---+ -------+ *Each stage assumes the associated GFR level [...] or urine or abnormalities in imaging tests). Lab Interpretation (test code = 19362-7) Abnormal [facility] WITHOUT [id number] 11:26:00* Test Item Value Reference Range Interpretation Comme nts WBC (test code = 6690-2) See_Comment L [Automated message] The system which generated this result transmitted reference range: 4.30 - 11.10 10*3/?L. The reference range was not used to interpret this result as normal/abnormal. RBC (test code = 789-8) See_Comment L [Automated message] The system which generated this result transmitted reference range: 3.93 - 5.25 10*6/?L. The reference range was not used to interpret this result as normal/abnormal. HGB (test code = 718-7) 7.1 g/dL 11.6-15.0 L HCT (test code = 4544-3) 23.9 % 35.7-45.2 L MCH (test code = 785-6) 20.7 pg 25.9-32.8 L MCV (test code = 787-2) 69.7 fL 80.6-95.5 L MCHC (test code = 786-4) 29.7 g/dL 31.6-35.1 L PLT (test code = 777-3) See_Comment [Automated message] The system which generated this result transmitted reference range: 166 - 358 10*3/?L. The reference range was not used to interpret this result as normal/abnormal. MPV (test code = 13375-5) 10.1 fL 9.5-12.9 RDW-CV (test code = 788-0) 22.5 % 12.0-15.5 H RDW-SD (test code = 43245-5) 53.3 fL 39.0-49.9 H NRBC x10^3 (test code = 6270077478) <0.01 See_Comment [Automated messa ge] The system which generated this result transmitted reference range: 10*3/?L. The reference range was not used to interpret this result as normal/abnormal. NRBC/100 WBC (test code = 9750430542) See_Comment [Automated messa ge] The system which generated this result transmitted reference range: 0.0 - 10.0 /100 WBCs. The reference range was not used to interpret this result as normal/abnormal. IPF % (test code = 8843488512) Lab Interpretation (test code = 37509-6) Abnormal [facility] WITH [id number] 22:54:19* Test Item Value Reference Range Interpretation Comme nts WBC (test code = 6690-2) See_Comment L [Automated messa ge] The system which generated this result transmitted reference range: 4.30 - 11.10 10*3/?L. The reference range was not used to interpret this result as normal/abnormal. RBC (test code = 789-8) See_Comment L [Automated messa ge] The system which generated this result transmitted reference range: 3.93 - 5.25 10*6/?L. The reference range was not used to interpret this result as normal/abnormal. HGB (test code = 718-7) 7.1 g/dL 11.6-15.0 L HCT (test code = 4544-3) 23.9 % 35.7-45.2 L MCV (test code = 787-2) 70.7 fL 80.6-95.5 L MCH (test code = 785-6) 21.0 pg 25.9-32.8 L MCHC (test code = 786-4) 29.7 g/dL 31.6-35.1 L RDW-SD (test code = 28033-1) 53.8 fL 39.0-49.9 H RDW-CV (test code = 788-0) 22.4 % 12.0-15.5 H PLT (test code = 777-3) See_Comment [Automated Aubreya ge] The system which generated this result transmitted reference range: 166 - 358 10*3/?L. The reference range was not used to interpret this result as normal/abnormal. MPV (test code = 73655-8) 10.5 fL 9.5-12.9 NRBC/100 WBC (test code = 6359266678) See_Comment [Automated [employer] ssage] The system which generated this result transmitted reference range: 0.0 - 10.0 /100 WBCs. The reference range was not used to interpret this result as normal/abnormal. NRBC x10^3 (test code = 6066523354) <0.01 See_Comment [Automated Aubreya ge] The system which generated this result transmitted reference range: 10*3/?L. The reference range was not used to interpret this result as normal/abnormal. GRAN MAT (NEUT) % (test code = 770-8) 66.6 % IMM GRAN % (test code = 2047357012) 0.20 % LYMPH % (test code = 736-9) 21.9 % MONO % (test code = 5905-5) 8.0 % EOS % (test code = 713-8) 3.1 % BASO % (test code = 706-2) 0.2 % GRAN MAT x10^3(ANC) (test code = 6179060823) 2.83 10*3/uL 1.88-7.09 IMM GRAN x10^3 (test code = 5967617710) <0.03 0.00-0.06 LYMPH x10^3 (test code = 731-0) 0.93 10*3/uL 1.32-3.29 L MONO x10^3 (test code = 742-7) 0.34 10*3/uL 0.33-0.92 EOS x10^3 (test code = 711-2) 0.13 10*3/uL 0.03-0.39 BASO x10^3 (test code = 704-7) <0.03 0.01-0.07 Lab Interpretation (test code = 68859-9) Abnormal [facility] with [id number] 11:46:33* Test Item Value Reference Range Interpretation Comme nts WBC (test code = 6690-2) See_Comment [Automated Aubreya ge] The system which generated this result transmitted reference range: 4.30 - 11.10 10*3/?L. The reference range was not used to interpret this result as normal/abnormal. RBC (test code = 789-8) See_Comment L [Automated Aubreya ge] The system which generated this result transmitted reference range: 3.93 - 5.25 10*6/?L. The reference range was not used to interpret this result as normal/abnormal. HGB (test code = 718-7) 8.0 g/dL 11.6-15.0 L HCT (test code = 4544-3) 26.3 % 35.7-45.2 L MCV (test code = 787-2) 69.4 fL 80.6-95.5 L MCH (test code = 785-6) 21.1 pg 25.9-32.8 L MCHC (test code = 786-4) 30.4 g/dL 31.6-35.1 L RDW-SD (test code = 27435-4) 53.2 fL 39.0-49.9 H RDW-CV (test code = 788-0) 22.9 % 12.0-15.5 H PLT (test code = 777-3) See_Comment [Automated Aubreya ge] The system which generated this result transmitted reference range: 166 - 358 10*3/?L. The reference range was not used to interpret this result as normal/abnormal. MPV (test code = 88133-9) 10.2 fL 9.5-12.9 IPF % (test code = 4097227306) 2.6 % 1.3-7.7 Platelet count measured by fluorescence method. NRBC/100 WBC (test code = 0293959115) See_Comment [Automated [employer] ssage] The system which generated this result transmitted reference range: 0.0 - 10.0 /100 WBCs. The reference range was not used to interpret this result as normal/abnormal. NRBC x10^3 (test code = 2913010049) <0.01 See_Comment [Automated messa ge] The system which generated this result transmitted reference range: 10*3/?L. The reference range was not used to interpret this result as normal/abnormal. GRAN MAT (NEUT) % (test code = 770-8) 68.6 % IMM GRAN % (test code = 2440587152) 0.60 % LYMPH % (test code = 736-9) 17.3 % MONO % (test code = 5905-5) 9.4 % EOS % (test code = 713-8) 3.9 % BASO % (test code = 706-2) 0.2 % GRAN MAT x10^3(ANC) (test code = 1476072790) 3.20 10*3/uL 1.88-7.09 IMM GRAN x10^3 (test code = 5945232225) 0.03 10*3/uL 0.00-0.06 LYMPH x10^3 (test code = 731-0) 0.81 10*3/uL 1.32-3.29 L MONO x10^3 (test code = 742-7) 0.44 10*3/uL 0.33-0.92 EOS x10^3 (test code = 711-2) 0.18 10*3/uL 0.03-0.39 BASO x10^3 (test code = 704-7) <0.03 0.01-0.07 Lab Interpretation (test code = 76002-5) Abnormal [facility] WITHOUT [id number] 19:00:33* Test Item Value Reference Range Interpretation Comme nts WBC (test code = 6690-2) See_Comment L [Automated message] The system which generated this result transmitted reference range: 4.30 - 11.10 10*3/?L. The reference range was not used to interpret this result as normal/abnormal. RBC (test code = 789-8) See_Comment L [Automated message] The system which generated this result transmitted reference range: 3.93 - 5.25 10*6/?L. The reference range was not used to interpret this result as normal/abnormal. HGB (test code = 718-7) 7.9 g/dL 11.6-15.0 L HCT (test code = 4544-3) 26.6 % 35.7-45.2 L MCH (test code = 785-6) 21.0 pg 25.9-32.8 L MCV (test code = 787-2) 70.6 fL 80.6-95.5 L MCHC (test code = 786-4) 29.7 g/dL 31.6-35.1 L PLT (test code = 777-3) See_Comment [Automated message] The system which generated this result transmitted reference range: 166 - 358 10*3/?L. The reference range was not used to interpret this result as normal/abnormal. MPV (test code = 11041-4) 10.4 fL 9.5-12.9 RDW-CV (test code = 788-0) 22.7 % 12.0-15.5 H RDW-SD (test code = 50086-2) 54.9 fL 39.0-49.9 H NRBC x10^3 (test code = 3487775488) <0.01 See_Comment [Automated messa ge] The system which generated this result transmitted reference range: 10*3/?L. The reference range was not used to interpret this result as normal/abnormal. NRBC/100 WBC (test code = 8443682503) See_Comment [Automated messa ge] The system which generated this result transmitted reference range: 0.0 - 10.0 /100 WBCs. The reference range was not used to interpret this result as normal/abnormal. IPF % (test code = 8901976698) Lab Interpretation (test code = 21866-4) Abnormal [facility] with Xfqgslwbvwbz7291-66-72 11:10:21* Test Item Value Reference Range Interpretation Comme nts WBC (test code = 6690-2) See_Comment L [Automated messa ge] The system which generated this result transmitted reference range: 4.30 - 11.10 10*3/?L. The reference range was not used to interpret this result as normal/abnormal. RBC (test code = 789-8) See_Comment L [Automated messa ge] The system which generated this result transmitted reference range: 3.93 - 5.25 10*6/?L. The reference range was not used to interpret this result as normal/abnormal. HGB (test code = 718-7) 7.2 g/dL 11.6-15.0 L HCT (test code = 4544-3) 25.0 % 35.7-45.2 L MCV (test code = 787-2) 71.2 fL 80.6-95.5 L MCH (test code = 785-6) 20.5 pg 25.9-32.8 L MCHC (test code = 786-4) 28.8 g/dL 31.6-35.1 L RDW-SD (test code = 28123-7) 54.0 fL 39.0-49.9 H RDW-CV (test code = 788-0) 22.7 % 12.0-15.5 H PLT (test code = 777-3) See_Comment [Automated Aubreya [employer]] The system which generated this result transmitted reference range: 166 - 358 10*3/?L. The reference range was not used to interpret this result as normal/abnormal. MPV (test code = 46805-7) 9.8 fL 9.5-12.9 NRBC/100 WBC (test code = 9512179508) See_Comment [Automated [employer] ssage] The system which generated this result transmitted reference range: 0.0 - 10.0 /100 WBCs. The reference range was not used to interpret this result as normal/abnormal. NRBC x10^3 (test code = 0485936476) <0.01 See_Comment [Automated Aubreya [employer]] The system which generated this result transmitted reference range: 10*3/?L. The reference range was not used to interpret this result as normal/abnormal. GRAN MAT (NEUT) % (test code = 770-8) 56.7 % IMM GRAN % (test code = 8001954406) 0.30 % LYMPH % (test code = 736-9) 32.2 % MONO % (test code = 5905-5) 7.6 % EOS % (test code = 713-8) 2.9 % BASO % (test code = 706-2) 0.3 % GRAN MAT x10^3(ANC) (test code = 6417426827) 1.94 10*3/uL 1.88-7.09 IMM GRAN x10^3 (test code = 1057493386) <0.03 0.00-0.06 LYMPH x10^3 (test code = 731-0) 1.10 10*3/uL 1.32-3.29 L MONO x10^3 (test code = 742-7) 0.26 10*3/uL 0.33-0.92 L EOS x10^3 (test code = 711-2) 0.10 10*3/uL 0.03-0.39 BASO x10^3 (test code = 704-7) <0.03 0.01-0.07 Lab Interpretation (test code = 45614-0) Abnormal [facility] METABOLIC PANEL (NA, K, CL, CO2, GLUCOSE, BUN, CREATININE, CA)2021-07-01 10:43:36* Test Item Value Reference Range Interpretation Comme nts NA (test code = 2287746574) 140 mmol/L 135-145 K (test code = 7676424759) 3.5 mmol/L 3.5-5.0 CL (test code = 6822157525) 109 mmol/L 98-108 H CO2 TOTAL (test code = 9551537179) 29 mmol/L 23-31 AGAP (test code = 1104139735) 2-16 BUN (test code = 6180238440) 5 mg/dL 7-23 L GLUCOSE (test code = 4210558211) 86 mg/dL 70-110 CREATININE (test code = 3657106305) 0.54 mg/dL 0.50-1.04 CALCIUM (test code = 3333203332) 7.8 mg/dL 8.6-10.6 L eGFR (test code = 5125272279) mL/min/1.73m2 GABE (test code = GABE) Association of Glomerular Filtration Rate (GFR) and Staging of Kidney Disease* + --+ --+ ------+| GFR (mL/min/1.73 m2) ?| With Kidney Damage ?| ?Without Kidney Damage+ --------+ --------+ +| ?>90 ?| ?Stage one ?| ? Normal ?+ ---+ ---+ -------+| ?60-89 ?| ?Stage two ?| ? Decreased GFR ? + --+ --+ ------+| ?30-59 ?| ?Stage three ?| ? Stage three ? + --+ --+ ------+| ?15-29 ?| ?Stage four ? | ? Stage four ?+ ---+ ---+ -------+| ?<15 (or dialysis) ? ?| ?Stage five ? | ? Stage five ?+ ---+ ---+ -------+ *Each stage assumes the associated GFR level [...] or urine or abnormalities in imaging tests). Lab Interpretation (test code = 97446-7) [facility] 10:43:36* Test Item Value Reference Range Interpretation Comme nts MAGNESIUM (test code = 7569441648) 1.6 mg/dL 1.7-2.4 L Lab Interpretation (test cod e = 31392-7) Abnormal [facility] WITHOUT [id number] 05:52:30* Test Item Value Reference Range Interpretation Comme nts WBC (test code = 6690-2) See_Comment L [Automated message] The system which generated this result transmitted reference range: 4.30 - 11.10 10*3/?L. The reference range was not used to interpret this result as normal/abnormal. RBC (test code = 789-8) See_Comment L [Automated message] The system which generated this result transmitted reference range: 3.93 - 5.25 10*6/?L. The reference range was not used to interpret this result as normal/abnormal. HGB (test code = 718-7) 7.3 g/dL 11.6-15.0 L HCT (test code = 4544-3) 25.4 % 35.7-45.2 L MCH (test code = 785-6) 20.6 pg 25.9-32.8 L MCV (test code = 787-2) 71.5 fL 80.6-95.5 L MCHC (test code = 786-4) 28.7 g/dL 31.6-35.1 L PLT (test code = 777-3) See_Comment [Automated message] The system which generated this result transmitted reference range: 166 - 358 10*3/?L. The reference range was not used to interpret this result as normal/abnormal. MPV (test code = 23611-3) 9.8 fL 9.5-12.9 RDW-CV (test code = 788-0) 22.7 % 12.0-15.5 H RDW-SD (test code = 58021-4) 53.1 fL 39.0-49.9 H NRBC x10^3 (test code = 7573520558) <0.01 See_Comment [Automated messa ge] The system which generated this result transmitted reference range: 10*3/?L. The reference range was not used to interpret this result as normal/abnormal. NRBC/100 WBC (test code = 8833290583) See_Comment [Automated messa ge] The system which generated this result transmitted reference range: 0.0 - 10.0 /100 WBCs. The reference range was not used to interpret this result as normal/abnormal. IPF % (test code = 1685091269) Lab Interpretation (test code = 52656-5) [facility] - The Type and Screen expires at midnight on the 3rd day after it was drawn. A current Type and Screen is required when RBCs are requested. For all other blood products, a Type and Scr een performed during the current hospitalizati...2021-07-01 01:36:19* Test Item Value Reference Range Interpretation Comme nts ABO & RH (test code = 20) B POSITIVE Performed at [facility] Laboratory Services - [facility] Blood [place] [id number] Free: [phone] No. [id number] IAT (test code = 1185) Negative Performed at [facility] Laboratory Services [facility] Blood [place] [address]Toll Free: [phone] No. [id number] [facility] Met[facility] Panel (NA, K, CL, CO2, GLUCOSE, BUN, CREATININE, CA)2021-07-01 01:09:19* Test Item Value Reference Range Interpretation Comme nts NA (test code = 1784238686) 140 mmol/L 135-145 K (test code = 7459250631) 3.5 mmol/L 3.5-5.0 CL (test code = 8744989422) 107 mmol/L 98-108 CO2 TOTAL (test code = 0287453543) 27 mmol/L 23-31 AGAP (test code = 2555692163) 2-16 BUN (test code = 1265987254) 9 mg/dL 7-23 GLUCOSE (test code = 4136684406) 108 mg/dL 70-110 CREATININE (test code = 4054814158) 0.57 mg/dL 0.50-1.04 CALCIUM (test code = 6921866668) 8.3 mg/dL 8.6-10.6 L eGFR (test code = 9307513164) mL/min/1.73m2 GABE (test code = GABE) Association of Glomerular Filtration Rate (GFR) and Staging of Kidney Disease* + --+ --+ ------+| GFR (mL/min/1.73 m2) ?| With Kidney Damage ?| ?Without Kidney Damage+ --------+ --------+ +| ?>90 ?| ?Stage one ?| ? Normal ?+ ---+ ---+ -------+| ?60-89 ?| ?Stage two ?| ? Decreased GFR ? + --+ --+ ------+| ?30-59 ?| ?Stage three ?| ? Stage three ? + --+ --+ ------+| ?15-29 ?| ?Stage four ? | ? Stage four ?+ ---+ ---+ -------+| ?<15 (or dialysis) ? ?| ?Stage five ? | ? Stage five ?+ ---+ ---+ -------+ *Each stage assumes the associated GFR level [...] or urine or abnormalities in imaging tests). Lab Interpretation (test code = 09473-5) Abnormal [facility] CenterProth[facility]bin Time / [id number] 00:54:43* Test Item Value Reference Range Interpretation Comme [facility] PROTIME PATIENT (test code = 5964-2) See_Comment H [Automated Aubrey[employer]] The system which generated this result transmitted reference range: 10.1 - 12.6 Seconds. The reference range was not used to interpret this result as normal/abnormal. INR (test code = 6301-6) Normal INR <1.1; Warfarin Therapeutic range 2.0 to 3.0 or 2.5 to 3.5, depending upon the indications. Lab Interpretation (test code = 91788-5) [facility]normal [facility] 00:54:43* Test Item Value Reference Range Interpretation Comme [facility] APTT Patient (test code = 3173-2) See_Comment [Automated Aubrey[employer]] The system which generated this result transmitted reference range: 26 - 36 Seconds. The reference range was not used to interpret this result as normal/abnormal. Lab Interpretation (test code = 05941-3) Normal [facility] Center[facility] / [id number] 00:51:17* Test Item Value Reference Range Interpretation Comme [facility] WBC (test code = 6690-2) See_Comment L [Automated message] The system which generated this result transmitted reference range: 4.30 - 11.10 10*3/?L. The reference range was not used to interpret this result as normal/abnormal. RBC (test code = 789-8) See_Comment L [Automated message] The system which generated this result transmitted reference range: 3.93 - 5.25 10*6/?L. The reference range was not used to interpret this result as normal/abnormal. HGB (test code = 718-7) 7.0 g/dL 11.6-15.0 L HCT (test code = 4544-3) 23.5 % 35.7-45.2 L MCH (test code = 785-6) 21.0 pg 25.9-32.8 L MCV (test code = 787-2) 70.4 fL 80.6-95.5 L MCHC (test code = 786-4) 29.8 g/dL 31.6-35.1 L PLT (test code = 777-3) See_Comment [Automated message] The system which generated this result transmitted reference range: 166 - 358 10*3/?L. The reference range was not used to interpret this result as normal/abnormal. MPV (test code = 26177-7) 9.6 fL 9.5-12.9 RDW-CV (test code = 788-0) 22.6 % 12.0-15.5 H RDW-SD (test code = 17444-1) 53.5 fL 39.0-49.9 H NRBC x10^3 (test code = 5829819070) <0.01 See_Comment [Automated messa ge] The system which generated this result transmitted reference range: 10*3/?L. The reference range was not used to interpret this result as normal/abnormal. NRBC/100 WBC (test code = 0356891191) See_Comment [Automated Aubreya ge] The system which generated this result transmitted reference range: 0.0 - 10.0 /100 WBCs. The reference range was not used to interpret this result as normal/abnormal. IPF % (test code = 6762720823) Lab Interpretation (test code = 95672-9) [facility]normal [facility] CenterType [facility] - ONCE [id number] 22:13:13 * Test Item Value Reference Range Interpretation Comme nts ABO & RH (test code = 20) B Positive Performed at [facility] Laboratory Services - [facility] Blood [address] [place], [place] [address]Toll Free: [phone] No. [id number] IAT (test code = 1185) Negative Performed at [facility] Laboratory Services - [facility] Blood [address] [place], [place] [address]Toll Free: [phone] No. [id number] [facility] CenterCOMP. METABOLIC PANEL (20397)2021-06-30 20:50:04* Test Item Value Reference Range Interpretation Comme nts NA (test code = 0517355886) 138 mmol/L 135-145 K (test code = 4897550834) 4.5 mmol/L 3.5-5.0 CL (test code = 7822400485) 108 mmol/L 98-108 CO2 TOTAL (test code = 1696404873) 23 mmol/L 23-31 AGAP (test code = 2632801199) 2-16 BUN (test code = 2295375985) 11 mg/dL 7-23 GLUCOSE (test code = 3381546325) 92 mg/dL 70-110 CREATININE (test code = 0077208550) 0.53 mg/dL 0.50-1.04 TOTAL BILI (test code = 9732717985) 0.5 mg/dL 0.1-1.1 CALCIUM (test code = 4137920542) 8.4 mg/dL 8.6-10.6 L T PROTEIN (test code = 4504463112) 6.4 g/dL 6.3-8.2 ALBUMIN (test code = 4157990892) 3.5 g/dL 3.5-5.0 ALK PHOS (test code = 4731861016) 52 U/L 34-122 ALTv (test code = 1742-6) 17 U/L 5-35 AST(SGOT) (test code = 6281573012) 39 U/L 13-40 eGFR (test code = 8007192151) mL/min/1.73m2 GABE (test code = GABE) Association of Glomerular Filtration Rate (GFR) and Staging of Kidney Disease* + --+ --+ ------+| GFR (mL/min/1.73 m2) ?| With Kidney Damage ?| ?Without Kidney Damage+ --------+ --------+ +| ?>90 ?| ?Stage one ?| ? Normal ?+ ---+ ---+ -------+| ?60-89 ?| ?Stage two ?| ? Decreased GFR ? + --+ --+ ------+| ?30-59 ?| ?Stage three ?| ? Stage three ? + --+ --+ ------+| ?15-29 ?| ?Stage four ? | ? Stage four ?+ ---+ ---+ -------+| ?<15 (or dialysis) ? ?| ?Stage five ? | ? Stage five ?+ ---+ ---+ -------+ *Each stage assumes the associated GFR level [...] or urine or abnormalities in imaging tests). Lab Interpretation (test code = 18288-6) Abnormal [facility] WITH [id number] 20:31:22* Test Item Value Reference Range Interpretation Comme nts WBC (test code = 6690-2) See_Comment [Automated [employer]] The system which generated this result transmitted reference range: 4.30 - 11.10 10*3/?L. The reference range was not used to interpret this result as normal/abnormal. RBC (test code = 789-8) See_Comment L [Automated Aubreya [employer]] The system which generated this result transmitted reference range: 3.93 - 5.25 10*6/?L. The reference range was not used to interpret this result as normal/abnormal. HGB (test code = 718-7) 7.6 g/dL 11.6-15.0 L HCT (test code = 4544-3) 25.4 % 35.7-45.2 L MCV (test code = 787-2) 69.4 fL 80.6-95.5 L MCH (test code = 785-6) 20.8 pg 25.9-32.8 L MCHC (test code = 786-4) 29.9 g/dL 31.6-35.1 L RDW-SD (test code = 19290-9) 53.4 fL 39.0-49.9 H RDW-CV (test code = 788-0) 22.9 % 12.0-15.5 H PLT (test code = 777-3) See_Comment [Automated Aubreya ge] The system which generated this result transmitted reference range: 166 - 358 10*3/?L. The reference range was not used to interpret this result as normal/abnormal. MPV (test code = 17518-0) 10.1 fL 9.5-12.9 NRBC/100 WBC (test code = [id number]) See_Comment [Automated me ssage] The system which generated this result transmitted reference range: 0.0 - 10.0 /100 WBCs. The reference range was not used to interpret this result as normal/abnormal. NRBC x10^3 (test code = [id number]) <0.01 See_Comment [Automated messa ge] The system which generated this result transmitted reference range: 10*3/?L. The reference range was not used to interpret this result as normal/abnormal. GRAN MAT (NEUT) % (test code = 770-8) 64.7 % IMM GRAN % (test code = 2477065560) 0.20 % LYMPH % (test code = 736-9) 25.1 % MONO % (test code = 5905-5) 8.0 % EOS % (test code = 713-8) 1.8 % BASO % (test code = 706-2) 0.2 % GRAN MAT x10^3(ANC) (test code = 4093985246) 2.84 10*3/uL 1.88-7.09 IMM GRAN x10^3 (test code = 8111212890) <0.03 0.00-0.06 LYMPH x10^3 (test code = 731-0) 1.10 10*3/uL 1.32-3.29 L MONO x10^3 (test code = 742-7) 0.35 10*3/uL 0.33-0.92 EOS x10^3 (test code = 711-2) 0.08 10*3/uL 0.03-0.39 BASO x10^3 (test code = 704-7) <0.03 0.01-0.07 Lab Interpretation (test code = 97198-0) [facility]:14:03* Test Item Value Reference Range Interpretation Comme nts ACETAMINOP (test code = 6173446583) <10.0 10.0-30.0 L GABE (test code = GABE) Toxic: Greater ed n 200 ug/mL @ 4 hour post ingestion or greater than 50 ug/mL @ 12 hour post ingestion Lab Interpretation (test code = 34927-0) [facility]normal [facility]ETH[facility]OL[facility] 22:13:53* Test Item Value Reference Range Interpretation Comme nts ALCOHOL (test code = 0722352249) <10 mg/dL GABE (test code = GABE) <10 Jxvwiwnt01-543 Toxic>100 Depression of FAMILY SERVICES WORKER>400 Fatalities Reported [facility]SAL[facility]ATE20[facility] 22:12:51* Test Item Value Reference Range Interpretation Comme nts SALICYLATE (test code = 2705687719) <10 mg/L GABE (test code = GABE) Therapeutic Range: ? Analgesic and Antipyretic Use ? 20-100 mg/L ? ? Anti-Inflammatory Use ? 100-250 mg/L Toxic Range: ? Greater than 300 mg/L [facility] CenterTROP[facility]IN [id number] 22:11:46* Test Item Value Reference Range Interpretation Comme nts TROPONIN I (test code = 7282250649) 0.000 ng/mL See_Comment [Automated message] The system which generated this result transmitted reference range: <=0.034. The reference range was not used to interpret this result as normal/abnormal. GABE (test code = GABE) Equal or Less than 0.034 ng/ml---Normal ?Note: Cardiac troponin begins to [...] patient's use of biotin. ? Lab Interpretation (test code = 07403-4) Normal [facility]. METABOLIC PANEL (58744)2020-05-29 22:00:22* Test Item Value Reference Range Interpretation Comme nts NA (test code = 0109588907) 140 mmol/L 135-145 K (test code = 8191254908) 3.8 mmol/L 3.5-5.0 CL (test code = 9701153925) 103 mmol/L 98-108 CO2 TOTAL (test code = 5288928137) 30 mmol/L 23-31 AGAP (test code = 7646370188) 2-16 BUN (test code = 9360503208) 9 mg/dL 7-23 GLUCOSE (test code = 3055037096) 93 mg/dL 70-110 CREATININE (test code = 0144331110) 0.68 mg/dL 0.50-1.04 TOTAL BILI (test code = 8265232165) 0.3 mg/dL 0.1-1.1 CALCIUM (test code = 4167042281) 9.2 mg/dL 8.6-10.6 T PROTEIN (test code = 8273175921) 7.3 g/dL 6.3-8.2 ALBUMIN (test code = 9317644226) 4.3 g/dL 3.5-5.0 ALK PHOS (test code = 4402129337) 71 U/L 34-122 ALTv (test code = 1742-6) 11 U/L 5-35 AST(SGOT) (test code = 5176874441) 30 U/L 13-40 eGFR Calculation (Non-) (test code = 1607004972) mL/min/1.73m2 eGFR Calculation () (test code = 5878444373) mL/min/1.73m2 GABE (test code = GABE) Association of [...] or urine or abnormalities in imaging tests). [facility] CenterN-TERMINAL TTT-[id number] 21:56:39* Test Item Value Reference Range Interpretation Comme nts NT-proBNP (test code = 0093869771) 38 pg/mL See_Comment [Automated message] The system which generated this result transmitted reference range: <=125. The reference range was not used to interpret this result as normal/abnormal. GABE (test code = GABE) Biotin has been reported to cause a negative bias, interpret results relative to patient's use of biotin. Lab Interpretation (test code = 36644-1) Normal [facility] CenterCOVID-[facility] (ID NOW RAPID TESTING)2020-05-29 21:39:48* Test Item Value Reference Range Interpretation Comme nts SARS-CoV-2 Rapid ID NOW (test code = 37473-8) Not Detected Not Detected GABE (test code = GABE) ID NOW COVID-19 As say is an isothermal nucleic acid amplification test intended for the qualitative detection of nucleic acid from SARS-CoV-2 viral RNA in nasopharyngeal (ENGINE HOUSE HELPER) specimens. It is used under Emergency Use [...] patient testing if clinically indicated. Lab Interpretation (test code = 73616-7) Normal [facility] CenterACTIVATED PARTIAL THRMPLAS [id number] 21:28:06* Test Item Value Reference Range Interpretation Comme [facility] APTT Patient (test code = 3173-2) See_Comment [Automated message] The system which generated this result transmitted reference range: 23 - 38 Seconds. The reference range was not used to interpret this result as normal/abnormal. GABE (test code = GABE) The [facility] patient population mean normal value for aPTT is 30 seconds. Lab Interpretation (test code = 58798-5) Normal [facility] CenterPROTHROMBIN TIME / [id number] 21:26:04* Test Item Value Reference Range Interpretation Comme [facility] PROTIME PATIENT (test code = 5964-2) See_Comment [Automated messa ge] The system which generated this result transmitted reference range: 12.0 - 14.7 Seconds. The reference range was not used to interpret this result as normal/abnormal. INR (test code = 6301-6) Normal INR <1.1; Warfarin Therapeutic range 2.0 to 3.0 or 2.5 to 3.5, depending upon the indications. Lab Interpretation (test code = 42568-0) Normal [facility] CenterADC / [facility] - DRUG SCREEN [id number] 21:25:53* Test Item Value Reference Range Interpretation Comme nts BENZO U (test code = 4423612100) Negative Negative SIGIFREDO U (test code = 4523141828) Negative Negative AMPHET (test code = 0860190498) Negative Negative THC (test code = 5041666579) Negative Negative METHADONE (test code = 7067240261) Negative Negative Meth U (test code = 2730461767) Negative Negative OPIATES (test code = 9732226862) Negative Negative Cocaine Metabolite (test code = 0901703483) Negative Negative PROPOXY (test code = 1735484230) Negative Negative Tric U (test code = 8226307480) Negative Negative PCP (test code = 9912743085) Negative Negative OXYCOD (test code = 0100755286) Negative Negative GABE (test code = GABE) Urine Drug [...] employment testing, legal testing). Lab Interpretation (test code = 04860-1) Normal [facility] WITH [id number] 21:17:01* Test Item Value Reference Range Interpretation Comme nts WBC (test code = 6690-2) See_Comment [Automated Aubreya [employer]] The system which generated this result transmitted reference range: 4.30 - 11.10 10*3/?L. The reference range was not used to interpret this result as normal/abnormal. RBC (test code = 789-8) See_Comment [Automated [employer]rey[employer]] The system which generated this result transmitted reference range: 3.93 - 5.25 10*6/?L. The reference range was not used to interpret this result as normal/abnormal. HGB (test code = 718-7) 9.4 g/dL 11.6-15.0 L HCT (test code = 4544-3) 29.5 % 35.7-45.2 L MCV (test code = 787-2) 72.0 fL 80.6-95.5 L MCH (test code = 785-6) 22.9 pg 25.9-32.8 L MCHC (test code = 786-4) 31.9 g/dL 31.6-35.1 RDW-SD (test code = 90401-9) 37.8 fL 39.0-49.9 L RDW-CV (test code = 788-0) 14.7 % 12.0-15.5 PLT (test code = 777-3) See_Comment [Automated messa ge] The system which generated this result transmitted reference range: 166 - 358 10*3/?L. The reference range was not used to interpret this result as normal/abnormal. MPV (test code = 77408-4) 10.2 fL 9.5-12.9 NRBC/100 WBC (test code = 5704205948) See_Comment [Automated [employer] ssage] The system which generated this result transmitted reference range: 0.0 - 10.0 /100 WBCs. The reference range was not used to interpret this result as normal/abnormal. NRBC x10^3 (test code = 0788038682) <0.01 See_Comment [Automated Aubreya ge] The system which generated this result transmitted reference range: 10*3/?L. The reference range was not used to interpret this result as normal/abnormal. GRAN MAT (NEUT) % (test code = 770-8) 63.9 % IMM GRAN % (test code = 4462280228) 0.20 % LYMPH % (test code = 736-9) 26.7 % MONO % (test code = 5905-5) 6.6 % EOS % (test code = 713-8) 2.1 % BASO % (test code = 706-2) 0.5 % GRAN MAT x10^3(ANC) (test code = 7249034090) 2.81 10*3/uL 1.88-7.09 IMM GRAN x10^3 (test code = 3936656258) <0.03 0.00-0.06 LYMPH x10^3 (test code = 731-0) 1.17 10*3/uL 1.32-3.29 L MONO x10^3 (test code = 742-7) 0.29 10*3/uL 0.33-0.92 L EOS x10^3 (test code = 711-2) 0.09 10*3/uL 0.03-0.39 BASO x10^3 (test code = 704-7) <0.03 0.01-0.07 Lab Interpretation (test code = 01926-0) [facility]normal [facility] CenterPOCT [id number] 21:05:00* Test Item Value Reference Range Interpretation Comme nts POCT PREG (test code = 1605) negative On board controls acceptable with C Line (test code = 3574) present POCT PREG LOT # (test code = 3575) [id number] POCT PREG TEST DATE ( test code = 3576) 01/28/22 Lab Interpretation (test cod e = 82955-8) Normal [facility] CenterXR CHEST 1 [id number] 20:35:59HISTORY: Chest pain. TECHNIQUE: Portable AP view of the chest is obtained. Comparison made with08/05/2018 study. FINDINGS: Groundglass hazy congestion noted involving both lungs, slightlymore in the right upper lobe and retrocardiac left lower lung. Some of theincreased markings are secondary to poorinspiratory effort by the patient.Cardiac size is normal and enlarged, however, this could be due to poorrespiratory effort by the patient. No pneumothorax or pleural effusion. CONCLUSIONS: Mild bilateral pulmonary congestion. Findings are nonspecificand of uncertain etiology but could be viral infection. Please correlate.[facility], Radiant Results Inft User - 05/29/2020 3:37 PM CDTHISTORY: Chest pain.TECHNIQUE: Portable AP view of the chest is obtained. Comparison made with08/05/2018 study.FINDINGS: Groundglass hazy congestion noted involving both lungs, slightlymore in the right upper lobe and retrocardiac left lower lung. Some of theincreased markings are secondary to poor inspiratory effort bythe patient.Cardiac size is normal and enlarged, however, this could be due to poorrespiratory effort by the patient.No pneumothorax or pleural effusion.CONCLUSIONS: Mild bilateral pulmonary congestion. Findings are nonspecificand of uncertain etiology but could be viral infection. Please correlate.[facility] CenterSars-CoV-2/FLU A/B RSV [id number] 11:39:00* Test Item Value Reference Range Interpretation Comme nts Sars-CoV-2/FLU A/B RSV PCR (test code = SARSFLURSVPCR) For use under Emergency Use Authorization (EUA) only. Sars-CoV-2/FLU A/B RSV PCR (test code = SARSFLURSVPCR1.1) Reference Range: Negative Influenza A PCR: (test code = Influenza A PCR:) Negative by Nucleic Acid Amplification Influenza B PCR: (test code = Influenza B PCR:) Negative by Nucleic Acid Amplification RSV PCR Result: (test code = RSV PCR Result:) Negative by Nucleic Acid Amplification SARS-CoV-2 PCR Result: (test code = SARS-CoV-2 PCR Result:) Negative by PCR Complete Blood Count Auto [id number] 11:35:00* Test Item Value Reference Range Interpretation Comme nts White Blood Count (test code = WBCT) 5.2 x10 3/uL 4.4-10.5 N Red Blood Count (test code = RBC) 4.30 x10 6/uL 3.75-5.20 N Hemoglobin (test code = HGBT) 10.0 g/dL 12.2-14.8 L Hematocrit (test code = HCTT) 33.1 % 36.5-44.4 L Mean Corpuscular Volume (lyly t code = MCV) 77.00 fL 80.00-100.00 L Mean Corpuscular Hemoglobin (test code = MCH) 23.3 pg 27.0-32.5 L Mean Corpuscular HGB Conc (test code = MCHC) 30.20 g/dL 32.00-37.50 L RDW Coefficient of Variation (test code = RDWCV) 14.8 % 11.5-14.5 H Platelet Count (test code = PLTT) 248.0 x10 3/uL 140.0-440.0 N Mean Platelet Volume (test code = MPV) 10.2 fL Immature Granulocytes % (Aut o) (test code = IMMGRAN%) 0.2 % 0.0-5.0 N Neutrophils % (Auto) (test code = NE%) 51.4 % 36.0-70.0 N Lymphocytes % (Auto) (test code = LY%) 37.2 % 12.0-44.0 N Monocytes % (Auto) (test cod e = MO%) 8.7 % 0.0-11.0 N Eosinophils % (Auto) (test code = EO%) 2.1 % 0.0-7.0 N Basophils % (Auto) (test cod e = BA%) 0.4 % 0.0-2.0 N Immature Granulocytes # (Aut o) (test code = IMMGRAN#) 0.01 x10 3/uL Neutrophils # (Auto) (test code = NE#) 2.7 x10 3/uL 1.6-7.4 N Lymphocytes # (Auto) (test code = LY#) 1.92 x10 3/uL 0.50-4.60 N Monocytes # (Auto) (test cod e = MO#) 0.45 x10 3/uL 0.00-1.20 N Eosinophils # (Auto) (test code = EO#) 0.11 x10 3/uL 0.00-0.74 N Basophils # (Auto) (test cod e = BA#) 0.02 x10 3/uL 0.00-0.21 N nRBC Abs (test code = NRBCA) 0 nRBC Pct (test code = NRBCP) 0 % Comprehensive Metabolic [id number] 11:35:00* Test Item Value Reference Range Interpretation Comme nts SODIUM (test code = NA) 145.0 mmol/L 136.0-145.0 N Potassium,K (test code = K) 3.4 mmol/L 3.0-5.1 N Chloride (test code = CL) 112 mmol/L 98-107 H Carbon Dioxide (test code = CO2) 26 mmol/L 20-31 N Anion Gap (test code = GAP) 7 mmol/L 5-15 N Blood Urea Nitrogen (test code = BUN) 13 mg/dL 9-23 N Creatinine (test code = CREATT) 0.65 mg/dL 0.55-1.02 N Creatinine Clr Calc Pharmacy (test code = CRCLPHA) mL/min CRCL Not calculated, Ht < 5ft Estimated GFR ( Paula (test code = EGFRAA) > 60 mL/min/1.73m2 Estimated GFR (Non Afr Paula (test code = EGFRNAA) > 60 mL/min/1.73m2 BUN/Creatinine Ratio (test code = BCRATIO) 20 ratio 10-20 N Glucose (test code = GLU) 126 mg/dL 74-106 H Osmolality,Calculated (test code = OSMOC) 301.6 Calcium (test code = CA) 9.7 mg/dL 8.3-10.6 N Bilirubin,Total (test code = BILIT) 0.2 mg/dL 0.2-1.1 N Aspartate Amino Transferase (test code = AST) 18 U/L 0-34 N Alanine Aminotransferase (test code = ALT) 12 U/L 10-49 N Total Protein (test code = TP) 6.4 g/dL 5.7-8.2 N Albumin Level (test code = ALB) 4.2 g/dL 3.2-4.8 N Globulin (test code = GLOB) 2.2 mg/dL 2.3-3.5 L Albumin/Globulin Ratio (test code = AGRATIO) 1.9 ratio 0.8-2.0 N Alkaline Phosphatase (test code = ALP) 72 U/L 46-116 N RPR [id number] 12:23:19* Test Item Value Reference Range Interpretation Comme nts RPR Qual (test code = RPR Qual) Non-Reactive Non-Reactive Reactive Control (test code = Reactive Control) Reactive Weak Reactive Control (test code = Weak Reactive Control) Weak Reactive Non-Reactive Control (test c ode = Non-Reactive Control) Non-Reactive Lot # (test code = Lot #) [id number] N Expiration Dt (test code = Expiration Dt) 02-29-20 N Thyroid Stimulating [id number] 04:43:39* Test Item Value Reference Range Interpretation Comme nts TSH (test code = TSH) 0.488 mIU/mL 0.270-4.200 Lipid [id number] 04:37:33* Test Item Value Reference Range Interpretation Comme nts Cholesterol Total (test code = Cholesterol Total) 120 mg/dL 0-200 RISK OF HEART DISEASEPublished by [place] Heart Association Analyte Optimal Borderline Increased RiskCHOL <200 200-239 >240TRIG <150 150-199 >200HDL Male >60 <40HDL Female >60 <50LDL <100 130-159 >160LDL Near optimal is 100-129 Triglycerides (test code = Triglycerides) 57 mg/dL 9-200 HDL (test code = HDL) 55 mg/dL 50-60 LDL (test code = LDL) 54 mg/dL 0-130 The equation being used in this calculation is LDL = (Chol - HDL) - (Trig / 5) VLDL (test code = VLDL) 11 mg/dL 5-40 The equation jeffrey ng used in this calculation is VLDL = Trig / 5 Chol/HDL (test code = Chol/HDL) 2.2 ratio 0.0-4.4 LDL/HDL Ratio (test code = LDL/HDL Ratio) 1 N The equati on being used in this calculation is LDL/HDL Ratio=LDL Calc/HDL Chol [id number] 17:30:21* Test Item Value Reference Range Interpretation Comme nts RBC Morph (test code = RBC Morph) As Indicated Normal A Anisocyte (test code = Anisocyte) 1+ None Hypochromia (test code = Hypochromia) None Seen None Seen Microcyte (test code = Microcyte) 1+ None Seen Macrocyte (test code = Macrocyte) None Seen None Seen Poik (test code = Poik) None Seen None Seen Polychrom (test code = Polychrom) 1+ None Seen Acanthocyte (test code = Acanthocyte) None Seen None Seen Baso Stippling RBC (test cod e = Baso Stippling RBC) None Seen None Seen Plt Estimation (test code = Plt Estimation) Normal Normal Comprehensive Metabolic [id number] 16:33:31* Test Item Value Reference Range Interpretation Comme nts Sodium Level (test code = So dium Level) 143.0 mmol/L 135.0-145.0 Potassium Level (test code = Potassium Level) 3.9 mmol/L 3.5-5.1 Chloride Level (test code = Chloride Level) 104 mmol/L 98-105 CO2 (test code = CO2) 21 mmol/L 22-29 L Anion Gap (test code = Anion Gap) 18 mmol/L 7-16 H BUN (test code = BUN) 13.60 mg/dL 6.00-20.00 Creatinine Level (test code = Creatinine Level) 0.80 mg/dL 0.50-0.90 BUN/Creat Ratio (test code = BUN/Creat Ratio) 17 N Glucose Level (test code = Glucose Level) 83 mg/dL 70-115 Calcium Level (test code = Calcium Level) 9.4 mg/dL 8.3-10.5 Alk Phos (test code = Alk Phos) 88 U/L 35-104 Bilirubin Total (test code = Bilirubin Total) 0.5 mg/dL 0.1-0.9 Albumin Level (test code = Albumin Level) 4.7 g/dL 3.5-5.2 Protein Total (test code = Protein Total) 7.7 g/dL 6.4-8.3 ALT (test code = ALT) 26 U/L 1-33 AST (test code = AST) 52 U/L 1-32 H Globulin (test code = Globulin) 3.0 g/dL 2.9-3.1 A/G Ratio (test code = A/G Ratio) 1.6 ratio N Alcohol [id number] 16:33:31* Test Item Value Reference Range Interpretation Comme nts Ethanol Level (test code = Ethanol Level) <0.00 g/dL 0.00-0.01 Intoxicated 0.08 0 g/dL or more Ethanol Inst (test code = Ethanol Inst) <0 N Comprehensive Metabolic [id number] 16:33:31* Test Item Value Reference Range Interpretation Comme nts Sodium Level (test code = Sodium Level) 143.0 mmol/L 135.0-145.0 Potassium Level (test code = Potassium Level) 3.9 mmol/L 3.5-5.1 Chloride Level (test code = Chloride Level) 104 mmol/L 98-105 CO2 (test code = CO2) 21 mmol/L 22-29 L Anion Gap (test code = Anion Gap) 18 mmol/L 7-16 H BUN (test code = BUN) 13.60 mg/dL 6.00-20.00 Creatinine Level (test code = Creatinine Level) 0.80 mg/dL 0.50-0.90 BUN/Creat Ratio (test code = BUN/Creat Ratio) 17 N Glucose Level (test code = Glucose Level) 83 mg/dL 70-115 Calcium Level (test code = Calcium Level) 9.4 mg/dL 8.3-10.5 Alk Phos (test code = Alk Phos) 88 U/L 35-104 Bilirubin Total (test code = Bilirubin Total) 0.5 mg/dL 0.1-0.9 Albumin Level (test code = Albumin Level) 4.7 g/dL 3.5-5.2 Protein Total (test code = Protein Total) 7.7 g/dL 6.4-8.3 ALT (test code = ALT) 26 U/L 1-33 AST (test code = AST) 52 U/L 1-32 H Globulin (test code = Globulin) 3.0 g/dL 2.9-3.1 A/G Ratio (test code = A/G Ratio) 1.6 ratio N eGFR AA (test code = eGFR AA) >60 mL/min/1.73 m2 N eGFR (estimated Glomerular Filtration Rate) is an estimated value, calculated from the patient's serum creatinine using the MDRD equation. It is NOT the patient's actual GFR. The eGFR provides a more clinically useful measure of kidney disease than serum creatinine alone.This calculation takes sex and race into account, if the information is provided. If the race is not provided, and the patient is -[place], multiply by 1.212. If sex is not provided, and the patient is female, multiply by 0.742. Results for patients <18 years of age have not been validated by the MDRD study and should be interpreted with caution. eGFR Result Interpretation:eGFR > or = 60 is in the Normal RangeeGFR < 60 may mean kidney diseaseeGFR < 15 may mean kidney failure Ranges recommended by the National Kidney Foundation, http://nkdep.nih.gov Comprehensive Metabolic Agrvu6245-64-16 16:33:31* Test Item Value Reference Range Interpretation Comme nts Sodium Level (test code = Sodium Level) 143.0 mmol/L 135.0-145.0 Potassium Level (test code = Potassium Level) 3.9 mmol/L 3.5-5.1 Chloride Level (test code = Chloride Level) 104 mmol/L 98-105 CO2 (test code = CO2) 21 mmol/L 22-29 L Anion Gap (test code = Anion Gap) 18 mmol/L 7-16 H BUN (test code = BUN) 13.60 mg/dL 6.00-20.00 Creatinine Level (test code = Creatinine Level) 0.80 mg/dL 0.50-0.90 BUN/Creat Ratio (test code = BUN/Creat Ratio) 17 N Glucose Level (test code = Glucose Level) 83 mg/dL 70-115 Calcium Level (test code = Calcium Level) 9.4 mg/dL 8.3-10.5 Alk Phos (test code = Alk Phos) 88 U/L 35-104 Bilirubin Total (test code = Bilirubin Total) 0.5 mg/dL 0.1-0.9 Albumin Level (test code = Albumin Level) 4.7 g/dL 3.5-5.2 Protein Total (test code = Protein Total) 7.7 g/dL 6.4-8.3 ALT (test code = ALT) 26 U/L 1-33 AST (test code = AST) 52 U/L 1-32 H Globulin (test code = Globulin) 3.0 g/dL 2.9-3.1 A/G Ratio (test code = A/G Ratio) 1.6 ratio N eGFR AA (test code = eGFR AA) >60 mL/min/1.73 m2 N eGFR (estimated Glomerular Filtration Rate) is an estimated value, calculated from the patient's serum creatinine using the MDRD equation. It is NOT the patient's actual GFR. The eGFR provides a more clinically useful measure of kidney disease than serum creatinine alone.This calculation takes sex and race into account, if the information is provided. If the race is not provided, and the patient is -[place], multiply by 1.212. If sex is not provided, and the patient is female, multiply by 0.742. Results for patients <18 years of age have not been validated by the MDRD study and should be interpreted with caution. eGFR Result Interpretation:eGFR > or = 60 is in the Normal RangeeGFR < 60 may mean kidney diseaseeGFR < 15 may mean kidney failure Ranges recommended by the National Kidney Foundation, http://nkdep.nih.gov eGFR Non-AA (test code = eGFR Non-AA) >60.00 mL/min/1.73 m2 N eGFR (estimated Glomerular Filtration Rate) is an estimated value, calculated from the patient's serum creatinine using the MDRD equation. It is NOT the patient's actual GFR. The eGFR provides a more clinically useful measure of kidney disease than serum creatinine alone.This calculation takes sex and race into account, if the information is provided. If the race is not provided, and the patient is -[place], multiply by 1.212. If sex is not provided, and the patient is female, multiply by 0.742. Results for patients <18 years of age have not been validated by the MDRD study and should be interpreted with caution. eGFR Result Interpretation:eGFR > or = 60 is in the Normal RangeeGFR < 60 may mean kidney diseaseeGFR < 15 may mean kidney failure Ranges recommended by the National Kidney Foundation, http://nkdep.nih.gov Beta HCG Pihfcwfpamog4342-65-18 16:33:22* Test Item Value Reference Range Interpretation Comme nts HCG, Beta Quantitative (test code = HCG, Beta Quantitative) <0.50 mIU/mL N Weeks of Gestati on Ranges (mIu/mL)3 weeks 5.40-72.04 weeks 10.2-7085 weeks 217-34844 weeks 152-990165 weeks 4059-1078593 weeks 66299-2650669 weeks 82780-79692486 weeks 77156-75621704 weeks 26437-50768547 weeks 75309-3809233 weeks 61550-3373816 weeks 3004-7147819 weeks 8240-8597408 weeks 9649-19424 IG Vjgat8862-58-03 15:56:13* Test Item Value Reference Range Interpretation Comme nts IG (test code = IG) 0.1 % 0.0-5.0 IG Abs (test code = IG Abs) 0 x10 N Complete Blood Count with Hhmicfbsxlcu1931-30-68 15:56:12* Test Item Value Reference Range Interpretation Comme nts WBC (test code = WBC) 7.6 x10 4.4-10.5 RBC (test code = RBC) 4.62 x10 3.75-5.20 Hgb (test code = Hgb) 9.9 g/dL 12.2-14.8 L MCV (test code = MCV) 73.20 fL 80.00-100.00 L Hct (test code = Hct) 33.8 % 36.5-44.4 L MCHC (test code = MCHC) 29.30 g/dL 32.00-37.50 L RDW CV (test code = RDW CV) 17.0 % 11.5-14.5 H MCH (test code = MCH) 21.4 pg 27.0-32.5 L Platelets (test code = Platelets) 270.0 x10 140.0-440.0 MPV (test code = MPV) 10.4 fL N Slide Review (test code = Slide Review) Smear Auto A Result crea shamika by GL_SJM_SLIDE_REV_AUTO GL_SJM_XN_RFLX nRBC (test code = nRBC) 0 N NRBC Abs (test code = NRBC Abs) 0.00 x10 N Pos Morph XN (test code = Pos Morph XN) A N IPF (test code = IPF) 0 % N Automated Qvjixuizekdd3501-26-66 15:56:12* Test Item Value Reference Range Interpretation Comme nts Neutro Auto (test code = Jeremy tro Auto) 75.5 % 36.0-70.0 H Lymph Auto (test code = Lymph Auto) 19.1 % 12.0-44.0 Pleasants Auto (test code = Pleasants Auto) 3.6 % 0.0-11.0 Eos, Auto (test code = Eos, Auto) 1.3 % 0.0-7.0 Basophil Auto (test code = B asophil Auto) 0.4 % 0.0-2.0 Neutro Absolute (test code = Neutro Absolute) 5.7 x10 1.6-7.4 Lymph Absolute (test code = Lymph Absolute) 1.45 x10 .50-4.60 Pleasants Absolute (test code = M michael Absolute) .27 x10 .00-1.20 Eos Absolute (test code = Eo s Absolute) 0.10 x10 0.00-0.74 Baso Absolute (test code = B aso Absolute) 0.03 x10 0.00-0.21 RPR, Yuiw1339-01-28 20:27:00* Test Item Value Reference Range Interpretation Comme nts RPR (test code = RPR) Non-Reactive Non-Reactive N Lipid [id number] 08:20:00* Test Item Value Reference Range Interpretation Comme nts Cholesterol (test code = CHOL) 116 mg/dL 0-200 N Triglycerides (test code = TRIG) 107 mg/dL 9-200 N HDL (test code = HDL) 33 mg/dL 50-60 L Chol/HDL (test code = CHOLPHDL) 3.5 Ratio 0.0-4.4 N LDL, Calculated (test code = LDLC) 62 0-130 N (NOTE)RISK OF HEART DISEASEPublished by Northern Irish Heart AssociationAnalyte Optimal Boderline Increased RiskCHOL <200 200-239 >240TRIG <150 150-199 >200HDL Male: >60 <40HDL Female: >60 <50LDL <100 130-159 >160LDL NEAR OPTIMAL IS 100-129 VLDL (test code = VLDL) 21 mg/dL 5-40 N LDL/HDL (test code = LDLPHDL) 2 Thyroid Stimulating Hormone (TSH)2017-05-14 08:20:00* Test Item Value Reference Range Interpretation Comme nts TSH (test code = TSH) 1.96 mIU/mL 0.270-4.200 N BHCG, Serum, Kmvnoyogszt9288-49-15 08:04:00* Test Item Value Reference Range Interpretation Comme nts Preg Qual [Se] (test code = BSHCG) Negative Negative N Thyroid Stimulating Hormone (TSH)2016-08-18 21:10:00* Test Item Value Reference Range Interpretation Comme nts TSH (test code = TSH) 2.02 mIU/mL 0.270-4.200 N RPR, [id number] 18:14:00* Test Item Value Reference Range Interpretation Comme nts RPR (test code = RPR) Non-Reactive Non-Reactive N BHCG, Serum, Jivhbldicre5301-01-51 14:56:00* Test Item Value Reference Range Interpretation Comme nts Preg Qual [Se] (test code = BSHCG) Negative Negative N Urinalysis Mbwzfqma3568-25-71 11:10:00* Test Item Value Reference Range Interpretation Comme nts Color (test code = COLOR) Yellow Yellow,Straw,Pl yellow N Clarity (test code = CLAR) Sl Cloudy Clear A Specific [place] (test code = SPGR) 1.030 1.001-1.035 N pH (test code = PH) 5.0 5.0-9.0 N Ketone (test code = KET) Negative mg/dL Negative N Glucose (test code = GLUCUR) Negative mg/dL Negative N Protein (test code = PROT) 25 mg/dL Negative A Bilirubin (test code = BILI) See IctoTest mg/dL Negative A Occult Blood (test code = UDOB) Negative Negative N Urobilinogen (test code = UROB) 0.2 mg/dL 0.2-1.0 N Nitrite (test code = NIT) Negative Negative N Leuk Esterase (test code = LEUK) Small Negative A Ictotest (test code = ICTOTEST) Confirmed Negative Negative,Confirmed Negative N Micros Exam (test code = MEXAM) Indicated Epithelial Cells (test code = EPI) 15-19 /LPF 0-30 A WBC, Urine (test code = UWBC) 0-5 /HPF 0-5 N RBC, Urine (test code = URBC) 0-3 /HPF 0-5 A Mucous, Urine (test code = UMUC) Moderate /HPF Bacteria (test code = BACT) Few /HPF [id number] 10:48:00* Test Item Value Reference Range Interpretation Comme nts Amphetamine (test code = AMPH) POSITIVE Negative A For diagnostic p urposes only, positive results should always be assessedin conjunctionwith the patient's medical history,clinical examination and otherfindings.To fulfill legal requirements, a more specific alternate chemical methodmust be used inorder to obtain a Confirmed analytical result. GC/MS is the preferred confirmatory method. Barbiturates (test code = SIGIFREDO) Negative Negative N Benzodiazepine (test code = ASHLY) Negative Negative N Cocaine (test code = COCA) Negative Negative N Methadone (test code = MTHD) Negative Negative N Opiates (test code = OPIA) Negative Negative N PCP (test code = PCP) Negative Negative N Propoxyphene (test code = PROPOX) Negative Negative N THC (test code = THC) Negative Negative N Alcohol/Ethanol, Sjpka1081-68-04 10:25:00* Test Item Value Reference Range Interpretation Comme nts Alcohol, Ethyl (test code = ETOH) <0.01 g/dL 0.00-0.01 N Intoxicated 0 .080 g/dL or more Comprehensive Metabolic Ckusv0133-21-28 10:25:00* Test Item Value Reference Range Interpretation Comme nts Sodium (test code = NA) 139 mmol/L 135-145 N Potassium (test code = K) 3.3 mmol/L 3.5-5.1 L Chloride (test code = CL) 99 mmol/L 98-105 N Carbon Dioxide (test code = CO2) 28 mmol/L 22-29 N Glucose (test code = GLU) 103 mg/dL 70-115 N Blood Urea Nitrogen (test code = BUN) 11 mg/dL 6-20 N Creatinine (test code = CREAT) 0.9 mg/dL 0.5-0.9 N Calcium (test code = CA) 9.7 mg/dL 8.3-10.5 N Prot Total (test code = TP) 8.2 g/dL 6.4-8.3 N Albumin (test code = ALB) 5.0 g/dL 3.5-5.2 N A/G Ratio (test code = AGRATIO) 1.6 Ratio Globulin (test code = GLOB) 3.2 2.9-3.1 H Bili Total (test code = TBIL) 0.4 mg/dL 0.1-0.9 N Alk Phos (test code = APHOS) 92 U/L 35-104 N AST (test code = AST) 27 U/L 1-32 N ALT (test code = ALT) 24 U/L 1-33 N BUN/Creatinine Ratio (test code = BCRATIO) 12.2 Anion Gap (test code = AGAP) 12 mmol/L 7-16 N Estimated GFR (test code = GFR) >60 mL/min/1.73m2 eGFR (estimated Glomerular Filtration Rate) is an estimated value,calculated from the patient's serum creatinine using the MDRD equation.It is NOT the patient's actual GFR. The eGFR provides a more clinicallyuseful measure of kidney disease than serum creatinine alone.This calculation takes sex and race into account, if the informationis provided. If the race is not provided, and the patient isAfrican-Northern Irish, multiply by 1.212. If sex is not provided, and thepatient is female, multiply by 0.742. Results for patients <18 years ofage have not been validated by the MDRD study and should be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
[2023-09-28 15:19] LABS: Absolute Lymphocytes (CBC) 1.4 K/uL (0.7-4.9); Absolute Monocytes 0.4 K/uL (0.1-1.3); Absolute Neutrophil 2.7 K/uL (1.8-8.0); Basophils % 0.9 % (0-1.3); Eosinophils % 0.9 % (0-4.4); Hematocrit 31.5 % (36.0-45.0); Hemoglobin 10.1 g/dL (12.0-15.0); Lymphocytes % 31.1 % (15.3-44.8); MCH 22.5 pg (27.0-35.0); MCV 70.1 fL (80-100); MPV 7.6 fL (7.6-11.3); Monocytes % 9.4 % (3.3-12.3); Neutrophils % 57.7 % (41.7-73.7); Nucleated Red Blood Cells % 0.2 % (0-0); Platelets 390 thou/uL (152-406); Red Cell Distribution Width 18.2 % (12.1-15.2)
[2023-09-28 15:25] LABS: Barbiturates NEGATIVE (NEGATIVE); Benzodiazepines NEGATIVE (NEGATIVE); Cocaine NEGATIVE (NEGATIVE); METHAMPHETAM POSITIVE (NEGATIVE); Methadone NEGATIVE (NEGATIVE); Opiates NEGATIVE (NEGATIVE); Phencyclidine NEGATIVE (NEGATIVE); THC Cannibis NEGATIVE (NEGATIVE)
[2023-09-28 15:26] LABS: Specific Gravity > 1.030 (1.005-1.030)
[2023-09-28 15:44] LABS: ALT/SGPT 21 U/L (13-56); AST/SGOT 17 U/L (15-37); Albumin 4.1 g/dL (3.4-5.0); Albumin/Globulin Ratio 0.9 (1.1-1.8); Alkaline Phosphatase 85 U/L (45-117); Anion Gap 10.2 mEq/L (5.0-15.0); BUN Blood Urea Nitrogen 16 mg/dL (7-18); Bicarbonate 24 mEq/L (21-32); Bilirubin Total 0.6 mg/dL (0.2-1.0); Globulin 4.4 g/dL (2.3-3.5); Glomerular Filtration Rate 72 ml/min (=/>90); Glucose Level 106 mg/dL (74-106); Potassium 3.2 mEq/L (3.5-5.1); Protein, Total 8.5 g/dL (6.4-8.2); Sodium Level 136 mEq/L (136-145)
[2023-09-28] MEDS ORDERED: LORAZEPAM 1 MG TABLET ONE (16:05)
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
[2023-09-29 10:01] LABS: SARS-CoV-2 Antigen CONTROL BLUE LINE VIS/BG OK; SARS-CoV-2 Antigen Rapid Res Negative (Negative)
[2023-09-30] MEDS ORDERED: NICOTINE 21 MG/PAT TD ONE (15:27)
[2023-09-30] MEDS ORDERED: LORAZEPAM 1 MG TABLET ONE (18:45)
[2023-10-01 00:35] VITALS: TEMP 98.2; O2SAT 100
[2023-10-01 00:36] VITALS: BP 98/56
== END 2023-09-30 21:53 | disposition home or self-care (01) ==
LOC: ER 13:23
DX: F15.129 Other stimulant abuse with intoxication, unspecified (principal); T43.625A Adverse effect of amphetamines, initial encounter; F20.9 Schizophrenia, unspecified
CPT/HCPCS: 36415; 80053; 80143; 80179; 80307; 81025; 82077; 85025; 99285

== ENCOUNTER 2023-12-31 14:36 | Emergency (ER) | payer SELFPAY ==
--- OUTSIDE RECORDS SUMMARY | 2023-12-31 14:40 | XMS REPORT | Continuity of Care Document ---
Author Name Unknown Address [address] [facility] [address] [place] [address] [facility] Address [address] [facility] [address] [place] [address] Care Team Providers Care Technical Supervisor Name Role Phone UNKNOWN, REFFERING Primary Care Physician Gisele Vann Attending Clinician [phone] Rodrigo KNUTSON Attending Clinician Unavailable Rodrigo KNUTSON Attending Clinician Unavailable ALFONSO ALLEN Attending Clinician Unavailable Marilee De La Garza RN Attending Clinician [phone] David MOSELEY, Castro Lind Attending Clinician [phone] ADY LAWSON Attending Clinician Unavailable Ady Lawson DO Attending Clinician [phone] Doctor Unassigned, Finger Attending Clinician U Trevor Tolentino Attending Clinician TREVOR YBARRA Attending Clinician Unavailable Tavo MOSELEY, Swapnil Barksdale Attending Clinician SWAPNIL VO M.D., SWAPNIL Barksdael M.D. Attendin g Clinician Unavailable MOHIT AGUILERA Admitting Clinician Unavailable Castro Sheriff MD Admitting Clinician [phone] CASTRO SHERIFF Admitting Clinician Unava SWAPNIL Walton M.D., SWAPNIL Barksdale Admitting Clin ician Unavailable Payers Payer Name Policy Type Policy Number Effective Date Expirati on Date Source [employer] [id number] 2022 00:00:00 [facility] [employer] [facility] [id number] 2021 00:00:00 MEDICAID PENDING PENDING 2023 00:00:00 Problems Condition Name Condition Details Condition Category Status Onset Date Resolution Date Last Treatment Date Treating Clinician Comments Source Schizoaffe ctive disorder, bipolar type Schizoaffe ctive disorder, bipolar type Disease Recurre nce 07-02 00:00: 00 [facility] Trauma Trauma Disease Active 06-30 00:00: 00 [facility] Right knee pain Right knee pain Disease Active 04-25 00:00: 00 [facility] delivery delivered delivery delivered Disease Active 09-15 00:00: 00 Overview: Formattin g of this note might be different from the original. ICD10 Diagnosis Term Notcher Utility [facility] Right knee pain Right knee pain Disease Resolve d 04-25 00:00: 00 2021-07-02 00:00:00 2021-07-02 13:02:18 [facility] care and examinatio n immediatel y after delivery care and examinatio n immediatel y after delivery Disease Resolve d 09-15 00:00: 00 2021-07-02 00:00:00 2021-07-02 13:02:12 [facility] delivery delivered delivery delivered Disease Resolve d 09-15 00:00: 2021-07-02 00:00:00 2021-09-14 00:09:08 [facility] Allergies, Adverse Reactions, Alerts Allergy Name Allergy Type Status Severity Reaction(s) Onset Date Inactive Date Treating Clinician Comments Source Unable to Assess DA Active U 04-25 00:00: 00 [facility] Hydrocod one Propensi ty to adverse reaction s Active Swelling 2014-03 00:00: 00 Throat swells, unable to breath [facility] HYDROCOD ONE DRUG INGREDI Active Swelling 2014-03 00:00: 00 [facility] Fossil Drug Active [facility] Fossil Drug Active [facility] Fossil Drug Active [facility] Fossil Drug Active [facility] Fossil Drug Active [facility] Fossil Drug Active [facility] Fossil Drug Active [facility] Fossil Drug Active [facility] Fossil Drug Active [facility] Fossil Drug Active [facility] Fossil Drug Active [facility] Fossil Drug Active [facility] Fossil Drug Active [facility] Fossil Drug Active [facility] Fossil Drug Active [facility] Fossil Drug Active [facility] Fossil Drug Active [facility] Fossil Drug Active [facility] Fossil Drug Active [facility] Fossil Drug Active [facility] Fossil Drug Active [facility] Fossil Drug Active [facility] Fossil Drug Active [facility] Fossil Drug Active [facility] Fossil Drug Active [facility] Social History Social Habit Start Date Stop Date Quantity Comments Source History of tobacco use Cigarette Smoker [facility] of Social function 2023-10-04 00:00:00 2023-10-04 00:00:00 [facility] Alcoholic beverage intake 2023-10-04 00:00:00 2023-10-04 00:00:00 .14 /d [facility] Alcohol intake 2023-04-28 00:00:00 2023-04-28 00:00:00 .14 /d [facility] Exposure to SARS-CoV-2 (event) 2021-06-20 00:00:00 2021-06-30 10:45:00 Not sure [facility] Cigarettes smoked current (pack per day) - Reported 2015-04-18 00:00:00 2015-04-18 00:00:00 [facility] Sex assigned at 1985 00:00:00 1985 00:00:00 [facility] Smoking Status Start Date Stop Date Source Smokes tobacco daily 2015-04-18 00:00:00 [facility] Medications Ordered Medication Name Filled Medication Name Start Date Stop Date Current Medication? Ordering Clinician Indication Dosage Frequency Signature (SIG) Comments Components Source amoxicillin -clavulanat e 875-125 mg per tablet 04-28 00:00: 00 Yes [id number] 1{tbl} Take 1 tablet by mouth every 12 (twelve) hours. [facility] haloperidol 5 mg tablet 07-03 11:33: 39 07-03 00:00 :00 No 5mg Take 5 mg by mouth 2 (two) times daily. [facility] haloperidoL (HALDOL) tablet 5 mg 07-03 01:00: 00 Yes 5mg 5 mg, Oral, BID, First dose on Wed07/02/21 at 2000, Until Discontinu ed, Routine [facility] haloperidoL 5 mg tablet 07-03 00:00: 00 Yes [id number] 5mg Take 1 tablet by mouth 2 (two) times daily. [facility] haloperidol 1 mg tablet 07-02 13:01: 03 07-02 00:00 :00 No 1mg Take 1 mg by mouth 2 (two) times daily. [facility] traZODONE 100 mg tablet 07-02 13:01: 03 07-02 00:00 :00 No 100mg Take 100 mg by mouth at bedtime. [facility] acetaminoph en 325 mg tablet 07-02 00:00: 00 Yes [id number] 650mg Take 2 tablets by mouth every 6 (six) hours as needed for Pain (scale 4-6). [facility] enoxaparin (LOVENOX) injection 40 mg 07-01 14:00: 00 Yes 40mg 40 mg, Subcutaneo us, DAILY, First dose (after last modificati on) on Wed07/01/21 at 0900, Until Discontinu ed, Routine [facility] pantoprazol e (PROTONIX) injection 40 mg 07-01 14:00: 00 07-01 17:53 :55 No 40mg 40 mg, Slow IV Push, Q24H, First dose on Wed07/01/21 at 0900, Until Discontinu ed [facility] potassium chloride 20 mEq/100 mL (KCL) 20 mEq/100 mL RTU IVPB 20 mEq 07-01 13:00: 00 07-01 16:59 :00 No 20meq 20 mEq, IV Piggyback, Q2H, 2 doses, First dose on Wed07/01/21 at 0800, Last dose on Wed07/01/21 at 1000, 100 mL [facility] magnesium sulfate in water 4 gram/50 mL (8 %) IV Piggyback 4 g 07-01 12:30: 00 07-01 13:37 :00 No 4g 4 g, IV Piggyback, ONCE, 1 dose, On Wed07/01/21 at 0730, Routine [facility] D5W 0.45% NaCl (1/2NS) 1 L + KCL 20 mEq 07-01 06:30: 00 07-01 16:06 :04 No IV Infusion, at 125 mL/hr, CONTINUOUS , Starting on Wed07/01/21 at 0130, Until Wed07/01/21 at 1106, Routine [facility] ondansetron (ZOFRAN (PF)) injection 4 mg 07-01 00:58: 30 Yes 4mg 4 mg, Slow IV Push, Administer over 15 Minutes, Q6HPRN, Starting on Wed06/30/21 at 1958, Until Discontinu ed, Routine, Nausea and Vomiting (N/V) [facility] acetaminoph en (TYLENOL) tablet 650 mg 07-01 00:58: 22 Yes 650mg 650 mg, Oral, Q6HPRN, Starting on Wed06/30/21 at 1958, Until Discontinu ed, Routine, Pain (scale 1-3) [facility] iopamidol (ISOVUE 370-500 mL) injection 100 mL 06-30 22:30: 00 06-30 22:30 :00 No [id number] 100mL 100 mL, Intravenou s, ONCE, 1 dose, On Wed06/30/21 at 1730, Routine [facility] aspirin tablet 325 mg 05-29 21:15: 00 05-29 21:06 :00 No 325mg 325 mg, Oral, ONCE, 1 dose, Wed05/29/20 at 1615, STAT [facility] haloperidol 1 mg tablet 08-05 23:59: 14 Yes 1mg Take 1 mg by mouth 2 (two) times daily. [facility] traZODONE 100 mg tablet 08-05 23:59: 14 Yes 100mg Take 100 mg by mouth at bedtime. [facility] haloperidol 5 mg tablet 08-05 23:59: 14 Yes 5mg Take 5 mg by mouth 2 (two) times daily. [facility] haloperidol 1 mg tablet 08-05 18:59: 14 Yes 1mg Take 1 mg by mouth 2 (two) times daily. [facility] traZODONE 100 mg tablet 08-05 18:59: 14 Yes 100mg Take 100 mg by mouth at bedtime. [facility] haloperidol 5 mg tablet 08-05 18:59: 14 Yes 5mg Take 5 mg by mouth 2 (two) times daily. [facility] FLUoxetine (PROZAC) 20 mg tablet 04-23 00:00: 00 Yes [facility] FLUoxetine (PROZAC) 20 mg tablet 2016-0 2-23 00:00: 00 07-02 00:00 :00 No [facility] Vital Signs Vital Name Observation Time Observation Value Veena montgomery Systolic blood pressure 2023-10-04 20:57:00 113 mm[Hg] [facility] Diastolic blood pressure 2023-10-04 20:57:00 81 mm[Hg] [facility] Heart rate 2023-10-04 20:57:00 104 /min [facility] Body temperature 2023-10-04 20:57:00 36.61 Fartun [facility] Respiratory rate 2023-10-04 20:57:00 16 /min [facility] Body height 2023-10-04 20:57:00 149.9 cm [facility] Body weight 2023-10-04 20:57:00 55.792 kg [facility] BMI 2023-10-04 20:57:00 24.84 kg/m2 [facility] Oxygen saturation in Arterial blood by Pulse oximetry 2023-10-04 20:57:00 100 /min [facility] Systolic blood pressure 2023-04-28 15:05:00 117 mm[Hg] [facility] Diastolic blood pressure 2023-04-28 15:05:00 84 mm[Hg] [facility] Heart rate 2023-04-28 15:05:00 92 /min [facility] Body temperature 2023-04-28 15:05:00 37.61 Fartun [facility] Respiratory rate 2023-04-28 15:05:00 14 /min [facility] Body height 2023-04-28 15:05:00 149.9 cm [facility] Body weight 2023-04-28 15:05:00 70.308 kg [facility] BMI 2023-04-28 15:05:00 31.31 kg/m2 [facility] Oxygen saturation in Arterial blood by Pulse oximetry 2023-04-28 15:05:00 99 /min [facility] Systolic blood pressure 2021-07-03 16:02:00 122 mm[Hg] [facility] Diastolic blood pressure 2021-07-03 16:02:00 88 mm[Hg] [facility] Heart rate 2021-07-03 16:02:00 96 /min Unive [facility] Body temperature 2021-07-03 16:02:00 37.33 Fartun [facility] Oxygen saturation in Arterial blood by Pulse oximetry 2021-07-03 16:02:00 100 /min [facility] Respiratory rate 2021-07-03 10:31:00 16 /min [facility] Body height 2021-07-01 08:02:00 149.9 cm [facility] Body weight 2021-07-01 08:02:00 59 kg [facility] BMI 2021-07-01 08:02:00 26.26 kg/m2 [facility] Systolic blood pressure 2021-06-30 22:35:00 120 mm[Hg] [facility] Diastolic blood pressure 2021-06-30 22:35:00 83 mm[Hg] [facility] Heart rate 2021-06-30 22:35:00 71 /min Unive [facility] Respiratory rate 2021-06-30 22:35:00 17 /min [facility] Oxygen saturation in Arterial blood by Pulse oximetry 2021-06-30 22:35:00 100 /min [facility] Body temperature 2021-06-30 16:03:00 36.78 Fartun [facility] Body height 2021-06-30 15:50:00 154.9 cm [facility] Body weight 2021-06-30 15:50:00 63.504 kg [facility] BMI 2021-06-30 15:50:00 26.45 kg/m2 [facility] Systolic blood pressure 2020-05-29 22:00:00 107 mm[Hg] [facility] Diastolic blood pressure 2020-05-29 22:00:00 96 mm[Hg] [facility] Heart rate 2020-05-29 22:00:00 89 /min Unive [facility] Respiratory rate 2020-05-29 22:00:00 17 /min [facility] Oxygen saturation in Arterial blood by Pulse oximetry 2020-05-29 22:00:00 100 /min [facility] Body temperature 2020-05-29 20:10:00 37.22 Fartun [facility] Body weight 2020-05-29 20:08:00 86.183 kg [facility] BMI 2020-05-29 20:08:00 38.38 kg/m2 [facility] Height/Length Measured 2021-03-18 09:56:58 165.1 cm [...] Temperature 2020-04-25 15:01:13 36.9\\S\\98.4 Weight 2020-04-25 15:01:13 87845.932\\S\\2240 Weight Measurement Method 2020-04-25 15:01:13 Estimated by Staff Respiratory 2020-04-25 15:01:12 No respirato ry distress /min Respiratory 2020-04-25 14:27:49 No respirato ry distress /min 02 Sat by Pulse Oximetry 2020-04-25 14:27:49 100 /min Body Mass Index 2020-04-25 14:27:49 29.3 Height 2020-04-25 14:27:49 147.32\\S\\58 Pulse Rate 2020-04-25 14:27:49 78 /min Respiratory Rate 2020-04-25 14:27:49 16 /min Temperature 2020-04-25 14:27:49 36.9\\S\\98.4 Weight 2020-04-25 14:27:49 05472.932\\S\\2240 Weight Measurement Method 2020-04-25 14:27:49 Estimated by Staff Respiratory 2020-04-25 14:27:18 No respirato ry distress /min 02 Sat by Pulse Oximetry 2020-04-25 14:27:18 100 /min Body Mass Index 2020-04-25 14:27:18 29.3 Height 2020-04-25 14:27:18 147.32\\S\\58 Pulse Rate 2020-04-25 14:27:18 78 /min Respiratory Rate 2020-04-25 14:27:18 16 /min Temperature 2020-04-25 14:27:18 36.9\\S\\98.4 Weight 2020-04-25 14:27:18 13085.932\\S\\2240 Weight Measurement Method 2020-04-25 14:27:18 Estimated by Staff 02 Sat by Pulse Oximetry 2020-04-25 14:21:39 100 /min Body Mass Index 2020-04-25 14:21:39 29.3 Height 2020-04-25 14:21:39 147.32\\S\\58 Pulse Rate 2020-04-25 14:21:39 78 /min Respiratory Rate 2020-04-25 14:21:39 16 /min Temperature 2020-04-25 14:21:39 36.9\\S\\98.4 Weight 2020-04-25 14:21:39 41452.932\\S\\2240 Weight Measurement Method 2020-04-25 14:21:39 Estimated by Staff Respiratory 2020-04-25 14:21:39 No respirato ry distress /min Respiratory 2020-04-25 12:03:42 No respirato ry distress /min 02 Sat by Pulse Oximetry 2020-04-25 12:03:42 100 /min Body Mass Index 2020-04-25 12:03:42 29.3 Height 2020-04-25 12:03:42 147.32\\S\\58 Pulse Rate 2020-04-25 12:03:42 78 /min Respiratory Rate 2020-04-25 12:03:42 16 /min Temperature 2020-04-25 12:03:42 36.9\\S\\98.4 Weight 2020-04-25 12:03:42 41939.932\\S\\2240 Weight Measurement Method 2020-04-25 12:03:42 Estimated by Staff Respiratory 2020-04-25 11:51:21 No respirato ry distress /min 02 Sat by Pulse Oximetry 2020-04-25 11:51:21 100 /min Body Mass Index 2020-04-25 11:51:21 29.3 Height 2020-04-25 11:51:21 147.32\\S\\58 Pulse Rate 2020-04-25 11:51:21 78 /min Respiratory Rate 2020-04-25 11:51:21 16 /min Temperature 2020-04-25 11:51:21 36.9\\S\\98.4 Weight 2020-04-25 11:51:21 37923.932\\S\\2240 Weight Measurement Method 2020-04-25 11:51:21 Estimated by Staff 02 Sat by Pulse Oximetry 2020-04-25 11:17:59 100 /min Body Mass Index 2020-04-25 11:17:59 29.3 Height 2020-04-25 11:17:59 147.32\\S\\58 Pulse Rate 2020-04-25 11:17:59 78 /min Respiratory Rate 2020-04-25 11:17:59 16 /min Temperature 2020-04-25 11:17:59 36.9\\S\\98.4 Weight 2020-04-25 11:17:59 18855.932\\S\\2240 Weight Measurement Method 2020-04-25 11:17:59 Estimated by Staff Respiratory 2020-04-25 11:17:59 No respirato ry distress /min WEIGHT 2020-04-25 11:10:00 63.859941 kg HEIGHT 2020-04-25 11:10:00 147.32 cm 02 Sat by Pulse Oximetry 2020-04-25 10:59:27 100 /min Body Mass Index 2020-04-25 10:59:27 21.3 Height 2020-04-25 10:59:27 165.1\\S\\65 Pulse Rate 2020-04-25 10:59:27 78 /min Respiratory Rate 2020-04-25 10:59:27 16 /min Temperature 2020-04-25 10:59:27 36.9\\S\\98.4 Weight 2020-04-25 10:59:27 41124.823\\S\\8 Weight Measurement Method 2020-04-25 10:59:27 Estimated by Staff 02 Sat by Pulse Oximetry 2020-04-25 10:49:10 100 /min Body Mass Index 2020-04-25 10:49:10 21.3 Height 2020-04-25 10:49:10 165.1\\S\\65 Pulse Rate 2020-04-25 10:49:10 78 /min Respiratory Rate 2020-04-25 10:49:10 16 /min Temperature 2020-04-25 10:49:10 36.9\\S\\98.4 Weight 2020-04-25 10:49:10 26442.823\\S\\8 Weight Measurement Method 2020-04-25 10:49:10 Estimated by Staff WEIGHT 2020-04-25 10:46:00 58.415427 kg HEIGHT 2020-04-25 10:46:00 165.1 cm Procedures Procedure Date / Time Performed Performing Clinician Source NOTICE OF PRIVACY PRACTICES 2023-04-28 14:56:47 Doctor Unassigned, Finger [facility] CONSENT/REFUSAL FOR DIAGNOSIS AND TREATMENT 2023-04-28 14:55:06 Doctor Unassigned, Finger [facility] CBC WITHOUT DIFF 2021-07-03 10:54:00 Lizzette Shaw [facility] TEST, SERUM 2021-07-03 10:53:00 Larry Mario [facility] BASIC METABOLIC PANEL (NA, K, CL, CO2, GLUCOSE, BUN, CREATININE, CA) 2021-07-03 10:53:00 Keiko Chung [facility] COVID-19 (ID NOW RAPID TESTING) 2021-07-02 22:43:00 Ava Souza [facility] LAB ONLY COVID INTERPRETATION 2021-07-02 22:43:00 Ava Souza [facility] CBC WITH DIFF 2021-07-02 22:41:00 Ava Souza [facility] CBC WITH DIFF 2021-07-02 11:02:00 Lizzette Shaw [facility] CBC WITHOUT DIFF 2021-07-01 18:25:00 Lizzette Shaw [facility] MAGNESIUM 2021-07-01 09:52:00 Lizzette Shaw [facility] BASIC METABOLIC PANEL (NA, K, CL, CO2, GLUCOSE, BUN, CREATININE, CA) 2021-07-01 09:52:00 [facility] 2021-07-01 09:52:00 ColinLizzette alcala [facility] CBC WITHOUT DIFF 2021-07-01 05:03:00 ColinLizzette alcala [facility] CT LUMBAR SPINE WO CONTRAST 2021-07-01 01:23:11 [facility] XR SHOULDER 2+ VW LEFT 2021-07-01 01:16:00 [facility] 2021-07-01 00:39:00 Maeve Salmon [facility] BASIC METABOLIC PANEL (NA, K, CL, CO2, GLUCOSE, BUN, CREATININE, CA) 2021-07-01 00:34:00 Maeve Salmon [facility] CBC WITHOUT DIFF 2021-07-01 00:34:00 Maeve Salmon [facility] PROTHROMBIN TIME / INR 2021-07-01 00:34:00 Meera Salmon [facility] ACTIVATED PARTIAL THRMPLAS LALO 2021-07-01 00:34:00 Maeve Salmon [facility] HB ABO GROUPING 2021-06-30 21:20:00 Ady Lawson [facility] CT TRAUMA THORAX W CONTRAST 2021-06-30 21:15:57 Ady Lawson [facility] CT TRAUMA ABDOMEN PELVIS W CONTRAST 2021-06-30 21:15:57 Ady Lawson [facility] CT TRAUMA CERVICAL SPINE WO CONTRAST 2021-06-30 20:57:01 Ady Lawson [facility] CT HEAD WO CONTRAST 2021-06-30 20:31:27 Alirio Lawson [facility] XR CHEST 1 VW 2021-06-30 20:24:37 Ady Lawson [facility] COMP. METABOLIC PANEL ([id number]) 2021-06-30 20:13:00 Ady Lawson [facility] CBC WITH DIFF 2021-06-30 20:13:00 Ady Lawson [facility] NOTICE OF PRIVACY PRACTICES 2021-06-30 15:41:31 Doctor Unassigned, Finger [facility] CONSENT/REFUSAL FOR DIAGNOSIS AND TREATMENT 2021-06-30 15:41:16 Doctor Unassigned, Finger [facility] EXTERNAL PROVIDER RECORDS 2021-06-30 05:01:00 Do ctor Unassigned, Finger [facility] POCT TEST 2020-05-29 21:05:00 Trevor Ybarra [facility] COVID-19 (ID NOW RAPID TESTING) 2020-05-29 21:04:00 Trevor Ybarra [facility] ADC / LCC - DRUG SCREEN TRIAGE 2020-05-29 21:03:00 Trevor Ybarra [facility] TROPONIN I 2020-05-29 21:02:00 Trevor Ybarra [facility] COMP. METABOLIC PANEL ([id number]) 2020-05-29 21:02:00 Trevor Ybarra [facility] SALICYLATE 2020-05-29 21:02:00 Trevor Ybarra [facility] ETHANOL 2020-05-29 21:02:00 Trevor Ybarra [facility] CBC WITH DIFF 2020-05-29 21:02:00 Trevor Ybarra [facility] PROTHROMBIN TIME / INR 2020-05-29 21:02:00 Pushpa Ybarra [facility] ACTIVATED PARTIAL THRMPLAS LALO 2020-05-29 21:02:00 Trevor Ybarra [facility] N-TERMINAL PRO-BNP 2020-05-29 21:02:00 Trevor Ybarra [facility] XR CHEST 1 VW 2020-05-29 20:33:45 [facility] HB ECG ROUTINE & RHYTHM STRIP 2020-05-29 20:23:30 Trevor Ybarra [facility] Encounters Start Date/Time End Date/Time Encounter Type Admission Type Attending Clinicians Care Facility Care Department Encounter ID Source 2022-05-16 08:52:45 Outpatient [facility] [id number] [facility] 2022-05-15 08:45:04 Outpatient [facility] [id number] [facility] 2021-07-02 16:18:57 Outpatient [facility] [id number] [facility] 2021-06-29 23:57:24 Outpatient [facility] [id number] [facility] 2020-04-25 10:43:00 Inpatient [facility] [id number] [facility] 2023-10-04 15:54:00 2023-10-04 17:27:00 Emergency Gisele Mcmillan [facility] [id number] [facility] 2023-04-28 09:06:00 2023-04-28 10:33:00 Emergency X Rodrigo KNUTSON K [facility] ERT [id number] [facility] 2023-04-28 09:06:00 2023-04-28 10:33:00 Emergency Rodrigo Knutson [facility] 1..[id number] [facility] 2022-05-15 08:55:00 2022-08-25 10:50:00 Outpatient [facility] [id number] [facility] 2021-07-04 00:00:00 2021-07-04 00:00:00 Transition of Care Marilee De La Garza 1..[id number] [facility] 2021-06-30 19:27:00 2021-07-03 13:17:00 Hospital Encounter Castro Sheriff [facility] [id number] [facility] 2021-06-30 10:51:00 2021-06-30 18:47:00 Emergency X ADY LAWSON [facility] ERT [id number] [facility] 2021-06-30 10:51:00 2021-06-30 18:47:00 Emergency X ADY LAWSON [facility] ERT [id number] [facility] 2021-06-30 10:51:00 2021-06-30 18:47:00 Emergency Ady Lawson [facility] [id number] 084 [id number] [facility] 2021-06-30 00:00:00 2021-06-30 00:00:00 Orders Only Doctor Unassigned, Finger [facility] 1.2.840.114 350.1.13.10 4.2.7.2.686 [id number] 009 [id number] [facility] 2020-05-29 15:28:00 2020-05-29 18:00:00 Emergency Trevor Ybarra [facility] 1.2.840.114 350.1.13.10 4.2.7.2.686 [id number] [id number] [facility] 2020-05-29 15:28:00 2020-05-29 15:28:00 Emergency [facility] ERT [id number] [facility] 2020-04-25 10:43:00 2020-04-25 10:43:00 Emergency [facility] [id number] 31 [facility] 2019-06-05 12:44:20 2019-06-05 23:59:00 Hospital Encounter Swapnil Vo [facility] 1.2.840.114 350.1.13.10 4.2.7.2.686 [id number] [facility] 2019-06-04 15:28:00 2019-06-04 15:28:00 Emergency [facility] [id number] [facility] 2019-06-04 15:28:00 2019-06-04 15:28:00 Emergency [facility] [id number] [facility] Results Test Description Test Time Test Comments Results Result Co mments Source [facility] (NA, K, CL, CO2, GLUCOSE, BUN, CREATININE, CA)2021-07-03 11:58:01* Test Item Value Reference Range Interpretation Comme nts NA (test code = 5100090373) 137 mmol/L 135-145 K (test code = 0118395492) 4.1 mmol/L 3.5-5.0 CL (test code = 4153037907) 106 mmol/L 98-108 CO2 TOTAL (test code = 3356755387) 31 mmol/L 23-31 AGAP (test code = 7819459554) <1 2-16 L BUN (test code = 0165428122) 13 mg/dL 7-23 GLUCOSE (test code = 4693007899) 104 mg/dL 70-110 CREATININE (test code = 8568816834) 0.61 mg/dL 0.50-1.04 CALCIUM (test code = 2918250072) 8.0 mg/dL 8.6-10.6 L eGFR (test code = 2655933179) mL/min/1.73m2 GABE (test code = GABE) Association [...] imaging tests). Lab Interpretation (test code = 97923-5) Abnormal [facility] WITHOUT [id number] 11:26:00* Test Item Value Reference Range Interpretation [...] result as normal/abnormal. MPV (test code = 07644-2) 10.1 fL 9.5-12.9 RDW-CV (test code = 788-0) 22.5 % 12.0-15.5 H RDW-SD (test code = 88195-4) 53.3 fL 39.0-49.9 H NRBC x10^3 (test code = 1288250430) <0.01 See_Comment [Automated messa ge] The system which generated this result transmitted reference range: 10*3/?L. The reference range was not used to interpret this result as normal/abnormal. NRBC/100 WBC (test code = 1603165287) See_Comment [Automated messa ge] The system which generated this result transmitted reference range: 0.0 - 10.0 /100 WBCs. The reference range was not used to interpret this result as normal/abnormal. IPF % (test code = 0768016810) Lab Interpretation (test code = 98641-1) Abnormal [facility] WITH [id number] 22:54:19* Test Item Value Reference Range Interpretation [...] g/dL 31.6-35.1 L RDW-SD (test code = 60621-1) 53.8 fL 39.0-49.9 H RDW-CV (test code = 788-0) 22.4 % 12.0-15.5 H PLT (test code = 777-3) See_Comment [Automated messa ge] The system which generated this result transmitted reference range: 166 - 358 10*3/?L. The reference range was not used to interpret this result as normal/abnormal. MPV (test code = 04831-4) 10.5 fL 9.5-12.9 NRBC/100 WBC (test code = 6280035017) See_Comment [Automated [employer] ssage] The system which generated this result transmitted reference range: 0.0 - 10.0 /100 WBCs. The reference range was not used to interpret this result as normal/abnormal. NRBC x10^3 (test code = 6426225898) <0.01 See_Comment [Automated messa ge] The system which generated this result transmitted reference range: 10*3/?L. The reference range was not used to interpret this result as normal/abnormal. GRAN MAT (NEUT) % (test code = 770-8) 66.6 % IMM GRAN % (test code = 8628828698) 0.20 % LYMPH % (test code = 736-9) 21.9 % MONO % (test code = 5905-5) 8.0 % EOS % (test code = 713-8) 3.1 % BASO % (test code = 706-2) 0.2 % GRAN MAT x10^3(ANC) (test code = 9820298411) 2.83 10*3/uL 1.88-7.09 IMM GRAN x10^3 (test code = 1675039862) <0.03 0.00-0.06 LYMPH x10^3 (test code = 731-0) 0.93 10*3/uL 1.32-3.29 L MONO x10^3 (test code = 742-7) 0.34 10*3/uL 0.33-0.92 EOS x10^3 (test code = 711-2) 0.13 10*3/uL 0.03-0.39 BASO x10^3 (test code = 704-7) <0.03 0.01-0.07 Lab Interpretation (test code = 27831-2) Abnormal [facility] with [id number] 11:46:33* Test Item Value Reference Range Interpretation Comme nts WBC (test code = 6690-2) See_Comment [Automated Cloud Amenitya ge] The system which generated this result transmitted reference range: 4.30 - 11.10 10*3/?L. The reference range was not used to interpret this result as normal/abnormal. RBC (test code = 789-8) See_Comment L [Automated Cloud Amenitya ge] The system which generated this result [...] g/dL 31.6-35.1 L RDW-SD (test code = 97386-3) 53.2 fL 39.0-49.9 H RDW-CV (test code = 788-0) 22.9 % 12.0-15.5 H PLT (test code = 777-3) See_Comment [Automated Cloud Amenitya ge] The system which generated this result transmitted reference range: 166 - 358 10*3/?L. The reference range was not used to interpret this result as normal/abnormal. MPV (test code = 03414-0) 10.2 fL 9.5-12.9 IPF % (test code = 6566876879) 2.6 % 1.3-7.7 Platelet count measured by fluorescence method. NRBC/100 WBC (test code = 3724872535) See_Comment [Automated [employer] ssage] The system which generated this result transmitted reference range: 0.0 - 10.0 /100 WBCs. The reference range was not used to interpret this result as normal/abnormal. NRBC x10^3 (test code = 8346075789) <0.01 See_Comment [Automated messa ge] The system which generated this result transmitted reference range: 10*3/?L. The reference range was not used to interpret this result as normal/abnormal. GRAN MAT (NEUT) % (test code = 770-8) 68.6 % IMM GRAN % (test code = 9408082616) 0.60 % LYMPH % (test code = 736-9) 17.3 % MONO % (test code = 5905-5) 9.4 % EOS % (test code = 713-8) 3.9 % BASO % (test code = 706-2) 0.2 % GRAN MAT x10^3(ANC) (test code = 8069707846) 3.20 10*3/uL 1.88-7.09 IMM GRAN x10^3 (test code = 3743491870) 0.03 10*3/uL 0.00-0.06 LYMPH x10^3 (test code = 731-0) 0.81 10*3/uL 1.32-3.29 L MONO x10^3 (test code = 742-7) 0.44 10*3/uL 0.33-0.92 EOS x10^3 (test code = 711-2) 0.18 10*3/uL 0.03-0.39 BASO x10^3 (test code = 704-7) <0.03 0.01-0.07 Lab Interpretation (test code = 52163-6) Abnormal [facility] WITHOUT [id number] 19:00:33* Test Item Value Reference Range Interpretation [...] result as normal/abnormal. MPV (test code = 59700-0) 10.4 fL 9.5-12.9 RDW-CV (test code = 788-0) 22.7 % 12.0-15.5 H RDW-SD (test code = 63286-3) 54.9 fL 39.0-49.9 H NRBC x10^3 (test code = 7308790535) <0.01 See_Comment [Automated messa ge] The system which generated this result transmitted reference range: 10*3/?L. The reference range was not used to interpret this result as normal/abnormal. NRBC/100 WBC (test code = 6100765194) See_Comment [Automated messa ge] The system which generated this result transmitted reference range: 0.0 - 10.0 /100 WBCs. The reference range was not used to interpret this result as normal/abnormal. IPF % (test code = 9398522837) Lab Interpretation (test code = 49139-3) Abnormal [facility] with [id number] 11:10:21* Test Item Value Reference Range Interpretation [...] g/dL 31.6-35.1 L RDW-SD (test code = 94917-2) 54.0 fL 39.0-49.9 H RDW-CV (test code = 788-0) 22.7 % 12.0-15.5 H PLT (test code = 777-3) See_Comment [Automated messa ge] The system which generated this result transmitted reference range: 166 - 358 10*3/?L. The reference range was not used to interpret this result as normal/abnormal. MPV (test code = 57555-6) 9.8 fL 9.5-12.9 NRBC/100 WBC (test code = 6396658150) See_Comment [Automated [employer] ssage] The system which generated this result transmitted reference range: 0.0 - 10.0 /100 WBCs. The reference range was not used to interpret this result as normal/abnormal. NRBC x10^3 (test code = 3202686210) <0.01 See_Comment [Automated messa ge] The system which generated this result transmitted reference range: 10*3/?L. The reference range was not used to interpret this result as normal/abnormal. GRAN MAT (NEUT) % (test code = 770-8) 56.7 % IMM GRAN % (test code = 3158024881) 0.30 % LYMPH % (test code = 736-9) 32.2 % MONO % (test code = 5905-5) 7.6 % EOS % (test code = 713-8) 2.9 % BASO % (test code = 706-2) 0.3 % GRAN MAT x10^3(ANC) (test code = 4611284398) 1.94 10*3/uL 1.88-7.09 IMM GRAN x10^3 (test code = 0375088242) <0.03 0.00-0.06 LYMPH x10^3 (test code = 731-0) 1.10 10*3/uL 1.32-3.29 L MONO x10^3 (test code = 742-7) 0.26 10*3/uL 0.33-0.92 L EOS x10^3 (test code = 711-2) 0.10 10*3/uL 0.03-0.39 BASO x10^3 (test code = 704-7) <0.03 0.01-0.07 Lab Interpretation (test code = 49493-9) Abnormal [facility] METABOLIC PANEL (NA, K, CL, CO2, GLUCOSE, BUN, CREATININE, CA)2021-07-01 10:43:36* Test Item Value Reference Range Interpretation Comme nts NA (test code = 9714426702) 140 mmol/L 135-145 K (test code = 9600764844) 3.5 mmol/L 3.5-5.0 CL (test code = 6119382382) 109 mmol/L 98-108 H CO2 TOTAL (test code = 8654803381) 29 mmol/L 23-31 AGAP (test code = 0282504996) 2-16 BUN (test code = 0250910950) 5 mg/dL 7-23 L GLUCOSE (test code = 0799753797) 86 mg/dL 70-110 CREATININE (test code = 6557458764) 0.54 mg/dL 0.50-1.04 CALCIUM (test code = 4584706465) 7.8 mg/dL 8.6-10.6 L eGFR (test code = 0564077857) mL/min/1.73m2 GABE (test code = GABE) Association [...] imaging tests). Lab Interpretation (test code = 00507-0) [facility]normal [facility] 10:43:36* Test Item Value Reference Range Interpretation Comme nts MAGNESIUM (test code = 5757267119) 1.6 mg/dL 1.7-2.4 L Lab Interpretation (test cod e = 38747-5) Abnormal [facility] WITHOUT [id number] 05:52:30* Test Item Value Reference Range Interpretation [...] result as normal/abnormal. MPV (test code = 71755-5) 9.8 fL 9.5-12.9 RDW-CV (test code = 788-0) 22.7 % 12.0-15.5 H RDW-SD (test code = 35000-0) 53.1 fL 39.0-49.9 H NRBC x10^3 (test code = 0230663427) <0.01 See_Comment [Automated messa ge] The system which generated this result transmitted reference range: 10*3/?L. The reference range was not used to interpret this result as normal/abnormal. NRBC/100 WBC (test code = 3915261209) See_Comment [Automated Cloud Amenitya ge] The system which generated this result transmitted reference range: 0.0 - 10.0 /100 WBCs. The reference range was not used to interpret this result as normal/abnormal. IPF % (test code = 8913573576) Lab Interpretation (test code = 62312-6) Abnormal [facility] Screen - The Type and Screen [...] code = 20) B POSITIVE Performed at [facility] Laboratory Services - [facility] Blood [address] [address] Free: [phone] No. [id number] IAT (test code = 1185) Negative Performed at [facility] Laboratory Services - [facility] Blood [address] [address]Ysaj Free: [phone] No. [id number] [facility]ennialBasi Metabolic Panel (NA, K, CL, CO2, GLUCOSE, BUN, CREATININE, CA)2021-07-01 01:09:19* Test Item Value Reference Range Interpretation Comme nts NA (test code = 4223752089) 140 mmol/L 135-145 K (test code = 5465738143) 3.5 mmol/L 3.5-5.0 CL (test code = 7361916413) 107 mmol/L 98-108 CO2 TOTAL (test code = 8400784189) 27 mmol/L 23-31 AGAP (test code = 9554954043) 2-16 BUN (test code = 1236201226) 9 mg/dL 7-23 GLUCOSE (test code = 6061085325) 108 mg/dL 70-110 CREATININE (test code = 3113504847) 0.57 mg/dL 0.50-1.04 CALCIUM (test code = 2319719393) 8.3 mg/dL 8.6-10.6 L eGFR (test code = 0486550977) mL/min/1.73m2 GABE (test code = GABE) Association [...] imaging tests). Lab Interpretation (test code = 30124-1) Abnormal [facility]ennialProthrombin Time / [id number] 00:54:43* Test Item Value Reference Range Interpretation Comme [facility] PROTIME PATIENT (test code = 5964-2) See_Comment H [Automated Cloud [employer]] The system which generated this result transmitted reference range: 10.1 - 12.6 Seconds. The reference range was not used to interpret this result as normal/abnormal. INR (test code = 6301-6) Normal INR <1.1; Warfarin Therapeutic range 2.0 to 3.0 or 2.5 to 3.5, depending upon the indications. Lab Interpretation (test code = 31951-6) Abnormal [facility] CentennialaPTT2022-05-03 00:54:43* Test Item Value Reference Range Interpretation Comme [facility] APTT Patient (test code = 3173-2) See_Comment [Automated IV Diagnostics] The system which generated this result transmitted reference range: 26 - 36 Seconds. The reference range was not used to interpret this result as normal/abnormal. Lab Interpretation (test code = 15176-2) Normal [facility]ennialProfile / [id number] 00:51:17* Test Item Value Reference Range Interpretation Comme [facility] WBC (test code = 6690-2) See_Comment L [...] result as normal/abnormal. MPV (test code = 37107-5) 9.6 fL 9.5-12.9 RDW-CV (test code = 788-0) 22.6 % 12.0-15.5 H RDW-SD (test code = 84853-0) 53.5 fL 39.0-49.9 H NRBC x10^3 (test code = 4479196139) <0.01 See_Comment [Automated messa ge] The system which generated this result transmitted reference range: 10*3/?L. The reference range was not used to interpret this result as normal/abnormal. NRBC/100 WBC (test code = 5786040033) See_Comment [Automated messa ge] The system which generated this result transmitted reference range: 0.0 - 10.0 /100 WBCs. The reference range was not used to interpret this result as normal/abnormal. IPF % (test code = 0625592646) Lab Interpretation (test code = 17725-2) Abnormal [facility]ennialType and Screen - ONCE [id number] 22:13:13 * Test Item Value Reference Range Interpretation Comme nts ABO & RH (test code = 20) B Positive Performed at [facility] Laboratory Services - [facility] Blood [address] Free: [phone] No. [id number] IAT (test code = 1185) Negative Performed at [facility] Laboratory Services - [facility] Blood [place] [address]Toll Free: [phone] No. [id number] [facility]ennialCOMP. METABOLIC PANEL (70992)2021-06-30 20:50:04* Test Item Value Reference Range Interpretation Comme nts NA (test code = 5633269649) 138 mmol/L 135-145 K (test code = 5131742194) 4.5 mmol/L 3.5-5.0 CL (test code = 9478514772) 108 mmol/L 98-108 CO2 TOTAL (test code = 5155079262) 23 mmol/L 23-31 AGAP (test code = 8772152926) 2-16 BUN (test code = 0801132758) 11 mg/dL 7-23 GLUCOSE (test code = 7180422949) 92 mg/dL 70-110 CREATININE (test code = 3832304543) 0.53 mg/dL 0.50-1.04 TOTAL BILI (test code = 5714671362) 0.5 mg/dL 0.1-1.1 CALCIUM (test code = 4431460497) 8.4 mg/dL 8.6-10.6 L T PROTEIN (test code = 9187150925) 6.4 g/dL 6.3-8.2 ALBUMIN (test code = 1301332652) 3.5 g/dL 3.5-5.0 ALK PHOS (test code = 8798530778) 52 U/L 34-122 ALTv (test code = 1742-6) 17 U/L 5-35 AST(SGOT) (test code = 6993808102) 39 U/L 13-40 eGFR (test code = 1551164146) mL/min/1.73m2 GABE (test code = GABE) Association [...] imaging tests). Lab Interpretation (test code = 11015-9) Abnormal [facility] WITH [id number] 20:31:22* Test Item Value Reference Range Interpretation Comme nts WBC (test code = 6690-2) See_Comment [Automated Cloud [employer]] The system which generated this result transmitted reference range: 4.30 - 11.10 10*3/?L. The reference range was not used to interpret this result as normal/abnormal. RBC (test code = 789-8) See_Comment L [Automated [employer]] The system which generated this result transmitted [...] g/dL 31.6-35.1 L RDW-SD (test code = 88075-7) 53.4 fL 39.0-49.9 H RDW-CV (test code = 788-0) 22.9 % 12.0-15.5 H PLT (test code = 777-3) See_Comment [Automated [employer]] The system which generated this result transmitted reference range: 166 - 358 10*3/?L. The reference range was not used to interpret this result as normal/abnormal. MPV (test code = 96362-4) 10.1 fL 9.5-12.9 NRBC/100 WBC (test code = 9984418524) See_Comment [Automated me ssage] The system which generated this result transmitted reference range: 0.0 - 10.0 /100 WBCs. The reference range was not used to interpret this result as normal/abnormal. NRBC x10^3 (test code = 8185276101) <0.01 See_Comment [Automated messa ge] The system which generated this result transmitted reference range: 10*3/?L. The reference range was not used to interpret this result as normal/abnormal. GRAN MAT (NEUT) % (test code = 770-8) 64.7 % IMM GRAN % (test code = 8036387462) 0.20 % LYMPH % (test code = 736-9) 25.1 % MONO % (test code = 5905-5) 8.0 % EOS % (test code = 713-8) 1.8 % BASO % (test code = 706-2) 0.2 % GRAN MAT x10^3(ANC) (test code = 6060099969) 2.84 10*3/uL 1.88-7.09 IMM GRAN x10^3 (test code = 1014505810) <0.03 0.00-0.06 LYMPH x10^3 (test code = 731-0) 1.10 10*3/uL 1.32-3.29 L MONO x10^3 (test code = 742-7) 0.35 10*3/uL 0.33-0.92 EOS x10^3 (test code = 711-2) 0.08 10*3/uL 0.03-0.39 BASO x10^3 (test code = 704-7) <0.03 0.01-0.07 Lab Interpretation (test code = 97588-8) Abnormal [facility]ennialACETAMINOPHEN2021-03-31 22:14:03* Test Item Value Reference Range Interpretation Comme nts ACETAMINOP (test code = 8156608697) <10.0 10.0-30.0 L GABE (test code = GABE) Toxic: Greater ed n 200 ug/mL @ 4 hour post ingestion or greater than 50 ug/mL @ 12 hour post ingestion Lab Interpretation (test code = 21625-8) Abnormal [facility] CentennialETHANOL2021-03-31 22:13:53* Test Item Value Reference Range Interpretation Comme nts ALCOHOL (test code = 8444165037) <10 mg/dL GABE (test code = GABE) <10 Ezzqdhpd16-510 Toxic>100 Depression of SCRIPT EDITOR>400 Fatalities Reported [facility] CentennialSALICYLATE2021-03-31 22:12:51* Test Item Value Reference Range Interpretation Comme nts SALICYLATE (test code = 7308030487) <10 mg/L GABE (test code = GABE) Therapeutic Range: ? Analgesic and Antipyretic Use ? 20-100 mg/L ? ? Anti-Inflammatory Use ? 100-250 mg/L Toxic Range: ? Greater than 300 mg/L [facility] CentennialTROPONIN [id number] 22:11:46* Test Item Value Reference Range Interpretation Comme nts TROPONIN I (test code = 2779400330) 0.000 ng/mL See_Comment [Automated message] The system [...] biotin. ? Lab Interpretation (test code = 77584-2) Normal [facility] CentennialCOMP. METABOLIC PANEL (17829)2020-05-29 22:00:22* Test Item Value Reference Range Interpretation Comme nts NA (test code = 8656317693) 140 mmol/L 135-145 K (test code = 3186469250) 3.8 mmol/L 3.5-5.0 CL (test code = 2829645337) 103 mmol/L 98-108 CO2 TOTAL (test code = 1260694212) 30 mmol/L 23-31 AGAP (test code = 3792298111) 2-16 BUN (test code = 4642418392) 9 mg/dL 7-23 GLUCOSE (test code = 3152314455) 93 mg/dL 70-110 CREATININE (test code = 8803238472) 0.68 mg/dL 0.50-1.04 TOTAL BILI (test code = 6511104663) 0.3 mg/dL 0.1-1.1 CALCIUM (test code = 7678216792) 9.2 mg/dL 8.6-10.6 T PROTEIN (test code = 9498131335) 7.3 g/dL 6.3-8.2 ALBUMIN (test code = 6675697184) 4.3 g/dL 3.5-5.0 ALK PHOS (test code = 4670711372) 71 U/L 34-122 ALTv (test code = 1742-6) 11 U/L 5-35 AST(SGOT) (test code = 4112634677) 30 U/L 13-40 eGFR Calculation (Non-) (test code = 7498185661) mL/min/1.73m2 eGFR Calculation () (test code = 5550136066) mL/min/1.73m2 GABE (test code = GABE) Association [...] or urine or abnormalities in imaging tests). [facility] CentennialN-TERMINAL [id number] 21:56:39* Test Item Value Reference Range Interpretation Comme nts NT-proBNP (test code = 3325859186) 38 pg/mL See_Comment [Automated message] The system which generated this result transmitted reference range: <=125. The reference range was not used to interpret this result as normal/abnormal. GABE (test code = GABE) Biotin has been reported to cause a negative bias, interpret results relative to patient's use of biotin. Lab Interpretation (test code = 92263-4) Normal [facility] CentennialCOVID-19 (ID NOW RAPID TESTING)2020-05-29 21:39:48* Test Item Value Reference Range Interpretation Comme nts SARS-CoV-2 Rapid ID NOW (test code = 27953-5) Not Detected Not Detected GABE (test code = GABE) ID NOW COVID-19 As say is an isothermal nucleic acid amplification test intended for the qualitative detection of nucleic acid from SARS-CoV-2 viral RNA in nasopharyngeal (SURVEYOR) specimens. It is used under Emergency Use [...] clinically indicated. Lab Interpretation (test code = 16383-3) Normal [facility] CentennialACTIVATED PARTIAL THRMPLAS [id number] 21:28:06* Test Item Value Reference Range Interpretation Comme [facility] APTT Patient (test code = 3173-2) See_Comment [Automated message] The system which generated this result transmitted reference range: 23 - 38 Seconds. The reference range was not used to interpret this result as normal/abnormal. GABE (test code = GABE) The [facility] patient population mean normal value for aPTT is 30 seconds. Lab Interpretation (test code = 81795-2) Normal [facility] CentennialPROTHROMBIN TIME / [id number] 21:26:04* Test Item Value Reference Range Interpretation Comme [facility] PROTIME PATIENT (test code = 5964-2) See_Comment [Automated messa ge] The system which generated this result transmitted reference range: 12.0 - 14.7 Seconds. The reference range was not used to interpret this result as normal/abnormal. INR (test code = 6301-6) Normal INR <1.1; Warfarin Therapeutic range 2.0 to 3.0 or 2.5 to 3.5, depending upon the indications. Lab Interpretation (test code = 83463-3) Normal [facility] CentennialADC / C - DRUG SCREEN [id number] 21:25:53* Test Item Value Reference Range Interpretation Comme nts BENZO U (test code = 7591423914) Negative Negative SIGIFREDO U (test code = 4036368160) Negative Negative AMPHET (test code = 4728741601) Negative Negative THC (test code = 6842671189) Negative Negative METHADONE (test code = 1368300723) Negative Negative Meth U (test code = 9369610499) Negative Negative OPIATES (test code = 2062885831) Negative Negative Cocaine Metabolite (test code = 4339511655) Negative Negative PROPOXY (test code = 9694771303) Negative Negative Tric U (test code = 6930594619) Negative Negative PCP (test code = 5281409287) Negative Negative OXYCOD (test code = 0472617472) Negative Negative GABE (test code = GABE) [...] legal testing). Lab Interpretation (test code = 30454-0) Normal [facility] WITH [id number] 21:17:01* Test Item Value Reference Range Interpretation Comme nts WBC (test code = 6690-2) See_Comment [Automated IV Diagnostics] The system which generated this result transmitted reference range: 4.30 - 11.10 10*3/?L. The reference range was not used to interpret this result as normal/abnormal. RBC (test code = 789-8) See_Comment [Automated [employer]] The system which generated this result transmitted [...] 31.9 g/dL 31.6-35.1 RDW-SD (test code = 65251-9) 37.8 fL 39.0-49.9 L RDW-CV (test code = 788-0) 14.7 % 12.0-15.5 PLT (test code = 777-3) See_Comment [Automated messa ge] The system which generated this result transmitted reference range: 166 - 358 10*3/?L. The reference range was not used to interpret this result as normal/abnormal. MPV (test code = 54114-2) 10.2 fL 9.5-12.9 NRBC/100 WBC (test code = 2477808357) See_Comment [Automated [employer] ssage] The system which generated this result transmitted reference range: 0.0 - 10.0 /100 WBCs. The reference range was not used to interpret this result as normal/abnormal. NRBC x10^3 (test code = [id number]) <0.01 See_Comment [Automated messa ge] The system which generated this result transmitted reference range: 10*3/?L. The reference range was not used to interpret this result as normal/abnormal. GRAN MAT (NEUT) % (test code = 770-8) 63.9 % IMM GRAN % (test code = 1609010963) 0.20 % LYMPH % (test code = 736-9) 26.7 % MONO % (test code = 5905-5) 6.6 % EOS % (test code = 713-8) 2.1 % BASO % (test code = 706-2) 0.5 % GRAN MAT x10^3(ANC) (test code = 4605059812) 2.81 10*3/uL 1.88-7.09 IMM GRAN x10^3 (test code = 7697115068) <0.03 0.00-0.06 LYMPH x10^3 (test code = 731-0) 1.17 10*3/uL 1.32-3.29 L MONO x10^3 (test code = 742-7) 0.29 10*3/uL 0.33-0.92 L EOS x10^3 (test code = 711-2) 0.09 10*3/uL 0.03-0.39 BASO x10^3 (test code = 704-7) <0.03 0.01-0.07 Lab Interpretation (test code = 93970-3) [facility]normal [facility] [id number] 21:05:00* Test Item Value Reference Range Interpretation Comme nts POCT PREG (test code = 1605) negative On board controls acceptable with C Line (test code = 3574) present POCT PREG LOT # (test code = 3575) [id number] POCT PREG TEST DATE ( test code = 3576) 01/28/22 Lab Interpretation (test cod e = 76493-5) Normal [facility] 1 [id number] 20:35:59HISTORY: Chest pain. TECHNIQUE: Portable AP view [...] etiology but could be viral infection. Please correlate.Memb, Radiant Results Inft User - 05/29/2020 3:37 [...] etiology but could be viral infection. Please correlate.[facility]ars-CoV-2/FLU A/B RSV [id number] 11:39:00* Test Item Value Reference Range Interpretation [...] Negative by PCR Complete Blood Count Auto [id number] 11:35:00* Test Item Value Reference Range Interpretation [...] code = NRBCP) 0 % Comprehensive Metabolic [id number] 11:35:00* Test Item Value Reference Range Interpretation [...] = ALP) 72 U/L 46-116 N RPR [id number] 12:23:19* Test Item Value Reference Range Interpretation [...] = Expiration Dt) 02-29-20 N Thyroid Stimulating Dvwikwb5385-36-30 04:43:39* Test Item Value Reference Range Interpretation Comme nts TSH (test code = TSH) 0.488 mIU/mL 0.270-4.200 Lipid Oakus0018-11-21 04:37:33* Test Item Value Reference Range Interpretation Comme nts Cholesterol Total (test code = Cholesterol Total) 120 mg/dL 0-200 RISK OF HEART DISEASEPublished by [place] Association Analyte Optimal Borderline Increased RiskCHOL [...] this calculation is LDL/HDL Ratio=LDL Calc/HDL Chol Cmhnduclvj7995-50-77 17:30:21* Test Item Value Reference Range Interpretation [...] = Plt Estimation) Normal Normal Comprehensive Metabolic Aspsg7196-58-12 16:33:31* Test Item Value Reference Range Interpretation [...] = A/G Ratio) 1.6 ratio N Alcohol [id number] 16:33:31* Test Item Value Reference Range Interpretation Comme nts Ethanol Level (test code = Ethanol Level) <0.00 g/dL 0.00-0.01 Intoxicated 0.08 0 g/dL or more Ethanol Inst (test code = Ethanol Inst) <0 N Comprehensive Metabolic [id number] 16:33:31* Test Item Value Reference Range Interpretation [...] is not provided, and the patient is -Haitian, multiply by 1.212. If sex is not [...] the National Kidney Foundation, http://nkdep.nih.gov Comprehensive Metabolic Bneuk9885-98-56 16:33:31* Test Item Value Reference Range Interpretation [...] is not provided, and the patient is -Haitian, multiply by 1.212. If sex is not [...] is not provided, and the patient is -Haitian, multiply by 1.212. If sex is not [...] the National Kidney Foundation, http://nkdep.nih.gov Beta HCG Mbzjuxkcksua2613-09-40 16:33:22* Test Item Value Reference Range Interpretation Comme nts HCG, Beta Quantitative (test code = HCG, Beta Quantitative) <0.50 mIU/mL N Weeks of Gestati on Ranges (mIu/mL)3 weeks 5.40-72.04 weeks 10.2-7085 weeks 217-14038 weeks 152-548762 weeks 4059-1102845 weeks 62338-9076312 weeks 67304-25422446 weeks 83699-07383263 weeks 68901-83074706 weeks 43113-0717495 weeks 09434-1201199 weeks 7004-8979564 weeks 8240-0809461 weeks 9649-50028 IG [id number] 15:56:13* Test Item Value Reference Range Interpretation Comme nts IG (test code = IG) 0.1 % 0.0-5.0 IG Abs (test code = IG Abs) 0 x10 N Complete Blood Count with Expwegchmlmx9261-56-82 15:56:12* Test Item Value Reference Range Interpretation [...] code = IPF) 0 % N Automated Apzvnymdrxkx2760-40-15 15:56:12* Test Item Value Reference Range Interpretation Comme nts Neutro Auto (test code = Jeremy tro Auto) 75.5 % 36.0-70.0 H Lymph Auto (test code = Lymph Auto) 19.1 % 12.0-44.0 [place] Auto (test code = [place] Auto) 3.6 % 0.0-11.0 Eos, Auto (test code = Eos, Auto) 1.3 % 0.0-7.0 Basophil Auto (test code = B asophil Auto) 0.4 % 0.0-2.0 Neutro Absolute (test code = Neutro Absolute) 5.7 x10 1.6-7.4 Lymph Absolute (test code = Lymph Absolute) 1.45 x10 .50-4.60 [place] Absolute (test code = M michael Absolute) .27 x10 .00-1.20 Eos Absolute (test code = Eo s Absolute) 0.10 x10 0.00-0.74 Baso Absolute (test code = B aso Absolute) 0.03 x10 0.00-0.21 RPR, [id number] 20:27:00* Test Item Value Reference Range Interpretation Comme nts RPR (test code = RPR) Non-Reactive Non-Reactive N Lipid Acyjomo3888-43-04 08:20:00* Test Item Value Reference Range Interpretation Comme nts Cholesterol (test code = CHOL) 116 mg/dL 0-200 N Triglycerides (test code = TRIG) 107 mg/dL 9-200 N HDL (test code = HDL) 33 mg/dL 50-60 L Chol/HDL (test code = CHOLPHDL) 3.5 Ratio 0.0-4.4 N LDL, Calculated (test code = LDLC) 62 0-130 N (NOTE)RISK OF HEART DISEASEPublished by Haitian Heart AssociationAnalyte Optimal Boderline Increased RiskCHOL <200 [...] TSH) 1.96 mIU/mL 0.270-4.200 N BHCG, Serum, [id number] 08:04:00* Test Item Value Reference Range Interpretation Comme nts Preg Qual [Se] (test code = BSHCG) Negative Negative N Thyroid Stimulating Hormone (TSH)2016-08-18 21:10:00* Test Item Value Reference Range Interpretation Comme nts TSH (test code = TSH) 2.02 mIU/mL 0.270-4.200 N RPR, [id number] 18:14:00* Test Item Value Reference Range Interpretation Comme nts RPR (test code = RPR) Non-Reactive Non-Reactive N BHCG, Serum, [id number] 14:56:00* Test Item Value Reference Range Interpretation Comme nts Preg Qual [Se] (test code = BSHCG) Negative Negative N Urinalysis [id number] 11:10:00* Test Item Value Reference Range Interpretation Comme nts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 regarding the care of the patient. MD WESLEY Temple/SUNDAY TD: 05/14/2017 18:08 CC:Swapnil Vo MD Patient Name: FER PELAYO 3. Suicidal ideation, the patient with known schizoaffective disorder. From a medical standpoint, the patient's distal fingers do not need any specific treatment. The wound appears to be healing. There is no active oozing or serous drainage noted. This will take some time for her to heal. We will have p.r.n. Tylenol ordered. Nicotine patch will be ordered for this patient as well. Otherwise, rest of the care as per the primary service. We then for the opportunity to see this patient. Please call us with any questions regarding the care of the patient. MD WESLEY Temple/SUNDAY TD: 05/14/2017 18:08 CC:Swapnil Vo MD Electronically Authenticated by: Eliezer Martel MD On 05/28/2017 08:19 AM CDT [facility] 2016-10-04 12:49:19 [facility] enter Medical History and Physical PATIENT NAME: FER PELAYO PHYSICIAN: Danny Cleary MD Admitted: MR NUMBER: [id number] DISCHARGED: DATE OF ADMISSION: 08/18/2016 HISTORY OF PRESENT ILLNESS: This patient is a 31-year-old female with a [...] brought into the hospital and subsequently got admitted. PAST MEDICAL HISTORY: This patient is significant for schizoaffective disorder, history of PTSD. ALLERGIES: AT THIS TIME IS NONE. SOCIAL HISTORY: No history of smoking. No history of drinking. FAMILY HISTORY: Noncontributory. IMMUNIZATION HISTORY: Not available. MEDICATIONS: List of medications reviewed and reconciled. REVIEW OF SYSTEMS: Significant for no chest pain, no shortness of breath, no headache, no nausea, vomiting, or diarrhea. No abdominal pain. No history of dizziness, history of any fall. No history of weight loss or weight gain. Besides that, the rest of them essentially unremarkable. PHYSICAL EXAMINATION: VITAL SIGNS: Blood pressure 141/71, pulse was 86, respirations 16, and temperature 98.6. GENERAL: She is an elderly lady, lying on the bed, not in acute cardiopulmonary distress. HEAD AND NECK: Normal. Neck is supple. Thyroid is not palpable. JVD is not raised. EARS, NOSE, AND THROAT: Within normal limits. [facility] Medical History and Physical PATIENT NAME: FER PELAYO PHYSICIAN: Danny Cleary MD Admitted: MR NUMBER: [id number] DISCHARGED: DATE OF ADMISSION: 08/18/2016 HISTORY OF PRESENT ILLNESS: This patient is a 31-year-old female with a [...] brought into the hospital and subsequently got admitted. PAST MEDICAL HISTORY: This patient is significant for schizoaffective disorder, history of PTSD. ALLERGIES: AT THIS TIME IS NONE. SOCIAL HISTORY: No history of smoking. No history of drinking. FAMILY HISTORY: Noncontributory. IMMUNIZATION HISTORY: Not available. MEDICATIONS: List of medications reviewed and reconciled. REVIEW OF SYSTEMS: Significant for no chest pain, no shortness of breath, no headache, no nausea, vomiting, or diarrhea. No abdominal pain. No history of dizziness, history of any fall. No history of weight loss or weight gain. Besides that, the rest of them essentially unremarkable. PHYSICAL EXAMINATION: VITAL SIGNS: Blood pressure 141/71, pulse was 86, respirations 16, and temperature 98.6. GENERAL: She is an elderly lady, lying on the bed, not in acute cardiopulmonary distress. HEAD AND NECK: Normal. Neck is supple. Thyroid is not palpable. JVD is not raised. EARS, NOSE, AND THROAT: Within normal limits. Patient Name: FER PELAYO EYES: Within normal limits. CHEST: Vesicular. Good air entry bilaterally. No wheezes, no crackles noted. CARDIAC: First and second heart sounds are there. SKIN: Intact. NEUROLOGIC: She is alert, oriented, and moving her all extremities equally and bilaterally. BACK: Normal. Cranial examination intact. NEUROPSYCHIATRIC: Does show a depressed mood. LABORATORY WORKUP: The patient shows that her test is negative. UA is negative. TSH is 2. U-tox positive for amphetamine, urine alcohol is normal. Sodium is 139. BUN is 11, creatinine 0.9. LFTs essentially unremarkable. ASSESSMENT AND PLAN: 1. This patient is in acute psychosis with agitation. 2. History of schizoaffective disorder. 3. History of posttraumatic stress disorder. The patient presently hemodynamically stable. Continue with the present psych treatment. The patient do not have any active medical needs. Please feel free to call me if you have any questions. I would be more than happy to assist you with that. Danny Cleary MD CDT TT: 08/19/2016 12:21:40CDT [id number] /Chacha /[id number] 7 13:21:40 cc: Patient Name: FER PELAYO EYES: Within normal limits. CHEST: Vesicular. Good air entry bilaterally. No wheezes, no crackles noted. CARDIAC: First and second heart sounds are there. SKIN: Intact. NEUROLOGIC: She is alert, oriented, and moving her all extremities equally and bilaterally. BACK: Normal. Cranial examination intact. NEUROPSYCHIATRIC: Does show a depressed mood. LABORATORY WORKUP: The patient shows that her test is negative. UA is negative. TSH is 2. U-tox positive for amphetamine, urine alcohol is normal. Sodium is 139. BUN is 11, creatinine 0.9. LFTs essentially unremarkable. ASSESSMENT AND PLAN: 1. This patient is in acute psychosis with agitation. 2. History of schizoaffective disorder. 3. History of posttraumatic stress disorder. The patient presently hemodynamically stable. Continue with the present psych treatment. The patient do not have any active medical needs. Please feel free to call me if you have any questions. I would be more than happy to assist you with that. Danny Cleary MD CDT TT: 08/19/2016 12:21:40CDT [id number] /[place]acha /[id number]/ 7 13:21:40 cc: Electronically Authenticated by: Danny Cleary MD On 10/04/2016 12:49 PM CDT [facility]
[2023-12-31 15:58] LABS: Specific Gravity 1.015 (1.005-1.030)
[2023-12-31 15:59] LABS: Absolute Eosinophils 0.1 K/uL (0-0.5); Absolute Lymphocytes (CBC) 1.3 K/uL (0.7-4.9); Absolute Monocytes 0.3 K/uL (0.1-1.3); Absolute Neutrophil 2.9 K/uL (1.8-8.0); Basophils % 0.8 % (0-1.3); Hematocrit 26.7 % (36.0-45.0); Hemoglobin 8.3 g/dL (12.0-15.0); Lymphocytes % 28.4 % (15.3-44.8); MCH 19.9 pg (27.0-35.0); MCHC 31.1 g/dL (32.0-36.0); MCV 64.1 fL (80-100); MPV 7.7 fL (7.6-11.3); Monocytes % 6.7 % (3.3-12.3); Neutrophils % 62.1 % (41.7-73.7); Platelets 379 thou/uL (152-406); RBC Red Blood Cell Count 4.16 M/uL (3.86-4.86)
[2023-12-31 15:59] LABS: Specific Gravity 1.015 (1.005-1.030); Sqamous Epithelial <5 /HPF (None Seen); Urine Bacteria <20 /HPF (<20); Urine Bilirubin NEGATIVE (Negative); Urine Blood 2+ (Negative); Urine Clarity Turbid (Clear); Urine Color Light-Yellow (Yellow); Urine Culture Reflex Order REFLEXED; Urine Glucose NEGATIVE (Negative); Urine Ketones NEGATIVE (Negative); Urine Microscopic Reflex YN ORDER UMIC; Urine Mucus Slight /HPF (None Seen); Urine Nitrite NEGATIVE (Negative); Urine Protein NEGATIVE (Negative); Urine RBC <5 /HPF (None Seen); Urine Urobilinogen 2+ (Normal); Urine WBC 20-50 /HPF (<5); Urine WBC Clump Rare /HPF (None Seen); Urine Yeast (Budding) Trace /HPF (None Seen)
[2023-12-31 16:03] LABS: PT Prothrombin Time 12.5 SECONDS (9.4-12.5); Protime INR 1.12
[2023-12-31 16:06] LABS: Barbiturates NEGATIVE (NEGATIVE); Benzodiazepines NEGATIVE (NEGATIVE); Cocaine NEGATIVE (NEGATIVE); METHAMPHETAM NEGATIVE (NEGATIVE); Methadone NEGATIVE (NEGATIVE); Opiates NEGATIVE (NEGATIVE); Phencyclidine NEGATIVE (NEGATIVE); THC Cannibis NEGATIVE (NEGATIVE)
[2023-12-31 16:16] LABS: ALT/SGPT 17 U/L (13-56); AST/SGOT 20 U/L (15-37); Albumin/Globulin Ratio 0.7 (1.1-1.8); Alkaline Phosphatase 68 U/L (45-117); Anion Gap 7.7 mEq/L (5.0-15.0); BUN Blood Urea Nitrogen 10 mg/dL (7-18); Bicarbonate 26 mEq/L (21-32); Bilirubin Total 0.2 mg/dL (0.2-1.0); Globulin 4.2 g/dL (2.3-3.5); Glomerular Filtration Rate 113 ml/min (=/>90); Glucose Level 99 mg/dL (74-106); Potassium 3.7 mEq/L (3.5-5.1); Protein, Total 7.2 g/dL (6.4-8.2); Sodium Level 139 mEq/L (136-145)
[2023-12-31 16:17] LABS: Bilirubin Direct < 0.2 mg/dL (0-0.2)
[2023-12-31 16:43] LABS: Blood Morphology Comment NOTED (NOT SEEN); Hypochromasia 2+; Microcytosis 2+; Platelet Estimate ADEQ; White Blood Cell Scan OK (OK)
[2023-12-31] MEDS ORDERED: CEFTRIAXONE 1000 MG/VIAL ONE (17:06)
--- NOTE | 2023-12-31 19:44 | ER ---
Nurse's Notes [facility] Name: Georgette Patel Age: 38 yrs Sex: Female : 1985 Arrival Date: 12/31/2023 Time: 14:36 Bed 13 Private MD: Diagnosis: Schizophrenia, unspecified;UTI/ Urinary tract infection, site not specified Presentation: 12/30 14:39 Chief complaint: EMS states: [employer] called for pt wandering around campus, hb confused, saying her kids were kidnapped and might be at the school, had visited another campus this morning making similar statements. Denies SI/HI. Coronavirus screen: At this time, the client does not indicate any symptoms associated with coronavirus-19. Ebola Screen: No symptoms or risks identified at this time. Initial Sepsis Screen: Does the patient meet any 2 criteria? No. Patient's initial sepsis screen is negative. Does the patient have a suspected source of infection? No. Patient's initial sepsis screen is negative. Risk Assessment: Do you want to hurt yourself or someone else? Patient reports no desire to harm self or others. Onset of symptoms was December 31, 2023. 14:39 Method Of Arrival: EMS: [facility] 14:39 Acuity: GILES 2 hb Historical: - Allergies: 14:43 Hydrocodone-Acetaminophen; hb - PMHx: 14:43 Bipolar disorder; Depression; PTSD; Schizophrenia; Anxiety; hb - Immunization history:: Adult Immunizations up to date. - Infectious Disease History:: Denies. - Social history:: Smoking status: . Screenin:07 [facility] ED Fall Risk Assessment (Adult) History of falling in the last 3 months, ko1 including since admission No falls in past 3 months (0 pts) Confusion or Disorientation Yes (5 pts) Intoxicated or Sedated No (0 pts) Impaired Gait No (0 pts) Mobility Assist Device Used No (0 pt) Altered Elimination No (0 pt) Score/Fall Risk Level 3 or more points = High Risk Oriented to surroundings, Maintained a safe environment, Educated pt \\T\\ family on fall prevention, incl call for assistance when getting out of bed, Assessed \\T\\ reinforced patient's understanding of fall precautions, Provided non-skid footwear, Hourly rounding (assess needs \\T\\ fall precautionary measures) done, Used ambulatory aids as needed (educated on \\T\\ assisted with), Used gait belt as appropriate Implemented a Fall Risk Plan of Care, Apply high fall risk patient identification: yellow non skid footwear/ fall signage, Remained w/in arm's length of patient and in sight while toileting, Offered frequent toileting (1:1 observation), Remained with patient while ambulating, Utilized family, sitter, or virtual control clerk subassembly as indicated. Abuse screen: Denies threats or abuse. Denies injuries from another. Nutritional screening: No deficits noted. Tuberculosis screening: No symptoms or risk factors identified. Assessment: 15:54 General: Appears in no apparent distress. unkempt, Behavior is cooperative, drowsy. ko1 Pain: Denies pain. Neuro: Level of Consciousness is awake, confused. Cardiovascular: No deficits noted. Respiratory: No deficits noted. GI: No deficits noted. : Urine is clear. EENT: No deficits noted. Derm: No deficits noted. Musculoskeletal: No deficits noted. 19:50 Reassessment: Patient and/or family updated on plan of care and expected duration. Pain ha1 level reassessed. 20:00 Reassessment: NOTIFIED DENTAL RECEPTIONIST KATHIE OF PATIENT NOT HAVING TRANSPORTATION AND ha1 FAMILY MEMBER REFUSING TO PICK PATIENT FROM HOSPITAL. 20:00 Reassessment: DENIES SUICIDAL IDEATION. ha1 20:30 Reassessment: CALLED FAMILY MEMBER TO INFORM ABOUT DISCHARGE. ha1 Psych: 15:57 [place] Suicide Severity Screening: In the past month, have you wished you were ko1 or wished you could go to sleep and not wake up? Patient responds "No." "In the past month, have you actually had any thoughts of killing yourself?" Patient responds "no." "In your lifetime, have you ever done anything, started to do anything, or prepared to do anything to end your life?" Patient responds "no.". Subjective: Patient's mood is irritable, Hallucinations are suspected, Having thoughts of. Objective: Patient is cooperative, irritable, Speech is soft, Affect is flat. Interventions: Patient placed in hospital gown. Searched person for dangerous items. Urine collected and sent for urine drug test. Safety Checks:. Pt denies substance abuse. Vital Signs: 14:39 BP 111 / 71; Pulse 81; Resp 16; Temp 97.7; Pulse Ox 100% on R/A; Pain 0/10; hb 15:07 BP 118 / 82; Pulse 76; Resp 15; Pulse Ox 100% ; ko1 15:59 BP 134 / 91; Pulse 73; Resp 18; Pulse Ox 100% on R/A; ko1 16:55 BP 130 / 86; Pulse 78; Resp 14; Pulse Ox 99% ; ko1 17:32 BP 135 / 90; Pulse 73; Resp 15; Pulse Ox 100% ; ko1 18:40 BP 133 / 92; Pulse 77; Resp 16; Pulse Ox 99% ; ko1 19:50 BP 129 / 70; Pulse 71; Resp 17 S; Pulse Ox 99% on R/A; ha1 14:39 Pain Scale: Adult hb ED Course: 14:38 Patient arrived in ED. hb 14:39 Jon Arenas PA is PHCP. cp 14:40 Dylan Sands MD is Attending Physician. cp 14:42 Triage completed. hb 14:43 Arm band placed on. hb 14:45 Karla East, MISHA is Primary Nurse. ko1 15:07 Patient has correct armband on for positive identification. Allergy band placed. Fall ko1 risk band placed. Placed in gown. Bed in low position. Call light in reach. Side rails up X2. Provided Education on:. Client placed on continuous cardiac and pulse oximetry monitoring. NIBP monitoring applied. damage prevention coordinator on. Door closed. Noise minimized. Lights dimmed. Warm blanket given. Pillow given. 15:50 Initial lab(s) drawn, by me, sent to lab. Urine collected: clean catch specimen, clear. ko1 Inserted saline lock: 20 gauge in right antecubital area, using aseptic technique. Blood collected. Flushed with 10 mL NS. 15:51 Acetaminophen Sent. ko1 15:51 Basic Metabolic Panel Sent. ko1 15:51 CBC with Diff Sent. ko1 15:51 ETOH Level Sent. ko1 15:51 Hepatic Function Sent. ko1 15:51 PT-INR Sent. ko1 15:51 Test, Urine Sent. ko1 15:52 Ptt, Activated Sent. ko1 15:52 Salicylate Sent. ko1 15:52 Urinalysis w/ reflexes Sent. ko1 15:52 Urine Drug Screen Sent. ko1 15:54 Assisted to bathroom. Cleaned of incontinence. ko1 16:28 Urine Culture Sent. ko1 17:11 called and spoke with Randalltroytaylor from the the [facility] to page the screener on eb call to evaluate the patient. 21:04 No provider procedures requiring assistance completed. IV discontinued, intact, ha1 bleeding controlled, No redness/swelling at site. Pressure dressing applied. Administered Medications: 17:16 Drug: Rocephin IV 1 grams IV at calculated rate once; Given slow IV push per pharmacy ko1 instructions Route: IV; Rate: calculated rate; Site: right antecubital; 19:00 Follow up: Response: No adverse reaction; IV Status: Completed infusion ha1 Medication: 15:07 VIS not applicable for this client. ko1 Outcome: 19:44 Discharge ordered by MD. cp 21:04 Discharged to home ambulatory, ha 21:04 Condition: stable 21:04 Discharge instructions given to patient, Instructed on discharge instructions, follow up and referral plans. medication usage, Demonstrated understanding of instructions, follow-up care, medications, Prescriptions given X 1, 21:09 Patient left the ED. ha1 Addendum: 01/03/2024 09:38 Addendum: Culture Results: Positive urine culture. No further action required. Bacteria s s sensitive to prescribed antibiotic. Signatures: Marianne Stahl, RN Jon Ortiz PA PA cp Baxter, Heather, Kenzie Pete RN, Heidy, RN RN 1 Karla East RN RN ko1
--- NOTE | 2023-12-31 19:44 | EDPHYS ---
Physician Documentation [facility] Name: Georgette Patel Age: 38 yrs Sex: Female : 1985 Arrival Date: 12/31/2023 Time: 14:36 Bed 13 Private MD: ED Physician Dylan Sands HPI: 12/30 15:25 This 38 yrs old Black Female presents to ER via EMS with complaints of Psych Problem. cp 15:25 The patient presents to the emergency department with concern for psychosis. EMS cp reports patient was found at a school reportedly looking for her children. Historical: - Allergies: 14:43 Hydrocodone-Acetaminophen; hb - PMHx: 14:43 Bipolar disorder; Depression; PTSD; Schizophrenia; Anxiety; hb - Immunization history:: Adult Immunizations up to date. - Infectious Disease History:: Denies. - Social history:: Smoking status: . ROS: 15:30 Constitutional: Negative for body aches, chills, fever, poor PO intake, cp 15:30 Cardiovascular: Negative for chest pain, edema, palpitations, cp 15:30 Respiratory: Negative for cough, shortness of breath, wheezing, 15:30 Abdomen/GI: Negative for abdominal pain, vomiting, diarrhea, constipation, 15:30 Neuro: Negative for altered mental status, 15:30 Psych: Negative for auditory hallucinations, visual hallucinations, homicidal ideation, suicide gesture, suicidal ideation, 15:30 All other systems are negative, Exam: 15:35 Constitutional: The patient appears in no acute distress, alert, awake, cp non-diaphoretic, non-toxic, well developed, well nourished, unkempt, 15:35 Head/Face: Normocephalic, atraumatic. cp 15:35 Eyes: Pupils: equal, round, and reactive to light and accomodation, Conjunctiva: normal, no exudate, no injection, Sclera: no appreciated abnormality, Lids and lashes: appear normal, bilaterally, 15:35 ENT: External ear(s): are unremarkable, Nose: is normal, Mouth: Lips: moist, Oral mucosa: pink and intact, moist, Posterior pharynx: Airway: no evidence of obstruction, patent, 15:35 Chest/axilla: Inspection: normal, 15:35 Cardiovascular: Rate: normal, Rhythm: regular, 15:35 Respiratory: the patient does not display signs of respiratory distress, Respirations: normal, no use of accessory muscles, no retractions, labored breathing, is not present, Breath sounds: are clear throughout, no decreased breath sounds, no stridor, no wheezing, 15:35 Abdomen/GI: Exam negative for discomfort, distension, guarding, Inspection: abdomen appears normal, 15:35 Neuro: Orientation: to person, place, situation, Mentation: able to follow commands, 15:35 Psych: Behavior/mood is cooperative, Patient has no thoughts/intents to harm self or others. Delusions/hallucinations are not present. 16:37 ECG was reviewed by the Attending Physician. Vital Signs: 14:39 BP 111 / 71; Pulse 81; Resp 16; Temp 97.7; Pulse Ox 100% on R/A; Pain 0/10; hb 15:07 BP 118 / 82; Pulse 76; Resp 15; Pulse Ox 100% ; ko1 15:59 BP 134 / 91; Pulse 73; Resp 18; Pulse Ox 100% on R/A; ko1 16:55 BP 130 / 86; Pulse 78; Resp 14; Pulse Ox 99% ; ko1 17:32 BP 135 / 90; Pulse 73; Resp 15; Pulse Ox 100% ; ko1 18:40 BP 133 / 92; Pulse 77; Resp 16; Pulse Ox 99% ; ko1 19:50 BP 129 / 70; Pulse 71; Resp 17 S; Pulse Ox 99% on R/A; ha1 14:39 Pain Scale: Adult hb MDM: 14:40 Medical Screening Exam initiated cp 17:15 Data reviewed: vital signs, nurses notes, lab test result(s), EKG. 12/30 15:21 Order name: Acetaminophen; Complete Time: 17:06 12/30 15:21 Order name: Basic Metabolic Panel; Complete Time: 17:06 12/30 17:06 Interpretation: Normal except: CL 109. 12/30 15:21 Order name: CBC with Diff; Complete Time: 17:06 12/30 17:06 Interpretation: Normal except: HGB 8.3; HCT 26.7; MCV 64.1; MCH 19.9; MCHC 31.1; RDW cp 20.0. 12/30 15:21 Order name: ETOH Level; Complete Time: 17:06 12/30 15:21 Order name: Hepatic Function; Complete Time: 17:06 12/30 15:21 Order name: PT-INR; Complete Time: 17:06 12/30 15:21 Order name: Test, Urine; Complete Time: 17:06 12/30 15:21 Order name: Ptt, Activated; Complete Time: 17:06 12/30 15:21 Order name: Salicylate; Complete Time: 17:06 12/30 15:21 Order name: Urinalysis w/ reflexes; Complete Time: 17:06 12/30 17:07 Interpretation: Normal except: [facility] Turbid; UBLD 2+; UUROB 2+; UESTR 250; UWBC 20-50; cp BYST Trace. 12/30 15:21 Order name: Urine Drug Screen; Complete Time: 17:06 12/30 16:05 Order name: Urine Culture EDOK 12/30 16:43 Order name: CBC Smear Scan; Complete Time: 17:06 [facility] 12/30 15:21 Order name: EKG; Complete Time: 15:22 12/30 15:21 Order name: EKG - Nurse/Tech; Complete Time: 16:28 12/30 15:21 Order name: IV Saline Lock; Complete Time: 15:51 12/30 15:21 Order name: Labs collected and sent; Complete Time: 15:51 12/30 15:21 Order name: Suicide Screening ([place]); Complete Time: 15:51 EC:37 Rate is 79 beats/min. Rhythm is regular. MT interval is normal. QRS interval is normal. cp QT interval is normal. T waves are Inverted in leads aVL, aVR. Interpreted by me. Reviewed by me. Administered Medications: 17:16 Drug: Rocephin IV 1 grams IV at calculated rate once; Given slow IV push per pharmacy ko1 instructions Route: IV; Rate: calculated rate; Site: right antecubital; 19:00 Follow up: Response: No adverse reaction; IV Status: Completed infusion ha1 Disposition: 12/31 19:12 Chart complete. cp Disposition Summary: 12/31/23 19:44 Discharge Ordered Notes: Location: Home cp Problem: an ongoing problem cp Symptoms: have improved cp Condition: Stable cp Diagnosis - Schizophrenia, unspecified cp - UTI/ Urinary tract infection, site not specified cp Followup: cp - With: Private Physician - When: 2 - 3 days - Reason: Recheck today's complaints Discharge Instructions: - Discharge Summary Sheet cp - Schizophrenia cp - Urinary Tract Infection, Adult cp Forms: - Medication Reconciliation Form cp - Antibiotic Education cp - Prescription Opioid Use cp - Patient Portal Instructions cp - Leadership Thank You Letter cp Prescriptions: - Macrobid 100 mg Oral Capsule - take 1 capsule ORAL route every 12 hours for 7 days; 14 capsule; Refills: 0, cp Product Selection Permitted Signatures: Dispatcher [employer] EDMS Jon Arenas PA PA cp Bing Hamilton, RN RN Karla East RN RN ko1 Kiley Cowan RN ha1 Corrections: (The following items were deleted from the chart) 12/30 15:22 15:22 ACETAMINOPHEN+C.LAB.BRZ ordered. EDMS EDMS 15:22 15:22 BASIC METABOLIC PANEL+C.LAB.BRZ ordered. EDMS EDMS 15:22 15:22 CBC+H.LAB.BRZ ordered. EDMS EDMS 15:22 15:22 ETHANOL+C.LAB.BRZ ordered. EDMS EDMS 15:22 15:22 HEPATIC FUNCTION+C.LAB.BRZ ordered. EDMS EDMS 15:22 15:22 PROTIME (+INR)+COAG.LAB.BRZ ordered. EDMS EDMS 15:22 15:22 Test, Urine+UC.LAB.BRZ ordered. EDMS EDMS 15:22 15:22 PTT, ACTIVATED+COAG.LAB.BRZ ordered. EDMS EDMS 15:22 15:22 SALICYLATE+C.LAB.BRZ ordered. EDMS EDMS 15:22 15:22 Urinalysis+U.LAB.BRZ ordered. EDMS EDMS 15:22 15:22 URINE DRUG SCREEN+UC.LAB.BRZ ordered. EDMS EDMS 12/31 19:12 19:10 The patient presents to the emergency department with concern for psychosis. EMS cp reports patient was found , cp
[2023-12-31 21:25] VITALS: TEMP 97.7
[2023-12-31 21:40] VITALS: O2SAT 99
[2023-12-31 21:41] VITALS: BP 129/70
--- NOTE | 2024-01-03 12:19 | EKG ---
Test Date: 2023-12-31 Test Time: 16:33:41 Director Of Sales: ABIDA MEASUREMENT RESULTS: Intervals: Rate: 79 SD: 144 QRSD: 80 QT: 414 QTc: 474 [place]: P: 74 SD: 144 QRS: 76 T: 66 INTERPRETIVE STATEMENTS: Normal sinus rhythm Normal ECG Compared to ECG 09/13/2023 19:41:52 Sinus tachycardia no longer present Atrial abnormality no longer present Electronically Signed On 01-03-24 12:16:07 CENTER RECEPTIONIST by Adam Coon
== END 2023-12-31 21:09 | disposition home or self-care (01) ==
LOC: ER 14:36
DX: F20.9 Schizophrenia, unspecified (principal); N39.0 Urinary tract infection, site not specified
CPT/HCPCS: 36415; 80048; 80076; 80143; 80179; 80307; 81001; 81025; 82077; 85025; 85610; 85730; 87077; 87086; 87088; 87186; 93005; 96365; 96366; 99285; J0696

== ENCOUNTER 2024-01-01 00:04 | Emergency (ER) | payer SELFPAY ==
--- OUTSIDE RECORDS SUMMARY | 2024-01-01 00:11 | XMS REPORT | Continuity of Care Document ---
Author Name Unknown Address [address] [facility] [address] [place] [address] [facility] Address [address] [facility] [address] [place] [address] Care Team Providers Care Brickmason Helper Name Role Phone UNKNOWN, REFFERING Primary Care Physician Gisele Vann Attending Clinician [phone] Rodrigo KNUTSON Attending Clinician Unavailable Rodrigo KNUTSON Attending Clinician Unavailable ALFONSO ALLEN Attending Clinician Unavailable Holli CABRAL, Marilee Barksdale Attending Clinician [phone] David MOSELEY, Castro Lind Attending Clinician [phone] ADY LAWSON Attending Clinician Unavailable Ady Lawson DO Attending Clinician [phone] Doctor Unassigned, [place] Attending Clinician U Trevor Tolentino Attending Clinician TREVOR YBARRA Attending Clinician Unavailable Tavo MOSELEY, Swapnil Barksdale Attending Clinician SWAPNIL VO M.D., SWAPNIL Barksdale M.D. Attendin g Clinician Unavailable MOHIT AGUILERA Admitting Clinician Unavailable Castro Sheriff MD Admitting Clinician [phone] CASTRO SHERIFF Admitting Clinician Unava SWAPNIL Walton M.D., SWAPNIL Barksdale Admitting Clin ician Unavailable Payers Payer Name Policy Type Policy Number Effective Date Expirati on Date Source DCB COMPETENCY LATTER-DAY [id number] 2022 00:00:00 [facility] [employer] [facility] [id number] 2021 00:00:00 MEDICAID PENDING PENDING 2023 00:00:00 Problems Condition Name Condition Details Condition Category Status Onset Date Resolution Date Last Treatment Date Treating Clinician Comments Source Schizoaffe ctive disorder, bipolar type Schizoaffe ctive disorder, bipolar type Disease Recurre nce 07-02 00:00: 00 [facility] Trauma Trauma Disease Active 06-30 00:00: 00 [facility] Right knee pain Right knee pain Disease Active 04-25 00:00: 00 [facility] delivery delivered delivery delivered Disease Active 09-15 00:00: 00 Overview: Formattin g of this note might be different from the original. ICD10 Diagnosis Term Pleating Supervisor Utility [facility] Right knee pain Right knee pain Disease Resolve d 04-25 00:00: 00 2021-07-02 00:00:00 2021-07-02 13:02:18 [facility] care and examinatio n immediatel y after delivery care and examinatio n immediatel y after delivery Disease Resolve d 09-15 00:00: 00 2021-07-02 00:00:00 2021-07-02 13:02:12 [facility] delivery delivered delivery delivered Disease Resolve d 09-15 00:00: 2021-07-02 00:00:00 2021-09-14 00:09:08 [facility] Allergies, Adverse Reactions, Alerts Allergy Name Allergy Type Status Severity Reaction(s) Onset Date Inactive Date Treating Clinician Comments Source Unable to Assess DA Active U 04-25 00:00: 00 [facility] Hydrocod one Propensi ty to adverse reaction s Active Swelling 2014-03 00:00: 00 Throat swells, unable to breath [facility] HYDROCOD ONE DRUG INGREDI Active Swelling 2014-03 00:00: 00 [facility] Social History Social Habit Start Date Stop Date Quantity Comments Source History of tobacco use Cigarette Smoker [facility] of Social function 2023-10-04 00:00:00 2023-10-04 00:00:00 [facility] Alcoholic beverage intake 2023-10-04 00:00:00 2023-10-04 00:00:00 .14 /d [facility] Alcohol intake 2023-04-28 00:00:00 2023-04-28 00:00:00 .14 /d [facility] Exposure to SARS-CoV-2 (event) 2021-06-20 00:00:00 2021-06-30 10:45:00 Not sure [facility] Cigarettes smoked current (pack per day) - Reported 2015-04-18 00:00:00 2015-04-18 00:00:00 [facility] Sex assigned at 1985 00:00:00 1985 00:00:00 [facility] Smoking Status Start Date Stop Date Source Smokes tobacco daily 2015-04-18 00:00:00 [facility] Medications Ordered Medication Name Filled Medication Name Start Date Stop Date Current Medication? Ordering Clinician Indication Dosage Frequency Signature (SIG) Comments Components Source amoxicillin -clavulanat e 875-125 mg per tablet 04-28 00:00: 00 Yes [id number] 1{tbl} Take 1 tablet by mouth every 12 (twelve) hours. [facility] haloperidol 5 mg tablet 07-03 11:33: 39 07-03 00:00 :00 No 5mg Take 5 mg by mouth 2 (two) times daily. [facility] haloperidoL (HALDOL) tablet 5 mg 07-03 01:00: 00 Yes 5mg 5 mg, Oral, BID, First dose on Wed07/02/21 at 2000, Until Discontinu ed, Routine [facility] haloperidoL 5 mg tablet 07-03 00:00: 00 Yes [id number] 5mg Take 1 tablet by mouth 2 (two) times daily. [facility] haloperidol 1 mg tablet 07-02 13:01: 03 07-02 00:00 :00 No 1mg Take 1 mg by mouth 2 (two) times daily. [facility] traZODONE 100 mg tablet 07-02 13:01: 03 07-02 00:00 :00 No 100mg Take 100 mg by mouth at bedtime. [facility] acetaminoph en 325 mg tablet 07-02 00:00: 00 Yes [id number] 650mg Take 2 tablets by mouth every 6 (six) hours as needed for Pain (scale 4-6). [facility] enoxaparin (LOVENOX) injection 40 mg 07-01 14:00: 00 Yes 40mg 40 mg, Subcutaneo us, DAILY, First dose (after last modificati on) on Wed07/01/21 at 0900, Until Discontinu ed, Routine [facility] pantoprazol e (PROTONIX) injection 40 mg 07-01 14:00: 00 07-01 17:53 :55 No 40mg 40 mg, Slow IV Push, Q24H, First dose on Wed07/01/21 at 0900, Until Discontinu ed [facility] potassium chloride 20 mEq/100 mL (KCL) 20 mEq/100 mL RTU IVPB 20 mEq 07-01 13:00: 00 07-01 16:59 :00 No 20meq 20 mEq, IV Piggyback, Q2H, 2 doses, First dose on Wed07/01/21 at 0800, Last dose on Wed07/01/21 at 1000, 100 mL [facility] magnesium sulfate in water 4 gram/50 mL (8 %) IV Piggyback 4 g 07-01 12:30: 00 07-01 13:37 :00 No 4g 4 g, IV Piggyback, ONCE, 1 dose, On Wed07/01/21 at 0730, Routine [facility] D5W 0.45% NaCl (1/2NS) 1 L + KCL 20 mEq 07-01 06:30: 00 07-01 16:06 :04 No IV Infusion, at 125 mL/hr, CONTINUOUS , Starting on Wed07/01/21 at 0130, Until Wed07/01/21 at 1106, Routine [facility] ondansetron (ZOFRAN (PF)) injection 4 mg 07-01 00:58: 30 Yes 4mg 4 mg, Slow IV Push, Administer over 15 Minutes, Q6HPRN, Starting on Wed06/30/21 at 1958, Until Discontinu ed, Routine, Nausea and Vomiting (N/V) [facility] acetaminoph en (TYLENOL) tablet 650 mg 07-01 00:58: 22 Yes 650mg 650 mg, Oral, Q6HPRN, Starting on Wed06/30/21 at 1958, Until Discontinu ed, Routine, Pain (scale 1-3) [facility] iopamidol (ISOVUE 370-500 mL) injection 100 mL 06-30 22:30: 00 06-30 22:30 :00 No [id number] 100mL 100 mL, Intravenou s, ONCE, 1 dose, On Wed06/30/21 at 1730, Routine [facility] aspirin tablet 325 mg 05-29 21:15: 00 05-29 21:06 :00 No 325mg 325 mg, Oral, ONCE, 1 dose, Wed05/29/20 at 1615, STAT [facility] haloperidol 1 mg tablet 08-05 23:59: 14 Yes 1mg Take 1 mg by mouth 2 (two) times daily. [facility] traZODONE 100 mg tablet 08-05 23:59: 14 Yes 100mg Take 100 mg by mouth at bedtime. [facility] haloperidol 5 mg tablet 08-05 23:59: 14 Yes 5mg Take 5 mg by mouth 2 (two) times daily. [facility] haloperidol 1 mg tablet 08-05 18:59: 14 Yes 1mg Take 1 mg by mouth 2 (two) times daily. [facility] traZODONE 100 mg tablet 08-05 18:59: 14 Yes 100mg Take 100 mg by mouth at bedtime. [facility] haloperidol 5 mg tablet 08-05 18:59: 14 Yes 5mg Take 5 mg by mouth 2 (two) times daily. [facility] FLUoxetine (PROZAC) 20 mg tablet 04-23 00:00: 00 Yes [facility] FLUoxetine (PROZAC) 20 mg tablet 2016-0 2-23 00:00: 00 07-02 00:00 :00 No [facility] Vital Signs Vital Name Observation Time Observation Value Veena montgomery Systolic blood pressure 2023-10-04 20:57:00 113 mm[Hg] [facility] Diastolic blood pressure 2023-10-04 20:57:00 81 mm[Hg] [facility] Heart rate 2023-10-04 20:57:00 104 /min [facility] Body temperature 2023-10-04 20:57:00 36.61 [facility] Respiratory rate 2023-10-04 20:57:00 16 /min [facility] Body height 2023-10-04 20:57:00 149.9 cm [facility] Body weight 2023-10-04 20:57:00 55.792 kg [facility] BMI 2023-10-04 20:57:00 24.84 kg/m2 [facility] Oxygen saturation in Arterial blood by Pulse oximetry 2023-10-04 20:57:00 100 /min [facility] Systolic blood pressure 2023-04-28 15:05:00 117 mm[Hg] [facility] Diastolic blood pressure 2023-04-28 15:05:00 84 mm[Hg] [facility] Heart rate 2023-04-28 15:05:00 92 /min [facility] Body temperature 2023-04-28 15:05:00 37.61 [facility] Respiratory rate 2023-04-28 15:05:00 14 /min [facility] Body height 2023-04-28 15:05:00 149.9 cm [facility] Body weight 2023-04-28 15:05:00 70.308 kg [facility] BMI 2023-04-28 15:05:00 31.31 kg/m2 [facility] Oxygen saturation in Arterial blood by Pulse oximetry 2023-04-28 15:05:00 99 /min [facility] Systolic blood pressure 2021-07-03 16:02:00 122 mm[Hg] [facility] Diastolic blood pressure 2021-07-03 16:02:00 88 mm[Hg] [facility] Heart rate 2021-07-03 16:02:00 96 /min [facility] Body temperature 2021-07-03 16:02:00 37.33 [facility] Oxygen saturation in Arterial blood by Pulse oximetry 2021-07-03 16:02:00 100 /min [facility] Respiratory rate 2021-07-03 10:31:00 16 /min [facility] Body height 2021-07-01 08:02:00 149.9 cm [facility] Body weight 2021-07-01 08:02:00 59 kg [facility] BMI 2021-07-01 08:02:00 26.26 kg/m2 [facility] Systolic blood pressure 2021-06-30 22:35:00 120 mm[Hg] [facility] Diastolic blood pressure 2021-06-30 22:35:00 83 mm[Hg] [facility] Heart rate 2021-06-30 22:35:00 71 /min [facility] Respiratory rate 2021-06-30 22:35:00 17 /min [facility] Oxygen saturation in Arterial blood by Pulse oximetry 2021-06-30 22:35:00 100 /min [facility] Body temperature 2021-06-30 16:03:00 36.78 [facility] Body height 2021-06-30 15:50:00 154.9 cm [facility] Body weight 2021-06-30 15:50:00 63.504 kg [facility] BMI 2021-06-30 15:50:00 26.45 kg/m2 [facility] Systolic blood pressure 2020-05-29 22:00:00 107 mm[Hg] [facility] Diastolic blood pressure 2020-05-29 22:00:00 96 mm[Hg] [facility] Heart rate 2020-05-29 22:00:00 89 /min [facility] Respiratory rate 2020-05-29 22:00:00 17 /min [facility] Oxygen saturation in Arterial blood by Pulse oximetry 2020-05-29 22:00:00 100 /min [facility] Body temperature 2020-05-29 20:10:00 37.22 [facility] Body weight 2020-05-29 20:08:00 86.183 kg [facility] BMI 2020-05-29 20:08:00 38.38 kg/m2 [facility] Height/Length Measured 2021-03-18 09:56:58 165.1 cm Weight [...] Temperature 2020-04-25 15:01:13 36.9\\S\\98.4 Weight 2020-04-25 15:01:13 48436.932\\S\\2240 Weight Measurement Method 2020-04-25 15:01:13 Estimated by Staff Respiratory 2020-04-25 15:01:12 No respirato ry distress /min Respiratory 2020-04-25 14:27:49 No respirato ry distress /min 02 Sat by Pulse Oximetry 2020-04-25 14:27:49 100 /min Body Mass Index 2020-04-25 14:27:49 29.3 Height 2020-04-25 14:27:49 147.32\\S\\58 Pulse Rate 2020-04-25 14:27:49 78 /min Respiratory Rate 2020-04-25 14:27:49 16 /min Temperature 2020-04-25 14:27:49 36.9\\S\\98.4 Weight 2020-04-25 14:27:49 98894.932\\S\\2240 Weight Measurement Method 2020-04-25 14:27:49 Estimated by Staff Respiratory 2020-04-25 14:27:18 No respirato ry distress /min 02 Sat by Pulse Oximetry 2020-04-25 14:27:18 100 /min Body Mass Index 2020-04-25 14:27:18 29.3 Height 2020-04-25 14:27:18 147.32\\S\\58 Pulse Rate 2020-04-25 14:27:18 78 /min Respiratory Rate 2020-04-25 14:27:18 16 /min Temperature 2020-04-25 14:27:18 36.9\\S\\98.4 Weight 2020-04-25 14:27:18 47085.932\\S\\2240 Weight Measurement Method 2020-04-25 14:27:18 Estimated by Staff Respiratory 2020-04-25 14:21:39 No respirato ry distress /min 02 Sat by Pulse Oximetry 2020-04-25 14:21:39 100 /min Body Mass Index 2020-04-25 14:21:39 29.3 Height 2020-04-25 14:21:39 147.32\\S\\58 Pulse Rate 2020-04-25 14:21:39 78 /min Respiratory Rate 2020-04-25 14:21:39 16 /min Temperature 2020-04-25 14:21:39 36.9\\S\\98.4 Weight 2020-04-25 14:21:39 48136.932\\S\\2240 Weight Measurement Method 2020-04-25 14:21:39 Estimated by Staff Respiratory 2020-04-25 12:03:42 No respirato ry distress /min 02 Sat by Pulse Oximetry 2020-04-25 12:03:42 100 /min Body Mass Index 2020-04-25 12:03:42 29.3 Height 2020-04-25 12:03:42 147.32\\S\\58 Pulse Rate 2020-04-25 12:03:42 78 /min Respiratory Rate 2020-04-25 12:03:42 16 /min Temperature 2020-04-25 12:03:42 36.9\\S\\98.4 Weight 2020-04-25 12:03:42 61263.932\\S\\2240 Weight Measurement Method 2020-04-25 12:03:42 Estimated by Staff Respiratory 2020-04-25 11:51:21 No respirato ry distress /min 02 Sat by Pulse Oximetry 2020-04-25 11:51:21 100 /min Body Mass Index 2020-04-25 11:51:21 29.3 Height 2020-04-25 11:51:21 147.32\\S\\58 Pulse Rate 2020-04-25 11:51:21 78 /min Respiratory Rate 2020-04-25 11:51:21 16 /min Temperature 2020-04-25 11:51:21 36.9\\S\\98.4 Weight 2020-04-25 11:51:21 86624.932\\S\\2240 Weight Measurement Method 2020-04-25 11:51:21 Estimated by Staff 02 Sat by Pulse Oximetry 2020-04-25 11:17:59 100 /min Body Mass Index 2020-04-25 11:17:59 29.3 Height 2020-04-25 11:17:59 147.32\\S\\58 Pulse Rate 2020-04-25 11:17:59 78 /min Respiratory Rate 2020-04-25 11:17:59 16 /min Temperature 2020-04-25 11:17:59 36.9\\S\\98.4 Weight 2020-04-25 11:17:59 93681.932\\S\\2240 Weight Measurement Method 2020-04-25 11:17:59 Estimated by Staff Respiratory 2020-04-25 11:17:59 No respirato ry distress /min WEIGHT 2020-04-25 11:10:00 63.143457 kg HEIGHT 2020-04-25 11:10:00 147.32 cm 02 Sat by Pulse Oximetry 2020-04-25 10:59:27 100 /min Body Mass Index 2020-04-25 10:59:27 21.3 Height 2020-04-25 10:59:27 165.1\\S\\65 Pulse Rate 2020-04-25 10:59:27 78 /min Respiratory Rate 2020-04-25 10:59:27 16 /min Temperature 2020-04-25 10:59:27 36.9\\S\\98.4 Weight 2020-04-25 10:59:27 90994.823\\S\\8 Weight Measurement Method 2020-04-25 10:59:27 Estimated by Staff 02 Sat by Pulse Oximetry 2020-04-25 10:49:10 100 /min Body Mass Index 2020-04-25 10:49:10 21.3 Height 2020-04-25 10:49:10 165.1\\S\\65 Pulse Rate 2020-04-25 10:49:10 78 /min Respiratory Rate 2020-04-25 10:49:10 16 /min Temperature 2020-04-25 10:49:10 36.9\\S\\98.4 Weight 2020-04-25 10:49:10 67215.823\\S\\8 Weight Measurement Method 2020-04-25 10:49:10 Estimated by Staff WEIGHT 2020-04-25 10:46:00 58.938532 kg HEIGHT 2020-04-25 10:46:00 165.1 cm Procedures Procedure Date / Time Performed Performing Clinician Source NOTICE OF PRIVACY PRACTICES 2023-04-28 14:56:47 Doctor Unassigned, [place] [facility] CONSENT/REFUSAL FOR DIAGNOSIS AND TREATMENT 2023-04-28 14:55:06 Doctor Unassigned, [place] [facility] CBC WITHOUT DIFF 2021-07-03 10:54:00 Lizzette Shaw [facility] TEST, SERUM 2021-07-03 10:53:00 Larry Mario [facility] BASIC METABOLIC PANEL (NA, K, CL, CO2, GLUCOSE, BUN, CREATININE, CA) 2021-07-03 10:53:00 Keiko Chung [facility] COVID-19 (ID NOW RAPID TESTING) 2021-07-02 22:43:00 Ava Souza [facility] LAB ONLY COVID INTERPRETATION 2021-07-02 22:43:00 Ava Souza [facility] CBC WITH DIFF 2021-07-02 22:41:00 Ava Souza [facility] CBC WITH DIFF 2021-07-02 11:02:00 Lizzette Shaw [facility] CBC WITHOUT DIFF 2021-07-01 18:25:00 Lizzette Shaw [facility] MAGNESIUM 2021-07-01 09:52:00 Lizzette Shaw [facility] BASIC METABOLIC PANEL (NA, K, CL, CO2, GLUCOSE, BUN, CREATININE, CA) 2021-07-01 09:52:00 [facility]FF 2021-07-01 09:52:00 ColinLizzette alcala [facility] CBC WITHOUT DIFF 2021-07-01 05:03:00 ColinLizzette alcala [facility] CT LUMBAR SPINE WO CONTRAST 2021-07-01 01:23:11 [facility] XR SHOULDER 2+ VW LEFT 2021-07-01 01:16[facility] 2021-07-01 00:39:00 Meave Salmon [facility] BASIC METABOLIC PANEL (NA, K, CL, CO2, GLUCOSE, BUN, CREATININE, CA) 2021-07-01 00:34:00 Maeve Salmon [facility] CBC WITHOUT DIFF 2021-07-01 00:34:00 Maeve Salmon [facility] PROTHROMBIN TIME / INR 2021-07-01 00:34:00 Meera Salmon [facility] ACTIVATED PARTIAL THRMPLAS LALO 2021-07-01 00:34:00 Maeve Salmon [facility] HB ABO GROUPING 2021-06-30 21:20:00 Ady Lawson [facility] CT TRAUMA THORAX W CONTRAST 2021-06-30 21:15:57 Ady Lawson [facility] CT TRAUMA ABDOMEN PELVIS W CONTRAST 2021-06-30 21:15:57 Ady Lawson [facility] CT TRAUMA CERVICAL SPINE WO CONTRAST 2021-06-30 20:57:01 Ady Lawson [facility] CT HEAD WO CONTRAST 2021-06-30 20:31:27 Alirio Lawson [facility] XR CHEST 1 VW 2021-06-30 20:24:37 Ady Lawson [facility] COMP. METABOLIC PANEL ([id number]) 2021-06-30 20:13:00 Ady Lawson [facility] CBC WITH DIFF 2021-06-30 20:13:00 Ady Lawson [facility] NOTICE OF PRIVACY PRACTICES 2021-06-30 15:41:31 Doctor Unassigned, [place] [facility] CONSENT/REFUSAL FOR DIAGNOSIS AND TREATMENT 2021-06-30 15:41:16 Doctor Unassigned, [place] [facility] EXTERNAL PROVIDER RECORDS 2021-06-30 05:01:00 Do ctor Unassigned, [place] [facility] POCT TEST 2020-05-29 21:05:00 Trevor Ybarra [facility] COVID-19 (ID NOW RAPID TESTING) 2020-05-29 21:04:00 Trevor Ybarra [facility] ADC / LCC - DRUG SCREEN TRIAGE 2020-05-29 21:03:00 Trevor Ybarra [facility] TROPONIN I 2020-05-29 21:02:00 Trevor Ybarra [facility] COMP. METABOLIC PANEL ([id number]) 2020-05-29 21:02:00 Trevor Ybarra [facility] SALICYLATE 2020-05-29 21:02:00 Trevor Ybarra [facility] ETHANOL 2020-05-29 21:02:00 Trevor Ybarra [facility] CBC WITH DIFF 2020-05-29 21:02:00 Trevor Ybarra [facility] PROTHROMBIN TIME / INR 2020-05-29 21:02:00 Pushpa Ybarra [facility] ACTIVATED PARTIAL THRMPLAS LALO 2020-05-29 21:02:00 Trevor Ybarra [facility] N-TERMINAL PRO-BNP 2020-05-29 21:02:00 Trevor Ybarra [facility] XR CHEST 1 VW 2020-05-29 20:33:45 [facility] HB ECG ROUTINE & RHYTHM STRIP 2020-05-29 20:23:30 Trevor Ybarra [facility] Encounters Start Date/Time End Date/Time Encounter Type Admission Type Attending Clinicians Care Facility Care Department Encounter ID Source 2022-05-16 08:52:45 Outpatient [facility] [id number] [facility] 2022-05-15 08:45:04 Outpatient [facility] [id number] [facility] 2021-07-02 16:18:57 Outpatient [facility] [id number] [facility] 2021-06-29 23:57:24 Outpatient [facility] [id number] [facility] 2020-04-25 10:43:00 Inpatient [facility] [id number] [facility] 2023-10-04 15:54:00 2023-10-04 17:27:00 Emergency Gisele Mcmillan [facility] [id number] [id number] [id number] [id number] [facility] 2023-04-28 09:06:00 2023-04-28 10:33:00 Emergency X Rodrigo KNUTSON K [facility] ERT [id number] [facility] 2023-04-28 09:06:00 2023-04-28 10:33:00 Emergency Rodrigo Knutson [facility] 1..840.114 350.1.13.10 4.2.7.2.686 [id number] [facility] 2022-05-15 08:55:00 2022-08-25 10:50:00 Outpatient MARCELADELINEALFONSO [facility] [id number] [facility] 2021-07-04 00:00:00 2021-07-04 00:00:00 Transition of Care Marilee De La Garza 1..840.114 350.1.13.10 4.2.7.2.686 [id number] [facility] 2021-06-30 19:27:00 2021-07-03 13:17:00 Hospital Encounter Castro Sheriff [facility] 1.2.840.114 350.1.13.10 4.2.7.2.686 [id number] [facility] 2021-06-30 10:51:00 2021-06-30 18:47:00 Emergency X ADY LAWSON [facility] ERT [id number] [facility] 2021-06-30 10:51:00 2021-06-30 18:47:00 Emergency X ADY LAWSON [facility] ERT [id number] [facility] 2021-06-30 10:51:00 2021-06-30 18:47:00 Emergency Ady Lawson [facility] [id number] 350.1.13.10 4.2.7.2.686 [id number] [facility] 2021-06-30 00:00:00 2021-06-30 00:00:00 Orders Only Doctor Unassigned, [place] [facility] [id number] 350.1.13.10 4.2.7.2.686 [id number] [facility] 2020-05-29 15:28:00 2020-05-29 18:00:00 Emergency Trevor Ybarra [facility] [id number] 350.1.13.10 4.2.7.2.686 [id number] [facility] 2020-05-29 15:28:00 2020-05-29 15:28:00 Emergency TREVOR WIGGINS [facility] ERT [id number] [facility] 2020-04-25 10:43:00 2020-04-25 10:43:00 Emergency [facility] [id number] [facility] 2019-06-05 12:44:20 2019-06-05 23:59:00 Hospital Encounter Swapnil Vo [facility] [id number] 350.1.13.10 4.2.7.2.686 [id number] [facility] 2019-06-04 15:28:00 2019-06-04 15:28:00 Emergency [facility] [id number] [facility] 2019-06-04 15:28:00 2019-06-04 15:28:00 Emergency [facility] [id number] [facility] Results Test Description Test Time Test Comments Results Result Co mments [facility] (NA, K, CL, CO2, GLUCOSE, BUN, CREATININE, CA)2021-07-03 11:58:01* Test Item Value Reference Range Interpretation Comme nts NA (test code = 1011817105) 137 mmol/L 135-145 K (test code = 4963239215) 4.1 mmol/L 3.5-5.0 CL (test code = 5419020140) 106 mmol/L 98-108 CO2 TOTAL (test code = 9112218428) 31 mmol/L 23-31 AGAP (test code = 6096718631) <1 2-16 L BUN (test code = 3128572749) 13 mg/dL 7-23 GLUCOSE (test code = 9418884443) 104 mg/dL 70-110 CREATININE (test code = 7922945681) 0.61 mg/dL 0.50-1.04 CALCIUM (test code = 0048374127) 8.0 mg/dL 8.6-10.6 L eGFR (test code = 5312578212) mL/min/1.73m2 GABE (test code = GABE) Association [...] imaging tests). Lab Interpretation (test code = 18773-0) Abnormal [facility] WITHOUT [id number] 11:26:00* Test Item Value Reference Range Interpretation [...] result as normal/abnormal. MPV (test code = 90337-2) 10.1 fL 9.5-12.9 RDW-CV (test code = 788-0) 22.5 % 12.0-15.5 H RDW-SD (test code = 88643-6) 53.3 fL 39.0-49.9 H NRBC x10^3 (test code = 7406164407) <0.01 See_Comment [Automated messa ge] The system which generated this result transmitted reference range: 10*3/?L. The reference range was not used to interpret this result as normal/abnormal. NRBC/100 WBC (test code = 2219070679) See_Comment [Automated messa ge] The system which generated this result transmitted reference range: 0.0 - 10.0 /100 WBCs. The reference range was not used to interpret this result as normal/abnormal. IPF % (test code = 1879700754) Lab Interpretation (test code = 14816-9) Abnormal [facility] WITH [id number] 22:54:19* Test Item Value Reference Range Interpretation [...] g/dL 31.6-35.1 L RDW-SD (test code = 92915-0) 53.8 fL 39.0-49.9 H RDW-CV (test code = 788-0) 22.4 % 12.0-15.5 H PLT (test code = 777-3) See_Comment [Automated messa ge] The system which generated this result transmitted reference range: 166 - 358 10*3/?L. The reference range was not used to interpret this result as normal/abnormal. MPV (test code = 55443-7) 10.5 fL 9.5-12.9 NRBC/100 WBC (test code = 5356801747) See_Comment [Automated [employer] ssage] The system which generated this result transmitted reference range: 0.0 - 10.0 /100 WBCs. The reference range was not used to interpret this result as normal/abnormal. NRBC x10^3 (test code = 7271250594) <0.01 See_Comment [Automated messa ge] The system which generated this result transmitted reference range: 10*3/?L. The reference range was not used to interpret this result as normal/abnormal. GRAN MAT (NEUT) % (test code = 770-8) 66.6 % IMM GRAN % (test code = 7448775530) 0.20 % LYMPH % (test code = 736-9) 21.9 % MONO % (test code = 5905-5) 8.0 % EOS % (test code = 713-8) 3.1 % BASO % (test code = 706-2) 0.2 % GRAN MAT x10^3(ANC) (test code = 1779413603) 2.83 10*3/uL 1.88-7.09 IMM GRAN x10^3 (test code = 3181285699) <0.03 0.00-0.06 LYMPH x10^3 (test code = 731-0) 0.93 10*3/uL 1.32-3.29 L MONO x10^3 (test code = 742-7) 0.34 10*3/uL 0.33-0.92 EOS x10^3 (test code = 711-2) 0.13 10*3/uL 0.03-0.39 BASO x10^3 (test code = 704-7) <0.03 0.01-0.07 Lab Interpretation (test code = 09022-4) Abnormal [facility] with Pypjwaisaovg9009-52-43 11:46:33* Test Item Value Reference Range Interpretation Comme nts WBC (test code = 6690-2) See_Comment [Automated [employer] ge] The system which generated this result transmitted reference range: 4.30 - 11.10 10*3/?L. The reference range was not used to interpret this result as normal/abnormal. RBC (test code = 789-8) See_Comment L [Automated [employer] ge] The system which generated this result [...] g/dL 31.6-35.1 L RDW-SD (test code = 82289-4) 53.2 fL 39.0-49.9 H RDW-CV (test code = 788-0) 22.9 % 12.0-15.5 H PLT (test code = 777-3) See_Comment [Automated [employer] ge] The system which generated this result transmitted reference range: 166 - 358 10*3/?L. The reference range was not used to interpret this result as normal/abnormal. MPV (test code = 26370-9) 10.2 fL 9.5-12.9 IPF % (test code = 7764106906) 2.6 % 1.3-7.7 Platelet count measured by fluorescence method. NRBC/100 WBC (test code = 6657058168) See_Comment [Automated [employer] ssage] The system which generated this result transmitted reference range: 0.0 - 10.0 /100 WBCs. The reference range was not used to interpret this result as normal/abnormal. NRBC x10^3 (test code = 4745800564) <0.01 See_Comment [Automated messa ge] The system which generated this result transmitted reference range: 10*3/?L. The reference range was not used to interpret this result as normal/abnormal. GRAN MAT (NEUT) % (test code = 770-8) 68.6 % IMM GRAN % (test code = 9434446140) 0.60 % LYMPH % (test code = 736-9) 17.3 % MONO % (test code = 5905-5) 9.4 % EOS % (test code = 713-8) 3.9 % BASO % (test code = 706-2) 0.2 % GRAN MAT x10^3(ANC) (test code = 3783470782) 3.20 10*3/uL 1.88-7.09 IMM GRAN x10^3 (test code = 5793604505) 0.03 10*3/uL 0.00-0.06 LYMPH x10^3 (test code = 731-0) 0.81 10*3/uL 1.32-3.29 L MONO x10^3 (test code = 742-7) 0.44 10*3/uL 0.33-0.92 EOS x10^3 (test code = 711-2) 0.18 10*3/uL 0.03-0.39 BASO x10^3 (test code = 704-7) <0.03 0.01-0.07 Lab Interpretation (test code = 51272-5) Abnormal [facility] WITHOUT [id number] 19:00:33* Test Item Value Reference Range Interpretation [...] result as normal/abnormal. MPV (test code = 98263-2) 10.4 fL 9.5-12.9 RDW-CV (test code = 788-0) 22.7 % 12.0-15.5 H RDW-SD (test code = 44916-6) 54.9 fL 39.0-49.9 H NRBC x10^3 (test code = 5389108942) <0.01 See_Comment [Automated messa ge] The system which generated this result transmitted reference range: 10*3/?L. The reference range was not used to interpret this result as normal/abnormal. NRBC/100 WBC (test code = 3015200854) See_Comment [Automated messa ge] The system which generated this result transmitted reference range: 0.0 - 10.0 /100 WBCs. The reference range was not used to interpret this result as normal/abnormal. IPF % (test code = 4965407196) Lab Interpretation (test code = 97061-2) Abnormal [facility] with Evuefmaunnub5127-92-81 11:10:21* Test Item Value Reference Range Interpretation [...] g/dL 31.6-35.1 L RDW-SD (test code = 41350-1) 54.0 fL 39.0-49.9 H RDW-CV (test code = 788-0) 22.7 % 12.0-15.5 H PLT (test code = 777-3) See_Comment [Automated messa ge] The system which generated this result transmitted reference range: 166 - 358 10*3/?L. The reference range was not used to interpret this result as normal/abnormal. MPV (test code = 46064-6) 9.8 fL 9.5-12.9 NRBC/100 WBC (test code = 1869524732) See_Comment [Automated [employer] ssage] The system which generated this result transmitted reference range: 0.0 - 10.0 /100 WBCs. The reference range was not used to interpret this result as normal/abnormal. NRBC x10^3 (test code = 2082831048) <0.01 See_Comment [Automated messa ge] The system which generated this result transmitted reference range: 10*3/?L. The reference range was not used to interpret this result as normal/abnormal. GRAN MAT (NEUT) % (test code = 770-8) 56.7 % IMM GRAN % (test code = 9588884639) 0.30 % LYMPH % (test code = 736-9) 32.2 % MONO % (test code = 5905-5) 7.6 % EOS % (test code = 713-8) 2.9 % BASO % (test code = 706-2) 0.3 % GRAN MAT x10^3(ANC) (test code = 5288134596) 1.94 10*3/uL 1.88-7.09 IMM GRAN x10^3 (test code = 4575979069) <0.03 0.00-0.06 LYMPH x10^3 (test code = 731-0) 1.10 10*3/uL 1.32-3.29 L MONO x10^3 (test code = 742-7) 0.26 10*3/uL 0.33-0.92 L EOS x10^3 (test code = 711-2) 0.10 10*3/uL 0.03-0.39 BASO x10^3 (test code = 704-7) <0.03 0.01-0.07 Lab Interpretation (test code = 79032-4) Abnormal [facility] METABOLIC PANEL (NA, K, CL, CO2, GLUCOSE, BUN, CREATININE, CA)2021-07-01 10:43:36* Test Item Value Reference Range Interpretation Comme nts NA (test code = 7302893286) 140 mmol/L 135-145 K (test code = 0456359653) 3.5 mmol/L 3.5-5.0 CL (test code = 4557256133) 109 mmol/L 98-108 H CO2 TOTAL (test code = 7793797461) 29 mmol/L 23-31 AGAP (test code = 8594137974) 2-16 BUN (test code = 4474606610) 5 mg/dL 7-23 L GLUCOSE (test code = 1189293555) 86 mg/dL 70-110 CREATININE (test code = 9252665427) 0.54 mg/dL 0.50-1.04 CALCIUM (test code = 4376534477) 7.8 mg/dL 8.6-10.6 L eGFR (test code = 0296109848) mL/min/1.73m2 GABE (test code = GABE) Association [...] imaging tests). Lab Interpretation (test code = 68409-6) [facility] 10:43:36* Test Item Value Reference Range Interpretation Comme nts MAGNESIUM (test code = 9361181259) 1.6 mg/dL 1.7-2.4 L Lab Interpretation (test cod e = 88239-2) Abnormal [facility] WITHOUT VVEY2504-03-67 05:52:30* Test Item Value Reference Range Interpretation [...] result as normal/abnormal. MPV (test code = 51356-8) 9.8 fL 9.5-12.9 RDW-CV (test code = 788-0) 22.7 % 12.0-15.5 H RDW-SD (test code = 36770-3) 53.1 fL 39.0-49.9 H NRBC x10^3 (test code = 1472373470) <0.01 See_Comment [Automated messa ge] The system which generated this result transmitted reference range: 10*3/?L. The reference range was not used to interpret this result as normal/abnormal. NRBC/100 WBC (test code = 8172107773) See_Comment [Automated [employer] ge] The system which generated this result transmitted reference range: 0.0 - 10.0 /100 WBCs. The reference range was not used to interpret this result as normal/abnormal. IPF % (test code = 9030402034) Lab Interpretation (test code = 95468-7) [facility] The Type [...] code = 20) B POSITIVE Performed at [facility] Laboratory Services - [facility] Blood [address] [address]Zyuf Free: [phone] No. [id number] IAT (test code = 1185) Negative Performed at [facility] Laboratory Services - [facility] Blood [address] [address]Byks Free: [phone] No. [id number] [facility] (NA, K, CL, CO2, GLUCOSE, BUN, CREATININE, CA)2021-07-01 01:09:19* Test Item Value Reference Range Interpretation Comme nts NA (test code = 5391928202) 140 mmol/L 135-145 K (test code = 8983765506) 3.5 mmol/L 3.5-5.0 CL (test code = 4896779062) 107 mmol/L 98-108 CO2 TOTAL (test code = 9981294717) 27 mmol/L 23-31 AGAP (test code = 1646461719) 2-16 BUN (test code = 5787373302) 9 mg/dL 7-23 GLUCOSE (test code = 7701130167) 108 mg/dL 70-110 CREATININE (test code = 9410533663) 0.57 mg/dL 0.50-1.04 CALCIUM (test code = 4681007330) 8.3 mg/dL 8.6-10.6 L eGFR (test code = 7512345838) mL/min/1.73m2 GABE (test code = GABE) Association [...] imaging tests). Lab Interpretation (test code = 18124-4) [facility]normal [facility] CenterProthrombin Time / [id number] 00:54:43* Test Item Value Reference Range Interpretation Comme [facility] PROTIME PATIENT (test code = 5964-2) See_Comment H [Automated [employer]] The system which generated this result transmitted reference range: 10.1 - 12.6 Seconds. The reference range was not used to interpret this result as normal/abnormal. INR (test code = 6301-6) Normal INR <1.1; Warfarin Therapeutic range 2.0 to 3.0 or 2.5 to 3.5, depending upon the indications. Lab Interpretation (test code = 20992-1) [facility]normal [facility]eraPTT[facility] 00:54:43* Test Item Value Reference Range Interpretation Comme [facility] APTT Patient (test code = 3173-2) See_Comment [Automated [employer]] The system which generated this result transmitted reference range: 26 - 36 Seconds. The reference range was not used to interpret this result as normal/abnormal. Lab Interpretation (test code = 50729-8) Normal [facility] / Apoyzdlr4243-67-91 00:51:17* Test Item Value Reference Range Interpretation Comme [facility] WBC (test code = 6690-2) See_Comment [...] result as normal/abnormal. MPV (test code = 93219-9) 9.6 fL 9.5-12.9 RDW-CV (test code = 788-0) 22.6 % 12.0-15.5 H RDW-SD (test code = 24570-1) 53.5 fL 39.0-49.9 H NRBC x10^3 (test code = 6948148123) <0.01 See_Comment [Automated messa ge] The system which generated this result transmitted reference range: 10*3/?L. The reference range was not used to interpret this result as normal/abnormal. NRBC/100 WBC (test code = 6197448085) See_Comment [Automated messa ge] The system which generated this result transmitted reference range: 0.0 - 10.0 /100 WBCs. The reference range was not used to interpret this result as normal/abnormal. IPF % (test code = 5266362039) Lab Interpretation (test code = 30753-9) [facility]normal [facility] - ONCE [id number] 22:13:13 * Test Item Value Reference Range Interpretation Comme nts ABO & RH (test code = 20) B Positive Performed at [facility] Laboratory Services - [facility] Blood [address] Free: [phone] No. [id number] IAT (test code = 1185) Negative Performed at [facility] Laboratory Services - [facility] Blood [place] [address]Toll Free: [phone] No. [id number] [facility] CenterCOMP. METABOLIC PANEL (93908)2021-06-30 20:50:04* Test Item Value Reference Range Interpretation Comme nts NA (test code = 8958995312) 138 mmol/L 135-145 K (test code = 6720020562) 4.5 mmol/L 3.5-5.0 CL (test code = 0118468442) 108 mmol/L 98-108 CO2 TOTAL (test code = 3531783843) 23 mmol/L 23-31 AGAP (test code = 9684961212) 2-16 BUN (test code = 4243994912) 11 mg/dL 7-23 GLUCOSE (test code = 4849185914) 92 mg/dL 70-110 CREATININE (test code = 0159380443) 0.53 mg/dL 0.50-1.04 TOTAL BILI (test code = 9690287251) 0.5 mg/dL 0.1-1.1 CALCIUM (test code = 0732276737) 8.4 mg/dL 8.6-10.6 L T PROTEIN (test code = 1436777074) 6.4 g/dL 6.3-8.2 ALBUMIN (test code = 2690295606) 3.5 g/dL 3.5-5.0 ALK PHOS (test code = 2258796139) 52 U/L 34-122 ALTv (test code = 1742-6) 17 U/L 5-35 AST(SGOT) (test code = 0478815440) 39 U/L 13-40 eGFR (test code = 8455421327) mL/min/1.73m2 GABE (test code = GABE) Association [...] imaging tests). Lab Interpretation (test code = 46938-7) Abnormal [facility] WITH [id number] 20:31:22* Test Item Value Reference Range Interpretation Comme nts WBC (test code = 6690-2) See_Comment [Automated [employer]] The system which generated this result transmitted reference range: 4.30 - 11.10 10*3/?L. The reference range was not used to interpret this result as normal/abnormal. RBC (test code = 789-8) See_Comment L [Automated [employer]] The system which generated this result transmitted [...] g/dL 31.6-35.1 L RDW-SD (test code = 87205-7) 53.4 fL 39.0-49.9 H RDW-CV (test code = 788-0) 22.9 % 12.0-15.5 H PLT (test code = 777-3) See_Comment [Automated [employer]] The system which generated this result transmitted reference range: 166 - 358 10*3/?L. The reference range was not used to interpret this result as normal/abnormal. MPV (test code = 73755-1) 10.1 fL 9.5-12.9 NRBC/100 WBC (test code = 4413355864) See_Comment [Automated me ssage] The system which generated this result transmitted reference range: 0.0 - 10.0 /100 WBCs. The reference range was not used to interpret this result as normal/abnormal. NRBC x10^3 (test code = 3130205364) <0.01 See_Comment [Automated messa ge] The system which generated this result transmitted reference range: 10*3/?L. The reference range was not used to interpret this result as normal/abnormal. GRAN MAT (NEUT) % (test code = 770-8) 64.7 % IMM GRAN % (test code = 0301948465) 0.20 % LYMPH % (test code = 736-9) 25.1 % MONO % (test code = 5905-5) 8.0 % EOS % (test code = 713-8) 1.8 % BASO % (test code = 706-2) 0.2 % GRAN MAT x10^3(ANC) (test code = 2905114453) 2.84 10*3/uL 1.88-7.09 IMM GRAN x10^3 (test code = 3528301346) <0.03 0.00-0.06 LYMPH x10^3 (test code = 731-0) 1.10 10*3/uL 1.32-3.29 L MONO x10^3 (test code = 742-7) 0.35 10*3/uL 0.33-0.92 EOS x10^3 (test code = 711-2) 0.08 10*3/uL 0.03-0.39 BASO x10^3 (test code = 704-7) <0.03 0.01-0.07 Lab Interpretation (test code = 32971-8) Abnormal [facility] CenterACETAMINOPHEN2021-03-31 22:14:03* Test Item Value Reference Range Interpretation Comme nts ACETAMINOP (test code = 8632815647) <10.0 10.0-30.0 L GABE (test code = GABE) Toxic: Greater ed n 200 ug/mL @ 4 hour post ingestion or greater than 50 ug/mL @ 12 hour post ingestion Lab Interpretation (test code = 83688-9) Abnormal [facility] CenterETHANOL2021-03-31 22:13:53* Test Item Value Reference Range Interpretation Comme nts ALCOHOL (test code = 5407705943) <10 mg/dL GABE (test code = GABE) <10 Cfcwvjpc45-881 Toxic>100 Depression of [employer]END[employer] WORKER HELPER>400 Fatalities Reported [facility] CenterSALICYLATE2021-03-31 22:12:51* Test Item Value Reference Range Interpretation Comme nts SALICYLATE (test code = 5058856001) <10 mg/L GABE (test code = GABE) Therapeutic Range: ? Analgesic and Antipyretic Use ? 20-100 mg/L ? ? Anti-Inflammatory Use ? 100-250 mg/L Toxic Range: ? Greater than 300 mg/L [facility] CenterTROPONIN [id number] 22:11:46* Test Item Value Reference Range Interpretation Comme nts TROPONIN I (test code = 6452971479) 0.000 ng/mL See_Comment [Automated message] The system [...] biotin. ? Lab Interpretation (test code = 04244-7) Normal [facility] CenterCOMP. METABOLIC PANEL (42013)2020-05-29 22:00:22* Test Item Value Reference Range Interpretation Comme nts NA (test code = 3632636410) 140 mmol/L 135-145 K (test code = 8279914730) 3.8 mmol/L 3.5-5.0 CL (test code = 1273837114) 103 mmol/L 98-108 CO2 TOTAL (test code = 4040250106) 30 mmol/L 23-31 AGAP (test code = 3547829449) 2-16 BUN (test code = 9151257172) 9 mg/dL 7-23 GLUCOSE (test code = 8587878676) 93 mg/dL 70-110 CREATININE (test code = 8947607230) 0.68 mg/dL 0.50-1.04 TOTAL BILI (test code = 9503331043) 0.3 mg/dL 0.1-1.1 CALCIUM (test code = 3223287144) 9.2 mg/dL 8.6-10.6 T PROTEIN (test code = 6964982948) 7.3 g/dL 6.3-8.2 ALBUMIN (test code = 7406326198) 4.3 g/dL 3.5-5.0 ALK PHOS (test code = 5732574528) 71 U/L 34-122 ALTv (test code = 1742-6) 11 U/L 5-35 AST(SGOT) (test code = 9861510293) 30 U/L 13-40 eGFR Calculation (Non-) (test code = 1115178743) mL/min/1.73m2 eGFR Calculation () (test code = 5517232456) mL/min/1.73m2 GABE (test code = GABE) Association [...] or urine or abnormalities in imaging tests). [facility] CenterN-TERMINAL SVA-GRW5513-91-31 21:56:39* Test Item Value Reference Range Interpretation Comme nts NT-proBNP (test code = 5903179929) 38 pg/mL See_Comment [Automated message] The system which generated this result transmitted reference range: <=125. The reference range was not used to interpret this result as normal/abnormal. GABE (test code = GABE) Biotin has been reported to cause a negative bias, interpret results relative to patient's use of biotin. Lab Interpretation (test code = 24880-1) Normal [facility] CenterCOVID-19 (ID NOW RAPID TESTING)2020-05-29 21:39:48* Test Item Value Reference Range Interpretation Comme nts SARS-CoV-2 Rapid ID NOW (test code = 78348-5) Not Detected Not Detected GABE (test code = GABE) ID NOW COVID-19 As say is an isothermal nucleic acid amplification test intended for the qualitative detection of nucleic acid from SARS-CoV-2 viral RNA in nasopharyngeal (SPECIAL NEEDS NANNY) specimens. It is used under Emergency Use [...] clinically indicated. Lab Interpretation (test code = 90386-8) Normal [facility] CenterACTIVATED PARTIAL THRMPLAS [id number] 21:28:06* Test Item Value Reference Range Interpretation Comme [facility] APTT Patient (test code = 3173-2) See_Comment [Automated message] The system which generated this result transmitted reference range: 23 - 38 Seconds. The reference range was not used to interpret this result as normal/abnormal. GABE (test code = GABE) The [facility] patient population mean normal value for aPTT is 30 seconds. Lab Interpretation (test code = 79354-7) Normal [facility] CenterPROTHROMBIN TIME / [id number] 21:26:04* Test Item Value Reference Range Interpretation Comme [facility] PROTIME PATIENT (test code = 5964-2) See_Comment [Automated messa ge] The system which generated this result transmitted reference range: 12.0 - 14.7 Seconds. The reference range was not used to interpret this result as normal/abnormal. INR (test code = 6301-6) Normal INR <1.1; Warfarin Therapeutic range 2.0 to 3.0 or 2.5 to 3.5, depending upon the indications. Lab Interpretation (test code = 08238-1) Normal [facility] CenterADC / C - DRUG SCREEN [id number] 21:25:53* Test Item Value Reference Range Interpretation Comme nts BENZO U (test code = 9564361444) Negative Negative SIGIFREDO U (test code = 7984079897) Negative Negative AMPHET (test code = 7012241301) Negative Negative THC (test code = 0273551066) Negative Negative METHADONE (test code = 6208316100) Negative Negative Meth U (test code = 4532149598) Negative Negative OPIATES (test code = 6907072475) Negative Negative Cocaine Metabolite (test code = 8927191506) Negative Negative PROPOXY (test code = 0528381459) Negative Negative Tric U (test code = 4336632285) Negative Negative PCP (test code = 9307360897) Negative Negative OXYCOD (test code = 6200805833) Negative Negative GABE (test code = GABE) [...] legal testing). Lab Interpretation (test code = 68316-0) Normal [facility] WITH KHJD2789-10-17 21:17:01* Test Item Value Reference Range Interpretation Comme nts WBC (test code = 6690-2) See_Comment [Automated [employer]] The system which generated this result transmitted reference range: 4.30 - 11.10 10*3/?L. The reference range was not used to interpret this result as normal/abnormal. RBC (test code = 789-8) See_Comment [Automated [employer]] The system which generated this result transmitted [...] 31.9 g/dL 31.6-35.1 RDW-SD (test code = 06556-0) 37.8 fL 39.0-49.9 L RDW-CV (test code = 788-0) 14.7 % 12.0-15.5 PLT (test code = 777-3) See_Comment [Automated messa ge] The system which generated this result transmitted reference range: 166 - 358 10*3/?L. The reference range was not used to interpret this result as normal/abnormal. MPV (test code = 02161-7) 10.2 fL 9.5-12.9 NRBC/100 WBC (test code = 8501921299) See_Comment [Automated [employer] ssage] The system which generated this result transmitted reference range: 0.0 - 10.0 /100 WBCs. The reference range was not used to interpret this result as normal/abnormal. NRBC x10^3 (test code = 6710218706) <0.01 See_Comment [Automated messa ge] The system which generated this result transmitted reference range: 10*3/?L. The reference range was not used to interpret this result as normal/abnormal. GRAN MAT (NEUT) % (test code = 770-8) 63.9 % IMM GRAN % (test code = 1151989536) 0.20 % LYMPH % (test code = 736-9) 26.7 % MONO % (test code = 5905-5) 6.6 % EOS % (test code = 713-8) 2.1 % BASO % (test code = 706-2) 0.5 % GRAN MAT x10^3(ANC) (test code = 6081480467) 2.81 10*3/uL 1.88-7.09 IMM GRAN x10^3 (test code = 3248241822) <0.03 0.00-0.06 LYMPH x10^3 (test code = 731-0) 1.17 10*3/uL 1.32-3.29 L MONO x10^3 (test code = 742-7) 0.29 10*3/uL 0.33-0.92 L EOS x10^3 (test code = 711-2) 0.09 10*3/uL 0.03-0.39 BASO x10^3 (test code = 704-7) <0.03 0.01-0.07 Lab Interpretation (test code = 49485-4) Abnormal [facility] CenterPOCT [id number] 21:05:00* Test Item Value Reference Range Interpretation Comme nts POCT PREG (test code = 1605) negative On board controls acceptable with C Line (test code = 3574) present POCT PREG LOT # (test code = 3575) [id number] POCT PREG TEST DATE ( test code = 3576) 01/28/22 Lab Interpretation (test cod e = 85445-8) Normal [facility] CenterXR CHEST 1 [id number] 20:35:59HISTORY: Chest pain. TECHNIQUE: Portable AP view [...] etiology but could be viral infection. Please correlate.Njmb, Radiant Results Inft User - 05/29/2020 3:37 [...] etiology but could be viral infection. Please correlate.[facility] CenterSars-CoV-2/FLU A/B RSV [id number] 11:39:00* Test Item Value Reference Range Interpretation [...] Negative by PCR Complete Blood Count Auto [id number] 11:35:00* Test Item Value Reference Range Interpretation [...] code = NRBCP) 0 % Comprehensive Metabolic [id number] 11:35:00* Test Item Value Reference Range Interpretation [...] = ALP) 72 U/L 46-116 N RPR [id number] 12:23:19* Test Item Value Reference Range Interpretation [...] = Expiration Dt) 02-29-20 N Thyroid Stimulating [id number] 04:43:39* Test Item Value Reference Range Interpretation Comme nts TSH (test code = TSH) 0.488 mIU/mL 0.270-4.200 Lipid [id number] 04:37:33* Test Item Value Reference Range Interpretation Comme nts Cholesterol Total (test code = Cholesterol Total) 120 mg/dL 0-200 RISK OF HEART DISEASEPublished by [place] [employer] Association Analyte Optimal Borderline Increased RiskCHOL [...] this calculation is LDL/HDL Ratio=LDL Calc/HDL Chol [id number] 17:30:21* Test Item Value Reference Range Interpretation [...] = Plt Estimation) Normal Normal Comprehensive Metabolic [id number] 16:33:31* Test Item Value Reference Range Interpretation [...] = A/G Ratio) 1.6 ratio N Alcohol [id number] 16:33:31* Test Item Value Reference Range Interpretation Comme nts Ethanol Level (test code = Ethanol Level) <0.00 g/dL 0.00-0.01 Intoxicated 0.08 0 g/dL or more Ethanol Inst (test code = Ethanol Inst) <0 N Comprehensive Metabolic [id number] 16:33:31* Test Item Value Reference Range Interpretation [...] is not provided, and the patient is -Trinid[place], multiply by 1.212. If sex is not [...] the National Kidney Foundation, http://nkdep.nih.gov Comprehensive Metabolic [id number] 16:33:31* Test Item Value Reference Range Interpretation [...] is not provided, and the patient is -Trinid[place], multiply by 1.212. If sex is not [...] is not provided, and the patient is -Trinidadian, multiply by 1.212. If sex is not [...] the National Kidney Foundation, http://nkdep.nih.gov Beta HCG [id number] 16:33:22* Test Item Value Reference Range Interpretation Comme nts HCG, Beta Quantitative (test code = HCG, Beta Quantitative) <0.50 mIU/mL N Weeks of Gestati on Ranges (mIu/mL)3 weeks 5.40-72.04 weeks 10.2-7085 weeks 217-11965 weeks 152-170765 weeks 4059-6466901 weeks 51046-7187837 weeks 48147-72042841 weeks 37905-23829091 weeks 20226-43054899 weeks 67584-4700717 weeks 15376-6237016 weeks 1704-7146581 weeks 8240-7250508 weeks 9649-32030 IG [id number] 15:56:13* Test Item Value Reference Range Interpretation Comme nts IG (test code = IG) 0.1 % 0.0-5.0 IG Abs (test code = IG Abs) 0 x10 N Complete Blood Count with [id number] 15:56:12* Test Item Value Reference Range Interpretation [...] code = IPF) 0 % N Automated [id number] 15:56:12* Test Item Value Reference Range Interpretation Comme nts Neutro Auto (test code = Jeremy tro Auto) 75.5 % 36.0-70.0 H Lymph Auto (test code = Lymph Auto) 19.1 % 12.0-44.0 [place] Auto (test code = [place] Auto) 3.6 % 0.0-11.0 Eos, Auto (test code = Eos, Auto) 1.3 % 0.0-7.0 Basophil Auto (test code = B asophil Auto) 0.4 % 0.0-2.0 Neutro Absolute (test code = Neutro Absolute) 5.7 x10 1.6-7.4 Lymph Absolute (test code = Lymph Absolute) 1.45 x10 .50-4.60 [place] Absolute (test code = M michael Absolute) .27 x10 .00-1.20 Eos Absolute (test code = Eo s Absolute) 0.10 x10 0.00-0.74 Baso Absolute (test code = B aso Absolute) 0.03 x10 0.00-0.21 RPR, [id number] 20:27:00* Test Item Value Reference Range Interpretation Comme nts RPR (test code = RPR) Non-Reactive Non-Reactive N Lipid [id number] 08:20:00* Test Item Value Reference Range Interpretation Comme nts Cholesterol (test code = CHOL) 116 mg/dL 0-200 N Triglycerides (test code = TRIG) 107 mg/dL 9-200 N HDL (test code = HDL) 33 mg/dL 50-60 L Chol/HDL (test code = CHOLPHDL) 3.5 Ratio 0.0-4.4 N LDL, Calculated (test code = LDLC) 62 0-130 N (NOTE)RISK OF HEART DISEASEPublished by Trinidadian Heart AssociationAnalyte Optimal Boderline Increased RiskCHOL <200 [...] TSH) 1.96 mIU/mL 0.270-4.200 N BHCG, Serum, [id number] 08:04:00* Test Item Value Reference Range Interpretation Comme nts Preg Qual [Se] (test code = BSHCG) Negative Negative N Thyroid Stimulating Hormone (TSH)2016-08-18 21:10:00* Test Item Value Reference Range Interpretation Comme nts TSH (test code = TSH) 2.02 mIU/mL 0.270-4.200 N RPR, [id number] 18:14:00* Test Item Value Reference Range Interpretation Comme nts RPR (test code = RPR) Non-Reactive Non-Reactive N BHCG, Serum, [id number] 14:56:00* Test Item Value Reference Range Interpretation Comme nts Preg Qual [Se] (test code = BSHCG) Negative Negative N Urinalysis [id number] 11:10:00* Test Item Value Reference Range Interpretation Comme nts Color (test code = COLOR) Yellow Yellow,Straw,Pl yellow N Clarity (test code = CLAR) Sl Cloudy Clear A Specific [place] (test code = SPGR) 1.030 1.001-1.035 N [...] Bacteria (test code = BACT) Few /HPF [id number] 10:48:00* Test Item Value Reference Range Interpretation [...] code = THC) Negative Negative N Alcohol/Ethanol, [id number] 10:25:00* Test Item Value Reference Range Interpretation Comme nts Alcohol, Ethyl (test code = ETOH) <0.01 g/dL 0.00-0.01 N Intoxicated 0 .080 g/dL or more Comprehensive Metabolic [id number] 10:25:00* Test Item Value Reference Range Interpretation [...] race is not provided, and the patient isAfrican-Trinidadian, multiply by 1.212. If sex is not [...] the National Kidney Foundation,http://nkdep .nih.gov CBC with [id number] 10:16:00*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
--- NOTE | 2024-01-01 00:52 | ER ---
Nurse's Notes [facility] Name: Georgette Patel Age: 38 yrs Sex: Female : 1985 Arrival Date: 01/01/2024 Time: 00:04 Bed 16 Private MD: Diagnosis: UTI/ Urinary tract infection, site not specified;Schizophrenia, unspecified;Homelessness Presentation: 12/31 00:18 Chief complaint: Patient states: PT STATES SHE IS HERE FOR A CHECK UP TO GET BACK ON br2 HER HALDOL. PT DENIES PAIN OR ANY OTHER SYMPTOMS. Coronavirus screen: Client denies travel out of the [place] in the last 14 days. Ebola Screen: Patient denies travel to an Ebola-affected area in the 21 days before illness onset. Initial Sepsis Screen: Does the patient meet any 2 criteria? No. Patient's initial sepsis screen is negative. Does the patient have a suspected source of infection? No. Patient's initial sepsis screen is negative. Risk Assessment: Do you want to hurt yourself or someone else? Patient reports no desire to harm self or others. Onset of symptoms is unknown. 00:18 Method Of Arrival: EMS: [facility] br2 00:18 Acuity: GILES 3 br2 Triage Assessment: 00:42 General: Appears comfortable, slender, unkempt, Behavior is calm, cooperative. Pain: br2 Denies pain. EENT: No signs and/or symptoms were reported regarding the EENT system. Neuro: Alexandre Agitation-Sedation Scale (RASS): 0 - Alert and Calm Level of Consciousness is awake, alert, obeys commands, Oriented to person, place, time, situation. Cardiovascular: Capillary refill < 3 seconds. Respiratory: Airway is patent Respiratory effort is even, unlabored, Respiratory pattern is regular, symmetrical. GI: Abdomen is flat. : No signs and/or symptoms were reported regarding the genitourinary system. Derm: No signs and/or symptoms reported regarding the dermatologic system. Musculoskeletal: No signs and/or symptoms reported regarding the musculoskeletal system. Circulation, motion, and sensation intact. Capillary refill < 3 seconds, Range of motion: intact in all extremities. CERTIFIED NURSE OPERATING ROOM: 00:42 LMP N/A - Irregular menses, Not br2 Historical: - Allergies: 00:18 Hydrocodone-Acetaminophen; br2 - PMHx: 00:42 Anxiety; Bipolar disorder; Depression; PTSD; Schizophrenia; br2 - Immunization history:: Adult Immunizations not up to date. - Infectious Disease History:: Denies. - Social history:: Smoking status: Patient reports the use of cigarette tobacco products, smokes one-half pack cigarettes per day, Patient uses alcohol, occasionally. street drugs, cocaine, marijuana, Methamphetamine (Meth). - Family history:: not pertinent. Screenin:18 [facility] ED Fall Risk Assessment (Adult) History of falling in the last 3 months, br2 including since admission No falls in past 3 months (0 pts) Confusion or Disorientation No (0 pts) Intoxicated or Sedated No (0 pts) Impaired Gait No (0 pts) Mobility Assist Device Used No (0 pt) Altered Elimination No (0 pt) Score/Fall Risk Level 0 - 2 = Low Risk Oriented to surroundings. Abuse screen: Denies threats or abuse. Denies injuries from another. Nutritional screening: No deficits noted. Tuberculosis screening: No symptoms or risk factors identified. Assessment: 01:18 Reassessment: No changes from previously documented assessment. SEE TRIAGE ASSESSMENT. br2 01:45 Reassessment: PT REMAINS IN BED AFTER BEING DISCHARGED. PT STATES SHE ISN'T LEAVING br YET. SECURITY NOTIFIED ALONG WITH CHARGE NURSE - GALI. 02:00 Reassessment: Reassessment: PT REMAINS IN BED AND STATES SHE ISN'T LEAVING UNTIL 7AM. br2 02:30 Reassessment: [place] [employer] AT BEDSIDE, AND PT HAS AGREED TO LEAVE WITH PD. THEY ARE [facility] GIVING HER A RIDE TO HER GRANDMOTHERS. Psych: 02:30 [place] Suicide Severity Screening: In the past month, have you wished you were ha1 or wished you could go to sleep and not wake up? Patient responds "No." "In the past month, have you actually had any thoughts of killing yourself?" Patient responds "no." "In your lifetime, have you ever done anything, started to do anything, or prepared to do anything to end your life?" Patient responds "no.". Vital Signs: 00:18 BP 113 / 79; Pulse 92; Resp 18 S; Temp 98.7(TE); Pulse Ox 100% on R/A; Weight 68.04 kg; br2 Height 4 ft. 11 in. ; Pain 0/10; 01:33 BP 129 / 92; Pulse 94; Resp 18 S; Temp 97.2; Pulse Ox 100% on R/A; br2 00:18 Body Mass Index 30.30 (68.04 kg, 149.86 cm) br2 00:18 Pain Scale: Adult br2 ED Course: 00:10 Patient arrived in ED. jj6 00:16 Jon Hanna MD is Attending Physician. brendan 00:39 Monique Brennan, MISHA is Primary Nurse. br2 00:42 Triage completed. br2 00:42 Arm band placed on right wrist. br2 00:49 Acetaminophen Sent. af3 00:49 Basic Metabolic Panel Sent. af3 00:49 CBC with Diff Sent. af3 00:49 ETOH Level Sent. af3 00:49 Hepatic Function Sent. af3 00:49 PT-INR Sent. af3 00:49 Ptt, Activated Sent. af3 00:49 Salicylate Sent. af3 00:50 Chris Valenzuela MD is Referral Physician. brendan 00:50 Inserted saline lock: 20 gauge in left antecubital area, using aseptic technique. Blood af3 collected. Flushed with 10 mL NS. 01:05 EKG done, by geotechnicial properties technician. af3 01:18 Patient has correct armband on for positive identification. Call light in reach. Side br2 rails up X 1. Provided Education on: PLAN OF CARE. 01:25 IV discontinued, intact, bleeding controlled, No redness/swelling at site. Pressure br2 dressing applied. 01:30 No provider procedures requiring assistance completed. br2 Administered Medications: 01:00 Drug: NS 0.9% IV 1000 ml IV at 1000 ml once; to be given as a bolus over 60 minutes br2 Route: IV; Rate: 1000 ml; Site: left antecubital; 01:33 Follow up: Response: No adverse reaction; IV Status: Completed infusion; IV Intake: br2 1000ml Medication: 01:18 VIS not applicable for this client. br2 Intake: :33 IV: 1000ml; Total: 1000ml. br2 Outcome: :25 Discharge ordered by . br2 01:25 Discharged to home ambulatory, br2 01:25 Condition: good :25 Discharge instructions given to patient, Instructed on discharge instructions, follow up and referral plans. Demonstrated understanding of instructions, follow-up care, Prescriptions given X 1, 02:31 Patient left the ED. br2 Signatures: Jon Hanna MD MD cha Jeffries, Jennifer jj6 Kiley Cowan RN RN ha1 Monique Brennan RN RN br2 Chelsy Norris af3 Corrections: (The following items were deleted from the chart) 02:17 00:51 Discharge ordered by MD. cardona br2 02:29 02:27 Reassessment: PT REMAINS IN BED AFTER BEING DISCHARGED. PT STATES SHE ISN'T br2 LEAVING YET. br2
--- NOTE | 2024-01-01 00:52 | EDPHYS ---
Physician Documentation [facility] Name: Georgette Patel Age: 38 yrs Sex: Female : 1985 Arrival Date: 01/01/2024 Time: 00:04 Bed 16 Private MD: ED Physician Jon Hanna HPI: 12/31 00:46 This 38 yrs old Black Female presents to ER via EMS with complaints of homeless, brendan schizo, uti. 00:46 The patient presents to the emergency department with homeless. Onset: The brendan symptoms/episode began/occurred at an unknown time. Past psychiatric history: Prior diagnosis: schizophrenia. Associated signs and symptoms: The patient has no apparent associated signs or symptoms. Severity of symptoms: At their worst the symptoms were mild in the emergency department the symptoms are unchanged. The patient has experienced similar episodes in the past, multiple times. 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 - Infectious Disease History:: Denies. - Social history:: Smoking status: Patient reports the use of cigarette tobacco products, smokes one-half pack cigarettes per day, Patient uses alcohol, occasionally. street drugs, cocaine, marijuana, Methamphetamine (Meth). - Family history:: not pertinent. ROS: 00:46 Constitutional: Negative for fever, chills, and weight loss, Eyes: Negative for injury, brendan pain, redness, and discharge, ENT: Negative for injury, pain, and discharge, Neck: Negative for injury, pain, and swelling, Cardiovascular: Negative for chest pain, palpitations, and edema, Respiratory: Negative for shortness of breath, cough, wheezing, and pleuritic chest pain, Abdomen/GI: Negative for abdominal pain, nausea, vomiting, diarrhea, and constipation, Back: Negative for injury and pain, : Negative for injury, bleeding, discharge, and swelling, MS/Extremity: Negative for injury and deformity, Skin: Negative for injury, rash, and discoloration, Neuro: Negative for headache, weakness, numbness, tingling, and seizure, Psych: Negative for depression, anxiety, suicide ideation, homicidal ideation, and hallucinations, Allergy/Immunology: Negative for hives, rash, and allergies, Endocrine: Negative for neck swelling, polydipsia, polyuria, polyphagia, and marked weight changes, Hematologic/Lymphatic: Negative for swollen nodes, abnormal bleeding, and unusual bruising, Exam: 00:46 Constitutional: This is a well developed, well nourished patient who is awake, alert, brendan and in no acute distress. Head/Face: Normocephalic, atraumatic. Eyes: Pupils equal round and reactive to light, extra-ocular motions intact. Lids and lashes normal. Conjunctiva and sclera are non-icteric and not injected. Cornea within normal limits. Periorbital areas with no swelling, redness, or edema. ENT: Nares patent. No nasal discharge, no septal abnormalities noted. Tympanic membranes are normal and external auditory canals are clear. Oropharynx with no redness, swelling, or masses, exudates, or evidence of obstruction, uvula midline. Mucous membranes moist. Neck: Trachea midline, no thyromegaly or masses palpated, and no cervical lymphadenopathy. Supple, full range of motion without nuchal rigidity, or vertebral point tenderness. No Meningismus. Chest/axilla: Normal chest wall appearance and motion. Nontender with no deformity. No lesions are appreciated. Cardiovascular: Regular rate and rhythm with a normal S1 and S2. No gallops, murmurs, or rubs. Normal PMI, no JVD. No pulse deficits. Respiratory: Lungs have equal breath sounds bilaterally, clear to auscultation and percussion. No rales, rhonchi or wheezes noted. No increased work of breathing, no retractions or nasal flaring. Abdomen/GI: Soft, non-tender, with normal bowel sounds. No distension or tympany. No guarding or rebound. No evidence of tenderness throughout. Back: No spinal tenderness. No costovertebral tenderness. Full range of motion. Skin: Warm, dry with normal turgor. Normal color with no rashes, no lesions, and no evidence of cellulitis. MS/ Extremity: Pulses equal, no cyanosis. Neurovascular intact. Full, normal range of motion. Neuro: Awake and alert, GCS 15, oriented to person, place, time, and situation. Cranial nerves II-XII grossly intact. Motor strength 5/5 in all extremities. Sensory grossly intact. Cerebellar exam normal. Normal gait. Psych: Awake, alert, with orientation to person, place and time. Behavior, mood, and affect are within normal limits. 01:07 ECG was reviewed by the Attending Physician. [facility] Vital Signs: 00:18 BP 113 / 79; Pulse 92; Resp 18 S; Temp 98.7(TE); Pulse Ox 100% on R/A; Weight 68.04 kg; br2 Height 4 ft. 11 in. ; Pain 0/10; 01:33 BP 129 / 92; Pulse 94; Resp 18 S; Temp 97.2; Pulse Ox 100% on R/A; br2 00:18 Body Mass Index 30.30 (68.04 kg, 149.86 cm) br2 00:18 Pain Scale: Adult br2 MDM: 00:16 Medical Screening Exam initiated brendan 00:49 Differential diagnosis: drug withdrawal. acute psychotic break, depression, psychosis brendan secondary to non-compliance. Data reviewed: vital signs, nurses notes, lab test result(s). Consideration of Admission/Observation Escalation of care including admission/observation considered. I considered the following discharge prescriptions or medication management in the emergency department Medications were administered in the Emergency Department. See MAR. Test considered but Not performed: Other Details reviewed all previous labs. Care significantly affected by the following chronic conditions: anxiety, bipolar, depression, ptsd, schizo. 00:52 ED course: pt not suicidal , not homicidal, alert and oriented x 4, needs meds , gets brendan at [facility], will go Wednesday, and will fill last script from earlier tonight. 12/31 00:17 Order name: Acetaminophen [facility] 12/31 00:17 Order name: Basic Metabolic Panel [facility] 12/31 00:17 Order name: CBC with Diff [facility] 01/01 00:17 Order name: ETOH Level [facility] 12/31 00:17 Order name: Hepatic Function [facility] 01/01 00:17 Order name: PT-INR [facility] 01/01 00:17 Order name: Ptt, Activated [facility] 01/01 00:17 Order name: Salicylate [facility] 12/31 00:17 Order name: EKG; Complete Time: 00:18 [facility] 12/31 00:17 Order name: EKG - Nurse/Tech; Complete Time: 01:00 [facility] 12/31 00:17 Order name: IV Saline Lock; Complete Time: 00:49 [facility] 12/31 00:17 Order name: Labs collected and sent; Complete Time: 00:49 [facility] EC:07 Rate is 86 beats/min. Rhythm is regular. QRS Malin is Normal. SC interval is normal. QRS brendan interval is normal. QT interval is normal. No Q waves. T waves are Normal. No ST changes noted. Clinical impression: Normal ECG and No evidence of ischemia. Interpreted by me. Reviewed by me. Administered Medications: 01:00 Drug: NS 0.9% IV 1000 ml IV at 1000 ml once; to be given as a bolus over 60 minutes br2 Route: IV; Rate: 1000 ml; Site: left antecubital; 01:33 Follow up: Response: No adverse reaction; IV Status: Completed infusion; IV Intake: br2 1000ml Disposition Summary: 01/01/24 00:51 Discharge Ordered Notes: Location: Home brendan Problem: new brendan Symptoms: have improved brendan Condition: Stable brendan Diagnosis - UTI/ Urinary tract infection, site not specified brendan - Schizophrenia, unspecified brendan - Homelessness brendan Followup: brendan - With: Private Physician - When: 2 - 3 days - Reason: Recheck today's complaints, Continuance of care, Re-evaluation by your physician Followup: brendan - With: Chris Valenzuela MD - When: 2 - 3 days - Reason: Recheck today's complaints, Re-evaluation by your physician Discharge Instructions: - Discharge Summary Sheet brendan - Schizophrenia brendan - Urinary Tract Infection, Adult brendan - Urinary Tract Infection, Adult, [id number] brendan - Supporting Someone With Schizophrenia brendan - Managing Schizophrenia brendan Forms: - Medication Reconciliation Form brendan - Antibiotic Education brendan - Prescription Opioid Use brendan - Patient Portal Instructions [facility] - Leadership Thank You Letter [facility] Prescriptions: - Bactrim DS 800-160 mg Oral Tablet - take 1 tablet ORAL route every 12 hours for 7 days; 14 tablet; Refills: 0, brendan Product Selection Permitted Signatures: Dispatcher [employer] EDJon Tran MD MD cha Riddle, Belinda RN RN br2 Corrections: (The following items were deleted from the chart) 00:18 00:18 ACETAMINOPHEN+C.LAB.BRZ ordered. EDMS EDMS 00:18 00:18 BASIC METABOLIC PANEL+C.LAB.BRZ ordered. EDMS EDMS 00:18 00:18 CBC+H.LAB.BRZ ordered. EDMS EDMS 00:18 00:18 ETHANOL+C.LAB.BRZ ordered. EDMS EDMS 00:18 00:18 HEPATIC FUNCTION+C.LAB.BRZ ordered. EDMS EDMS 00: 00:18 PROTIME (+INR)+COAG.LAB.BRZ ordered. EDMS EDMS 00:18 00:18 Test, Urine+UC.LAB.BRZ ordered. EDMS EDMS 00: 00:18 PTT, ACTIVATED+COAG.LAB.BRZ ordered. EDMS EDMS 00: 00:18 SALICYLATE+C.LAB.BRZ ordered. EDMS EDMS 00: 00:18 Urinalysis+U.LAB.BRZ ordered. EDMS EDMS 00:18 00:18 URINE DRUG SCREEN+UC.LAB.BRZ ordered. EDMS EDMS
[2024-01-01] MEDS ORDERED: NA CHLORIDE 0.9% 1,000 ML ONE (00:54)
[2024-01-01 01:08] LABS: PT Prothrombin Time 12.5 SECONDS (9.4-12.5); PTT, Activated Partial Thromb 30.5 SECONDS (24.3-36.9); Protime INR 1.12
[2024-01-01 01:13] LABS: Absolute Eosinophils 0.1 K/uL (0-0.5); Absolute Lymphocytes (CBC) 1.4 K/uL (0.7-4.9); Absolute Monocytes 0.4 K/uL (0.1-1.3); Absolute Neutrophil 3.8 K/uL (1.8-8.0); Basophils % 0.5 % (0-1.3); Eosinophils % 1.5 % (0-4.4); Hematocrit 25.7 % (36.0-45.0); Hemoglobin 8.1 g/dL (12.0-15.0); Lymphocytes % 24.9 % (15.3-44.8); MCHC 31.5 g/dL (32.0-36.0); MCV 63.3 fL (80-100); MPV 8.1 fL (7.6-11.3); Monocytes % 6.5 % (3.3-12.3); Neutrophils % 66.6 % (41.7-73.7); Platelets 380 thou/uL (152-406); RBC Red Blood Cell Count 4.06 M/uL (3.86-4.86); Red Cell Distribution Width 19.5 % (12.1-15.2)
[2024-01-01 01:24] LABS: ALT/SGPT 15 U/L (13-56); AST/SGOT 14 U/L (15-37); Albumin/Globulin Ratio 0.8 (1.1-1.8); Alkaline Phosphatase 66 U/L (45-117); Anion Gap 6.5 mEq/L (5.0-15.0); BUN Blood Urea Nitrogen 10 mg/dL (7-18); Bicarbonate 27 mEq/L (21-32); Bilirubin Direct < 0.2 mg/dL (0-0.2); Bilirubin Total 0.2 mg/dL (0.2-1.0); Glomerular Filtration Rate 110 ml/min (=/>90); Glucose Level 109 mg/dL (74-106); Potassium 3.5 mEq/L (3.5-5.1); Sodium Level 139 mEq/L (136-145)
[2024-01-01 03:35] VITALS: BP 113/79; TEMP 98.7; O2SAT 100
--- NOTE | 2024-01-03 12:17 | EKG ---
Test Date: 2024-01-01 Test Time: 01:00:40 Washer Off: JOSE MEASUREMENT RESULTS: Intervals: Rate: 87 ID: [id number] QRSD: 78 QT: 392 QTc: 471 [place]: P: 76 ID: [id number] QRS: 76 T: 68 INTERPRETIVE STATEMENTS: Normal sinus rhythm Normal ECG Compared to ECG 12/31/2023 16:33:41 No significant changes Electronically Signed On 01-03-24 12:15:41 NUR[employer]ES[employer] EXECUTIVE DIRECTOR by Adam Coon
--- NOTE | 2024-01-04 12:26 | EKG ---
Test Date: 2024-01-01 Test Time: 01:01:49 Burner Technician: AF MEASUREMENT RESULTS: Intervals: Rate: 86 ID: [id number] QRSD: 82 QT: 398 QTc: 476 [place]: P: 63 ID: [id number] QRS: 73 T: 70 INTERPRETIVE STATEMENTS: Normal sinus rhythm Normal ECG Compared to ECG 01/01/2024 01:00:40 No significant changes Electronically Signed On 01-04-24 12:19:14 WINDOWS ADMIN by Adam Coon
== END 2024-01-01 02:31 | disposition home or self-care (01) ==
LOC: ER 00:04
DX: N39.0 Urinary tract infection, site not specified (principal); F20.9 Schizophrenia, unspecified; Z59.00 Homelessness unspecified
CPT/HCPCS: 36415; 80048; 80076; 80143; 80179; 82077; 85025; 85610; 85730; 93005; 96360; 99284; J7030